=== PATIENT | female | born 1940 | race African-American/Black ===

== ENCOUNTER 2017-12-22 10:31 | Emergency (ER) | payer MEDICARE ==
[2017-12-22 10:54] VITALS: BP 153/90
--- NOTE | 2017-12-22 11:19 | UC ---
Lower Extremity/Ankle HPI - HPI Summary HPI Summary: Pt presents accompanied by her daughter complaining of left ankle pain and swelling since yesterday. She denies specific injury, but daughter tells me that she has dementia and wouldn't remember if she fell or injured herself anyway. She has not taken anything for the pain. She is able to ambulate without assistance. Denies numbness, tingling, or hx of injury at site. 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 Onset/Duration: Sudden Onset Severity Initially: Severe Severity Currently: Severe Pain Intensity: 10 Pain Scale Used: 0-10 Numeric - Allergies/Home Medications Allergies/Adverse Reactions: Allergies Allergy/AdvReac Type Severity Reaction Status Date / Time No Known Allergies Allergy Verified 12/22/17 10:49 Home Medications: Home Medications Pantoprazole TAB (NF) [Protonix TAB (NF)] 40 mg PO DAILY 12/22/17 [History Confirmed 12/22/17] Polyethylene Glycol 3350* [Miralax*] 1 gm PO DAILY 12/22/17 [History Confirmed 12/22/17] Rosuvastatin (NF) [Crestor (NF)] 1 tab PO DAILY 12/22/17 [History Confirmed ] Sucralfate TAB* [Carafate*] 1 tab PO TID PRN 12/22/17 [History Confirmed ] Verapamil HCl [Verapamil HCl ER] 360 mg PO DAILY 12/22/17 [History Confirmed ] PMH/Surg Hx/FS Hx/Imm Hx Endocrine History: Dyslipidemia Cardiovascular History: Cardiac Disease, Hypertension GI/ History: Gastroesophageal Reflux Psychological History: Anxiety, Other Other Psychological History: Dementia - Surgical History Surgical History: Yes Surgery Procedure, Year, and Place: left breast lumpectomy, tubal ligation, varicose vein stripping,. cardiac - leaky valve repair - Family History Known Family History: Positive: Unknown Negative: Cardiac Disease, Hypertension, Diabetes Family History: Denies FHx colon CA - Social History Occupation: Retired Lives: With Family Alcohol Use: None Substance Use Type: None Smoking Status (MU): Never Smoked Tobacco - Immunization History Most Recent Influenza Vaccination: Fall 2016 Review of Systems Constitutional: Negative Skin: Bruising - Left ankle Respiratory: Negative Cardiovascular: Negative Musculoskeletal: Edema - Left ankle, Other: - Pain left ankle All Other Systems Reviewed And Are Negative: Yes Physical Exam Triage Information Reviewed: Yes Appearance: Well-Appearing, No Pain Distress, Well-Nourished Vital Signs: Initial Vital Signs Temp 98.2 F 12/22/17 10:42 Pulse 70 12/22/17 10:42 Resp 16 12/22/17 10:42 BP 153/90 12/22/17 10:42 Pulse Ox 100 12/22/17 10:42 Vital Signs Reviewed: Yes Respiratory: Positive: Lungs clear, Normal breath sounds, No respiratory distress, No accessory muscle use Cardiovascular: Positive: Pulses Normal - DP and TP, Brisk Capillary Refill - Left ankle and foot Musculoskeletal: Positive: Strength Intact - Left ankle, ROM Intact - Left ankle , Edema @ - Left medial ankle mild, Other: - TTP to light touch overlying the soft tissue at medial left ankle. No increased laxity. Negative Dangelo's sign. Neurological: Positive: Alert, Other: - Sensations intact left ankle and foot Psychological: Positive: Age Appropriate Behavior Skin: Positive: Other - Mild erythema overlying the medial malleolus and surround soft tissue. No streaking, ecchymosis, or skin breakdown of left ankle.. Negative: rashes Lower Extremity Course/Dx - Course Course Of Treatment: Ankle XR: IMPRESSION: SOFT TISSUE SWELLING, NO FRACTURE IS SEEN. This is an uncommon place for gout, but her clinical presentation seems consistent. I suspect this is a gout flare vs soft tissue contusion/injury. I will treat her with a 7 day course of Prednisone and advise RICE therapy. - Differential Dx/Diagnosis Provider Diagnoses: Left ankle pain. Left ankle contusion Discharge - Discharge Plan Condition: Stable Disposition: HOME Prescriptions: predniSONE TAB* [Deltasone TAB*] 20 mg PO BID #14 tab Patient Education Materials: Gout (ED) Referrals: Miguel Angel Murphy MD [Primary Care Provider] - Additional Instructions: If you develop a fever, shortness of breath, chest pain, new or worsening symptoms - please call your PCP or go to the ED. Your blood pressure was high at todays visit. Please see your primary provider within 4 weeks for recheck and re-evaluation. 1) Rest, Elevate, and Ice your ankle as much as possible over the next 48 hours. 2) May take ibuprofen 400mg every 6 hours as needed for pain.
--- NOTE | 2017-12-22 11:28 | RAD ---
INDICATION: Left ankle injury. TECHNIQUE: 3 views of the left ankle were obtained. FINDINGS: There is diffuse soft tissue swelling which is most prominent along the medial aspect of the ankle. The bones are in normal alignment. No fracture is seen. Joint spaces appear maintained. IMPRESSION: SOFT TISSUE SWELLING, NO FRACTURE IS SEEN.
== END 2017-12-22 11:44 | disposition home or self-care (01) ==
LOC: UCEAST 10:31
DX: M25.572 Pain in left ankle and joints of left foot (principal); S90.02XA Contusion of left ankle, initial encounter; X58.XXXA Exposure to other specified factors, initial encounter; Y93.9 Activity, unspecified; Y92.9 Unspecified place or not applicable; R60.0 Localized edema; F03.90 Unspecified dementia, unspecified severity, without behavioral disturbance, psychotic disturbance, mood disturbance, and anxiety; E78.5 Hyperlipidemia, unspecified; I11.9 Hypertensive heart disease without heart failure; K21.9 Gastro-esophageal reflux disease without esophagitis; F41.9 Anxiety disorder, unspecified
CPT/HCPCS: 99212; G0463

== ENCOUNTER 2018-09-28 10:26 | Emergency (ER) | payer MEDICARE ==
[2018-09-28 10:41] VITALS: BP 111/71
--- NOTE | 2018-09-28 10:47 | UC ---
Lower Extremity/Ankle HPI - HPI Summary HPI Summary: Patient here with her son. States she was out grocery shopping two days ago. She went to return shopping cart and slipped on grass and fell and injured her left ankle. Since then it has been swollen, painful and difficulty ambulating. No presyncopal symptoms. No head injury or LOC. States she broke her left ankle over 15 years ago. Normally ambulates with a walker and wheelchair. Limited mobility at baseline. No other recent falls. PMHx; HTN, GERD. Meds: Reviewed - History of Current Complaint Chief Complaint: UCLowerExtremity Stated Complaint: FOOT INJURY Time Seen by Provider: 09/28/18 10:45 Pain Intensity: 10 - Allergies/Home Medications Allergies/Adverse Reactions: Allergies Allergy/AdvReac Type Severity Reaction Status Date / Time No Known Allergies Allergy Verified 08/11/18 16:56 PMH/Surg Hx/FS Hx/Imm Hx Previously Healthy: No Cardiovascular History: Hypertension GI/ History: Gastroesophageal Reflux - Surgical History Surgical History: Yes Surgery Procedure, Year, and Place: left breast lumpectomy, tubal ligation, varicose vein stripping,. cardiac - leaky valve repair - Family History Known Family History: Positive: Unknown Negative: Cardiac Disease, Hypertension, Diabetes Family History: Denies FHx colon CA - Social History Alcohol Use: None Substance Use Type: None Smoking Status (MU): Never Smoked Tobacco - Immunization History Most Recent Influenza Vaccination: Fall 2016 Review of Systems Constitutional: Negative Respiratory: Negative Cardiovascular: Negative All Other Systems Reviewed And Are Negative: Yes Physical Exam Triage Information Reviewed: Yes Appearance: Well-Appearing, No Pain Distress Vital Signs: Initial Vital Signs Temp 98.5 F 09/28/18 10:38 Pulse 52 09/28/18 10:38 Resp 16 09/28/18 10:38 BP 111/71 09/28/18 10:38 Pulse Ox 100 09/28/18 10:38 Vital Signs Reviewed: Yes Musculoskeletal Exam: Other - LEft ankle - edematous, significant swelling over medial malleolus, limited ROM due to pain. Extremity warm, +1 DPs Procedures - Splinting Left Lower Extremity Hand-Made Type: orthoglass Splint: posterior short leg and sugar tong Pre-Proc Neuro Vasc Exam: normal Post-Proc Neuro Vasc Exam: normal Diagnostics - Radiology Left ankle xray Radiology Interpretation Completed By: Radiologist Summary of Radiographic Findings: Distal fibula fracture Lower Extremity Course/Dx - Course Course Of Treatment: This is a 77 yr old with left ankle pain after a fall. Assessment. xray: Fibula fx. Plan. REmain nonweight bearing until seen by Orthopedics. Call Orthopedic Surgery for follow up and evaluation: [phone]. Rest, Keep leg evaluated. Can use ibuprofen 600-800 mg every 6 hours as needed for pain/swelling -take with food - Differential Dx/Diagnosis Provider Diagnoses: Left oblique slightly displaced fracture of distal fibula Discharge - Sign-Out/Discharge Documenting (check all that apply): Post-Discharge Follow Up All imaging exams completed and their final reports reviewed: Yes - Discharge Plan Condition: Good Disposition: HOME Patient Education Materials: Leg Fracture (ED) Referrals: Miguel Angel Murphy MD [Primary Care Provider] - Additional Instructions: Remain nonweight bearing until seen by Orthopedics Call Orthopedic Surgery for follow up and evaluation: [phone] for today or tomorrow Rest, Keep leg evaluated, rest Can use ibuprofen 600-800 mg every 6 hours as needed for pain/swelling -take with food - Billing Disposition and Condition Condition: GOOD Disposition: Home
--- NOTE | 2018-09-28 11:25 | RAD ---
HISTORY: fall r/o fracture COMPARISONS: December 22, 2017 VIEWS: 3 , Frontal, lateral, and oblique views of the left ankle FINDINGS: BONE DENSITY: There is diffuse osteopenia. BONES: There is an oblique, slightly displaced fracture of the distal fibula. JOINTS: There is no arthropathy. ALIGNMENT: There is no dislocation. SOFT TISSUES: Unremarkable. OTHER FINDINGS: None. IMPRESSION: OBLIQUE, SLIGHTLY DISPLACED FRACTURE OF THE DISTAL FIBULA.
== END 2018-09-28 12:03 | disposition home or self-care (01) ==
LOC: UCEAST 10:26
DX: S82.832A Other fracture of upper and lower end of left fibula, initial encounter for closed fracture (principal); W01.0XXA Fall on same level from slipping, tripping and stumbling without subsequent striking against object, initial encounter; Y92.9 Unspecified place or not applicable
CPT/HCPCS: 99211; G0463

== ENCOUNTER 2019-01-18 10:30 | Emergency (ER) | payer MEDICARE ==
--- OUTSIDE RECORDS SUMMARY | 2019-01-18 10:38 | XMS REPORT | Continuity of Care Document ---
:1940 External Reference #:[id number] Author Name Jasmin Gonzales Care Team Providers Name Role Phone Miguel Angel Murphy MD Primary Care Physician Unavailable Payers Type Date Identification Numbers Payment Provider Subscriber Policy Number: [id number] Medicare Yael Crespo PayID: [id number] [address] [place] [address] Effective: 2005 Policy Number: [id number] Medicare Yael Crespo Expires: 2018 PayID: [id number] [address] [place] [address] Policy Number: [id number] [facility] Yael Crespo PayID: [id number] [address] [place] [address] Advance Directives Description No Information Available Problems Date Description Provider Status Onset: 02/03/2012 Benign essential hypertension Rosalinda Jarrett M.D. Onset: 02/03/2012 Mitral valve disorder Rosalinda Jarrett M.D. Onset: 02/03/2012 Electrocardiogram abnormal Rosalinda Jarrett M.D. Onset: 02/03/2012 Tricuspid valve disorder, Brannon Frazier Active non-rheumatic Holly Onset: 02/03/2012 Hyperlipidemia Rosalinda Jarrett M.D. Onset: 05/28/2012 Syncope and collapse Yael Her N.P. Active Onset: 05/28/2012 Tachycardia Yael Her N.P. Active Onset: 07/29/2012 Amnesia Yael Her N.P. Active Onset: 07/29/2012 Depressive disorder Yael Her N.P. Active Onset: 11/10/2012 Dyspnea Brannon Frazier Active M.DCarla Onset: 08/26/2013 Malignant essential hypertension Brannon Frazier Active M.D. Onset: 04/12/2014 Rheumatic disease of tricuspid Brannon Frazier, Active valve M.D. Onset: 04/12/2014 Chest pain Brannon Frazier Active Holly Onset: 01/23/2015 Aortic aneurysm Brannon Frazier Active MMarilyn Onset: 11/18/2018 Displaced fracture of lateral Zanedave Tavares MD Active malleolus of left fibula, subsequent encounter for closed fracture with routine healing Family History Description No Information Available Social History Type Date Description Comments Sex Unknown Marital Status Lives With Assisted living Occupation Retired ETOH Use Denies alcohol use Tobacco Use Start: Unknown Patient has never smoked Recreational Drug Use Never Used Drugs Smoking Status Reviewed: 12/28/18 Patient has never smoked Exercise Type/Frequency Exercises regularly walks almost every day (( Patient does not walk as much d/t cast on left foot )) Allergies, Adverse Reactions, Alerts Description No Known Drug Allergies Medications Medication Date Status Form Strength Qnty SIG Indications Ordering Provider Verapamil HCL ER 01/23 Active Caps ER 300mg 90cap one by alban 24HR s mouth every S. day Holly Frazier Metoprolol Active Tablets 100mg 90tab 1 by mouth Qutaybeh Succinate ER / ER 24HR s every day SCarla Frazier M.D. Protonix Active Tablets 40mg 90tab [address] farooq every other S. day Holly Frazier Tylenol Active Tablets 325mg prn Unknown Simvastatin Active Tablets 10mg 1 po qd Richard, JOBY Rojas Aricept Active Tablets 5mg once daily Unknown Verapamil HCL ER 04/12 Hx Caps ER 240mg 30cap one by 24HR s mouth every S. - day Maghaydah 01/23 , M.D. /2014 Norvasc 08/26 Hx Tablets 10mg 30tab 1 po qd s S. - Maghaydah 08/26 , M.D. Verapamil HCL CR 08/26 Hx Tablets 180mg 30tab 1 po qd ER s S. - Maghaydah 04/12 , M.D. /2013 Verapamil HCL ER 07/29 Hx Tablets 120mg 30tab 1 pill by ER s mouth daily S. - Maghaydah 08/26 , M.D. /2012 Cozaar 01/08 Hx Tablets 25mg 30tab 1 po qd s S. - Maghaydah 02/02 , M.D. Lisinopril 07/12 Hx Tablets 10mg 30tab 1 po qd s S. - Maghaydah 01/08 , M.D. Cymbalta 11/02 Hx Caps 30mg 30cap takes 3 po Part s daily S. - Maghaydah 05/28 , M.D. Norvasc 03/20 Hx Tablets 10mg 90tab /2 pill by s mouth daily S. - Maghaydah 08/26 , M.D. Metoprolol 00 Hx Tablets 25mg 1 PO bid Unknown Succinate ER ER 24HR - 07/12 Hydrochlorothiazide Hx Tablets 25mg 30tab 1 PO qd Unknown s - 05/28 Protonix 00 Hx Tablets 20mg 30tab [address] farooq - 02/02 Calcium 00 Hx 1 PO qd Unknown - 02/02 Vitamin D 00 Hx 1 PO qd Unknown - 11/10 Metoprolol Tartrate Hx Tablets 25mg 180ta 1 po twice Unknown bs per day - 05/[address] 60mg 30cap 1 po qd Unknown /0000 Part s - 08/[address] 30mg 90cap 1 po qd Unknown /0000 Part s - 08/22 Zolpidem Tartrate Hx Tablets 10mg 30tab 1 tab po Unknown /0000 s qhs prn - 08/26 Sertraline HCL Hx Tablets 25mg Pt unsure Unknown /0000 of dose - from PCP of 08/02 sertraline Duloxetine HCL Hx Caps DR 30mg 1 po qd Darlow, /0000 Part Raymond Jackson MD 01/22 Zolpidem Tartrate Hx Tablets 5mg 1 po qhs Darlow, /0000 prn Raymond Jackson MD 11/08 Aspirin Hx Tablets 81mg 2 by mouth Unknown /0000 prn for - chest pain 11/[address] 30mg 2 by mouth Unknown /0000 Part every day - (only takes 10/09 y) Medications Administered in Office Medication Date Status Form Strength Qnty SIG Indications Ordering Provider Inj, 08/25/ Administered Injection Deo Hidalgo Regadenoson, 0.1 2013 MG Holly Gruber, FACC, FASNC Inj, 08/25/ Administered Injection Jasmin Regadenoson, 0.1 2013 BEN Ramachandran MG Aminophylline 08/25/ Administered Injection Deo Hidalgo 2013 Holly Gruber, FACCelso, FASOLI Aminophylline 08/25/ Administered Injection Jasmin 2013 BEN Ramachandran Technetium TC 08/25/ Administered Injection Deo Hidalgo 99M Tetrofosmin, 2013 Yasmani Per Unit Dose Up M.D., To 40 FACC, Millicuries FASNC Technetium TC 08/25/ Administered Injection Jasmin 99M Tetrofosmin, 2013 BEN Ramachandran Per Unit Dose Up To 40 Millicuries Immunizations Description No Information Available Vital Signs Date Vital Result Comment 12/28/2018 9:34am Height 65 inches 5'5" Weight 200.00 lb Heart Rate 72 /min Respiratory Rate 18 /min Body Temperature 98.9 F Pain Level 2 BMI (Body Mass Index) 33.3 kg/m2 12/03/2018 9:00am Height 65 inches 5'5" Weight 200.00 lb Heart Rate 68 /min BP Systolic 138 mmHg BP Diastolic 88 mmHg Respiratory Rate 16 /min Body Temperature 98.2 F Pain Level 0 BMI (Body Mass Index) 33.3 kg/m2 11/18/2018 9:19am Height 65 inches 5'5" Weight 205.00 lb BP Systolic 124 mmHg BP Diastolic 76 mmHg Respiratory Rate 16 /min Body Temperature 98.0 F Pain Level 5 BMI (Body Mass Index) 34.1 kg/m2 10/28/2018 11:23am Height 65 inches 5'5" Weight 205.00 lb Heart Rate 68 /min Respiratory Rate 16 /min Body Temperature 97.8 F Pain Level 9 BMI (Body Mass Index) 34.1 kg/m2 10/14/2018 10:10am Height 65 inches 5'5" Weight 205.00 lb BP Systolic 112 mmHg BP Diastolic 68 mmHg Respiratory Rate 20 /min Pain Level 5 BMI (Body Mass Index) 34.1 kg/m2 10/13/2018 3:48pm Height 65 inches 5'5" Weight 188.38 lb cast on left foot Heart Rate 58 /min BP Systolic Sitting 118 mmHg BP Diastolic Sitting 80 mmHg BMI (Body Mass Index) 31.3 kg/m2 09/30/2018 11:18am Height 65 inches 5'5" Weight 205.00 lb Heart Rate 60 /min BP Systolic Sitting 108 mmHg BP Diastolic Sitting 84 mmHg Pain Level 5 BMI (Body Mass Index) 34.1 kg/m2 12/02/2017 3:34pm Height 65 inches 5'5" Weight 194.50 lb with shoes Heart Rate 78 /min BP Systolic Sitting 104 mmHg LA reg cuff BP Diastolic Sitting 78 mmHg LA reg cuff BMI (Body Mass Index) 32.4 kg/m2 Ejection Fraction 50%-55% echo 07/10/16 02/03/2017 9:23am Height 65 inches 5'5" Weight 172.75 lb with shoes Heart Rate 66 /min BP Systolic Sitting 128 mmHg LA lrg cuff BP Diastolic Sitting 72 mmHg LA lrg cuff BMI (Body Mass Index) 28.7 kg/m2 Ejection Fraction 50% - 55% echo 07/10/16 05/23/2016 1:50pm Height 65 inches 5'5" Weight 182.00 lb w/shoes Heart Rate 60 /min BP Systolic Sitting 148 mmHg LA lg cuff BP Diastolic Sitting 88 mmHg LA lg cuff BMI (Body Mass Index) 30.3 kg/m2 Ejection Fraction 50-55% Echo 03/02/15 11/09/2015 1:58pm Height 65 inches 5'5" Weight 200.25 lb Heart Rate 82 /min BP Systolic Sitting 128 mmHg LA lg cuff BP Diastolic Sitting 78 mmHg LA lg cuff BMI (Body Mass Index) 33.3 kg/m2 Ejection Fraction 50-55% 03/14 echo 02/12/2015 3:02pm Height 65 inches 5'5" Weight 190.50 lb with coat and shoes Heart Rate 74 /min BP Systolic 132 mmHg LA reg BP Diastolic 84 mmHg LA reg BMI (Body Mass Index) 31.7 kg/m2 01/23/2015 3:01pm Heart Rate 70 /min BP Systolic 200 mmHg Ra lg cuff BP Diastolic 114 mmHg Ra lg cuff BP Systolic Sitting 172 mmHg Lg reg cuff BP Diastolic Sitting 110 mmHg Lg reg cuff 08/22/2014 9:03am Weight 183.50 lb w/shoes Heart Rate 68 /min BP Systolic Sitting 140 mmHg BP Diastolic Sitting 98 mmHg Respiratory Rate 14 /min 04/12/2014 3:21pm Weight 176.00 lb Heart Rate 84 /min BP Systolic Sitting 164 mmHg LA large cuff BP Diastolic Sitting 100 mmHg LA large cuff Respiratory Rate 16 /min 09/23/2013 1:38pm Height 66 inches 5'6" Heart Rate 72 /min BP Systolic 126 mmHg BP Diastolic 90 mmHg 08/26/2013 3:12pm Height 66 inches 5'6" Weight 201.00 lb Heart Rate 76 /min BP Systolic Sitting 168 mmHg BP Diastolic Sitting 100 mmHg Respiratory Rate 20 /min BMI (Body Mass Index) 32.4 kg/m2 11/10/2012 10:59am Height 66 inches 5'6" Weight 215.00 lb Heart Rate 74 /min BP Systolic 110 mmHg BP Diastolic 76 mmHg BMI (Body Mass Index) 34.7 kg/m2 07/29/2012 1:37pm Height 66 inches 5'6" Weight 210.00 lb Heart Rate 76 /min BP Systolic Sitting 112 mmHg BP Diastolic Sitting 78 mmHg BMI (Body Mass Index) 33.9 kg/m2 05/28/2012 2:48pm Height 66 inches 5'6" Weight 210.25 lb Heart Rate 100 /min BP Systolic Sitting 102 mmHg BP Diastolic Sitting 80 mmHg BMI (Body Mass Index) 33.9 kg/m2 02/03/2012 1:58pm Height 66 inches 5'6" Weight 215.00 lb Heart Rate 85 /min BP Systolic 116 mmHg BP Diastolic 72 mmHg BMI (Body Mass Index) 34.7 kg/m2 05/19/2011 2:33pm Height 66 inches 5'6" Weight 199.00 lb Heart Rate 80 /min BP Systolic Sitting 120 mmHg L BP Diastolic Sitting 82 mmHg L BMI (Body Mass Index) 32.1 kg/m2 09/02/2010 3:19pm Weight 209.00 lb Heart Rate 75 /min BP Systolic 124 mmHg BP Diastolic 82 mmHg Respiratory Rate 16 /min 01/08/2010 11:28am Weight 209.00 lb Heart Rate 77 /min BP Systolic Sitting 130 mmHg BP Diastolic Sitting 90 mmHg Respiratory Rate 18 /min 07/12/2009 10:43am Height 64 inches 5'4" Weight 197.00 lb Heart Rate 73 /min BP Systolic Sitting 112 mmHg L BP Diastolic Sitting 70 mmHg L BMI (Body Mass Index) 33.8 kg/m2 11/02/2008 10:54am Height 64 inches 5'4" Weight 190.00 lb Heart Rate 81 /min BP Systolic Sitting 110 mmHg L BP Diastolic Sitting 80 mmHg L BMI (Body Mass Index) 32.6 kg/m2 03/20/2008 3:13pm Height 64 inches 5'4" Weight 190.00 lb Heart Rate 76 /min reg BP Systolic Sitting 118 mmHg BP Diastolic Sitting 86 mmHg BMI (Body Mass Index) 32.6 kg/m2 Results Test Date Facility Test Result H/L Range Note Order 05/23/2016 [facility]-House EKG <pending> Basic Metabolic 08/08/2009 [facility] Sodium 141 mmol/L 135- 145 [address] [place] [address] [phone] Potassium 4.0 mmol/L 3.5-5.0 Chloride 102 mmol/L 101-111 Co2 (Carbon Dioxide) 30.0 mmol/L 22-32 Anion Gap 9.0 mmol/L 2-11 2 Glucose 88 mg/dL 70-100 3 BUN 12 mg/dL 6-24 Creatinine 0.90 mg/dL 0.50-1.40 One Over Creatinine 1.10 BUN/Creatinine Ratio 13.3 8-20 Calcium 9.7 mg/dL 8.1-9.9 4 eGFR Non- 66.2 > 60 eGFR 80.1 > 60 5 Cath Panel 03/07/2008 [facility] PTT (Aptt) 21.5 20.4-29.[address] [place] [address] [phone] CBC With 03/07/2008 [facility] White Blood 4.1 CUMM Low 4.8- 10.[address] [place] [address] [phone] Absolute Neutrophil Count 2.6 Anisocytosis SLIGHT Band Neutrophil 1 % 0-8 Hematocrit 37 % 35-47 Hemoglobin 12.7 g/dL 12.0-16.0 Eosenophil 2 % 0-6 Lymphocyte 28 % 5-47 Mean Corpuscular HGB Cone 34 g/dL 32-36 Mean Corpuscular Hemoglob 30 pg 27-31 Mean Corpuscular Volume 89 um3 79-97 Monocyte 6 % 0-13 Mean Platelet Volume 7.3 um3 Low 7.4-10.4 Platelet Count 282 CUMM 150-450 Polysegmented Neutrophil 63 % 38-83 Red Cell Count 4.18 CUMM Low 4.2-5.4 Redcell Distribution WDTH 14 % 10.5-15 Basic Metabolic 03/07/2008 [facility] One Over Creatinine 0.83 Panel [address] [place] [address] [phone] Anion Gap 4.0 mmol/L 2-11 7 BUN 14 mg/dL 6-24 Calcium 8.8 mg/dL 8.7-10.2 Chloride 108 mmol/L 101-111 Co2 (Carbon Dioxide) 28.0 mmol/L 22-32 Glucose 102 mg/dL 70-105 Potassium 3.9 mmol/L 3.5-5.0 Sodium 140 mmol/L 135-145 BUN/Creatinine Ratio 11.7 8-20 Creatinine 1.2 mg/dL 0.5-1.4 Protime 03/07/2008 [facility] Inr 0.87 [address] [place] [address] [phone] Protime 11.3 10.9-13.3 1 FASTING 2 Anion gap measurement may be of limited value in the presence of any alkalosis, especially in a combined acid base disorder. . 3 Note change in reference range as of 07/20/08. The change was based on recommendations from the [place] [employer]. 4 Please note change in reference range effective 08 . 5 Because ethnic data is not always readily available, this report includes an eGFR for both -Americans and non- Americans. The National Kidney Disease Education Program (NKDEP) does not endorse the use of the MDRD equation for patients that are not between the ages of 18 and 70, are , have extremes of body size, muscle mass, or nutritional status, or are non- or non-. According to the National Kidney Foundation, irrespective of diagnosis, the stage of the disease is based on the level of kidney function: Stage Description GFR(mL/min/1.73 m(2)) 1 Kidney damage with normal or decreased GFR 90 2 Kidney damage with mild decrease in GFR 60-89 3 Moderate decrease in GFR 30-59 4 Severe decrease in GFR 15-29 5 Kidney failure <15 (or dialysis) 6 PLEASE NOTE NEW REFERENCE RANGE EFFECTIVE 05 7 Anion gap measurement may be of limited value in the presence of any alkalosis, especially in a combined acid base disorder. . 8 DONNA VALUE=2.01 ( OF 11/05/07 Recommended INR for Patients on Oral Anticoagulants Prophylaxis 2.0 - 3.0 Treatment of thrombosis 2.0 - 3.0 Prevention of embolism 2.0 - 3.0 Prevention of embolism from prosthetic heart valves 2.5 - 3.5 Procedures Date Code Description Status 11/18/2018 06084 Short Leg Cast Completed 10/28/2018 26797 Short Leg Cast Completed 10/14/2018 05090 Short Leg Cast Completed 10/13/2018 04086 EKG Tracing & Interpretation Completed 09/30/2018 41433 Short Leg Cast Completed 12/15/2017 72126 ECHO Transthoracic, Real-Time 2D With Doppler And Color Completed Flow 12/15/2017 03030 ECHO Transthoracic, Real-Time 2D With Doppler And Color Completed Flow 12/02/2017 36515 EKG Tracing & Interpretation Completed 02/03/2017 74623 EKG Tracing & Interpretation Completed 11/18/2016 57236 EKG, Interpretation Only Completed 11/17/2016 22669 EKG, Interpretation Only Completed 07/10/2016 97217 ECHO Transthoracic, Real-Time 2D With Doppler And Color Completed Flow 05/23/2016 12519 EKG Tracing & Interpretation Completed 11/09/2015 23258 EKG Tracing & Interpretation Completed 10/31/2015 [id number] Mammogram Completed 03/02/2015 20917 ECHO Transthoracic, Real-Time 2D With Doppler And Color Completed Flow 01/23/2015 06882 EKG Tracing & Interpretation Completed 08/25/2014 25597 Myocardial Perfusion Imaging Tomographic (Spect) Completed Multiple Studies 08/25/2014 00722 Stress Test Completed 08/25/2014 47360 Myocardial Perfusion Imaging Tomographic (Spect) Completed Multiple Studies 08/22/2014 67406 EKG Tracing & Interpretation Completed 04/28/2014 53977 ECHO Transthoracic, Real-Time 2D With Doppler And Color Completed Flow 04/12/2014 69061 EKG Tracing & Interpretation Completed 08/26/2013 86787 EKG Tracing & Interpretation Completed 07/12/2013 84136 ECHO Transthoracic, Real-Time 2D With Doppler And Color Completed Flow 11/10/2012 48362 EKG Tracing & Interpretation Completed 06/17/2012 65253 EEG Recording Awake & Drowsy Completed 05/27/2012 88342 ECHO Transthoracic, Real-Time 2D With Doppler And Color Completed Flow 05/18/2012 39312 Holter Monitoring 24 HR New Completed 02/20/2012 98865 ECHO Transthoracic, Real-Time 2D With Doppler And Color Completed Flow 02/03/2012 34469 EKG Tracing & Interpretation Completed 05/19/2011 86283 EKG Tracing & Interpretation Completed 09/02/2010 34104 EKG Tracing & Interpretation Completed 07/31/2010 20348 ECHO Transthoracic, Real-Time 2D With Doppler And Color Completed Flow 01/08/2010 52420 EKG Tracing & Interpretation Completed 11/01/2009 05214 ECHO Transthoracic, Real-Time 2D With Doppler And Color Completed Flow 07/12/2009 06997 EKG Tracing & Interpretation Completed 11/02/2008 75251 EKG Tracing & Interpretation Completed 11/02/2008 05779 EKG Tracing & Interpretation Completed 10/12/2008 64134 Pulse Doppler & Continuous Wave Completed 10/12/2008 82659 Echocardiogram Completed 10/12/2008 88142 Echocardiogram Completed 10/12/2008 98160 Color Doppler Completed 10/12/2008 80566 Color Doppler Completed 03/15/2008 94532 Selective Coronary Angioplasty Completed 03/15/2008 43365 Selective Coronary Angioplasty Completed 03/15/2008 67957 S/I/R Inj Proc Vent And Or Atrial Completed 03/15/2008 77883 Coronary Angiography Completed 03/15/2008 87382 Coronary Angiography Completed 03/15/2008 97963 Inj Proc LFT Vent/LFT Atrl Angio Completed 03/15/2008 67648 Left Heart Catheterization Completed 03/15/2008 55072 Left Heart Catheterization Completed 03/02/2008 36026 Color Doppler Completed 03/02/2008 67044 Color Doppler Completed 03/02/2008 33951 Pulse Doppler & Continuous Wave Completed 03/02/2008 36771 Pulse Doppler & Continuous Wave Completed 03/02/2008 33757 Echocardiogram Completed 02/25/2008 49956 ECHO/Stress Completed 02/25/2008 09777 ECHO/Stress Completed 02/25/2008 07510 ECHO/Stress Completed 02/25/2008 37109 Stress Test Completed 02/25/2008 63894 Stress Test Completed Encounters Type Date Location Provider Dx Diagnosis Office Visit 12/03/2018 Karthik Tavares, S82.62xD Disp fx of lateral 8:30a [facility], 7thD Office Visit 11/18/2018 Karthik Tavares S82.62xD Disp fx of lateral 9:15a [facility]la rosario, 7thD Office Visit 10/14/2018 Karthik Tavares S82.62xD Disp fx of lateral 10:30a [facility], 7thD Office Visit 10/13/2018 Monica Rodríguez I10 Essential ( primary) 3:40p Holly Frazier hypertension I34.0 Nonrheumatic mitral (valve) insufficiency R94.31 Abnormal electrocardiogram [ECG] [EKG] I27.20 Pulmonary hypertension, unspecified I36.1 Nonrheumatic tricuspid (valve) insufficiency I71.2 Thoracic aortic aneurysm, without rupture Office Visit 09/30/2018 Karthik Tavares S82.62xA Disp fx of 11:00a Services [facility] alma LoaizaMCarlaACarla of left fibula, init Office Visit 12/02/2017 Monica Rodríguez I71.9 Aortic aneurysm 3:40p Cardiology Freddie, of unspecified M.DCarla site, without rupture I34.0 Nonrheumatic mitral (valve) insufficiency I36.1 Nonrheumatic tricuspid (valve) insufficiency I10 Essential (primary) hypertension E78.4 Other hyperlipidemia R06.02 Shortness of breath R94.31 Abnormal electrocardiogram [ECG] [EKG] Office Visit 02/03/2017 [facility] Qutaybeh S. I34.0 Nonrheumatic mitral 10:00a Cory Frazier M.D. 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 I34.0 Nonrheumatic mitral 2:00p Cory Frazier M.D. (valve) insufficiency I71.9 Aortic aneurysm of unspecified site, without rupture I36.1 Nonrheumatic tricuspid (valve) insufficiency E78.4 Other hyperlipidemia I10 Essential (primary) hypertension R06.02 Shortness of breath Office Visit 11/09/2015 [facility] Qusuleimaneh S. I34.0 Nonrheumatic mitral 2:00p Cory Frazier M.D. (valve) insufficiency I10 Essential (primary) hypertension I71.9 Aortic aneurysm of unspecified site, without rupture Office Visit 02/12/2015 2:30p [facility] Jasmin Ramachandran, 401.0 Hypertension PA Malignant 441.9 Aneurysm Aortic W/O Rupture Unspec Site 424.0 Mitral Valve Disorder 397.0 Tricuspid Valve Disease Office Visit 01/23/2015 3:00p [facility] Brannon S. 786.50 Pain Chest Holly Frazier Unspec 401.0 Hypertension Malignant 424.0 Mitral Valve Disorder 397.0 Tricuspid Valve Disease 441.9 Aneurysm Aortic W/O Rupture Unspec Site Office Visit 08/22/2014 9:00a [facility] Jasmin Ramachandran, 401.0 Hypertension PA Malignant 424.0 Mitral Valve Disorder 397.0 Tricuspid Valve Disease 794.31 Electrocardiogram (ECG) (EKG) Abnormal 786.50 Pain Chest Unspec Office Visit 04/12/2014 [facility] Brannon S. 401.0 Hypertension 3:20p Cardiology Holly Frazier Malignant 272.4 Hyperlipidemia Other Unspec 786.05 Shortness Of Breath 424.0 Mitral Valve Disorder 397.0 Tricuspid Valve Disease 785.0 Tachycardia Unspec 786.50 Pain Chest Unspec Office Visit 09/23/2013 1:30p [facility] Nurse Visit cc 401.1 Hypertension Benign Office Visit 08/26/2013 3:00p [facility] Brannon S. 424.0 Mitral Valve Maghaydah, Diana M.DCarla 401.1 Hypertension Benign 272.4 Hyperlipidemia Other Unspec 786.05 Shortness Of Breath 424.2 Tricuspid Valve Disorder Spec as Nonrheumatic 401.0 Hypertension Malignant Office Visit 11/10/2012 [facility] Brannon S. 401.1 Hypertension 11:00a Cory Frazier M.D. Benign 272.4 Hyperlipidemia Other Unspec 424.0 Mitral Valve Disorder 786.05 Shortness Of Breath Office Visit 07/29/2012 1:30p [facility] Yael Her, 785.0 Tachycardia Cardiology N.P. Unspec 401.1 Hypertension Benign 780.93 Memory Loss 311 Depressive Disorder Not Elsewhere Spec Office Visit 05/28/2012 3:00p [facility] Yael Her, 780.2 Syncope & N.P. Collapse 785.0 Tachycardia Unspec 401.1 Hypertension Benign 272.4 Hyperlipidemia Other Unspec Office Visit 02/03/2012 [facility] Brannon S. 401.1 Hypertension 2:20p Cardiology Holly Frazier Benign 424.0 Mitral Valve Disorder 794.31 Electrocardiogram (ECG) (EKG) Abnormal 424.2 Tricuspid Valve Disorder Spec as Nonrheumatic 272.4 Hyperlipidemia Other Unspec 278.01 Obesity Morbid Office Visit 05/19/2011 [facility] Brannon S. 401.1 Hypertension 3:00p Cory Frazier M.D. Benign 424.0 Mitral Valve Disorder 794.31 Electrocardiogram (ECG) (EKG) Abnormal Office Visit 09/02/2010 [facility] Qudorotaybeh S. 401.1 Hypertension 3:00p Cory Frazier M.D. Benign 424.0 Mitral Valve Disorder Office Visit 01/08/2010 [facility] Qutaybeh S. 401.1 Hypertension 11:00a Cory Frazier M.D. Benign 424.0 Mitral Valve Disorder 424.2 Tricuspid Valve Disorder Spec as Nonrheumatic Office 07/12/2009 [facility] Qutaybeh S. 794.31 Electrocardiogram Visit 10:40a Cory Frazier M.D. (ECG) (EKG) Abnormal 401.1 Hypertension Benign 424.0 Mitral Valve Disorder 428.32 Diastolic Heart Failure Chronic 272.4 Hyperlipidemia Other Unspec Office Visit 11/02/2008 11:00a [facility] Gopaltaybthang S. 424.0 Mitral Valve Holly Frazier Disorder 272.4 Hyperlipidemia Other Unspec 794.31 Electrocardiogram (ECG) (EKG) Abnormal 401.1 Hypertension Benign 424.2 Tricuspid Valve Disorder Spec as Nonrheumatic Office Visit 03/20/2008 3:20p [facility] Qutaybeh S. 786.50 Pain Chester Frazier M.D. Unspec 401.1 Hypertension Benign 272.4 Hyperlipidemia Other Unspec 424.0 Mitral Valve Disorder Office Visit 03/15/2008 12:00p [facility] Qutaybeh S. 786.50 Pain Chester Frazier M.D. Unspec 794.30 Cardiovascular Function Study Unspec Abnormal 401.1 Hypertension Benign 424.2 Tricuspid Valve Disorder Spec as Nonrheumatic Office Visit 02/25/2008 1:30p [facility] Qutaybeh S. 786.50 Pain Chest Holly Frazier Unspec 401.1 Hypertension Benign 272.4 Hyperlipidemia Other Unspec 794.31 Electrocardiogram (ECG) (EKG) Abnormal Plan of Treatment Future Appointment(s):02/03/2019 9:45 am - Zahraa [facility]res [facility]05/12/2019 10:30 am - Abdullahi Merida M.D. at [facility]12/28/2018 - Zahraa Tavares [id number] Displaced fracture of lateral malleolus of left fibula, subsNew Therapy:Physical TherapyFollow up:Follow up: 1 months
[2019-01-18 10:47] VITALS: BP 134/80
--- NOTE | 2019-01-18 11:36 | UC ---
Hip/Pelvis Pain - HPI Summary HPI Summary: Had a cast on left lower extremity for an ankle fracture removed 3 weeks ago. Since then has had progressive pain in bilateral hips left worse than right. Patient has baseline dementia and so history is obtained mostly from her daughter. The daughter reports that she is concerned she has been compensating for her injury by adjusting her gait and has now developed hip pain because of this. There has been no fall or discrete injury of which she is aware. - History Of Current Complaint Chief Complaint: UCLowerExtremity Stated Complaint: HIP PAIN Time Seen by Provider: 01/18/19 10:40 Hx Obtained From: Patient, Family/Mediation Commissioner - daughter Onset/Duration: Gradual Onset, Lasting Weeks, Still Present Timing: Constant Severity Initially: Moderate Severity Currently: Moderate Pain Intensity: 10 Pain Scale Used: 0-10 Numeric Character Of Pain: Sharp Aggravating Factor(s): Movement, Weight Bearing Alleviating Factor(s): Rest Associated Signs And Symptoms: Negative: Swelling, Redness, Bruising, Fever, Weakness, Knee Pain - Allergies/Home Medications Allergies/Adverse Reactions: Allergies Allergy/AdvReac Type Severity Reaction Status Date / Time No Known Allergies Allergy Verified 01/18/19 10:48 Home Medications: Home Medications Magnesium CITRATE* [Citrate of Magnesia*] 300 ml PO SEE INSTRUCTIONS PRN [History Confirmed 01/18/19] Memantine XR * [Namenda XR *] 7 mg PO DAILY 01/18/19 [History Confirmed 01/18/19 ] PMH/Surg Hx/FS Hx/Imm Hx Cardiovascular History: Cardiac Disease - STENT, Hypertension Other Neurological History: DEMENTIA - Surgical History Surgical History: Yes Surgery Procedure, Year, and Place: left breast lumpectomy, tubal ligation, varicose vein stripping,. cardiac - leaky valve repair - Family History Known Family History: Negative: Cardiac Disease, Hypertension, Diabetes Family History: Denies FHx colon CA - Social History Alcohol Use: None Substance Use Type: None Smoking Status (MU): Never Smoked Tobacco - Immunization History Most Recent Influenza Vaccination: Fall 2016 Review of Systems All Other Systems Reviewed And Are Negative: Yes Constitutional: Positive: Negative Skin: Positive: Negative Respiratory: Positive: Negative Cardiovascular: Positive: Negative Gastrointestinal: Positive: Negative Musculoskeletal: Positive: Arthralgia, Decreased ROM Physical Exam Triage Information Reviewed: Yes Appearance: Well-Appearing, No Pain Distress, Well-Nourished Vital Signs: Initial Vital Signs Temp 98.6 F 01/18/19 10:42 Pulse 53 01/18/19 10:42 Resp 16 01/18/19 10:42 BP 134/80 01/18/19 10:42 Pulse Ox 100 01/18/19 10:42 Vital Signs Reviewed: Yes Eyes: Positive: Conjunctiva Clear ENT: Positive: Hearing grossly normal Neck: Positive: Supple Respiratory: Positive: No respiratory distress, No accessory muscle use Cardiovascular: Positive: Pulses Normal Abdomen Description: Positive: Soft Musculoskeletal: Positive: No Edema, ROM Limited @ - LEFT HIP, Other: - TTP LEFT POSTERIOR HIP Neurological: Positive: Alert Psychological: Positive: Normal Response To Family, Age Appropriate Behavior Skin: Negative: Rashes Diagnostics - Radiology BILATERAL HIP XRAYS Radiology Interpretation Completed By: Radiologist Summary of Radiographic Findings: MILD BILATERAL OSTEOARTHRITIC CHANGE IN THE HIPS. Hip Injury Course/Dx - Course Course Of Treatment: XRAYS SHOW MILD OSTEOARTHRITIS OF THE HIPS. PT LIKELY IS SUFFERING FROM A FLARE OF THIS CONDITION DUE TO RECENT ANKLE INJURY AND CHANGE IN GAIT. HAS A REFERRAL FOR PHYSICAL THERAPY FROM [facility]. ADVISED TO SCHEDULE AN APPT AND FOLLOW-UP WITH [facility]. - Differential Dx/Diagnosis Provider Diagnosis: Osteoarthritis of hips, bilateral Discharge - Sign-Out/Discharge Documenting (check all that apply): Patient Departure All imaging exams completed and their final reports reviewed: Yes - Discharge Plan Condition: Stable Disposition: HOME Patient Education Materials: Osteoarthritis (ED), Hip Pain (ED) Referrals: Miguel Angel Murphy MD [Primary Care Provider] - If Needed Zahraa Tavares MD [Medical Doctor] - 2 Weeks Additional Instructions: X-RAYS OF YOUR HIPS TODAY SHOW MILD OSTEOARTHRITIC CHANGES. YOUR DISCOMFORT IS LIKELY DUE TO ADJUSTMENT OF YOUR GAIT DUE TO YOUR RECENT ANKLE INJURY. THIS MAY HAVE IRRITATED YOUR UNDERLYING OSTEOARTHRITIS. REST, STRETCH, SLOW RANGE OF MOTION EXERCISES TO PREVENT FURTHER STIFFENING UP AND MAKING THE DISCOMFORT WORSE. USE HEAT AND [id number] PAIN MEDICATIONS. FOLLOW-UP WITH ORTHOPEDICS IN THE NEXT COUPLE OF WEEKS FOR REEVALUATION. CALL PHYSICAL THERAPY ADVISED TO SCHEDULE AN APPOINTMENT. USE YOUR WALKER AT HOME TO ASSIST WITH MOBILITY. - Billing Disposition and Condition Condition: STABLE Disposition: Home
== END 2019-01-18 12:10 | disposition home or self-care (01) ==
LOC: UCEAST 10:30
DX: M16.0 Bilateral primary osteoarthritis of hip (principal); I10 Essential (primary) hypertension
CPT/HCPCS: 73523; 99211; G0463

== ENCOUNTER 2019-03-18 13:09 | Inpatient (IN) | payer MEDICARE ==
--- NOTE | 2019-03-18 13:27 | ED ---
HPI Chest Pain - HPI Summary HPI Summary: Pt is a 78 y/o F presenting to the ED brought in by EMS from [facility] for chest pain onset about one week ago described as pressure. She was sent from [facility] due to EKG changes, and she currently reports CP that radiates to her back, and SOB, as well as increased bilateral LE edema. - History of Current Complaint Chief Complaint: EDShortnessOfBreath Time Seen by Provider: 03/18/19 13:16 Hx Obtained From: Patient Onset/Duration: Started Weeks Ago, Still Present Timing: Constant, Lasting Days Initial Severity: Moderate Current Severity: Severe Pain Intensity: 10 Pain Scale Used: 0-10 Numeric Chest Pain Location: Diffuse Chest Pain Radiates: Yes Chest Pain Radiates To:: Back Character: Pressure/Squeezing Aggravating Factor(s): Nothing Alleviating Factor(s): Nothing Associated Signs and Symptoms: Positive: Chest Pain, Shortness of Breath, Back Pain, Calf Pain/Swelling - Additional Pertinent History Primary Care Physician: HUMZA - Allergy/Home Medications Allergies/Adverse Reactions: Allergies Allergy/AdvReac Type Severity Reaction Status Date / Time No Known Allergies Allergy Verified 01/18/19 10:48 Home Medications: Home Medications Indomethacin CAP* [Indocin CAP*] 25 mg PO BID 03/18/19 [History Confirmed ] Polyethylene Glycol 3350* [Miralax*] 17 gm PO DAILY 03/18/19 [History Confirmed 03/18/19] Verapamil SR CAP* [Calan Sr CAP*] 360 mg PO DAILY 03/18/19 [History Confirmed ] PMH/Surg Hx/FS Hx/Imm Hx Previously Healthy: No Endocrine/Hematology History: Reports: Other Endocrine/Hematological Disorders - thyroid nodule Denies: Hx Diabetes, Hx Anemia Cardiovascular History: Reports: Hx Hypertension - on meds, Other Cardiovascular Problems/Disorders - valve repair Denies: Hx Hypercholesterolemia, Hx Pacemaker/ICD Respiratory History: Denies: Hx Chronic Obstructive Pulmonary Disease (COPD) GI History: Reports: Hx Diverticulosis, Hx Gastroesophageal Reflux Disease, Hx Ulcer Denies: Hx Jaundice History: Denies: Hx Renal Disease Sensory History: Denies: Hx Hearing Aid Neurological History: Reports: Hx Dementia, Hx Headaches, Other Neuro Impairments/Disorders - repeated head injuries Denies: Hx CVA Psychiatric History: Denies: Hx Panic Disorder - Surgical History Surgery Procedure, Year, and Place: left breast lumpectomy, tubal ligation, varicose vein stripping,. cardiac - leaky valve repair Hx Anesthesia Reactions: No - Immunization History Date of Tetanus Vaccine: up to date Date of Influenza Vaccine: 2016 Infectious Disease History: No Infectious Disease History: Reports: Hx Shingles - at age 14 Denies: History Other Infectious Disease, Traveled Outside the [place] in Last 30 Days - Family History Known Family History: Negative: Cardiac Disease, Hypertension, Diabetes Family History: Denies FHx colon CA - Social History Alcohol Use: None Hx Substance Use: No Substance Use Type: Reports: None Hx Tobacco Use: No Smoking Status (MU): Never Smoked Tobacco Review of Systems Positive: Chest Pain - radiates to back Positive: Shortness Of Breath Positive: Edema All Other Systems Reviewed And Are Negative: Yes Physical Exam - Summary Physical Exam Summary: Appearance: The patient is well-nourished in no acute distress and in no acute pain. Skin: The skin is warm and dry and skin color reflects adequate perfusion. HEENT: The head is normocephalic and atraumatic. The pupils are equal and reactive. The conjunctivae are clear and without drainage. Nares are patent and without drainage. Mouth reveals moist mucous membranes and the throat is without erythema and exudate. The external ears are intact. The ear canals are patent and without drainage. The tympanic membranes are intact. Neck: The neck is supple with full range of motion and non-tender. There are no carotid bruits. There is no neck vein distension. Respiratory: Chest is non-tender. Crackles [address] in both lungs, and breath sounds are symmetrical and equal. Cardiovascular: Heart is bradycardic with regular rhythm. There is no murmur or rub auscultated. There is no peripheral edema and pulses are symmetrical and equal. Abdomen: The abdomen is soft and non-tender. There are normal bowel sounds heard in all four quadrants and there is no organomegaly palpated. Musculoskeletal: There is no back tenderness noted. Extremities are non-tender with full range of motion. There is good capillary refill. There is peripheral edema but no calf tenderness elicited. Neurological: Patient is alert and oriented to person, place and time. The patient has symmetrical motor strength in all four extremities. Cranial nerves are grossly intact. Deep tendon reflexes are symmetrical and equal in all four extremities. Psychiatric: The patient has an appropriate affect and does not exhibit any anxiety or depression. Triage Information Reviewed: Yes Vital Signs On Initial Exam: Initial Vitals Temp Pulse Resp BP Pulse Ox 98.1 F 52 18 109/64 95 03/18/19 13:11 03/18/19 13:11 03/18/19 13:11 03/18/19 13:11 03/18/19 13:11 Vital Signs Reviewed: Yes Diagnostics - Vital Signs Vital Signs Temp Pulse Resp BP Pulse Ox 03/18/19 13:11 98.1 F 52 18 109/64 95 - Laboratory Result Diagrams: 03/18/19 13:30 03/18/19 13:30 Lab Statement: Any lab studies that have been ordered have been reviewed, and results considered in the medical decision making process. - Radiology CXR Radiology Interpretation Completed By: Radiologist Summary of Radiographic Findings: Cardiomegaly. Pulmonary interstitial edema. ED physician has reviewed this report. - EKG 1313 Cardiac Rate: Bradycardia - 52bpm - Narrow complex bradycardia EKG Rhythm: Sinus Bradycardia - Narrow complex bradycardia ST Segment: Normal Ectopy: None Summary of EKG Findings: Narrow complex bradycardia with no clear P waves. Chest Pain Course/Dx - Course Course Of Treatment: Ms. Crespo presented to the emergency department complaining of a couple days of chest pain radiating into her back accompanied by some shortness of breath and increased leg swelling. She was nontoxic in appearance and her vitals are stable aside from some mild bradycardia. EKG looked like a junctional rhythm without acute ischemic changes. She had bilateral crackles a third to half of the way up in her lungs. Her troponin returned negative but her BNP was quite elevated and chest x-ray confirms CHF. She was given Lasix and the hospitalist service was contacted for admission. - Diagnoses Provider Diagnoses: CHF (congestive heart failure) Discharge - Sign-Out/Discharge Documenting (check all that apply): Patient Departure - Discharge Plan Condition: Stable Disposition: ADMITTED TO [facility] - Billing Disposition and Condition Condition: STABLE Disposition: Admitted to [facility] - Attestation Statements Document Initiated by Scribe: Yes Documenting Scribe: Lila Fontenot Provider For Whom Scribe is Documenting (Include Credential): Magdaleno Alcantara MD. Scribe Attestation: Lila Moreno, scribed for Magdaleno Alcantara MD. on 03/18/19 at 1841. Scribe Documentation Reviewed: Yes Provider Attestation: The documentation as recorded by the scribe, Lila Fontenot accurately reflects the service I personally performed and the decisions made by me, Magdaleno Alcantara MD. Status of Scribe Document: Viewed Consult Consult: [id number] - Dr. Jauregui will be admitting the pt with a dx of CHF.
--- OUTSIDE RECORDS SUMMARY | 2019-03-18 13:44 | XMS REPORT | Continuity of Care Document ---
:1940 External Reference #:[id number] Author Name Rasheed Monahan MD Address [address] [facility] [place] [address] Care Team Providers Name Role Phone Miguel Angel Murphy MD Care Team Information Jacquard Loom Fixer Unavailable Miguel Angel Murphy MD Primary Care Physician Unavailable Payers Date Identification Numbers Payment Provider Subscriber Effective: 2005 Policy Number: [id number] [employer] [place] Yael Cottrellrd PayID: [id number] [address] [facility] [place] [facility] [place] [address] Effective: 2005 Policy Number: [id number] [facility] Yael Dominguez PayID: [id number] [address] [place] [address] Advance Directives Description No Information Available Problems Active Problems Provider Date Essential hypertension Miguel Angel Murphy M.D. Onset: 01/03/2008 Gastroesophageal reflux disease Miguel Angel Murphy M.D. Onset: 01/03/2008 Diaphragmatic hernia Miguel Angel Murphy M.D. Onset: 01/03/2008 Malaise and fatigue Miguel Angel Murphy M.D. Onset: 01/10/2008 Constipation Miguel Angel Murphy M.D. Onset: 01/10/2008 Anxiety state Miguel Angel Murphy M.D. Onset: 01/26/2008 Toxic multinodular goiter with thyrotoxic Miguel Angel Murphy M.D. Onset: 2007 crisis Syncope and collapse Miguel Angel Murphy M.D. Onset: 05/17/2012 Mitral valve disorder Miguel Angel Murphy M.D. Onset: 12/01/2012 Hyperlipidemia Miguel Angel Murphy M.D. Onset: 12/01/2012 Major depressive disorder, single episode, Miguel Angel Murphy M.D. Onset: 11/25 unspecified Mixed hyperlipidemia Miguel Angel Murphy M.D. Onset: 05/19/2018 Family History Date Family Member(s) Observation Comments Father Diabetes Mellitus, II Father Heart Disease Social History Type Date Description Comments Sex Unknown Living Situation Lives in an adult living facility - [facility] Tobacco Use Start: Unknown Nonsmoker Tobacco Use Start: Unknown Patient has never smoked Allergies, Adverse Reactions, Alerts Active Allergies Reaction Severity Comments Date Cozaar couldn't tolerate 05/06/2010 Medications Active Medications SIG Qnty Indications Ordering Date Provider Pantoprazole Sodium Take 1 Tablet By 30tabs K21.9 Miguel Angel Murphy, 2018 Mouth Every Day M.D. 40mg Tablets Sucralfate Take 1 Tablet By 120tabs Miguel Angel Murphy, 02/02/2019 1gm Tablets Mouth Before M.D. Meals Memantine HCL ER Take 1 Capsule By 90caps F03.91 Miguel Angel Murphy, 2018 7mg Mouth Every Day M.D. Caps ER 24HR Magnesium Citrate Give 1/2 of 296ml Daly C. 11/18/2018 bottle as one JOBY Jasmine 1.745GM/30ML Solution dose. If no bowel movement after 12 hours, give other half. Rosuvastatin Calcium Take 1 Tablet By 90tabs Miguel Angel Murphy, 05/21/2018 Mouth Every Day M.D. 10mg Tablets Indomethacin 1 by mouth 180caps M10.9 Miguel Angel Murphy, 01/11/2018 25mg morning and night M.D. Capsules Duloxetine HCL Take 1 Capsule By 30caps Rasheed Angelo 12/03/2016 60mg Mouth Every Day Holly Parker Caps Part Verapamil HCL ER Take 1 Capsule By 90caps Miguel Angel Murphy, 02/12/2016 360mg Mouth Every Day M.D. Caps ER 24HR Maximum Daily Dose Of 1 Per Day Aspirin Chew 1 Tablet By 90units Miguel Angel Murphy, 81mg Chewtabs Mouth Every Day M.DCarla Metoprolol Succinate Take 1 Tablet By 90tabs Miguel Angel Murphy, ER Mouth Every Day M.DCarla 100mg Tablets ER 24HR Amlodipine Besylate Take 1 Tablet By 90tabs Arlette Ortiz Mouth Every Day Holly Vargas 10mg Tablets Miralax 1 capful a day Unknown [id number] Powder History Medications Carafate take 1 tablet twice 120tabs Miguel Angel Otoole 07/21/2018 - 1gm daily before meals Holly Murphy 02/02/2019 Tablets Namenda XR 1 by mouth once a 90caps F03.91 Miguel Angel Otoole 05/19/2018 - 7mg Caps day Holly Murphy 01/06/2019 ER 24HR Melatonin 1 po qhs 30tabs Miguel Angel Otoole 08/04/2017 - 5mg Holly Murphy 05/21/2018 Tablets Duloxetine HCL 1 by mouth every 30caps Surjit FCarla 12/03/2016 - 30mg day Holly Herrera 05/21/[address] Smith Simvastatin take 1 tablet by 90tabs Miguel Angel Otoole 11/25/2016 - 20mg mouth at bedtime Holly Murphy 11/25/2016 Tablets Rosuvastatin take 1 tablet by 90tabs Miguel Angel Otoole 11/25/2016 - Calcium mouth every day Holly Murphy 05/21/2018 5mg Tablets Carafate Take 2 Teaspoonfuls 600units Miguel Angel Otoole 09/12/2016 - 1GM/10ML (10 ML) By Mouth Holly Murphy 07/20/2018 Suspension Prior To Meals Aricept Take 1 Tablet By 90tabs R41.3 Miguel Angel Otoole 03/06/2016 - 10mg Mouth Every Day Holly Murphy 05/19/2018 Tablets Sulfamethoxazole/Tr 1 by mouth twice a 6tabs Miguel Angel Otoole 02/18/2016 - imethoprim DS day Holly Murphy 02/21/2016 800-160mg Tablets Wellbutrin XL Take 1 Tablet By 30tabs F41.9 Rasheed Angelo 02/08/2016 - 150mg Mouth Every Morning Breiman, M.D. 11/04/2017 Tablets ER 24HR Zolpidem Tartrate 1 by mouth at 30tabs 300.00 Miguel Angel Otoole 08/08/2015 - bedtime Holly Murphy 10/22/2015 5mg Tablets 780.52 Aricept 2 by mouth every 180tabs R41.3 [place] 06/14/2015 - 5mg Tablets day [facility] 03/06/2016 Escitalopram 1 by mouth every 30tabs 311 Miguel Angel Murphy, 05/22/2015 - Oxalate day M.D. 06/14/2015 10mg Tablets Verapamil HCL ER take one capsule 30caps Miguel Angel Murphy, 05/01/2015 - by mouth once a M.D. 02/12/2016 300mg Caps ER 24HR day Escitalopram take 1 tablet by 30tabs 311 Crystal Adame, 05/01/2015 - Oxalate mouth at bedtime Afnp-C 05/22/2015 5mg Tablets Verapamil HCL ER take one capsule 30caps Miguel Angel Murphy, 12/28/2014 - by mouth one time M.D. 05/01/2015 240mg Caps ER 24HR daily Cefuroxime Axetil 1 by mouth twice a 20tabs 473.8 Miguel Angel Murphy, 2014 - day M.D. 01/07/2015 500mg Tablets Verapamil HCL SR take one capsule 30caps Miguel Angel Murphy, 11/01/2014 - by mouth one time M.D. 12/28/2014 240mg Caps ER 24HR daily Verapamil HCL ER 1 by mouth every 30tabs 401.9 Lakshmi Elizondo, 11/01/2014 - day [facility] 11/01/2014 240mg Tablets ER Duloxetine HCL take 1 every other 60caps F32.9 Alyssa 04/27/2014 - 30mg day for 2 weeks, [facility], [facility] 11/16/[address] Luis munoz discontinue Verapamil HCL SR take one capsule 30caps Lakshmi Elizondo, 04/13/2014 - by mouth one time [facility] 11/01/2014 240mg Caps ER 24HR daily Miralax 17gm /per day 1Bottle 564.09 Crystal Adame, 04/13/2014 - 3350NF mixed w/ juice or Afnp-C 07/24/2016 Powder water Ambien 1 by mouth qhs; 30tabs 300.00 Lakshmi Elizondo, 12/28/2012 - 5mg Tablets may fill w/ [facility] 05/01/2015 generic 780.52 Limbrel take 1 capsule 180caps 719.88 Miguel Angel Murphy, 12/01/2012 - 500mg Capsules by mouth twice M.D. 11/01/2014 a day Bactrim DS 1 po bid x 14 28tabs 461.0 Arlette Angel 03/08/2012 - 800-160mg Tablets Holly Vargas 05/17/2012 Align 2 po daily 60caps 461.0 Arlette Ortiz 03/08/2012 - 4mg Capsules Holly Vargas 05/17/2012 Metoprolol Succinate ER take one and 45tabs Miguel Angel Murphy, 05/26/2011 - 100mg one-half M.D. 04/12/2014 Tablets ER 24HR tablets by mouth daily Protonix Take 1 Tablet 30tabs K21.9 Miguel Angel Murphy, 11/06/2010 - 40mg Tablets DR By Mouth Every M.D. 02/16/2019 Day Nystatin apply to 60gm 112.3 Lakshmi Elizondo, 11/06/2010 - [id number]/GM Ointment affected area [facility] 01/15/2012 tid Simvastatin Take 1 Tablet 30tabs Alyssa 05/10/2010 - 10mg Tablets By Mouth AT [facility] 11/25/2016 Bedtime HCTZ 1 qd Testing 05/06/2010 - 25mg Doctor 01/15/2012 Prevacid 1 po qd 530.81 Testing 05/06/2010 - 30mg Capsules Doctor 11/06/2010 Lisinopril 1 po qd 30tabs Lakshmi Elizondo, 05/06/2010 - 10mg Tablets [facility] 04/12/2014 Requip 1 po qhs x 2 60tabs 333.94 Miguel Angel Murphy, 05/06/2010 - 0.25mg Tablets days, then 2 M.D. 11/06/2010 po qhs [facility] 12/11/2009 - 1GM/10ML [facility] 01/15/2012 [place] [facility] pt needs Miguel Angel Murphy, 07/04/2009 - hearing aide Holly 09/02/2009 for both ears due to hearing loss Cymbalta take one 30units 780.79 Miguel Angel Murphy, 01/27/2009 - 30mg Cpep capsule by Holly 09/23/2013 mouth every day Cymbalta take one 30units 780.79 Lakshmi Elizondo, 01/27/2009 - 60mg Cpep capsule by [facility] 09/23/2013 mouth every day K-Dur take one 30units Miguel Angel Murphy, 01/27/2009 - 10Meq TBCR tablet by Holly 07/04/2009 mouth every day Amitiza 1 po bid 60caps 564.09 Lakshmi Elizondo, 01/03/2009 - 8mcg Capsules [facility] 03/08/2012 Cymbalta 1 po qd 30caps Miguel Angel Murphy, 05/19/2008 - 30mg Caps DR Luis Barrera 04/11/2009 Cymbalta 3 po qd 90caps 780.79 Miguel Angel Murphy, 04/06/2008 - 30mg Caps DR Luis Barrera 05/19/2008 Protonix 1 po qd 30tabs 530.81 Miguel Angel Murphy, 03/28/2008 - 40mg Tablets DR Barrera 05/06/2010 Augmentin 1 po bid with 20tabs Robin Carlson, 02/25/2008 - 875mg Tablets food x 10 days Holly 04/06/2008 Cymbalta 1 PO qd 60caps 780.79 Miguel Angel Murphy, 02/01/2008 - 60mg Caps DR Luis Barrera 04/06/2008 Protonix 1 PO bid 60tabs Miguel Angel Murphy, 02/01/2008 - 40mg Tablets DR Barrera 03/28/2008 Cymbalta 1 PO qd Samples 780.79 Miguel Angel Murphy, 01/26/2008 - 30mg Caps DR Luis Barrera 02/01/2008 Protonix 1 po qd 30tabs Miguel Angel Murphy, 01/04/2008 - 40mg Tablets DR Barrera 02/01/2008 Docusate Sodium 2[facility] 01/03/2008 - 50mg Capsules [facility] 04/11/2009 [place] Multi-Vitamin qd Family [facility] 01/03/2008 - Tablets [facility] 04/11/2009 [place] Hydrochlorothiazide 1/2 po qd 90tabs Miguel Angel Murphy, 01/03/2008 - 25mg Holly 04/11/2009 Tablets Metoprolol Succinate ER Miguel Angel Murphy, 01/03/2008 - MMarilyn 05/06/2010 Prevacid qd Family Medicine 01/03/2008 - 30mg [facility] 01/04/2008 [place] Tylenol Sinus as Dir prn Family [facility] 01/03/2008 - [facility] 04/11/2009 [place] Ambien 1 po qhs 30tabs 300.00 Miguel Angel Murphy, 01/03/2008 - 10mg Tablets Holly 12/28/2012 Norvasc take one 30tabs Miguel Angel Murphy, 01/03/2008 - 10mg Tabs tablet by Holly 04/12/2014 mouth every day Amoxicillin 1 PO tid 30units Madi Sanchez 01/12/1998 - 250mg Holly Saavedra 01/22/1998 Ionamin 1 qd 30units Madi Sanchez 06/01/1997 - 15mg Holly Saavedra 01/12/1998 Amitriptyline HCL po q hs 30tabs Unknown - 10mg Tablets 04/11/2009 Zofran Odt 1 unit by 30tabs Alyssa - 4mg Tablets Dispers mouth every 4 [facility], [facility] 05/21/2018 hours as needed Flagyl 1 by mouth Unknown - 500mg Tablets three times a 10/22/2015 day x10 days Cipro 1 by mouth Unknown - 500mg Tablets twice a day x 10/22/2015 10 days Metoprolol Succinate ER 1 by mouth Unknown - 50mg every day 11/19/2016 Tablets ER 24HR Centrum Silver 1 by mouth Unknown - Tablets every day 05/21/2018 Duloxetine HCL 3 by mouth 90caps Surjit F. - 30mg Caps DR every day Holly Herrera 12/03/2016 Part Zolpidem Tartrate take one 20tabs Surjit F. - 10mg Tablets tablet by Holly Herrera 05/21/2018 mouth at bedtime as needed for sleep Losartan Potassium 1 by mouth Unknown - 25mg Tablets every day 11/25/2016 Immunizations CPT Code Status Date Vaccine Reaction Lot # [id number] Given 09/03/2018 Influenza Vac, Quadriv[place], [place] [address] Given 07/16/2016 High-Dose, Influenza Virus Vacccine-fluzone 65 and older [address] Given 07/26/2015 Pneumococcal Conjugate Vacc-13 48519 Given 06/14/2015 Pneumococcal Conjugate Vacc-13 [id number] 22919 Given 08/11/2014 High-Dose, Influenza Virus [id number] Vacccine-fluzone 65 and older 75582 Given 08/11/2013 DO Not Use Split Influenza Virus Vaccine 23570 Given 11/13/2010 DO Not Use Split Influenza Virus [id number] Vaccine 71993 Given 10/04/2008 Pneumococcal Immunization [id number] 00113 Given 10/04/2008 DO Not Use Split Influenza Virus [id number] Vaccine 87461 Given 09/30/2006 DO Not Use Split Influenza Virus TCHD Vaccine Vital Signs Date Vital Result Comment 03/18/2019 11:00am BP Systolic 98 mmHg BP Diastolic 50 mmHg Heart Rate 56 /min Body Temperature 98.9 F Respiratory Rate 17 /min O2 % BldC Oximetry 92 % Ra Height 62 inches 5'2" Weight 185.00 lb BMI (Body Mass Index) 33.8 kg/m2 05/19/2018 1:43pm BP Systolic 128 mmHg BP Diastolic 88 mmHg Heart Rate 78 /min Body Temperature 97.9 F Respiratory Rate 18 /min Height 62 inches 5'2" Weight 184.00 lb BMI (Body Mass Index) 33.7 kg/m2 01/11/2018 12:05pm BP Systolic 132 mmHg BP Diastolic 82 mmHg Heart Rate 72 /min Body Temperature 97.7 F Height 62 inches 5'2" Weight 188.00 lb BMI (Body Mass Index) 34.4 kg/m2 12/09/2016 11:49am BP Systolic 110 mmHg BP Diastolic 62 mmHg Heart Rate 64 /min Body Temperature 98.0 F Respiratory Rate 18 /min Height 62 inches 5'2" 11/25/2016 10:59am BP Systolic 142 mmHg BP Diastolic 82 mmHg Heart Rate 80 /min Body Temperature 97.9 F Respiratory Rate 16 /min Height 62 inches 5'2" Weight 174.00 lb BMI (Body Mass Index) 31.8 kg/m2 09/12/2016 1:07pm BP Systolic 138 mmHg BP Diastolic 86 mmHg Heart Rate 68 /min Body Temperature 98.8 F Respiratory Rate 16 /min Height 62 inches 5'2" Weight 179.38 lb BMI (Body Mass Index) 32.8 kg/m2 07/25/2016 9:49am BP Systolic 134 mmHg BP Diastolic 90 mmHg Heart Rate 60 /min Body Temperature 97.5 F Height 62 inches 5'2" Weight 182.25 lb BMI (Body Mass Index) 33.3 kg/m2 02/08/2016 11:05am BP Systolic 170 mmHg BP Diastolic 110 mmHg Heart Rate 68 /min Body Temperature 99.2 F Height 62 inches 5'2" Weight 197.00 lb BMI (Body Mass Index) 36.0 kg/m2 01/17/2016 8:37am BP Systolic 130 mmHg BP Diastolic 90 mmHg Heart Rate 68 /min Body Temperature 97.9 F Respiratory Rate 18 /min Height 62 inches 5'2" Weight 200.00 lb BMI (Body Mass Index) 36.6 kg/m2 11/15/2015 8:59am BP Systolic 126 mmHg BP Diastolic 86 mmHg Heart Rate 60 /min Body Temperature 97.3 F Respiratory Rate 16 /min Height 62 inches 5'2" Weight 197.25 lb BMI (Body Mass Index) 36.1 kg/m2 10/15/2015 11:02am BP Systolic 120 mmHg BP Diastolic 86 mmHg Heart Rate 72 /min Body Temperature 98.7 F Respiratory Rate 16 /min Height 62 inches 5'2" Weight 196.25 lb BMI (Body Mass Index) 35.9 kg/m2 06/14/2015 1:36pm BP Systolic 130 mmHg BP Diastolic 90 mmHg Heart Rate 96 /min Body Temperature 99.2 F Respiratory Rate 16 /min Height 62 inches 5'2" Weight 196.00 lb BMI (Body Mass Index) 35.8 kg/m2 05/22/2015 1:05pm BP Systolic 108 mmHg BP Diastolic 72 mmHg Heart Rate 56 /min Body Temperature 99.0 F Respiratory Rate 16 /min Height 62 inches 5'2" Weight 200.50 lb BMI (Body Mass Index) 36.7 kg/m2 05/01/2015 1:07pm BP Systolic 130 mmHg BP Diastolic 88 mmHg Heart Rate 60 /min Body Temperature 98.7 F Respiratory Rate 17 /min Height 62 inches 5'2" Weight 194.00 lb BMI (Body Mass Index) 35.5 kg/m2 12/28/2014 7:36pm BP Systolic 140 mmHg BP Diastolic 96 mmHg Heart Rate 84 /min Body Temperature 98.4 F Respiratory Rate 16 /min O2 % BldC Oximetry 98 % Height 62 inches 5'2" Weight 183.00 lb BMI (Body Mass Index) 33.5 kg/m2 11/01/2014 11:38am BP Systolic 170 mmHg BP Diastolic 110 mmHg Heart Rate 80 /min Body Temperature 98.8 F Respiratory Rate 18 /min Height 62 inches 5'2" Weight 184.00 lb BMI (Body Mass Index) 33.7 kg/m2 04/27/2014 3:03pm BP Systolic 140 mmHg BP Diastolic 100 mmHg Heart Rate 84 /min Body Temperature 99.0 F Respiratory Rate 16 /min Height 62 inches 5'2" Weight 185.00 lb BMI (Body Mass Index) 33.8 kg/m2 04/13/2014 10:13am BP Systolic 124 mmHg BP Diastolic 74 mmHg Heart Rate 78 /min Body Temperature 98.9 F Height 64 inches 5'4" Weight 185.00 lb BMI (Body Mass Index) 31.8 kg/m2 12/01/2012 10:24am BP Systolic 120 mmHg BP Diastolic 80 mmHg Heart Rate 92 /min Body Temperature 97.9 F Respiratory Rate 20 /min Height 64 inches 5'4" Weight 218.00 lb BMI (Body Mass Index) 37.4 kg/m2 06/07/2012 3:15pm BP Systolic 130 mmHg BP Diastolic 90 mmHg Heart Rate 68 /min Body Temperature 97.8 F Respiratory Rate 16 /min Height 64 inches 5'4" Weight 210.00 lb BMI (Body Mass Index) 36.0 kg/m2 05/17/2012 10:12am BP Systolic 120 mmHg BP Diastolic 86 mmHg Heart Rate 96 /min Body Temperature 98.2 F Respiratory Rate 20 /min Height 64 inches 5'4" Weight 213.00 lb BMI (Body Mass Index) 36.6 kg/m2 03/08/2012 6:46pm BP Systolic 130 mmHg BP Diastolic 86 mmHg Heart Rate 72 /min Body Temperature 98.5 F Height 64 inches 5'4" Weight 213.00 lb BMI (Body Mass Index) 36.6 kg/m2 01/15/2012 8:51am BP Systolic 122 mmHg BP Diastolic 80 mmHg Heart Rate 88 /min Height 64 inches 5'4" Weight 218.00 lb BMI (Body Mass Index) 37.4 kg/m2 11/13/2010 2:06pm BP Systolic 130 mmHg BP Diastolic 80 mmHg Heart Rate 68 /min Body Temperature 98.8 F Height 64 inches 5'4" Weight 213.00 lb BMI (Body Mass Index) 36.6 kg/m2 11/06/2010 10:23am BP Systolic 120 mmHg BP Diastolic 86 mmHg Heart Rate 72 /min Body Temperature 97.8 F Respiratory Rate 14 /min Height 64 inches 5'4" Weight 213.00 lb BMI (Body Mass Index) 36.6 kg/m2 05/06/2010 10:35am BP Systolic 110 mmHg BP Diastolic 70 mmHg Heart Rate 72 /min Body Temperature 98.5 F Respiratory Rate 16 /min Weight 212.00 lb 12/11/2009 12:45pm BP Systolic 110 mmHg BP Diastolic 80 mmHg Heart Rate 72 /min Body Temperature 98.6 F Respiratory Rate 16 /min Weight 210.00 lb 07/04/2009 2:13pm BP Systolic 124 mmHg BP Diastolic 60 mmHg Heart Rate 90 /min Body Temperature 98.1 F Respiratory Rate 18 /min Height 64.00 inches 5'4" Weight 201.00 lb BMI (Body Mass Index) 34.5 kg/m2 04/11/2009 9:55am BP Systolic 122 mmHg BP Diastolic 70 mmHg Heart Rate 80 /min Body Temperature 98.1 F Respiratory Rate 16 /min Height 64.00 inches 5'4" Weight 197.00 lb BMI (Body Mass Index) 33.8 kg/m2 03/28/2009 1:42pm BP Systolic 118 mmHg BP Diastolic 80 mmHg Heart Rate 80 /min Body Temperature 98.2 F Height 64.00 inches 5'4" Weight 198.00 lb BMI (Body Mass Index) 34.0 kg/m2 01/03/2009 12:59pm BP Systolic 120 mmHg BP Diastolic 70 mmHg Heart Rate 72 /min Body Temperature 98.1 F Respiratory Rate 16 /min Height 64.00 inches 5'4" Weight 194.00 lb BMI (Body Mass Index) 33.3 kg/m2 10/04/2008 1:37pm BP Systolic 102 mmHg BP Diastolic 72 mmHg Heart Rate 96 /min Body Temperature 99.2 F Height 64.00 inches 5'4" Weight 188.00 lb BMI (Body Mass Index) 32.3 kg/m2 04/06/2008 3:04pm BP Systolic 100 mmHg BP Diastolic 64 mmHg Heart Rate 88 /min Body Temperature 98.5 F Respiratory Rate 16 /min Height 64.00 inches 5'4" Weight 200.00 lb BMI (Body Mass Index) 34.3 kg/m2 02/25/2008 3:45pm BP Systolic 110 mmHg BP Diastolic 80 mmHg Heart Rate 80 /min Body Temperature 97.9 F Respiratory Rate 12 /min O2 % BldC Oximetry 95 % Height 64.00 inches 5'4" Weight 195.00 lb BMI (Body Mass Index) 33.5 kg/m2 01/26/2008 1:29pm BP Systolic 120 mmHg BP Diastolic 80 mmHg Heart Rate 72 /min Respiratory Rate 16 /min Height 64.00 inches 5'4" Weight 202.00 lb BMI (Body Mass Index) 34.7 kg/m2 01/10/2008 10:29am BP Systolic 120 mmHg BP Diastolic 70 mmHg Heart Rate 80 /min Body Temperature 98.8 F Respiratory Rate 14 /min Height 64.00 inches 5'4" Weight 200.00 lb BMI (Body Mass Index) 34.3 kg/m2 01/03/2008 10:27am BP Systolic 128 mmHg BP Diastolic 82 mmHg Heart Rate 80 /min Body Temperature 98.4 F Height 64.00 inches 5'4" Weight 201.00 lb BMI (Body Mass Index) 34.5 kg/m2 01/12/1998 12:00am Body Temperature 97.3 F Height 64.00 inches 5'4" Weight 206.00 lb Results Test Date Facility Test Result H/L Range Note CBC Electronic [facility] 05/19/2018 [facility] WBC 4.0 x10^3/UL 4.0-10.0 RBC 4.14 x10^6/UL 3.93-6.00 HGB 12.7 g/dL 12.0-17.0 HCT 39 % 35-50 MCV 93.2 fL 80.0-95.0 MCH 30.7 pg 25.6-32.2 MCHC 32.9 g/dL 32.2-36.0 RDW-CV 12.1 % 11.6-14.4 PLT 220 x10^3/UL 163-400 MPV 8.6 fL Low 9.4-12.4 Vishal# 2.37 x10^3/UL 1.56-6.13 Lymph# 1.16 x10^3/UL Low 1.18-3.74 Lamoure# 0.36 x10^3/UL 0.24-0.82 Eos # 0.1 x10^3/UL 0.0-0.5 Baso # 0.03 x10^3/UL 0.01-0.08 Vishal% 58.9 % 34.0-70.0 Lymph % 28.9 % 20.0-52.0 [place]re% 9.0 % 5.0-12.0 Eos% 2.5 % 0.7-7.0 Baso% 0.7 % 0.1-1.2 Lipid Profile 05/19/2018 Félix Sarabia Cholesterol 219 mg/dL High 120- 200 Triglycerides 88 mg/dL 30-200 HDL Cholesterol 61 mg/dL 30-85 LDL (Calculated) 140 CALC High 0-129 VLDL Cholesterol 18 mg/dL 0-50 HDL Risk Factor 3.6 CALC 0.0-4.4 Laboratory test finding 05/19/2018 Félix Sarabia TSH 1.40 mIU/L 0.50- 6.00 Comprehensive Metabolic 05/19/2018 Félix Sarabia Sodium 143 mEq/L 134- 149 Prof Potassium 4.6 mEq/L 3.6-5.5 Chloride 107 mEq/L 94-112 Carbon Dioxide 27 mEq/L 21-32 Glucose 116 mg/dL High 70-105 BUN 14 mg/dL 6-26 Creatinine 1.0 mg/dL 0.6-1.4 BUN/Creat Ratio 14.0 CALC 8.0-36.0 Calcium 9.7 mg/dL 8.6-10.2 Total Protein 7.4 g/dL 6.4-8.3 Albumin 4.6 g/dL 3.8-5.5 Globulin 2.8 g/dL 2.0-4.8 A/G Ratio 1.6 CALC 0.6-2.3 Alk. Phosphatase 71 U/L 30-110 Alt (SGPT) 11 U/L 7-35 Ast (Sgot) 17 U/L 5-34 Total Bilirubin 0.5 mg/dL 0.2-1.3 GFR Non- 57 ml/min/1.73m^ Low >=60 GFR >60 ml/min/1.73m^ >=60 Laboratory test finding 01/11/2018 Félix Sarabia Uric Acid 5.5 mg/dL 2.5-9.2 Ua - Micro (Fma) 11/25/2016 Family Medicine Appearance CLEAR (607)- - Color YELLOW Glucose, Urine (Fma/CMC/CTX) NEG Bilirubin NEG Ketones NEG SP Grav 1.025 Blood NEG PH 7.0 Protein NEG Urobil 0.2 Nitrite NEG Leukocytes (Fma/CMC/Centrex) TRACE # Hyaline - /Lpf Granular - /Lpf WBC (Fma,Centrex) 0-3 # RBC 0-1 # Mucus - /Lpf Epith RARE /Lpf # Bacteria TRACE /Hpf # Amorphous - /Lpf Crystals, Fluid (Fma/CMC/CTX) - Laboratory test 11/25/2016 [facility] Urine Culture And SEE RESULT 1 finding Sensitivities BELOW Laboratory test 11/16/2016 [facility] Thyroxine 8.82 ?g/dL N 6.09-12.2 finding 3 TSH (Thyroid Stim Horm) 1.26 mcIU/mL N 0.34-5.60 Free T4 (Free Thyroxine) 1.05 ng/dL N 0.61-1.12 T3 Total 1.01 ng/mL N 0.87-1.78 Hemoglobin A1c (Glyco HGB) 5.5 % N Less than 6.0 2 Urine Culture And Sensitivities SEE RESULT BELOW 3 Urinalysis Profile 11/16/2016 [facility] Urine Color Yellow N Urine Appearance Cloudy N Urine Specific [place] 1.012 N 1.010-1.030 Urine pH 7.0 N 5-9 Urine Urobilinogen Negative N Negative Urine Ketones Negative N Negative Urine Protein Negative N Negative Urine Leukocytes Trace Abnormal Negative Urine Blood Negative N Negative Urine Nitrite Negative N Negative Urine Bilirubin Negative N Negative Urine Glucose Negative N Negative Urine White Blood Cell 1+(6-10/hpf) Abnormal Absent Urine Red Blood Cell 3+(>10/hpf) Abnormal Absent Urine Bacteria 1+ Abnormal Absent Laboratory test finding 11/16/2016 [facility] Magnesium 1.5 mg/dL Low 1.9-2.7 Amylase 68 U/L N 29-103 Lipase 97 U/L High 11.0-82.0 Creatine Kinase(CK) 72 U/L N 10-223 C Reactive Protein < 1.00 mg/L N < 5.00 4 Troponin I 0.00 ng/mL N <0.04 5 Comp Metabolic Panel 11/16/2016 [facility] Sodium 136 mmol/L N 133-145 Potassium 3.1 mmol/L Low 3.5-5.0 Chloride 105 mmol/L N 101-111 Co2 Carbon Dioxide 19 mmol/L Low 22-32 Anion Gap 12 mmol/L High 2-11 Glucose 129 mg/dL High 70-100 Blood Urea Nitrogen 9 mg/dL N 6-24 Creatinine 0.84 mg/dL N 0.51-0.95 BUN/Creatinine Ratio 10.7 N 8-20 Calcium 9.5 mg/dL N 8.6-10.3 Total Protein 7.2 g/dL N 6.4-8.9 Albumin 4.0 g/dL N 3.2-5.2 Globulin 3.2 g/dL N 2-4 Albumin/Globulin Ratio 1.3 N 1-3 Total Bilirubin 0.50 mg/dL N 0.2-1.0 Alkaline Phosphatase 59 U/L N 34-104 Alt 8 U/L N 7-52 Ast 13 U/L N 13-39 Egfr Non- 66.1 N >60 Egfr 85.0 N >60 6 Laboratory test 11/16/2016 [facility] B-Type Natriuretic 144 pg/mL High 7 finding Peptide BNP Inr/Protime 11/16/2016 [facility] Inr 0.96 N 0.89-1.11 Laboratory test 11/16/2016 [facility] Lactic Acid 2.4 mmol/L High 0.5-2.0 8 finding CBC Auto Diff 11/16/2016 [facility] White Blood Count 4.9 10^3/uL N 3.5-10.8 Red Blood Count 4.52 10^6/uL N 4.0-5.4 Hemoglobin 13.5 g/dL N 12.0-16.0 Hematocrit 40 % N 35-47 Mean Corpuscular Volume 88 fL N 80-97 Mean Corpuscular Hemoglobin 30 pg N 27-31 Mean Corpuscular HGB Conc 34 g/dL N 31-36 Red Cell Distribution Width 14 % N 10.5-15 Platelet Count 231 10^3/uL N 150-450 Mean Platelet Volume 8 um3 N 7.4-10.4 Abs Neutrophils 3.2 10^3/uL N 1.5-7.7 Abs Lymphocytes 1.3 10^3/uL N 1.0-4.8 Abs Monocytes 0.2 10^3/uL N 0-0.8 Abs Eosinophils 0.1 10^3/uL N 0-0.6 Abs Basophils 0 10^3/uL N 0-0.2 Abs Nucleated RBC 0 10^3/uL N Granulocyte % 66.1 % N 38-83 Lymphocyte % 27.0 % N 25-47 Monocyte % 5.0 % N 1-9 Eosinophil % 1.1 % N 0-6 Basophil % 0.8 % N 0-2 Nucleated Red Blood Cells % 0.1 N Ua - Micro (Fma) 07/25/2016 [facility] Appearance clear (607)- - Color yellow Glucose, Urine (Fma/CMC/CTX) neg Bilirubin neg Ketones neg SP Grav >=1.030 Blood neg PH 5.5 Protein ssa: neg Urobil 0.2 Nitrite neg Leukocytes (Fma/[facility]) small # Hyaline - /Lpf Granular - /Lpf WBC (Fma,[facility]) 6-8 # RBC - Mucus (Fma/CBC/[facility]) - /Lpf Epith occ /Lpf # Bacteria trace /Hpf # Amorphous (Fma/CMC/[facility]) - /Lpf Crystals, Fluid (Fma/CMC/CTX) - Z#Comments - Complete Blood Count 07/25/2016 [facility] WBC 4.2 x10^3/UL 3.6-9.6 RBC 3.73 x10^6/UL Low 3.90-5.70 HGB 11.8 g/dL Low 12.1-17.2 HCT 35 % Low 36-50 MCV 92.0 fL 82.2-97.4 MCH 31.6 pg 27.6-33.3 MCHC 34.2 g/dL 33.0-35.5 RDW 13.1 % 11.6-13.7 PLT 273 x10^3/UL 150-400 MPV 7.0 fL Low 7.4-10.4 Gran # 2.4 x10^3/UL 1.5-7.2 Lymph# 1.6 x10^3/UL 0.7-4.9 Lamoure# 0.2 x10^3/UL 0.1-0.9 Gran % 54.3 % 42.2-75.2 Lymph % 39.0 % 20.5-51.1 [place]% 6.7 % 1.7-9.3 Comprehensive Metabolic Prof 07/25/2016 Félix Sarabia Sodium 142 mEq/L 134-149 Potassium 4.3 mEq/L 3.6-5.5 Chloride 105 mEq/L 94-112 Carbon Dioxide 27 mEq/L 21-32 Glucose 95 mg/dL 70-105 BUN 15 mg/dL 6-26 Creatinine 0.8 mg/dL 0.6-1.4 BUN/Creat Ratio 18.8 CALC 8.0-36.0 Calcium 9.4 mg/dL 8.6-10.2 Total Protein 6.7 g/dL 6.4-8.3 Albumin 3.8 g/dL 3.8-5.5 Globulin 2.9 g/dL 2.0-4.8 A/G Ratio 1.3 CALC 0.6-2.3 Alk. Phosphatase 72 U/L 30-110 Alt (SGPT) 48 U/L High 7-35 Ast (Sgot) 38 U/L High 5-34 Total Bilirubin 0.4 mg/dL 0.2-1.3 GFR Non- >60 ml/min/1.73m^ >=60 GFR >60 ml/min/1.73m^ >=60 Laboratory test 07/25/2016 Félix Sarabia Amylase, Serum 87 U/L 20-105 finding Laboratory test 07/25/2016 [facility] Lipase 53 U/L N 11.0-82.0 9, 10 finding Laboratory test 03/06/2016 [facility] Cytology Non-Security Consultant SEE RESULT 11 finding BELOW Laboratory test 02/06/2016 [facility] Urine Culture And SEE RESULT 12 finding Sensitivities BELOW Laboratory test 11/15/2015 Félix Sarabia TSH 1.45 mIU/L 0.50-6.00 finding Free T4 0.98 ng/dL 0.75-1.54 Comprehensive Metabolic Prof 11/15/2015 Félix Sarabia Sodium 139 mEq/L 134-149 Potassium 4.1 mEq/L 3.6-5.5 Chloride 99 mEq/L 94-112 Carbon Dioxide 28 mEq/L 21-32 Glucose 94 mg/dL 70-105 BUN 11 mg/dL 6-26 Creatinine 0.8 mg/dL 0.6-1.4 BUN/Creat Ratio 13.8 CALC 8.0-36.0 Calcium 9.1 mg/dL 8.6-10.2 Total Protein 7.3 g/dL 6.4-8.3 Albumin 3.9 g/dL 3.8-5.5 Globulin 3.4 g/dL 2.0-4.8 A/G Ratio 1.1 CALC 0.6-2.3 Alk. Phosphatase 66 U/L 30-110 Alt (SGPT) 11 U/L 7-35 Ast (Sgot) 27 U/L 5-34 Total Bilirubin 0.4 mg/dL 0.2-1.3 GFR Non- >60 ml/min/1.73m^ >=60 GFR >60 ml/min/1.73m^ >=60 Comprehensive Metabolic Prof 06/14/2015 Félix Darryl Sodium 138 mEq/L 134-149 Potassium 4.2 mEq/L 3.6-5.5 Chloride 102 mEq/L 94-112 Carbon Dioxide 25 mEq/L 21-32 Glucose 95 mg/dL 70-105 BUN 15 mg/dL 6-26 Creatinine 1.1 mg/dL 0.6-1.4 BUN/Creat Ratio 13.6 CALC 8.0-36.0 Calcium 9.4 mg/dL 8.6-10.2 Total Protein 7.6 g/dL 6.4-8.3 Albumin 4.2 g/dL 3.8-5.5 Globulin 3.4 g/dL 2.0-4.8 A/G Ratio 1.2 CALC 0.6-2.3 Alk. Phosphatase 69 U/L 30-110 Alt (SGPT) 13 U/L 7-35 Ast (Sgot) 20 U/L 5-34 Total Bilirubin 0.2 mg/dL 0.2-1.3 Lipid Profile 06/14/2015 Félix Darryl Cholesterol 208 mg/dL High 120- 200 Triglycerides 129 mg/dL 30-200 HDL Cholesterol 58 mg/dL 30-85 LDL (Calculated) 124 CALC 0-129 VLDL Cholesterol 26 mg/dL 0-50 HDL Risk Factor 3.6 CALC 0.0-4.4 Comprehensive Metabolic Prof 12/30/2014 [facility]élix Darryl Sodium 142 mEq/L 134-149 Potassium 4.2 mEq/L 3.6-5.5 Chloride 103 mEq/L 94-112 Carbon Dioxide 26 mEq/L 21-32 Glucose 103 mg/dL 70-105 BUN 11 mg/dL 6-26 Creatinine 0.7 mg/dL 0.6-1.4 BUN/Creat Ratio 15.7 CALC 8.0-36.0 Calcium 9.0 mg/dL 8.6-10.2 Total Protein 7.6 g/dL 6.4-8.3 Albumin 4.1 g/dL 3.8-5.5 Globulin 3.5 g/dL 2.0-4.8 A/G Ratio 1.2 CALC 0.6-2.3 Alk. Phosphatase 62 U/L 30-110 Alt (SGPT) 8 U/L 7-35 Ast (Sgot) 14 U/L 5-34 Total Bilirubin 0.4 mg/dL 0.2-1.3 Laboratory test 12/30/2014 Félix Sarabia TSH 1.14 mIU/L 0.50-6.00 13 finding Laboratory test 12/30/2014 [facility] Sed Rate 8 mm finding (607)- - (Fma/CMC/Cent [facility]isi) CBC Electronic 12/30/2014 [facility] WBC 4.0 3.6-9.6 (Fma) (607)- - RBC 4.48 3.90-5.70 Hemoglobin (Fma/CMC/CTX) 13.4 g/dL 12.1 - 17.2 Hematocrit (Fma/CMC/CTX) 40.3 % 36.1 - 50.3 Platelets 232 10^3/ul 150-400 Lymph% 50.1 % High 17.0-48.0 Mixed% 7.5 Neutrophils % 42.4 Mean Corpuscular Vol 90 82.2-97.4 Mean Corpuscular Hemoglobin 30.0 27.6-33.3 Mean Corpuscular Hemo Concen 33.3 32.0-36.0 RDW 13.9 High 11.6-13.7 Mean Platelet Volume 5.9 5.5-11.0 Comprehensive Metabolic Prof 04/22/2014 [facility]élix Darryl Sodium 140 mEq/L 134-149 Potassium 4.3 mEq/L 3.6-5.5 Chloride 105 mEq/L 94-112 Carbon Dioxide 25 mEq/L 21-32 Glucose 105 mg/dL 70-105 BUN 12 mg/dL 6-26 Creatinine 1.0 mg/dL 0.6-1.4 BUN/Creat Ratio 12.0 CALC 8.0-36.0 Calcium 9.6 mg/dL 8.6-10.2 Total Protein 7.6 g/dL 6.3-8.1 Albumin 4.7 g/dL 3.8-5.5 Globulin 2.9 g/dL 2.0-4.8 A/G Ratio 1.6 CALC 0.6-2.3 Alk. Phosphatase 65 U/L 30-110 Alt (SGPT) 31 U/L 7-35 Ast (Sgot) 34 U/L 5-34 Total Bilirubin 0.4 mg/dL 0.2-1.3 Lipid Profile 04/22/2014 [facility] Cholesterol 190 mg/dL 120-200 Triglycerides 71 mg/dL 30-200 HDL Cholesterol 59 mg/dL 30-85 LDL (Calculated) 117 CALC 0-129 VLDL Cholesterol 14 mg/dL 0-50 HDL Risk Factor 3.2 CALC 0.0-4.4 Laboratory test finding 04/22/2014 [facility]ard Darryl TSH 1.37 mIU/L 0.50- 6.00 14 Free T4 0.98 ng/dL 0.75-1.54 CBC Electronic ([facility]) 04/22/2014 Family Medicine WBC 4.3 3.6-9.6 (607)- - RBC 4.57 3.90-5.70 Hemoglobin (a/CMC/CTX) 13.8 g/dL 12.1 - 17.2 Hematocrit (a/CMC/CTX) 41.9 % 36.1 - 50.3 Platelets 175 10^3/ul 150-400 Lymph% 57.6 % High 17.0-48.0 Mixed% 7.1 Neutrophils % 35.3 Mean Corpuscular Vol 92 82.2-97.4 Mean Corpuscular Hemoglobin 30.2 27.6-33.3 Mean Corpuscular Hemo Concen 33.0 32.0-36.0 RDW 13.8 High 11.6-13.7 Mean Platelet Volume 8.2 5.5-11.0 Clotest 01/04/2013 [facility] Clotest (SEE NOTE) 15 Surgical Pathology 01/04/2013 [facility] S RUN DATE: 16 02/07/ <SEE NOTE> Comprehensive Metabolic 12/01/2012 Félix Sarabia Albumin 4.7 g/dL 3.8- 5.5 17 Prof Alk. Phos. 89 U/L 30-110 Alt (SGPT) 10 U/L 7-35 Ast (Sgot) 16 U/L 5-34 BUN 15 mg/dL 6-26 Calcium 9.3 mg/dL 8.6-10.2 Chloride 103 mEq/L 94-112 Creatinine 1.0 mg/dL 0.6-1.4 Carbon Dioxide 32 mEq/L 21-32 Glucose 99 mg/dL 70-105 Sodium 141 mEq/L 134-149 Total Bilirubin 0.3 mg/dL 0.2-1.3 Total Protein 7.6 g/dL 6.3-8.1 Potassium 4.5 mEq/L 3.6-5.5 Globulin 2.8 g/dL 2.0-4.8 A/G Ratio 1.7 Calc 0.6-2.3 BUN/Creat Ratio 14.4 Calc 8.0-36.0 Lipid Profile 12/01/2012 Félix Sarabia Cholesterol 177 mg/dL 120-200 HDL 56 mg/dL 30-85 Triglycerides 97 mg/dL 30-200 HDL Risk Factor 3.2 CALC 0.0-4.4 LDL (Calculated) 101 CALC 0-129 VLDL (Calculated) 19 mg/dL 0-50 Laboratory test 12/01/2012 Félix Sarabia TSH 1.24 mIU/L 0.50-6.00 finding Laboratory test 06/07/2012 Félix Sarabia TSH 1.18 mIU/L 0.50-6.00 finding Laboratory test 06/07/2012 Family Medicine Sed Rate 28mm finding (607)- - (Fma/CMC/Centr ex) Comp Metabolic 05/03/2012 [facility] Sodium 138 mmol/L 135-145 Panel Potassium 3.9 mmol/L 3.5-5.0 Chloride 100 mmol/L Low 101-111 Co2 (Carbon Dioxide) 30.0 mmol/L 22-32 Anion Gap 8.0 mmol/L 2-11 18 Glucose 110 mg/dL High 70-100 BUN 13 mg/dL 6-24 Creatinine 0.9 mg/dL 0.50-1.40 One Over Creatinine 1.11 BUN/Creatinine Ratio 14.4 8-20 Calcium 9.3 mg/dL 8.1-9.9 Total Protein 7.5 GM/DL 6.2-8.1 Albumin 3.9 GM/DL 3.2-5.2 Globulin 3.6 GM/DL 2-4 Albumin/Globulin Ratio 1.1 1-3 Bilirubin Total 0.5 mg/dL 0.4-1.5 19 Alkaline Phosphatase 77 U/L 30-110 Alt (SGPT) 23 U/L 14-54 Ast (Sgot) 32 U/L 12-42 eGFR Non- 61.7 > 60 eGFR 79.4 > 60 20 Urine Culture & 05/03/2012 [facility] M <SEE 21 Sensitivi NOTE> Laboratory test 05/03/2012 [facility] PTT (Aptt) 25.9 SEC 25.1-38.5 finding Laboratory test 05/03/2012 [facility] Magnesium 2.1 mg/dL 1.7-2.6 finding Troponin-I 0.01 NG/ML 0-0.06 22 CBC Auto Diff 05/03/2012 [facility] White Blood Count 5.8 CUMM 4.8-10.8 Red Cell Count 3.96 CUMM Low 4.2-5.4 Hemoglobin 12.4 g/dL 12.0-16.0 Hematocrit 36 % 35-47 Mean Corpuscular Volume 91 um3 79-97 Mean Corpuscular Hemoglob 31 pg 27-31 Mean Corpuscular HGB Cone 34 g/dL 32-36 Redcell Distribution WDTH 14 % 10.5-15 Platelet Count 256 CUMM 150-450 Mean Platelet Volume 7.6 um3 7.4-10.4 Absolute Neutrophil Count 3.3 1.5-7.7 23 Manual Differential 05/03/2012 [facility] Polysegmented Neutrophil 57 % 38-83 Lymphocyte 33 % 25-47 Monocyte 2 % 0-13 Eosinophil 5 % 0-6 Basophil 2 % 0-2 Atypical Lymph 1 % 0-6 RBC Morphology NORMAL Protime 05/03/2012 [facility] Inr 0.85 Low 0.88-1.13 24 Protime 10.1 SEC Low 10.3-13.5 25 Urinalysis W/Microscopic 05/03/2012 [facility] Ua Color YELLOW Yellow Appearance-Urine CLEAR Clear Specific [place]-Ur 1.012 1.010-1.030 Esterase-Urine 3+ Abnormal Negative Nitrite NEGATIVE Negative [id number] NEGATIVE Negative Protein-Urine NEGATIVE Negative PH-Urine 7.0 5-9 Blood-Urine NEGATIVE Negative Ketones-Urine NEGATIVE Negative Bilirubin-Ur NEGATIVE Negative Glucose-Urine NEGATIVE Negative WBC-Urine 10-15 Abnormal 0-5 RBC-Urine 0-2 0-2 Epith Cells-Ur FEW None CBC Auto Diff 10/20/2011 [facility] White Blood Count 5.2 CUMM 4.8-10.8 Red Cell Count 3.74 CUMM Low 4.2-5.4 Hemoglobin 11.4 g/dL Low 12.0-16.0 Hematocrit 34 % Low 35-47 Mean Corpuscular Volume 90 um3 79-97 Mean Corpuscular Hemoglob 30 pg 27-31 Mean Corpuscular HGB Cone 34 g/dL 32-36 Redcell Distribution WDTH 13 % 10.5-15 Platelet Count (SEE NOTE) CUMM 150-450 26 Comments UWBC Urine Culture & 10/20/2011 [facility] M <SEE NOTE> 27 Sensitivi Urinalysis 10/20/2011 [facility] Ua Color YELLOW Yellow W/Microscopic Appearance-Urine CLEAR Clear Specific [place]-Ur 1.011 1.010-1.030 Esterase-Urine 1+ Abnormal Negative Nitrite NEGATIVE Negative [id number] NEGATIVE Negative Protein-Urine NEGATIVE Negative PH-Urine 6.5 5-9 Blood-Urine NEGATIVE Negative Ketones-Urine NEGATIVE Negative Bilirubin-Ur NEGATIVE Negative Glucose-Urine NEGATIVE Negative WBC-Urine 0-2 0-5 RBC-Urine 0-2 0-2 Epith Cells-Ur MODERATE None Bacteria-Urine TRACE None Manual Differential 10/20/2011 [facility] Polysegmented Neutrophil 64 % 38-83 Lymphocyte 29 % 25-47 Monocyte 5 % 0-13 Eosinophil 2 % 0-6 Absolute Neutrophil Count 3.3 RBC Morphology NORMAL Comp Metabolic Panel 10/20/2011 [facility] Sodium 141 mmol/L 135-145 Potassium 4.1 mmol/L 3.5-5.0 Chloride 104 mmol/L 101-111 Co2 (Carbon Dioxide) 28.0 mmol/L 22-32 Anion Gap 9.0 mmol/L 2-11 28 Glucose 106 mg/dL High 70-100 BUN 9 mg/dL 6-24 Creatinine 0.7 mg/dL 0.50-1.40 One Over Creatinine 1.42 BUN/Creatinine Ratio 12.9 8-20 Calcium 9.9 mg/dL 8.1-9.9 Total Protein 6.7 GM/DL 6.2-8.1 Albumin 4.3 GM/DL 3.2-5.2 Globulin 2.4 GM/DL 2-4 Albumin/Globulin Ratio 1.8 1-3 Bilirubin Total 0.7 mg/dL 0.4-1.5 29 Alkaline Phosphatase 90 U/L 30-110 Alt (SGPT) 22 U/L 14-54 Ast (Sgot) 30 U/L 12-42 eGFR Non- 82.7 > 60 eGFR 106.4 > 60 30 Laboratory test finding 10/20/2011 [facility] Troponin-I 0 NG/ML 0-0.06 31 Laboratory test finding 10/20/2011 [facility] Magnesium 2.1 mg/dL 1.7-2.6 TSH 1.17 MIU/ML 0.34-5.60 Liver Function Panel 10/20/2011 [facility] Bilirubin Direct 0.2 mg/dL 0.1-0.5 Indirect Bilirubin 0.4 mg/dL 0.3-1.0 32 Laboratory test 11/13/2010 [facility] SEE NOTE 33 finding [address] Pathology [place], [place] [id number] [phone] Laboratory test 05/06/2010 Félix Sarabia Ferritin 42 ng/mL 15-200 finding CBC (a) 05/06/2010 Family Medicine WBC 4.9 3.6-9. (607)- - 6 RBC 4.36 3.90-5.70 Hemoglobin (Fma/CMC/CTX) 13.1 g/dL 12.1 - 17.2 Hematocrit (Fma/CMC/CTX) 39.8 % 36.1 - 50.3 Mean Corpuscular Vol 91.3 82.2-97.4 Mean Corpuscular Hemaglobin 30.0 27.6-33.3 Mean Corpuscular Hemo Concen 32.9 Low 33.0-36.0 Platelets 274 10^3/ul 150-400 Lymph% 38.6 20.5-51.1 Mixed% 9.8 Neutrophils % 51.6 RDW 13.4 11.6-13.7 Mean Platelet Volume 9.6 7.4-10.4 Laboratory test 05/06/2010 Félix Sarabia TSH 1.24 mIU/L 0.50-6.00 finding Lipid Profile 05/06/2010 Félix Sarabia Cholesterol 228 mg/dL High 120- 200 HDL 53 mg/dL 30-85 Triglycerides 118 mg/dL 30-200 HDL Risk Factor 4.3 CALC 4.2-7.0 LDL (Calculated) 151 CALC High 0-129 VLDL (Calculated) 24 mg/dL 0-50 Comprehensive Metabolic Prof 05/06/2010 Félix Sarabia Albumin 4.9 g/dL 3.8-5.5 Alk. Phos. 84 U/L 30-110 Alt (SGPT) 15 U/L 7-35 Ast (Sgot) 20 U/L 5-34 BUN 13 mg/dL 6-26 Calcium 9.6 mg/dL 8.6-10.2 Chloride 102 mEq/L 94-112 Creatinine 1.1 mg/dL 0.6-1.4 Carbon Dioxide 27 mEq/L 21-32 Glucose 127 mg/dL High 70-105 34 Sodium 145 mEq/L 134-149 Total Bilirubin 0.3 mg/dL 0.2-1.3 Total Protein 7.8 g/dL 6.3-8.1 Potassium 4.3 mEq/L 3.6-5.5 Globulin 2.9 g/dL 2.0-4.8 A/G Ratio 1.7 Calc 0.6-2.2 BUN/Creat Ratio 11.5 Calc 8.0-36.0 Laboratory test finding 12/05/2009 [facility] Stool For Blood NEGATIVE Negative CBC With Manual Diff Stat 12/05/2009 [facility] White Blood Count 5.4 CUMM 4.8- 10.8 Red Cell Count 4.04 CUMM Low 4.2-5.4 Hemoglobin 12.5 g/dL 12.0-16.0 Hematocrit 38 % 35-47 Mean Corpuscular Volume 93 um3 79-97 Mean Corpuscular Hemoglob 31 pg 27-31 Mean Corpuscular HGB Cone 33 g/dL 32-36 Redcell Distribution WDTH 14 % 10.5-15 Platelet Count 286 CUMM 150-450 Mean Platelet Volume 6.8 um3 Low 7.4-10.4 Polysegmented Neutrophil 46 % 38-83 Lymphocyte 38 % 25-47 Monocyte 13 % 0-13 Basophil 1 % 0-2 Atypical Lymph 2 % 0-6 Absolute Neutrophil Count 2.4 Anisocytosis SLIGHT Comp Stat 12/05/2009 [facility] Sodium 140 mmol/L 135-145 Potassium 3.6 mmol/L 3.5-5.0 Chloride 109 mmol/L 101-111 Co2 (Carbon Dioxide) 26.0 mmol/L 22-32 Anion Gap 5.0 mmol/L 2-11 35 Glucose 79 mg/dL 70-100 36 BUN 11 mg/dL 6-24 Creatinine 0.80 mg/dL 0.50-1.40 One Over Creatinine 1.20 BUN/Creatinine Ratio 13.8 8-20 Calcium 8.6 mg/dL 8.1-9.9 37 Total Protein 6.4 GM/DL 6.2-8.1 Albumin 3.4 GM/DL 3.2-5.2 Globulin 3.0 GM/DL 2-4 Albumin/Globulin Ratio 1.1 1-3 Bilirubin Total 0.6 mg/dL 0.4-1.5 38 Alkaline Phosphatase 59 U/L 30-110 Alt (SGPT) 20 U/L 14-54 Ast (Sgot) 23 U/L 12-42 eGFR Non- 75.8 > 60 eGFR 91.7 > 60 39 Laboratory test finding 12/05/2009 [facility] Troponin-I (TnI) 0 NG/ML 40 TSH 0.42 MIU/ML 0.34-5.60 Basic Metabolic Panel 08/08/2009 [facility] Sodium 141 mmol/L 135-145 41 Potassium 4.0 mmol/L 3.5-5.0 Chloride 102 mmol/L 101-111 Co2 (Carbon Dioxide) 30.0 mmol/L 22-32 Anion Gap 9.0 mmol/L 2-11 42 Glucose 88 mg/dL 70-100 43 BUN 12 mg/dL 6-24 Creatinine 0.90 mg/dL 0.50-1.40 One Over Creatinine 1.10 BUN/Creatinine Ratio 13.3 8-20 Calcium 9.7 mg/dL 8.1-9.9 44 eGFR Non- 66.2 > 60 eGFR 80.1 > 60 45 Laboratory test finding 07/04/2009 [facility]ryl TSH 0.59 mIU/L 0.50- 6.00 46 Complete Blood Count 07/04/2009 [facility]ard Darryl WBC 4.8 x10^3/uL 3.6-9.6 Gran# 2.8 x10^3/uL 1.5-7.2 Gran% 57.4 % 42.2-75.2 HCT 36 % Low 36-50 HGB 12.3 g/dL 12.1-17.2 Lymph# 1.7 x10^3/uL 0.7-4.9 Lymph% 36.1 % 20.5-51.1 MCH 29.8 pg 27.6-33.3 MCV 88.2 fL 82.2-97.4 MCHC 33.7 g/dL 33.0-35.5 Mo# 0.3 x10^3/uL 0.1-0.9 Mo% 6.5 % 1.7-9.3 MPV 6.9 fL Low 7.4-10.4 PLT 287 x10^3/uL 150-400 RBC 4.13 x10^6/uL 3.90-5.70 RDW 13.0 % 11.6-13.7 Comprehensive Metabolic Prof 07/04/2009 [facility]ard Darryl Albumin 4.1 g/dL 3.8-5.5 Alk. Phos. 81 U/L 30-110 Alt (SGPT) 14 U/L 7-35 Ast (Sgot) 19 U/L 5-34 BUN 17 mg/dL 6-26 Calcium 8.7 mg/dL 8.6-10.2 Chloride 105 mEq/L 94-112 Creatinine 0.8 mg/dL 0.6-1.4 Carbon Dioxide 26 mEq/L 21-32 Glucose 101 mg/dL 70-105 Sodium 144 mEq/L 134-149 Total Bilirubin 0.2 mg/dL 0.2-1.3 Total Protein 6.9 g/dL 6.3-8.1 Potassium 3.8 mEq/L 3.6-5.5 Globulin 2.8 g/dL 2.0-4.8 A/G Ratio 1.5 Calc 0.6-2.2 BUN/Creat Ratio 19.8 Calc 8.0-36.0 Laboratory test 07/04/2009 Family Medicine Sed Rate 16mm finding (607)- - (Fma/[facility]) Cytology Non-Security Consultant 05/31/2009 [facility] Cytology Non Security Consultant 47 ------ <SEE NOTE> Cytology Non-Security Consultant 05/31/2009 [facility] Cytology Non Security Consultant 48 ------ <SEE NOTE> Basic Metabolic 03/28/2009 Félix Sarabia BUN 15 mg/dL 6-26 Profile Calcium 9.5 mg/dL 8.6-10.2 Chloride 98 mEq/L 94-112 Creatinine 0.9 mg/dL 0.6-1.4 Carbon Dioxide 26 mEq/L 21-32 Glucose 89 mg/dL 70-105 Sodium 139 mEq/L 134-149 Potassium 4.1 mEq/L 3.6-5.5 BUN/Creat Ratio 15.3 Calc 8.0-36.0 Complete Blood Count 03/28/2009 Fél[facility] Sarabia WBC 5.3 x10^3/uL 3.6-9.6 Gran# 2.7 x10^3/uL 1.5-7.2 Gran% 51.3 % 42.2-75.2 HCT 38 % 36-50 HGB 12.6 g/dL 12.1-17.2 Lymph# 2.3 x10^3/uL 0.7-4.9 Lymph% 44.3 % 20.5-51.1 MCH 29.6 pg 27.6-33.3 MCV 88.6 fL 82.2-97.4 MCHC 33.4 g/dL 33.0-35.5 Mo# 0.2 x10^3/uL 0.1-0.9 Mo% 4.4 % 1.7-9.3 MPV 6.9 fL Low 7.4-10.4 PLT 333 x10^3/uL 150-400 RBC 4.27 x10^6/uL 3.90-5.70 RDW 12.5 % 11.6-13.7 Laboratory test finding 03/28/2009 Félix Sarabia Free T3 2.50 pg/mL 2.00-4.90 Free T4 0.92 ng/dL 0.75-1.54 TSH 1.13 mIU/L 0.50-6.00 Protime Stat 03/15/2009 [facility] Protime 12.5 10.9-13.3 Inr 1.07 49 Laboratory test finding 03/15/2009 [facility] D Dimer Quantitative < 200 NG/ML < 230 50 CBC With Manual Diff 03/15/2009 [facility] White Blood Count 6.6 CUMM 4.8-10.8 Stat Red Cell Count 4.35 CUMM 4.2-5.4 Hemoglobin 13.3 g/dL 12.0-16.0 Hematocrit 39 % 35-47 Mean Corpuscular Volume 90 um3 79-97 Mean Corpuscular Hemoglob 31 pg 27-31 Mean Corpuscular HGB Cone 34 g/dL 32-36 Redcell Distribution WDTH 13 % 10.5-15 Platelet Count 307 CUMM 150-450 Mean Platelet Volume 7.1 um3 Low 7.4-10.4 Polysegmented Neutrophil 40 % 38-83 Lymphocyte 46 % 25-47 Monocyte 11 % 0-13 Eosenophil 2 % 0-6 Atypical Lymph 1 % 0-6 Absolute Neutrophil Count 2.6 RBC Morphology NORMAL Erythrocyte Sed Rate Stat 03/15/2009 [facility] Erythrocyte Sed Rate 24 MM/HR 0 -40 Comp Stat 03/15/2009 [facility] Sodium 135 mmol/L 135-145 Potassium 2.6 mmol/L Low 3.5-5.0 Chloride 99 mmol/L Low 101-111 Co2 (Carbon Dioxide) 28.0 mmol/L 22-32 Anion Gap 8.0 mmol/L 2-11 51 Glucose 104 mg/dL High 70-100 52 BUN 15 mg/dL 6-24 Creatinine 0.90 mg/dL 0.50-1.40 One Over Creatinine 1.10 BUN/Creatinine Ratio 16.7 8-20 Calcium 9.3 mg/dL 8.1-9.9 53 Total Protein 7.2 GM/DL 6.2-8.1 Albumin 3.9 GM/DL 3.2-5.2 Globulin 3.3 GM/DL 2-4 Albumin/Globulin Ratio 1.2 1-3 Bilirubin Total 0.7 mg/dL 0.4-1.5 Alkaline Phosphatase 84 U/L 30-110 Alt (SGPT) 17 U/L 14-54 Ast (Sgot) 23 U/L 12-42 Lipid Profile (Trig/Chol/HDL) 03/15/2009 [facility] Triglyceride 107 mg/dL 40- 200 Cholesterol 205 mg/dL High Less Than 200 54 High Density Lipoprotein 47 mg/dL 40-60 55 Cholesterol/HDL Ratio 4.36 AVERAGE 1-4.44 Low Density Lipoprotein 137 mg/dL High Less Than 100 56 Laboratory test finding 03/15/2009 [facility] Troponin-I (TnI) 0.04 NG/ML 0- 0.06 57 BNP Evaluatr 35.0 pg/mL 0-100 Lipid Profile 10/04/2008 [facility] Cholesterol 209 mg/dL High 120- 200 HDL 54 mg/dL 30-85 Triglycerides 125 mg/dL 30-200 HDL Risk Factor 3.9 CALC Low 4.2-7.0 LDL (Calculated) 130 CALC High 0-129 VLDL (Calculated) 25 mg/dL 0-50 Comprehensive Metabolic Prof 10/04/2008 [facility] Sar[facility]ia Albumin 4.2 g/dL 3.8-5.5 Alk. Phos. 66 U/L 30-110 Alt (SGPT) 13 U/L 7-35 Ast (Sgot) 17 U/L 5-34 BUN 18 mg/dL 6-26 Calcium 9.8 mg/dL 8.6-10.2 Chloride 100 mEq/L 94-112 Creatinine 1.0 mg/dL 0.6-1.4 Carbon Dioxide 23 mEq/L 21-32 Glucose 114 mg/dL High 70-105 Sodium 140 mEq/L 134-149 Total Bilirubin 0.3 mg/dL 0.2-1.3 Total Protein 7.5 g/dL 6.3-8.1 Potassium 3.6 mEq/L 3.6-5.5 Globulin 3.3 g/dL 2.0-4.8 A/G Ratio 1.3 Calc 0.6-2.2 BUN/Creat Ratio 17.6 Calc 8.0-36.0 Laboratory test 10/04/2008 Félix Sarabia TSH 0.99 mIU/L 0.50-6.00 finding Laboratory test 08/04/2008 [facility] URIN See Image Report finding CULT;CMP;TSH; Basic Metabolic 04/06/2008 Félix Sarabia BUN 20 mg/dL 6-26 Profile Calcium 10.3 mg/dL High 8.6-10.2 58 Chloride 102 mEq/L 94-112 Creatinine 0.9 mg/dL 0.6-1.4 Carbon Dioxide 25 mEq/L 21-32 Glucose 116 mg/dL High 70-105 Sodium 139 mEq/L 134-149 Potassium 4.5 mEq/L 3.6-5.5 59 BUN/Creat Ratio 22.2 Calc 8.0-36.0 CBC With Manual Diff 03/07/2008 [facility] White Blood Count 4.1 CUMM Low 4.8- 10.8 Absolute Neutrophil Count 2.6 Anisocytosis SLIGHT Band [...] Distribution WDTH 14 % 10.5-15 Basic Metabolic Panel 03/07/2008 [facility] One Over Creatinine 0.83 Anion Gap 4.0 mmol/L 2-11 60 BUN 14 mg/dL 6-24 Calcium 8.8 mg/dL 8.7-10.2 Chloride 108 mmol/L 101-111 Co2 (Carbon Dioxide) 28.0 mmol/L 22-32 Glucose 102 mg/dL 70-105 Potassium 3.9 mmol/L 3.5-5.0 Sodium 140 mmol/L 135-145 BUN/Creatinine Ratio 11.7 8-20 Creatinine 1.2 mg/dL 0.5-1.4 Protime 03/07/2008 [facility] Inr 0.87 61 Protime 11.3 10.9-13.3 Laboratory test 03/07/2008 [facility] PTT (Aptt) 21.5 20.4-29.5 62 finding Laboratory test 01/26/2008 Heard Darryl TSH 1.04 mIU/L 0.50-6.00 finding Basic Metabolic 01/26/2008 [facility] Darryl BUN 18 mg/dL 6-26 Profile Calcium 9.6 mg/dL 8.6-10.2 Chloride 100 mEq/L 94-112 Creatinine 1.0 mg/dL 0.6-1.4 Carbon Dioxide 28 mEq/L 21-32 Glucose 93 mg/dL 70-105 Sodium 142 mEq/L 134-149 Potassium 4.3 mEq/L 3.6-5.5 BUN/Creat Ratio 17.6 Calc 8.0-36.0 Laboratory test finding 01/03/2008 [facility] D Dimer Quantitative < 200 NG/ML < 230 63 Protime Stat 01/03/2008 [facility] Inr 0.93 64 Protime 11.7 10.9-13.3 PTT (Aptt) Stat 01/03/2008 [facility] PTT (Aptt) 22.2 20.4-29.5 65 Comp Stat 01/03/2008 [facility] One Over Creatinine 1.11 Anion Gap 6.0 mmol/L 2-11 66 Albumin/Globulin Ratio 1.1 1-3 Albumin 3.6 GM/DL 3.2-5.2 Alkaline Phosphatase 58 U/L 30-110 Alt (SGPT) 17 U/L 14-54 Ast (Sgot) 22 U/L 12-42 BUN 17 mg/dL 6-24 Calcium 8.9 mg/dL 8.7-10.2 Chloride 106 mmol/L 101-111 Co2 (Carbon Dioxide) 28.0 mmol/L 22-32 Globulin 3.4 GM/DL 2-4 Glucose 90 mg/dL 70-105 Potassium 3.2 mmol/L Low 3.5-5.0 Sodium 140 mmol/L 135-145 Bilirubin Total 0.5 mg/dL 0.4-1.5 Total Protein 7.0 GM/DL 6.2-8.1 BUN/Creatinine Ratio 18.9 8-20 Creatinine 0.9 mg/dL 0.5-1.4 Laboratory test finding 01/03/2008 [facility] Troponin-I (TnI) 0 NG/ML 0-0.06 67 CBC With Electronic Diff 01/03/2008 [facility] White Blood Count 4.6 CUMM Low 4.8-10.8 Stat Abs Basophils 0 0-0.2 Abs Eosinophils 0.1 0-0.6 Absolute Neutrophil Count 2.0 1.5-7.7 Abs Lymphs 2.2 1.0-4.8 Abs Mononuclear 0.3 0-0.8 Basophil % 0.9 % 0-2 Hematocrit 35 % 35-47 Hemoglobin 12.1 g/dL 12.0-16.0 Eosinophil % 2.2 % 0-6 Gran % 42.6 % 38-83 Lymph % 47.9 % High 20-45 Mean Corpuscular HGB Cone 34 g/dL 32-36 Mean Corpuscular Hemoglob 30 pg 27-31 Mean Corpuscular Volume 88 um3 79-97 Mean Platelet Volume 7.6 um3 7.4-10.4 Mononuclear % 6.4 % 1-9 Platelet Count 264 CUMM 150-450 Red Cell Count 4.02 CUMM Low 4.2-5.4 Redcell Distribution WDTH 13 % 10.5-15 1 SEE RESULT BELOW Name: YAEL DOMINGUEZ : [address]: Miguel Angel Murphy MD Acct: [id number] Unit: [id number] AGE: 75 Location: [facility] Re11/25/16 SEX: F Status: REG REF SPEC: [id number] ISAÍAS: 11/25/16-[address]: Miguel Angel Murphy MD REQ: [id number] RECD: 11/25/16 STATUS: COMP _ SOURCE: URINE SPDESC: ORDERED: Urine Culture COMMENTS: 1 chapin urine top [id number] Urine Source: Random Procedure Result Reported Site Urine Culture Final 11/27/16- 0843 ML No Growth (<1,000 CFU/mL) * ML - MAIN LAB (PSC1) . END OF REPORT * ML=Testing performed at Main Lab DEPARTMENT OF PATHOLOGY, [address] [place] [address] Madi Ferguson M.D. Director [facility] # [id number] 2 Therapeutic target for the treatment of diabetes Mellitus patients is <7% HBA1C, and in selective patients <6.0%.Please refer to [place] Diabetes [employer] Diabetic care guidelines for further information. 3 SEE RESULT BELOW Name: YAEL DOMINGUEZ : [address]: Octaviano Cantu MD Acct: [id number] Unit: [id number] AGE: 75 Location: [place] [address] Re11/16/16 SEX: F Status: ADM Karyna SPEC: [id number] ISAÍAS: 11/16/[address]: Guy Croft DO REQ: [id number] RECD: 11/16/16 STATUS: HUMBERTO MCKEON DR: Miguel Angel Murphy MD _ SOURCE: URINE [facility]: ORDERED: Urine Culture Procedure Result Reported Site Urine Culture Final 11/18/16- 0918 ML Organism 1 KLEBSIELLA PNEUMONIAE [place] Count 50-75,000 (Many) CFU/ML Organism 2 NORMAL DARRYL [place] Count 10-25,000 (Moderate) CFU/ML 1. KLEBSIELLA PNEUMONIAE M.I.C. RX --------- ------ Ampicillin >=32 R Cefazolin <=4 S Cefepime <=1 S Ceftriaxone <=1 S Ciprofloxacin <=0.25 S Gentamicin <=1 S Levofloxacin <=0.12 S Meropenem <=0.25 S Nitrofurantoin 64 I Tetracycline 4 S Pipercillin/Tazobactam <=4 S Trimethoprim/Sulfamethoxazole <=20 S Amoxicillin/Clavulanic Acid <=2 S Aztreonam <=1 S Contact the Microbiology Department for any additional antibiotic reporting. * ML - MAIN LAB ([facility]) . END OF REPORT * ML=Testing performed at Main Lab DEPARTMENT OF PATHOLOGY, [address] [place] [address] Madi Ferguson M.D. Director [facility] # [id number] 4 Acute inflammation: >10.00 5 NOTE: Critical Troponin is now >0.03 ng/mL. 99th percentile=0.04 ng/mL Troponin results at [facility] and [facility] are not interchangeable. 6 Because ethnic data is not always readily [...] 15-29 5 Kidney failure <15 (or dialysis) 7 >100 to <200 pg/mL: likely compensated congestive heart failure (CHF) 200 to 400 pg/mL: likely moderate CHF >400 pg/mL: likely moderate to severe CHF 8 Critical Result LACT:2.4 Called to SIDNEY at: 13:24:57 by:SAPNA Read back by:SIDNEY LILLY Severe Sepsis and Septic Shock Management Bundle Measure requires all lactic acids initially measuring >2.0 mmol/L be repeated. 9 [facility] [address] 10 [facility] [address] 11 SEE RESULT BELOW Name: YAEL DOMINGUEZ : [address]: Herrera Kwong MD Acct: [id number] Unit: [id number] AGE: 75 Location: THYROID Re03/06/16 SEX: F Status: REG REF SPEC: [id number] ISAÍAS: 03/06/16-1134 [facility] DR: Rasheed Gou MD REQ: [id number] RECD: 03/06/16-1149 STATUS: HIRAM MCKEON DR: Herrera Murphy MD _ ORDERED: FN ASP DEEP/2, FNA Imme St Add, FNA IMMEDIATE S/2 FINAL DIAGNOSIS 1) Thyroid, right, Ultrasound guided, fine needle aspiration: Benign thyroid nodule- colloid/hyperplastic type. ([place] Class II). 2) Thyroid, left, Ultrasound guided, fine needle aspiration Benign thyroid nodule- colloid/hyperplastic type. ([place] Class II). 1) The specimen demonstrates moderate watery colloid, a modest amount of benign appearing follicular epithelium arranged in uniform sheets, medium sized follicles and only occasional small groups. No features of papillary carcinoma are seen. In this clinical setting the risk of malignancy is less than 3%. Clinical management of this thyroid nodule should be based on clinical and radiographic features as well as the above. 2) The specimen demonstrates moderate watery colloid, a modest amount of benign appearing follicular epithelium arranged in uniform sheets, medium sized follicles and only occasional small groups. No features of papillary carcinoma are seen. In this clinical setting the risk of malignancy is less than 3%. Clinical management of this thyroid nodule CONTINUED ON NEXT PAGE * ML=Testing performed at Main Lab DEPARTMENT OF PATHOLOGY, [address] [place] [address] Madi Ferguson M.D. Director [facility] # [id number] RUN DATE: 03/06/16 [facility] LAB LIVE PAGE 2 Patient: YAEL DOMINGUEZ [id number] (Continued) SPECIMEN COMMENTS (Continued) should be based on clinical and radiographic features as well as the above. 1) #2. THYROID LEFT - US GUIDED FINE NEEDLE ASPIRATION, #1. THYROID RIGHT - US GUIDED FINE NEEDLE ASPIRATION CLINICAL HISTORY 1) Right thyroid nodule 3.9 x 2.9 x 3.3 cm 2) Left thyroid nodule 1.4 x 0.8 x 1.1 cm IMMEDIATE INTERPRETATION 1) Pass 1-adequate 2) Pass 1-inadequate, pass 2-adequate GROSS DESCRIPTION 1) 6 - alcohol fixed slide(s) 1 - passes 2) 5 - alcohol fixed slide(s) 2 - passes Signed (signature on file) Madi Ferguson MD 1207 END OF REPORT * ML=Testing performed at Main Lab DEPARTMENT OF PATHOLOGY, [address] [place] [address] Madi Ferguson M.D. Director [facility] # [id number] 12 SEE RESULT BELOW Name: YAEL DOMINGUEZ : [address]: Handy Amador MD Acct: [id number] Unit: [id number] AGE: 75 Location: [facility] Re02/06/16 SEX: F Status: DEP ER SPEC: [id number] ISAÍAS: 02/06/16-1314 [facility] DR: Crystal Lombardi NP REQ: [id number] RECD: 02/06/16 STATUS: HUMBERTO MCKEON DR: Handy Murphy MD _ SOURCE: URINE SPDESC: ORDERED: Urine Culture Procedure Result Reported Site Urine Culture Final 02/08/16- 0757 ML No Growth (<1,000 CFU/mL) * ML - MAIN LAB ([facility]) . END OF REPORT * ML=Testing performed at Main Lab DEPARTMENT OF PATHOLOGY, [facility] [email or web address] [place] [address] Madi Ferguson M.D. Director [facility] # [id number] 13 FASTING 14 FASTING 15 RUN DATE: 01/05/13 [facility] LAB LIVE PAGE 1 RUN TIME: [address] [place] [address] Specimen Inquiry Name: YAEL DOMINGUEZ Jeff : [address]: Delmar Hutchison MD Acct: [id number] Unit: [id number] AGE: 72 Location: ENDO Re01/04/13 SEX: F Status: REG REF SPEC: [id number] ISAÍAS: 01/04/13 [facility] DR: Delmar Hutchison MD REQ: [id number] RECD: 01/04/13 STATUS: HUMBERTO MCKEON DR: Miguel Angel Murphy MD _ SOURCE: GAS ANTRUM SPDESC: ORDERED: Clotest Procedure Result Verified Site Clotest Final 01/05/13 5725 ML Clotest Negative END OF REPORT * ML=Testing performed at Main Lab DEPARTMENT OF PATHOLOGY, [address] [place] [address] Madi Ferguson M.D. Director [facility] Permit #[id number] RUN DATE: 01/06/13 [facility] LAB LIVE PAGE 1 RUN TIME: 9466 [address] [place], [place] [address] Specimen Inquiry Name: YAEL DOMINGUEZ : [address]: Delmar Hutchison MD Acct: [id number] Unit: [id number] AGE: 72 Location: ENDO Re01/04/13 SEX: F Status: REG REF SPEC: [id number] ISAÍAS: 01/04/13- SUBM DR: Delmar Hutchison MD REQ: [id number] RECD: 01/05/13 STATUS: HIRAM MCKEON DR: Miguel Angel Murphy MD _ ORDERED: LEVEL IV/2 FINAL DIAGNOSIS 1) [place], biopsy: A. Gastroesophageal junction zone mucosa with mild to moderate reflux esophagitis. B. Gastric cardia-type mucosa with chronic inflammation and reactive glandular epithelial changes. C. No goblet cell metaplasia or dysplasia identified. 2) Colon, transverse, biopsy: Large intestinal mucosa with no significant pathologic abnormality. CLINICAL HISTORY Constipation. And GERD. Colonoscopy to cecum, poor prep. One nodule proximal transverse. GROSS DESCRIPTION 1) The specimen is received in formalin labeled Yael Dominguez, Biopsy GE Junction and consists of two, padilla, soft tissue fragments measuring 0.4 x 0.3 x 0.2 cm. in aggregate. Submitted entirely, one cassette. 2) The specimen is received in formalin labeled Yael Dominguez, Biopsy Transverse Colon Nodule and consists of padilla, soft tissue fragment measuring 0.3 x 0.2 x 0.2 cm. in aggregate. Submitted entirely, one cassette. Signed (signature on file) Madi Ferguson MD 1504 END OF REPORT * ML=Testing performed at Main Lab DEPARTMENT OF PATHOLOGY, [address] [place] [address] Madi Ferguson M.D. Director [facility] Permit #[id number] 17 SPECIMEN MARKEDLY HEMOLYZED 18 Anion gap measurement may be of limited value in the presence of any alkalosis, especially in a combined acid base disorder. . 19 A metabolite of Naproxen, O-desmethylnaproxen, has been shown to interfere with the Jendrassik-Edil method for measuring total bilirubin. Samples from patients who have taken Naproxen have shown spurious elevation in total bilirubin levels. 20 Because ethnic data is not always readily [...] 15-29 5 Kidney failure <15 (or dialysis) 21 RUN DATE: 05/05/12 [facility] NMI LIVE PAGE 1 RUN TIME: 955 Specimen Inquiry RUN USER: INTERFACE Name: YAEL DOMINGUEZ Status: DEP ER Re05/03/12 Age/Sex: 71/F Unit#: [id number] Location: : 40 SPEC #: [id number] ISAÍAS: 05/03/12 STATUS: COMP REQ #: [id number] RECD: 05/03/[address]: Víctor Patrick MD SOURCE: URINE ENTR: 05/03/12-[address]: [facility] SPDESC: Katherine TILLMAN,Miguel Angel Otoole ORDERED: URINE C S ACT WKST: UR 05/05/12 #1 Procedure Result Verified Site > URINE CULTURE SENSITIVI Final 05/05/12- 0956 ML Organism 1 BETA STREP GROUP B Susceptibility testing of penicillins and other B-lactams approved by FDA for treatment of Streptococcus pyogenes (Group A Strep) and Streptococcus agalactiae (Group B Strep) is not necessary for clinical purposes and need not be done routinely, since as with vancomycin, resistant strains have not been recognized. (CLSI L963-P44;p.66) Positive isolates will be saved for one week. Please call the Microbiology Laboratory if further susceptibility testing is needed. COLONY COUNT 10-25,000 ORGANISMS/ML (MODERATE) Organism 2 NORMAL DARRYL COLONY COUNT 10-25,000 ORGANISMS/ML (MODERATE) - [facility] Permit #[id number] [address] [place] [address] DEPARTMENT OF PATHOLOGY, [address] [place] [address] [facility] Permit #[id number] Madi Ferguson M.D. Director Tiana Blanca M.D. [employer] 22 New Reference Range and Interpretation effective 09/02/2002 TnI (ng/ml) INTERPRETATION Less Than 0.06 ng/mL NOT SUPPORTIVE OF DIAGNOSIS OF [place] 0.06 - 0.50 ng/ml INDETERMINATE: SUGGEST SERIAL STUDIES IF CLINICALLY INDICATED. Greater than 0.5 ng/mL CONSISTENT WITH DIAGNOSIS OF [place] . 23 Imm. NE 1 24 Recommended INR for Patients on Oral Anticoagulants Prophylaxis 2.0 - 3.0 Treatment of thrombosis 2.0 - 3.0 Prevention of embolism 2.0 - 3.0 Prevention of embolism from prosthetic heart valves 2.5 - 3.5 25 DIAGNOSIS,TREATMENT,AND THERAPY MUST BE BASED ON THE INR VALUE ALONE. 26 PLATELETS CLUMPED. UNABLE TO PERFORM ACCURATE COUNT. 27 RUN DATE: 10/22/11 [facility] NMI LIVE PAGE 1 RUN TIME: 1147 Specimen Inquiry RUN USER: INTERFACE Name: YAEL DOMINGUEZ Status: DEP ER Re10/20/11 Age/Sex: 70/F Unit#: [id number] Location: ED : 40 SPEC #: [id number] ISAÍAS: 10/20/11 STATUS: COMP REQ #: [id number] RECD: 10/20/[address]: [facility] SOURCE: URINE ENTR: 10/20/[address]: Katherine TILLMAN,Miguel Angel Otoole SPDESC: ORDERED: URINE C S ACT WKST: UR 10/22/11 #1 Procedure Result Verified Site > URINE CULTURE SENSITIVI Final 10/22/11- 1147 ML SPECIMEN CONTAINS NORMAL URETHRAL OR PERINEAL DARRYL AND DOES NOT SUGGEST URINARY TRACT INFECTION ML - [facility] Permit #[id number] [address] [place] [address] DEPARTMENT OF PATHOLOGY, [address] [place] [address] [facility] Permit #[id number] Madi Ferguson M.D. Director Tiana Blanca M.D. [employer] 28 Anion gap measurement may be of limited value in the presence of any alkalosis, especially in a combined acid base disorder. . 29 A metabolite of Naproxen, O-desmethylnaproxen, has been shown to interfere with the Johny- method for measuring total bilirubin. Samples from patients who have taken Naproxen have shown spurious elevation in total bilirubin levels. 30 Because ethnic data is not always readily [...] 15-29 5 Kidney failure <15 (or dialysis) 31 New Reference Range and Interpretation effective 09/02/2002 TnI (ng/ml) INTERPRETATION Less Than 0.06 ng/mL NOT SUPPORTIVE OF DIAGNOSIS OF [place] 0.06 - 0.50 ng/ml INDETERMINATE: SUGGEST SERIAL STUDIES IF CLINICALLY INDICATED. Greater than 0.5 ng/mL CONSISTENT WITH DIAGNOSIS OF [place] . 32 Please note updated reference range, effective 06/20/10 33 He[place], [place]. DEPARTMENT OF PATHOLOGY or Extension 1500 SURGICAL PATHOLOGY REPORT PATIENT: YAEL DOMINGUEZ : 1940 AGE: 69 Y SEX: F ACCT: [id number] PROCEDURE DATE: 11/13/2010 DATE RECEIVED: 11/14/2010 REQUESTING PHYSICIAN: ALYSSA DENNIS MD LOCATION: [facility] Case No. [id number] FINAL DIAGNOSIS: SKIN, RIGHT THIGH, EXCISION: SEBORRHEIC KERATOSIS (SKIN TAG). FLAKITA/lynda D/T 11/15/10 GROSS DESCRIPTION: Received in formalin, labeled Yael Dominguez, lab #[id number], consists of an off-white blue kinsey glistening but unevenly raised firm polypoid papule that is 0.8 x 0.3 x 0.7 cm. The margin is inked black. It is serially sectioned. TS/ 1 AP/slm D/T 11/14/10 CLINICAL DATA: [id number] NONE PROVIDED SPECIMEN SUBMITTED: LESION, RIGHT THIGH ADDITIONAL COPIES SENT TO: Electronically Signed by: Signed Date and Time: FREDA ORTEGA M.D., MD PATHOLOGIST 11/15/2010 13:49 ____ Performed @ [facility], [address] [place] [address] 34 result reckd' 35 Anion gap measurement may be of limited value in the presence of any alkalosis, especially in a combined acid base disorder. . 36 Note change in reference range as of 07/20/08. The change was based on recommendations from the Citizen Of [place] Diabetes Association. 37 Please note change in reference range effective 08 . 38 A metabolite of Naproxen, O-desmethylnaproxen, has been shown to interfere with the Jendrassik-[place] method for measuring total bilirubin. Samples from patients who have taken Naproxen have shown spurious elevation in total bilirubin levels. 39 Because ethnic data is not always readily [...] 15-29 5 Kidney failure <15 (or dialysis) 40 New Reference Range and Interpretation effective 09/02/2002 TnI (ng/ml) INTERPRETATION Less Than 0.06 ng/mL NOT SUPPORTIVE OF DIAGNOSIS OF [place] 0.06 - 0.50 ng/ml INDETERMINATE: SUGGEST SERIAL STUDIES IF CLINICALLY INDICATED. Greater than 0.5 ng/mL CONSISTENT WITH DIAGNOSIS OF [place] . 41 FASTING 42 Anion gap measurement may be of limited value in the presence of any alkalosis, especially in a combined acid base disorder. . 43 Note change in reference range as of 07/20/08. The change was based on recommendations from the Citizen Of [place] Diabetes Association. 44 Please note change in reference range effective 08 . 45 Because ethnic data is not always readily [...] 15-29 5 Kidney failure <15 (or dialysis) 46 SPECIMEN MARKEDLY HEMOLYZED 47 ---- RUN DATE: 05/31/09 [facility] N[facility] LIVE PAGE 1 RUN TIME: 1101 Specimen Inquiry RUN USER: INTERFACE -- Name: YAEL DOMINGUEZ Status: REG REF Re05/31/09 Age/Sex: 68/F Unit#: [id number] Location: THYROID : 40 -- Specimen: [id number] SOUT Spec Date: 05/31/[address]: Lev pritchett MD Spec Type: CYTOLOGY Received: 05/31/09 Copies to: Miguel Angel Kwong MD SOURCE FINE NEEDLE ASPIRATION Left thyroid, US guided PATIENT INFORMATION ACTUAL COLLECTION DATE: 05/31/09 PATIENT HISTORY: Thyroid nodules, left thyroid lower pole 1.3 x 1.1 x 0.8 cm GROSS DESCRIPTION Ultrasound guided fine needle aspiration, passes-3 slides-4 Needle rinse in Cytolyt solution for cell block. IMMEDIATE INTERPRETATION Left thyroid, FNA: Adequate DIAGNOSIS Left thyroid, FNA: Very scant benign appearing follicular cells, very scant colloid and blood (see comment). COMMENT Three passes were performed on this 1.3 cm thyroid nodule obtaining mostly blood and very few benign appearing follicular cells and scant colloid. A definitive diagnosis cannot be made, therefore repeat biopsy if clinically indicated and follow up are recommended. A cell block was prepared in the evaluation of this specimen. Final Interpretation electronically signed by: TIANA BLANCA 05/31/09 1101 -- -- DEPARTMENT OF PATHOLOGY, [address] [place] [address] [facility] Permit #[id number] Holly Santos M.D. Estimate Clerk kirsty -- 48 ---- RUN DATE: 05/31/09 [facility] NMI LIVE PAGE 1 RUN TIME: 1050 Specimen Inquiry RUN USER: INTERFACE -- Name: YAEL DOMINGUEZ Status: REG REF Re05/31/09 Age/Sex: 68/F Unit#: [id number] Location: THYROID : 40 -- Specimen: [id number] SOUT Spec Date: 05/31/[address]: Lev pritchett MD Spec Type: CYTOLOGY Received: 05/31/09 Copies to: Miguel Angel Kwong MD SOURCE FINE NEEDLE ASPIRATION Right thyroid, US guided PATIENT INFORMATION ACTUAL COLLECTION DATE: 05/31/09 PATIENT HISTORY: Thyroid nodules, Right thyroid 3.5 x 2.1 x 3.2 cm, mid pole GROSS DESCRIPTION Ultrasound guided fine needle aspiration, passes-2 slides-4 Needle rinse in Cytolyt solution for cell block. IMMEDIATE INTERPRETATION Right thyroid, FNA: Adequate DIAGNOSIS Right thyroid, FNA: Benign thyroid nodule: Involutional type (see comment). COMMENT The specimen demonstrates abundant watery proteinaceous fluid, a scant amount of benign appearing follicular epithelium arranged in uniform sheets, medium sized follicles and only occasional small groups. Abundant pigmented and non-pigmented macrophages are seen in the background. No features of papillary carcinoma are seen. In this clinical setting the risk of malignancy is less than 3%. Clinical management of this thyroid nodule should be based on clinical and radiographic features as well as the above findings. A cell block was prepared in the evaluation of this specimen. Final Interpretation electronically signed by: TIANA BLANCA 05/31/09 1050 -- DEPARTMENT OF PATHOLOGY, [address] [place] [address] [facility] Permit #[id number] Madi Ferguson M.D. Director Tiana Blanca M.D. Estimate Clerk Dir kirsty -- 49 DONNA VALUE=2.01 ( OF 11/05/07 Recommended INR for Patients on Oral Anticoagulants Prophylaxis 2.0 - 3.0 Treatment of thrombosis 2.0 - 3.0 Prevention of embolism 2.0 - 3.0 Prevention of embolism from prosthetic heart valves 2.5 - 3.5 50 Please note: The following may produce a false positive D Dimer test: - Rheumatoid factor greater than 60 IU/ml - Plasma hemoglobin greater than 0.05 gm/dl - Bilirubin greater than 50 mg/dl - Lipids greater than 1000 mg/dl - FDP greater than 20 ug/ml . 51 Anion gap measurement may be of limited value in the presence of any alkalosis, especially in a combined acid base disorder. . 52 Note change in reference range as of 07/20/08. The change was based on recommendations from the Citizen [place] Diabetes Association. 53 Please note change in reference range effective 08 . 54 CHOLESTEROL INTERPRETATION: Desirable: Less than 200 MG/DL Borderline-High Risk: 200-239 MG/DL High-Risk: 240 MG/DL and over 55 HDL INTERPRETATION: Undesirable: High Risk: Less than 40 MG/DL Desirable: Low Risk: Greater than 60 MG/DL 56 LDL INTERPRETATION: Low Risk Optimal Level: LDL Less than 100 MG/DL Near or Above Optimal: LDL 100-129 MG/DL Borderline High Risk: LDL 130-159 MG/DL High Risk: LDL 160-189 MG/DL Very High Risk: LDL Greater than 189 MG/DL 57 New Reference Range and Interpretation effective 09/02/02 TnI (ng/ml) INTERPRETATION <0.06 ng/ml NOT SUPPORTIVE OF DIAGNOSIS OF [place] 0.06 - 0.50 ng/ml INDETERMINATE: SUGGEST SERIAL STUDIES IF CLINICALLY INDICATED. > 0.5 ng/ml CONSISTENT WITH DIAGNOSIS OF [place] . 58 RESULT RECHECKED 59 INTERPRET RESULT WITH CAUTION. SPECIMEN MARKEDLY HEMOLYZED 60 Anion gap measurement may be of limited value in the presence of any alkalosis, especially in a combined acid base disorder. . 61 DONNA VALUE=2.01 ( OF 11/05/07 Recommended INR for Patients on Oral Anticoagulants Prophylaxis 2.0 - 3.0 Treatment of thrombosis 2.0 - 3.0 Prevention of embolism 2.0 - 3.0 Prevention of embolism from prosthetic heart valves 2.5 - 3.5 62 PLEASE NOTE NEW REFERENCE RANGE EFFECTIVE 05 63 Please note: The following may produce a false positive D Dimer test: - Rheumatoid factor greater than 60 IU/ml - Plasma hemoglobin greater than 0.05 gm/dl - Bilirubin greater than 50 mg/dl - Lipids greater than 1000 mg/dl - FDP greater than 20 ug/ml . 64 DONNA VALUE=2.01 ( OF 11/05/07 Recommended INR for Patients on Oral Anticoagulants Prophylaxis 2.0 - 3.0 Treatment of thrombosis 2.0 - 3.0 Prevention of embolism 2.0 - 3.0 Prevention of embolism from prosthetic heart valves 2.5 - 3.5 65 PLEASE NOTE NEW REFERENCE RANGE EFFECTIVE 05 66 Anion gap measurement may be of limited value in the presence of any alkalosis, especially in a combined acid base disorder. . 67 New Reference Range and Interpretation effective 09/02/02 TnI (ng/ml) INTERPRETATION <0.06 ng/ml NOT SUPPORTIVE OF DIAGNOSIS OF [place] 0.06 - 0.50 ng/ml INDETERMINATE: SUGGEST SERIAL STUDIES IF CLINICALLY INDICATED. > 0.5 ng/ml CONSISTENT WITH DIAGNOSIS OF [place] . Procedures Date Code Description Status 10/31/2015 [id number] Mammogram Completed 12/28/2014 17713 Pulse Oximetry Completed 12/31/2012 [id number] Colonoscopy Completed 11/30/2012 [id number] Mammogram Completed 11/13/2010 79596 Remove Skin Tags Up To 15 Completed 03/29/2010 [id number] Mammogram Completed 10/24/2008 [id number] Mammogram Completed 01/03/2008 11362 Electrocardiogram Complete Completed Encounters Type Date Location Provider Dx Diagnosis Office Visit 05/19/2018 [facility] Office Miguel Angel Murphy, Z00.01 Encounter for 2:00p M.DCarla general adult medical exam w abnormal findings E78.2 Mixed hyperlipidemia I10 Essential (primary) hypertension K21.9 Gastro-esophageal reflux disease without esophagitis 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 Office Visit 01/11/2018 11:30a Main Office Lakshmi Elizondo M10.9 Gout, unspecified CLIENT SUPPORT ASSOCIATE Office Visit 12/09/2016 11:10a [facility] Office Miguel Angel Otoole F03.90 Unspecified Holly Murphy dementia without behavioral disturbance Office Visit 11/25/2016 11:00a [facility] Office Miguel Angel Otoole N39.0 Urinary tract Holly Murphy infection, site not specified I10 Essential (primary) hypertension F32.9 Major depressive disorder, single episode, unspecified F41.9 Anxiety disorder, unspecified 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 K21.9 Gastro-esophageal reflux disease without esophagitis E78.2 Mixed hyperlipidemia Office Visit 09/12/2016 1:00p [facility] Office Alyssa R10.13 Epigastric pain Abdullahi, CLIENT SUPPORT ASSOCIATE R19.7 Diarrhea, unspecified R63.4 Abnormal weight loss R11.0 Nausea Office Visit 07/25/2016 9:45a [facility] Office Alyssa I10 Essential ( primary) Abdullahi, CLIENT SUPPORT ASSOCIATE hypertension F41.9 Anxiety disorder, unspecified R10.13 Epigastric pain R19.7 Diarrhea, unspecified R63.4 Abnormal weight loss Office Visit 02/08/2016 11:00a Main Office MEHRDAD Wisdom I10 Essential (primary) hypertension F41.9 Anxiety disorder, unspecified Office Visit 01/17/2016 9:00a Main Office Alyssa K59.01 Slow transit Abdullahi, CLIENT SUPPORT ASSOCIATE constipation N64.4 Mastodynia F41.9 Anxiety disorder, unspecified R10.816 Epigastric abdominal tenderness R48.8 Other symbolic dysfunctions Office Visit 11/15/2015 9:00a Main Office Alyssa K59.01 Slow transit Abdullahi, CLIENT SUPPORT ASSOCIATE constipation K57.92 Dvtrcli of intest, part unsp, w/o perf or abscess w/o bleed R42 Dizziness and giddiness R41.3 Other amnesia N64.4 Mastodynia Office Visit 10/15/2015 11:00a [place] Alyssa K59.01 Slow transit Office Abdullahi, CLIENT SUPPORT ASSOCIATE constipation K57.92 Dvtrcli of intest, part unsp, w/o perf or abscess w/o bleed R42 Dizziness and giddiness N64.4 Mastodynia Office Visit 05/22/2015 1:00p Main Office Crystal Adame, 311 Depressive Disorder Afnp-C Not Elsewhere Spec 780.93 Memory Loss Office Visit 05/01/2015 1:00p Main Office Crystal Adame, 311 Depressive Disorder Afnp-C Not Elsewhere Spec Office Visit 12/28/2014 7:30p Main Office Miguel Angel Murphy, 473.8 Sinusitis Chronic M.D. Other 780.79 Malaise And Fatigue Other Office Visit 11/01/2014 11:30a Main Office Lakshmi Elizondo, 401.9 Hypertension Unspec CLIENT SUPPORT ASSOCIATE 311 Depressive Disorder Not Elsewhere Spec 780.52 Insomnia Unspecified Office Visit 04/27/2014 3:10p Main Office Miguel Angel Murphy, V70.0 Examination General M.D. 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 780.79 Malaise And Fatigue Other Office Visit 12/01/2012 10:10a [facility] Miguel Angel Otoole 401.9 Hypertension Unspec Holly Murphy 424.0 Mitral Valve Disorder 272.4 Hyperlipidemia Other Unspec 300.00 Anxiety State Unspec 530.81 Esophageal Reflux 719.88 Joint Disorder Other Spec Sites 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 V76.10 Screening For Malignant Neoplasm Breast Office Visit 06/07/2012 3:00p [facility] Miguel Angel Otoole 780.2 Syncope & Holly Murphy Collapse 300.00 Anxiety State Unspec 401.9 Hypertension Unspec 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 784.0 Headache Office Visit 05/17/2012 10:20a [facility] Miguel Angel Otoole 780.2 Syncope & Holly Murphy Collapse Office Visit 03/08/2012 6:20p Main Office Arlette OmerCarla 461.0 Sinusitis Acute Holly Vargas Maxillary 729.81 Swelling Of Limb Office Visit 01/15/2012 9:00a [facility] Lakshmi Elizondo, 530.81 Esophageal Reflux CLIENT SUPPORT ASSOCIATE 719.47 Pain Joint Ankle & Foot 246.9 Thyroid Disorders Unspec Office Visit 11/06/2010 10:30a [facility] Lakshmi Elizondo, 300.00 Anxiety State CLIENT SUPPORT ASSOCIATE Unspec 530.81 Esophageal Reflux 112.3 Candidiasis Skin & Nails 709.9 Skin & Subcutaneous Tissue Disorders Unspec Office Visit 05/06/2010 10:30a [facility] Office Miguel Angel Otoole 401.9 Hypertension Unspec Holly Murphy 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 530.81 Esophageal Reflux 333.94 Restless Legs Syndrome 564.09 Constipation Other 300.00 Anxiety State Unspec Office Visit 12/11/2009 1:10p [facility] Miguel Angel Otoole 401.9 Hypertension Unspec Holly Murphy 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 530.81 Esophageal Reflux 300.00 Anxiety State Unspec 564.09 Constipation Other Office Visit 07/04/2009 2:10p [facility] Office Miguel Angel Otoole 401.9 Hypertension Unspec Holly Murphy 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 530.81 Esophageal Reflux 300.00 Anxiety State Unspec 389.9 Hearing Loss Unspec 784.0 Headache Office Visit 04/11/2009 9:40a [facility] Miguel Angel Otoole 401.9 Hypertension Unspec Holly Murphy 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 530.81 Esophageal Reflux 300.00 Anxiety State Unspec 784.0 Headache 789.00 Pain Abdominal Unspec Site Office Visit 03/28/2009 1:30p [facility] Lakshmi Elizondo 401.9 Hypertension CLIENT SUPPORT ASSOCIATE Unspec 564.09 Constipation Other 530.81 Esophageal Reflux Office Visit 01/03/2009 1:00p [facility] Miguel Angel Otoole 564.09 Constipation Other Holly Murphy Office Visit 10/04/2008 1:20p [facility] Office Miguel Angel Otoole 401.9 Hypertension Holly Murphy Unspec 530.81 Esophageal Reflux 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 300.00 Anxiety State Unspec V04.81 Need For Prophylactic Vaccination & Inoculation/Influenza V03.82 Streptococcus Pneumoniae Vaccination Spec Other V77.91 Screening For Lipoid Disorders V76.10 Screening For Malignant Neoplasm Breast Office Visit 04/06/2008 3:00p Main Office Miguel Angel Murphy, 401.9 Hypertension Unspec Holly 530.81 Esophageal Reflux 780.79 Malaise And Fatigue Other 553.3 Hernia Diaphragmatic 300.00 Anxiety State Unspec 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 786.59 Pain Chest Other Office Visit 02/25/2008 3:40p Main Office Robin Carlson, 465.9 URI Upper M.D. Respiratory Infections Acute Unspec Sites 461.9 Sinusitis Acute Unspec 466.0 Bronchitis Acute 401.9 Hypertension Unspec 530.81 Esophageal Reflux Office Visit 01/26/2008 1:30p [facility] Office Miguel Angel Otoole 401.9 Hypertension Unspec Holly Murphy 530.81 Esophageal Reflux 780.79 Malaise And Fatigue Other 553.3 Hernia Diaphragmatic 300.00 Anxiety State Unspec 564.09 Constipation Other 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 Office Visit 01/10/2008 10:20a [facility] Office Miguel Angel Otoole 401.9 Hypertension Unspec Holly Murphy 530.81 Esophageal Reflux 780.79 Malaise And Fatigue Other 564.09 Constipation Other Office Visit 01/03/2008 10:30a [facility] Office Miguel Angel Otoole 401.9 Hypertension Unspec Holly Murphy 530.81 Esophageal Reflux 786.59 Pain Chest Other 553.3 Hernia Diaphragmatic Plan of Treatment Future Appointment(s):04/05/2019 10:30 am - Miguel Angel Murphy M.D. at [facility] [id number]/2019 - Rasheed Monahan MDI50.21 Acute systolic (congestive) heart failureNew Labs:CMP & CBC, Ordered: 03/18/19Brain Natural Peptide, Ordered: 03/18/19AllComments:Medication Management Patient Understands medications she's taking? Yes No Are there Barriers to Adherence? Yes No Has the patient been asked about herbal supplements and therapies, and OTC meds? Yes No
[2019-03-18 13:46] LABS: ABS Basophils 0.1 10^3/ul (0-0.2); ABS Eosinophils 0.2 10^3/ul (0-0.6); ABS Lymphocytes 1.8 10^3/ul (1.0-4.8); ABS Monocytes 0.9 10^3/ul (0-0.8); ABS Neutrophils 4.1 10^3/ul (1.5-7.7); ABS Nucleated RBC 0 10^3/ul; Eosinophil % 2.3 %; Hematocrit 34 % (33-41); Hemoglobin 11.4 g/dL (12.0-16.0); Lymphocyte % 25.8 %; Mean Corpuscular HGB Conc 34 g/dL (31-36); Mean Corpuscular Hemoglobin 31 pg (27-31); Mean Corpuscular Volume 92 fL (80-97); Mean Platelet Volume 7.8 fL (7.4-10.4); Nucleated Red Blood Cells % 0; Platelet Count 198 10^3/uL (150-450); Red Blood Count 3.72 10^6 /uL (3.70-4.87); Red Cell Distribution Width 14 % (10.5-15)
[2019-03-18 14:05] LABS: INR 1.17 (0.77-1.02)
[2019-03-18 14:22] LABS: Troponin I 0.01 ng/mL (<0.04)
[2019-03-18 14:23] LABS: Albumin 3.7 g/dL (3.2-5.2); Albumin/Globulin Ratio 1.3 (1-3); BUN/Creatinine Ratio 16.5 (8-20); Calcium 8.9 mg/dL (8.6-10.3); EGFR African American 55.2 (>60); EGFR Non-African American 45.6 (>60); Globulin 2.9 g/dL (2-4); Potassium 3.8 mmol/L (3.5-5.0); Total Protein 6.6 g/dL (6.4-8.9)
[2019-03-18 15:07] LABS: TSH (Thyroid Stimulating Horm) 2.28 mcIU/mL (0.34-5.60)
[2019-03-18] MEDS ORDERED: Furosemide IV* 10 MG/ML 10 ML VIAL (100 MG) IV ONE (15:27)
[2019-03-18] MEDS ORDERED: PROCHLORPERAZINE INJ 5 MG/ML 2 ML VIAL IV PRN (17:30)
--- NOTE | 2019-03-18 20:05 | HP ---
CC: Dr. Murphy; Dr. Frazier; Dr. Ann HISTORY AND PHYSICAL: DATE OF ADMISSION: 03/18/19 PRIMARY CARE PROVIDER: Dr. Murphy. OFFICE EQUIPMENT MECHANIC: Dr. Frazier. CONSULTING OFFICE EQUIPMENT MECHANIC: Dr. Ann. CHIEF COMPLAINT: Shortness of breath and swelling. HISTORY OF PRESENT ILLNESS: Ms. Crespo is a 78-year-old lady with a past medical history of aortic aneurysm, rheumatic disease of the tricuspid valve, hypertension, dementia, hyperlipidemia, hypertension, GERD, who presents to the emergency room with complaints of shortness of breath. The patient is pleasantly confused and most of the history is obtained from her daughter, Yojana Alejo, at bedside. Looking at the records, the patient was seen by Dr. Frazier in September 2018 for her history of hypertension, borderline cardiomyopathy with ejection fraction of 45% to 50%, and at that point Dr. Frazier felt the patient was overall compensated from a cardiac point of view, did not change any of her medications, and the plan was for followup in 1 year. The patient's daughter states that the patient lives by herself in an apartment at [facility] and has visiting nurse services. She was informed that the patient has not been compliant with her medications and her diet nowadays basically consists of TV dinners as the patient was refusing to eat her Meals on Wheels in the past. The patient's daughter thinks that she has been more short of breath for the past couple of weeks and she had not noticed the lower extremity edema, but she thinks this is pretty recent. The patient is able to tell me that she had some shortness of breath yesterday and today when she was walking to the bathroom, she felt like she was going to pass out. She denies chest pain, palpitations, fever, chills, cough. She admits that she is being more winded when moving around, but she cannot really pinpoint when the symptoms started. PAST MEDICAL HISTORY: 1. Hypertension. 2. Cardiomyopathy with ejection fraction of 45% to 50%. 3. Mild pulmonary hypertension. 4. Mild tricuspid and mitral insufficiency. 5. Mild ascending aorta dilatation. As per Dr. Frazier's note, the patient had normal coronaries on a cardiac cath done in 2007. 6. Dementia. 7. Anxiety. 8. Depression. 9. GERD. 10. Diaphragmatic hernia. 11. Toxic multinodular goiter, status post fine needle aspiration and as per daughter, the patient received radioactive iodine treatment in the past. 12. Diverticulitis. MEDICATION LIST: 1. Amlodipine 10 mg p.o. daily. 2. Aspirin 81 mg p.o. daily. 3. Cymbalta 60 mg p.o. daily. 4. Indomethacin 25 mg p.o. daily. 5. Magnesium citrate 150 mL p.o. once as needed for constipation. 6. Namenda XR 7 mg p.o. daily. 7. Metoprolol succinate 100 mg p.o. daily. 8. Pantoprazole 40 mg p.o. daily. 9. MiraLAX 17 g p.o. daily. 10. Rosuvastatin 10 mg p.o. daily. 11. Sucralfate 1 tablet p.o. t.i.d. before meals. 12. Verapamil SR 360 mg p.o. daily. ALLERGIES: No known drug allergies. FAMILY HISTORY: As per records, her father had heart disease and diabetes. SOCIAL HISTORY: There is no history of tobacco, alcohol, or drug use. She lives by herself in [facility], has visiting nurse services, but as per daughter's description, she has had a difficult time managing independently as she has not been taking her medications as usual. Refused her meals from Meals on Wheels and now is just eating TV dinners. Her surrogate decision maker is her daughter, Yojana Alejo, phone number is [phone]. PHYSICAL EXAMINATION GENERAL: The patient is a pleasantly confused elderly lady, sitting up in the ED stretcher, in no acute distress. VITAL SIGNS: Temperature 98.1, heart rate is 69, respiratory rate is 14, oxygen saturation is 97% on 4 L nasal cannula, blood pressure is 106/74. HEENT: Pupils are equal. Moist mucous membranes. CHEST: Breath sounds are present bilaterally with crackles from mid field down. CVS: Normal S1, S2. Regular rate and rhythm. ABDOMEN: Obese, soft, nontender, nondistended. EXTREMITIES: There is [id number] bilateral lower extremity edema. NEURO: She is alert, oriented x2 to self and place. Able to move all 4 extremities. Face is symmetric. Speech is clear. DIAGNOSTIC STUDIES/LAB DATA: The patient had a CBC that showed a WBC of 7.0, hemoglobin of 11.4, hematocrit of 34, platelets of 198 with 58% neutrophils. INR was 1.1. Chemistry showed a sodium of 139, potassium of 3.8, chloride of 107, bicarb of 21, BUN of 19, creatinine of 1.15, glucose of 110, lactic acid of 1.3, calcium of 8.9. LFTs are normal. First troponin is 0.01. BNP is greater than 1300. TSH is 2.28. Initial EKG done 03/18/19 at 1:30 p.m. showed junctional rhythm, 52 beats per minute with minimal ST depressions and those changes are new when compared to her prior EKG from October 2016. Her EKG was repeated at 4:42 and at that time , she was back in sinus rhythm at 69 beats per minute with a first-degree heart block. The ST-T changes are improved. Chest x-ray showed pulmonary interstitial edema and I am in agreement with the read. ASSESSMENT AND PLAN: Ms. Crespo is a 78-year-old lady with past medical history of dementia, hypertension, toxic multinodular goiter, anxiety, depression, nonischemic cardiomyopathy with ejection fraction of 45%, gastroesophageal reflux disease, who presented to the emergency room with complaints of shortness of breath and edema, found to have congestive heart failure exacerbation. 1. Acute congestive heart failure exacerbation. The patient's last echocardiogram as per Dr. Frazier's note was done in November 2017 and she had ejection fraction of 45% to 50% at that time. She will be admitted to the telemetry floor. She will be diuresed and we will repeat her echocardiogram. I think one of her issues is noncompliance with medication and the other one is noncompliance with her diet. Her daughter is concerned even with visiting nurse services, the patient would not be able to manage independently any more and she is interested in [facility] placement. She would prefer [facility]. The patient will be diuresed and we will hold off on MICKEY inhibitors for now as her blood pressure is on the lower side, but eventually we may be able to add low- dose lisinopril. A cardiology consultation was requested with Dr. Ann to help optimize her medications and management. Her indomethacin use may also be playing a role on her congestive heart failure. 2. Junctional rhythm. The patient is on high-dose verapamil and metoprolol as outpatient and although she is not compliant with her medications at this time, I believe she is taking some of them. She is back in sinus rhythm now with first- degree heart block. I am going to hold her amlodipine and verapamil and we will cut down significantly on her metoprolol dose, so we can have more room to diurese her. 3. Acute kidney injury. The patient's creatinine is up to 1.1 from a baseline of 0.8, but this was in 2016. The patient does take indomethacin as outpatient and I am going to hold this one for now. She will be diuresed and we will monitor her renal function as her renal function may improve and she perfuses better. 4. Gastroesophageal reflux disease. We will continue pantoprazole and sucralfate. 5. Hyperlipidemia. We will continue statin. 6. DVT prophylaxis. The patient has a score of 6 on the DVT Prophylaxis Assessment Guide and she will be started on subcutaneous heparin. SCDs are contraindicated in the setting of lower extremity edema and congestive heart failure exacerbation. 7. Code status is discussed with the patient and her daughter and she wishes to be a full code. TIME SPENT: Approximately 60 minutes was spent with the patient and daughter interview, medical records review, physical examination to complete this admission, more than half of this time was spent [id number] with the patient and coordination of care. [id number]/[facility] #: [id number] RHONDA
[2019-03-18] MEDS: Heparin VIAL(*) 5000 UNITS/ML VIAL (FIVE THOUSAND) SUBCUT SCH (20:45)
[2019-03-18] MEDS: Metoprolol Tartrate TAB* 25 MG PO SCH (20:46)
[2019-03-18] MEDS: Acetaminophen TAB* 325 MG PO PRN (20:50)
[2019-03-19] MEDS: Heparin VIAL(*) 5000 UNITS/ML VIAL (FIVE THOUSAND) SUBCUT SCH ×3 (05:50→21:18)
[2019-03-19 06:05] LABS: BUN/Creatinine Ratio 17.2 (8-20); Calcium 8.5 mg/dL (8.6-10.3); EGFR African American 65.6 (>60); EGFR Non-African American 54.2 (>60)
[2019-03-19] MEDS ORDERED: Potassium Chlor TAB* 20 MEQ TAB.ER PO ONE ×2 (07:39→21:00)
[2019-03-19] MEDS: Polyethylene Glycol 3350* 17 GM PACKET PO SCH (08:31)
[2019-03-19] MEDS: Acetaminophen TAB* 325 MG PO PRN ×2 (08:32→21:18)
[2019-03-19] MEDS: Pantoprazole TAB * 40 MG TAB PO SCH (08:32)
[2019-03-19] MEDS: Aspirin 81 mg CHEW TAB* 81 MG TAB.CHEW PO SCH (08:32)
[2019-03-19] MEDS: DULoxetine DR CAP* 30 MG CAP.DR PO SCH (08:32)
[2019-03-19] MEDS: Metoprolol Tartrate TAB* 25 MG PO SCH ×2 (08:33→21:16)
[2019-03-19] MEDS ORDERED: Furosemide IV* 10 MG/ML VIAL (40 MG) IV SCH (09:00)
[2019-03-19] MEDS: MEMANTINE 7 MG PO SCH (09:48)
--- NOTE | 2019-03-19 11:18 | PN ---
Subjective Date of Service: 03/19/19 Interval History: HOSPITALIST PROGRESS NOTE Patient seen and examined at bedside. Care reviewed and d/w Adam Fulton RN. She feels better today. States her breathing is easier, but still feels very weak. Appetite is good, denies N/V. Family History: Unchanged from Admission Social History: Unchanged from Admission Past Medical History: Unchanged from Admission Objective Active Medications: Acetaminophen (Tylenol Tab*) 650 mg PO Q6H PRN PRN Reason: pain/fever Last Admin: 03/19/19 08:32 Dose: 650 mg Aspirin (Aspirin 81 Mg Chew Tab*) 81 mg PO DAILY [facility] Last Admin: 03/19/19 08:32 Dose: 81 mg Duloxetine HCl (Cymbalta Cap*) 60 mg PO DAILY [facility] Last Admin: 03/19/19 08:32 Dose: 60 mg Furosemide (Lasix Iv*) 40 mg IV DAILY [facility] Last Admin: 03/19/19 08:31 Dose: 40 mg Heparin Sodium (Porcine) (Heparin Vial(*)) 5,000 units SUBCUT Q8HR [facility] Last Admin: 03/19/19 05:50 Dose: 5,000 units Memantine (Namenda Xr *) 7 mg PO DAILY [facility] Last Admin: 03/19/19 09:48 Dose: 7 mg Metoprolol Tartrate (Lopressor Tab*) 12.5 mg PO Q12HR [facility] Last Admin: 03/19/19 08:33 Dose: Not Given Pantoprazole Sodium (Protonix Tab*) 40 mg PO DAILY [facility] Last Admin: 03/19/19 08:32 Dose: 40 mg Polyethylene Glycol/Electrolytes (Miralax*) 17 gm PO DAILY [facility] Last Admin: 03/19/19 08:31 Dose: 17 gm Prochlorperazine Edisylate (Compazine Inj*) 5 mg IV Q6H PRN PRN Reason: NAUSEA/VOMITING Vital Signs - 8 hr 03/19/19 03/19/19 03/19/19 04:10 07:32 08:00 Temperature 97.5 F 98.5 F Pulse Rate 76 76 Respiratory 16 20 16 Rate Blood Pressure 106/60 95/54 (mmHg) O2 Sat by Pulse 92 95 Oximetry Oxygen Devices in Use Now: Nasal Cannula Appearance: Elderly lady sitting up in bed in NAD. Eyes: No Scleral Icterus Ears/Nose/Mouth/Throat: Mucous Membranes Moist Neck: Trachea Midline Respiratory: Symmetrical Chest Expansion and Respiratory Effort, Clear to Auscultation Cardiovascular: RRR - Normal S1 and S2 Abdominal: NL Sounds; No Tenderness; No Distention Extremities: - - Mild bilateral LE edema Neurological: - - AAOx2 (self and place), AGOSTO Result Diagrams: 03/18/19 13:30 03/19/19 04:56 Assess/Plan/Problems-Billing Assessment: Mrs Crespo is a 78yo F with PMH of HTN, 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 - Patient Problems (1) Systolic congestive heart failure Comment: - With acute exacerbation. - Suspect secondary to non intentional medication and dietary non compliance. - Responding well to diuresis with Furosemide - will hold off for now to avoid overdiuresis and monitor. - Awaiting echo. (2) Junctional rhythm Comment: - Suspect secondary to verapamil and metoprolol use. - Remains in NSR. - Continue low dose metoprolol. (3) ESMER (acute kidney injury) Comment: - Suspect secondary to poor perfusion. - Improving with diuresis. (4) GERD (gastroesophageal reflux disease) Comment: - Continue PPI and Carafate. (5) DVT prophylaxis Comment: - SQ Heparin. (6) Full code status Status and Disposition: Inpatient. Daughter interested in placement on discharge.
--- NOTE | 2019-03-19 12:42 | CONSULT ---
Subjective Date of Service: 03/19/19 Interval History: Date of admission 03/18/2019 Date of consult 03/19/2019 PMD: Dr. Murphy Production Support Consultant: Dr. Frazier CC: Dyspnea Reason for consult: CHF HPI: Yael Crespo is a 78 year old woman admitted with dyspnea and edema. The history I obtained from her differs slightly from that from Dr. Herman's note. It is noted she takes aricept for what I assume is a form of dementia. Patient states she has had dyspnea and central chest discomfort for 1 week She received IV diuretics and given sinus arrest with junctional escape on her baseline EKG, her rate control agents (possible toprol 100 mg po daily and verapamil 300 mg po daily?) were held Subsequent EKG's showed return of NSR but remains with a long QTc At time of examination she is entirely asymptomatic, even with ambulation in walker and appears euvolemic Edema started several days prior to admission She has no palpitations, presyncope or syncope per her account to me. Dr. Herman's note mentions exertional lightheadedness episode. There is a note of patient medication non-adherence. It is not clear which medications she is actually supposed to be taking at home but judging by her EKG 's I would say it is likely she was taking rate control agents. PAST MEDICAL HISTORY: 1. Hypertension. 2. Dementia 3. Gerd 4. Toxic multinodular goiter, status post fine needle aspiration and as per daughter, the patient received radioactive iodine treatment in the past. ALLERGIES: No known drug allergies. FAMILY HISTORY: As per records, her father had heart disease and diabetes. SOCIAL HISTORY: There is no history of tobacco, alcohol, or drug use. She lives by herself in [place] [facility] [place], has visiting nurse services, but as per daughter's description, she has had a difficult time managing independently as she has not been taking her medications as usual. Refused her meals from [employer] Whe[employer] and now is just eating TV dinners. Her surrogate decision maker is her daughter, Yojana Alejo, phone number is [phone]. Medications Active Medications: Acetaminophen (Tylenol Tab*) 650 mg PO Q6H PRN PRN Reason: pain/fever Last Admin: 03/19/19 08:32 Dose: 650 mg Aspirin (Aspirin 81 Mg Chew Tab*) 81 mg PO DAILY [facility] Last Admin: 03/19/19 08:32 Dose: 81 mg Duloxetine HCl (Cymbalta Cap*) 60 mg PO DAILY [facility] Last Admin: 03/19/19 08:32 Dose: 60 mg Heparin Sodium (Porcine) (Heparin Vial(*)) 5,000 units SUBCUT Q8HR [facility] Last Admin: 03/19/19 05:50 Dose: 5,000 units Memantine (Namenda Xr *) 7 mg PO DAILY [facility] Last Admin: 03/19/19 09:48 Dose: 7 mg Metoprolol Tartrate (Lopressor Tab*) 12.5 mg PO Q12HR [facility] Last Admin: 03/19/19 08:33 Dose: Not Given Pantoprazole Sodium (Protonix Tab*) 40 mg PO DAILY [facility] Last Admin: 03/19/19 08:32 Dose: 40 mg Polyethylene Glycol/Electrolytes (Miralax*) 17 gm PO DAILY [facility] Last Admin: 03/19/19 08:31 Dose: 17 gm Prochlorperazine Edisylate (Compazine Inj*) 5 mg IV Q6H PRN PRN Reason: NAUSEA/VOMITING Home Medications: DULoxetine DR CAP* [Cymbalta CAP*] 60 mg PO DAILY 11/16/16 [History Confirmed ] Aspirin 81 mg CHEW TAB* 81 mg PO DAILY tab.chew 11/18/16 [Rx Confirmed 03/18/19 ] Metoprolol Succinate XL TAB* [Toprol XL TAB*] 100 mg PO DAILY #30 tab.xl [Rx Confirmed 03/18/19] Pantoprazole TAB * [Protonix TAB*] 40 mg PO DAILY 12/22/17 [History Confirmed ] Rosuvastatin (NF) [Crestor (NF)] 10 mg PO DAILY 12/22/17 [History Confirmed ] Sucralfate TAB* [Carafate*] 1 tab PO TID AC 12/22/17 [History Confirmed 03/18/19 ] Magnesium CITRATE* [Citrate of Magnesia*] 150 ml PO ONCE PRN 01/18/19 [History Confirmed 03/18/19] Memantine XR * [Namenda XR *] 7 mg PO DAILY 01/18/19 [History Confirmed 03/18/19 ] Polyethylene Glycol 3350* [Miralax*] 17 gm PO DAILY 03/18/19 [History Confirmed 03/18/19] Verapamil SR CAP* [Calan Sr CAP*] 360 mg PO DAILY 03/18/19 [History Confirmed ] Review of Systems - Measurements Intake and Output: Intake and Output Last 24 Hours 03/17/19 03/18/19 03/19/19 03/20/19 06:59 06:59 06:59 06:59 Intake Total 240 120 Output Total 250 400 Balance -10 -280 Weight 184 lb 3.2 oz Intake: Oral 240 120 Output: Urine 250 400 Other: Estimated Void Medium # Voids 1 - Review of Systems Constitutional Symptoms: Negative: Weight Gain, Weight Loss, Fever, Night Sweats Dermatology: Negative: Rash, Skin Lesions HEENT: Negative: Change in Hearing, Vertigo Eyes: Negative: Change in Vision, Double Vision Thyroid: Negative: Cold Intolerance, Heat Intolerance, Palpitations, Weight Loss, Weight Gain Pulmonary: Positive: Shortness of Breath, Exercise Intolerance Negative: Cough, Sputum, Hemoptysis Cardiology: Positive: Chest Pain, Shortness of Breath, Swelling of Ankles, Edema Negative: Palpitations, Peripheral Vascular Dis, Faintness, Syncope, Claudication, Paroxysmal Nocturnal Dyspnea, Orthopnea Gastroenterology: Negative: Abdominal Pain, Nausea, Vomiting, Anorexia, Blood in Stools, Change in Bowel Habits, Melena Genital - Urinary: Negative: Dysuria, Hematuria Musculoskeletal: Negative: Joint Pain, Joint Stiffness Endocrinology: Negative: Polydipsia, Polyuria Hematologic/Lymphatic: Positive: Use of Antiplatelet Drugs Negative: Use of Anticoagulant Neurology: Negative: Diplopia, Dizziness, Change in Speech, Change in Sphincter Function , Change in Walking, Hx Seizures Psychiatry: Negative: Anxiety, Depressed Mood, Adhedonia Allergic/Immunologic: Negative: Hx HIV, Immunocompromise Review of Systems Statement: All other review of systems negative, unless stated above. Objective Vital Signs: Temp Pulse Resp BP Pulse Ox 98.5 F 70 16 96/53 91 03/19/19 11:20 03/19/19 11:20 03/19/19 11:20 03/19/19 11:20 03/19/19 11:20 Oxygen Devices in Use Now: Nasal Cannula Appearance: nad, pleasant Ears/Nose/Mouth/Throat: Clear Oropharnyx, Mucous Membranes Moist Neck: NL Appearance and Movements; NL JVP, Trachea Midline Respiratory: Symmetrical Chest Expansion and Respiratory Effort, Clear to Auscultation Cardiovascular: NL Sounds; No Murmurs; No JVD, RRR, No Edema Abdominal: NL Sounds; No Tenderness; No Distention Extremities: No Edema Skin: No Rash or Ulcers Neurological: Alert and Oriented x 3 Laboratory Results: 03/18/19 13:30 03/19/19 04:56 INR (Anticoag Therapy) 1.17 (0.77-1.02) H 03/18/19 13:30 Total Bilirubin 1.00 mg/dL (0.2-1.0) 03/18/19 13:30 AST 24 U/L (13-39) 03/18/19 13:30 ALT 32 U/L (7-52) 03/18/19 13:30 Alkaline Phosphatase 68 U/L (34-104) 03/18/19 13:30 B-Natriuretic Peptide > 1300 pg/mL (<=100) H 03/18/19 13:30 Total Protein 6.6 g/dL (6.4-8.9) 03/18/19 13:30 Albumin 3.7 g/dL (3.2-5.2) 03/18/19 13:30 Globulin 2.9 g/dL (2-4) 03/18/19 13:30 Albumin/Globulin Ratio 1.3 (1-3) 03/18/19 13:30 TSH 2.28 mcIU/mL (0.34-5.60) 03/18/19 13:30 03/18/19 03/18/19 03/18/19 13:30 16:34 19:59 Troponin I 0.01 0.01 0.01 Diagnostic Imaging: Cardiac catheterization 02/2008: Indication: Chest pain, stress echo concerning for anteroseptal and inferolateral ischemia LVEDP 15 mmHg No significant CAD LVEF 55% by LV gram Echo 11/2017: LVEF difficult to evaluate due to resting tachycardia, LVEF felt to be 45-50% Normal LA size Mild pHTN No significant valvular abnormalities noted 3.8 ascending ascending aorta CXR admission: Interstitial edema EKG Data: ekg 03/19/2019 NSR, long QTc > 500 ms EKG 03/18/2019: Sinus arrest, junctional escape, long QTc Assessment/Plan 1. Symptomatic medication induced sinus arrest with junctional escape rhythm - Secondary to high dose toprol and verapamil - Agree with d/c of verapamil and lower dose of beta-joselyn - Now asymptomatic 2. CHF - Suspected secondary to #1 - Resolved with 2 doses of IV lasix and jain of sinus rhythm 3. Long QT interval - May may multifactorial (sinus arrest, electrolyte disturbances). Medications reviewed, may be PPI and namenda contribution but would not change. 4. Dementia - Medications reviewed and agreed except give an extra 40 meq K later today ( ordered) - BMP, Mg, BNP tomorrow (ordered) - Echo pending - Repeat EKG tomorrow (ordered) - Pending results of above and clinical course may consider intermittent loop diuretic as an outpatient (i.e. lasix 20 mg on Mon, Weds, Fri) Thank you for allowing me to participate in the cardiovascular care of this patient. Please do not hesitate to contact me with questions or concerns.
[2019-03-20] MEDS: Heparin VIAL(*) 5000 UNITS/ML VIAL (FIVE THOUSAND) SUBCUT SCH ×3 (05:42→20:19)
[2019-03-20 07:10] LABS: BUN/Creatinine Ratio 18.2 (8-20); Calcium 8.9 mg/dL (8.6-10.3); EGFR African American 75.2 (>60); EGFR Non-African American 62.1 (>60); Magnesium 1.6 mg/dL (1.9-2.7); Potassium 3.7 mmol/L (3.5-5.0)
[2019-03-20] MEDS ORDERED: Magnesium Sulfate 2 GM IV* 2 GM/50 ML BAG IVPB ONE ×2 (07:24→08:01)
[2019-03-20] MEDS: MEMANTINE 7 MG PO SCH (08:46)
[2019-03-20] MEDS: Acetaminophen TAB* 325 MG PO PRN (08:46)
[2019-03-20] MEDS: Metoprolol Tartrate TAB* 25 MG PO SCH ×2 (08:46→20:20)
[2019-03-20] MEDS: Pantoprazole TAB * 40 MG TAB PO SCH (08:46)
[2019-03-20] MEDS: Polyethylene Glycol 3350* 17 GM PACKET PO SCH (08:46)
[2019-03-20] MEDS: DULoxetine DR CAP* 30 MG CAP.DR PO SCH (08:46)
[2019-03-20] MEDS: Aspirin 81 mg CHEW TAB* 81 MG TAB.CHEW PO SCH (08:46)
--- NOTE | 2019-03-20 09:56 | PN ---
Subjective Date of Service: 03/20/19 Interval History: f/u medication induced symptomatic junctional escape rhythm causing CHF - Feeling well today, no cp, dyspnea, edema or lightheadedness - A little dyspneic yesterday afternoon - Tele NSR - EKg this AM qtc < 500 ms - Mg 1.6 this AM being replaced Medications Active Medications: Acetaminophen (Tylenol Tab*) 650 mg PO Q6H PRN PRN Reason: pain/fever Last Admin: 03/20/19 08:46 Dose: 650 mg Aspirin (Aspirin 81 Mg Chew Tab*) 81 mg PO DAILY [facility] Last Admin: 03/20/19 08:46 Dose: 81 mg Duloxetine HCl (Cymbalta Cap*) 60 mg PO DAILY [facility] Last Admin: 03/20/19 08:46 Dose: 60 mg Heparin Sodium (Porcine) (Heparin Vial(*)) 5,000 units SUBCUT Q8HR [facility] Last Admin: 03/20/19 05:42 Dose: 5,000 units Memantine (Namenda Xr *) 7 mg PO DAILY [facility] Last Admin: 03/20/19 08:46 Dose: 7 mg Metoprolol Tartrate (Lopressor Tab*) 12.5 mg PO Q12HR [facility] Last Admin: 03/20/19 08:46 Dose: 12.5 mg Pantoprazole Sodium (Protonix Tab*) 40 mg PO DAILY [facility] Last Admin: 03/20/19 08:46 Dose: 40 mg Polyethylene Glycol/Electrolytes (Miralax*) 17 gm PO DAILY [facility] Last Admin: 03/20/19 08:46 Dose: 17 gm Prochlorperazine Edisylate (Compazine Inj*) 5 mg IV Q6H PRN PRN Reason: NAUSEA/VOMITING Objective Vital Signs: Temp Pulse Resp BP Pulse Ox 98.1 F 74 20 114/67 99 03/20/19 07:23 03/20/19 07:23 03/20/19 07:38 03/20/19 07:23 03/20/19 07:23 Oxygen Devices in Use Now: None Appearance: nad, pleasant Ears/Nose/Mouth/Throat: Clear Oropharnyx, Mucous Membranes Moist Neck: NL Appearance and Movements; NL JVP, Trachea Midline Respiratory: Symmetrical Chest Expansion and Respiratory Effort, Clear to Auscultation Cardiovascular: NL Sounds; No Murmurs; No JVD, RRR, No Edema Abdominal: NL Sounds; No Tenderness; No Distention Extremities: No Edema Skin: No Rash or Ulcers Neurological: Alert and Oriented x 3 Laboratory Results: 03/18/19 13:30 03/20/19 06:35 INR (Anticoag Therapy) 1.17 (0.77-1.02) H 03/18/19 13:30 Total Bilirubin 1.00 mg/dL (0.2-1.0) 03/18/19 13:30 AST 24 U/L (13-39) 03/18/19 13:30 ALT 32 U/L (7-52) 03/18/19 13:30 Alkaline Phosphatase 68 U/L (34-104) 03/18/19 13:30 B-Natriuretic Peptide 267 pg/mL (<=100) H 03/20/19 06:35 Total Protein 6.6 g/dL (6.4-8.9) 03/18/19 13:30 Albumin 3.7 g/dL (3.2-5.2) 03/18/19 13:30 Globulin 2.9 g/dL (2-4) 03/18/19 13:30 Albumin/Globulin Ratio 1.3 (1-3) 03/18/19 13:30 TSH 2.28 mcIU/mL (0.34-5.60) 03/18/19 13:30 03/18/19 03/18/19 03/18/19 13:30 16:34 19:59 Troponin I 0.01 0.01 0.01 Diagnostic Imaging: Cardiac catheterization 02/2008: Indication: Chest pain, stress echo concerning for anteroseptal and inferolateral ischemia LVEDP 15 mmHg No significant CAD LVEF 55% by LV gram Echo 11/2017: LVEF difficult to evaluate due to resting tachycardia, LVEF felt to be 45-50% Normal LA size Mild pHTN No significant valvular abnormalities noted 3.8 ascending ascending aorta CXR admission: Interstitial edema echo today left ventricular chamber size is normal. Mild concentric left ventricular hypertrophy is observed. Left ventricular systolic function is at the lower limits of normal. The estimated ejection fraction is 50-55%. The left atrium is mildly dilated. The right ventricular cavity size is normal. The right ventricular global systolic function is normal. There is mild to moderate tricuspid regurgitation. There is evidence of mild pulmonary hypertension. EKG Data: ekg 03/19/2019 NSR, long QTc > 500 ms EKG 03/18/2019: Sinus arrest, junctional escape, long QTc ekg 03/20/2019 NSR, QTc < 500 ms Assessment/Plan 1. Symptomatic medication induced sinus arrest with junctional escape rhythm - Secondary to high dose toprol and verapamil - Agree with d/c of verapamil and lower dose of beta-joselyn - Now asymptomatic 2. CHF - secondary to #1 - Resolved with 2 doses of IV lasix and adventism of sinus rhythm 3. Long QT interval - Sinus arrest resolved, electrolytes being replaced, improved 4. Dementia BP controlled on current regimen and is in sinus rhythm Can either make lasix PRN or low dose (i.e. 20 mg Thursday and ) While on chronic PPI would add oral magnesium supplement and recheck as an outpatient given #3 Patient can be discharged from a cardiac standpoint Thank you for allowing me to participate in the cardiovascular care of this patient. Please do not hesitate to contact me with questions or concerns.
--- NOTE | 2019-03-20 12:53 | PN ---
Subjective Date of Service: 03/20/19 Interval History: f/u medication induced symptomatic junctional escape rhythm causing CHF - Feeling well today, no cp, dyspnea, edema or lightheadedness - A little dyspneic yesterday afternoon - Tele NSR - EKg this AM qtc < 500 ms - Mg 1.6 this AM being replaced Medications Active Medications: Acetaminophen (Tylenol Tab*) 650 mg PO Q6H PRN PRN Reason: pain/fever Last Admin: 03/20/19 08:46 Dose: 650 mg Aspirin (Aspirin 81 Mg Chew Tab*) 81 mg PO DAILY [facility] Last Admin: 03/20/19 08:46 Dose: 81 mg Duloxetine HCl (Cymbalta Cap*) 60 mg PO DAILY [facility] Last Admin: 03/20/19 08:46 Dose: 60 mg Heparin Sodium (Porcine) (Heparin Vial(*)) 5,000 units SUBCUT Q8HR [facility] Last Admin: 03/20/19 05:42 Dose: 5,000 units Memantine (Namenda Xr *) 7 mg PO DAILY [facility] Last Admin: 03/20/19 08:46 Dose: 7 mg Metoprolol Tartrate (Lopressor Tab*) 12.5 mg PO Q12HR [facility] Last Admin: 03/20/19 08:46 Dose: 12.5 mg Pantoprazole Sodium (Protonix Tab*) 40 mg PO DAILY [facility] Last Admin: 03/20/19 08:46 Dose: 40 mg Polyethylene Glycol/Electrolytes (Miralax*) 17 gm PO DAILY [facility] Last Admin: 03/20/19 08:46 Dose: 17 gm Prochlorperazine Edisylate (Compazine Inj*) 5 mg IV Q6H PRN PRN Reason: NAUSEA/VOMITING Objective Vital Signs: Temp Pulse Resp BP Pulse Ox 98.4 F 71 16 122/67 97 03/20/19 11:24 03/20/19 11:24 03/20/19 11:24 03/20/19 11:24 03/20/19 11:24 Oxygen Devices in Use Now: None Appearance: nad, pleasant Ears/Nose/Mouth/Throat: Clear Oropharnyx, Mucous Membranes Moist Neck: NL Appearance and Movements; NL JVP, Trachea Midline Respiratory: Symmetrical Chest Expansion and Respiratory Effort, Clear to Auscultation Cardiovascular: NL Sounds; No Murmurs; No JVD, RRR, No Edema Abdominal: NL Sounds; No Tenderness; No Distention Extremities: No Edema Skin: No Rash or Ulcers Neurological: Alert and Oriented x 3 Laboratory Results: 03/18/19 13:30 03/20/19 06:35 INR (Anticoag Therapy) 1.17 (0.77-1.02) H 03/18/19 13:30 Total Bilirubin 1.00 mg/dL (0.2-1.0) 03/18/19 13:30 AST 24 U/L (13-39) 03/18/19 13:30 ALT 32 U/L (7-52) 03/18/19 13:30 Alkaline Phosphatase 68 U/L (34-104) 03/18/19 13:30 B-Natriuretic Peptide 267 pg/mL (<=100) H 03/20/19 06:35 Total Protein 6.6 g/dL (6.4-8.9) 03/18/19 13:30 Albumin 3.7 g/dL (3.2-5.2) 03/18/19 13:30 Globulin 2.9 g/dL (2-4) 03/18/19 13:30 Albumin/Globulin Ratio 1.3 (1-3) 03/18/19 13:30 TSH 2.28 mcIU/mL (0.34-5.60) 03/18/19 13:30 03/18/19 03/18/19 03/18/19 13:30 16:34 19:59 Troponin I 0.01 0.01 0.01 Diagnostic Imaging: Cardiac catheterization 02/2008: Indication: Chest pain, stress echo concerning for anteroseptal and inferolateral ischemia LVEDP 15 mmHg No significant CAD LVEF 55% by LV gram Echo 11/2017: LVEF difficult to evaluate due to resting tachycardia, LVEF felt to be 45-50% Normal LA size Mild pHTN No significant valvular abnormalities noted 3.8 ascending ascending aorta CXR admission: Interstitial edema EKG Data: ekg 03/19/2019 NSR, long QTc > 500 ms EKG 03/18/2019: Sinus arrest, junctional escape, long QTc ekg 03/20/2019 NSR, QTc < 500 ms Assessment/Plan 1. Symptomatic medication induced sinus arrest with junctional escape rhythm - Secondary to high dose toprol and verapamil - Agree with d/c of verapamil and lower dose of beta-joselyn - Now asymptomatic 2. CHF - Suspected secondary to #1 - Resolved with 2 doses of IV lasix and anglican of sinus rhythm 3. Long QT interval - May may multifactorial (sinus arrest, electrolyte disturbances). Medications reviewed, may be PPI (directly or causing low Mg) and namenda contribution but would not change. 4. Dementia - Echo pending - Repeat EKG tomorrow (ordered) - Pending results of above and clinical course may consider intermittent loop diuretic as an outpatient (i.e. lasix 20 mg on Mon, Weds, Fri) Thank you for allowing me to participate in the cardiovascular care of this patient. Please do not hesitate to contact me with questions or concerns.
--- NOTE | 2019-03-20 12:53 | ECHO ---
Patient: SHANE DOMINGUEZ Rec#: [id number] : 1940 Date: 03/20/2019 Age: 78y Height: 163 cm / 64.2 in Weight: 109 kg / 240.2 lbs Sex: F BSA: 2.12 Room#: [facility] Admit Date#: 03/18/2019 Type: Inpatient Referring: DAVID MILLER Reading: Mau Ann DO Gravedigger: Brittany Murray RDCS CC: Miguel Angel Murphy MD Transthoracic Echocardiogram Indication: Congestive heart failure BP: 106/74 HR: 69 Rhythm: NSR Findings History: HTN, dementia, PCI, CHF. Technical Comments: The study quality is fair. Completed at 1230. Left Ventricle: The left ventricular chamber size is normal. Mild concentric left ventricular hypertrophy is observed. Global left ventricular wall motion and contractility are within normal limits. Left ventricular systolic function is at the lower limits of normal. The estimated ejection fraction is 50-55%. Abnormal left ventricular diastolic function is observed. Left Atrium: The left atrium is mildly dilated. Right Ventricle: The right ventricular cavity size is normal. The right ventricular global systolic function is normal. Right Atrium: The right atrium is mildly dilated. There is evidence of an atrial septal aneurysm. Aortic Valve: The aortic valve is trileaflet. There is mild thickening of the left coronary cusp. There is evidence of aortic sclerosis without stenosis. There is aortic annular calcification. There is mild aortic regurgitation. There is no evidence of aortic stenosis. Mitral Valve: The mitral valve leaflets are mildly thickened. There is mild mitral regurgitation. There is no evidence of mitral stenosis. Tricuspid Valve: The tricuspid valve leaflets are normal. There is mild to moderate tricuspid regurgitation. The right ventricular systolic pressure is estimated at 37 mmHg. There is evidence of mild pulmonary hypertension. There is no tricuspid stenosis. Pulmonic Valve: The pulmonic valve appears normal. There is trace to mild pulmonic regurgitation. There is no pulmonic stenosis. Pericardium: There is no significant pericardial effusion. Aorta: There is mild dilatation of the ascending aorta. There is no dilatation of the aortic arch. The aortic root is normal in size. Pulmonary Artery: The main pulmonary artery is not well visualized. Venous: The inferior vena cava appears normal in size. There is a greater than 50% respiratory change in the inferior vena cava dimension. Conclusions The left ventricular chamber size is normal. Mild concentric left ventricular hypertrophy is observed. Left ventricular systolic function is at the lower limits of normal. The estimated ejection fraction is 50-55%. The left atrium is mildly dilated. The right ventricular cavity size is normal. The right ventricular global systolic function is normal. There is mild to moderate tricuspid regurgitation. There is evidence of mild pulmonary hypertension. Compared to prior study from 11/2017, LVEF appears low normal (was 45-50% previously) Measurements Name Value Normal Range RVIDd (AP) 2D 3.8 cm (0.9 - 2.6) RVDdMajor (2D) 4.2 cm (2.2 - 4.4) RAd ISD 4CH 5.3 cm (3.4 - 4.9) RA (A4C)W 3.9 cm (2.9 - 4.6) IVSd (2D) 1.2 cm (0.6 - 1) LVPWd (2D) 1.1 cm (0.6 - 1) LVIDd (2D) 4 cm (3.6 - 5.4) LVIDs (2D) 3.2 cm - LV FS (2D) 19 % (25 - 45) Aortic Annulus 2.2 cm (1.4 - 2.6) Ao root diameter (2D) 3.5 cm (2.1 - 3.5) Ascending Ao 3.6 cm (2.1 - 3.4) Aortic arch 2.8 cm (1.8 - 3.4) LA dimension (AP) 2D 4.1 cm (2.3 - 3.8) LAd ISD 4CH 4.9 cm (2.9 - 5.3) LA ISD 4CH W 4.8 cm (2.5 - 4.5) Name Value Normal Range LA ESV BP (A/L) index 30 ml/m2 - Name Value Normal Range MV E-wave Vmax 0.5 m/sec - MV deceleration time 243 msec - MV A-wave Vmax 0.6 m/sec - MV E:A ratio 0.8 ratio - LV septal e' Vmax 0.06 m/sec - LV lateral e' Vmax 0.11 m/sec - LV E:e' septal ratio 8.3 ratio - LV E:e' lateral ratio 4.5 ratio - Name Value Normal Range AV Vmax 1.4 m/sec - AV VTI 25 cm - AV peak gradient 7 mmHg - AV mean gradient 4 mmHg - LVOT Vmax 1.4 m/sec - LVOT VTI 23 cm - LVOT peak gradient 8 mmHg - LVOT mean gradient 3 mmHg - AR PHT 429 msec - COLTON Vmax 0.5 m/sec - Name Value Normal Range TR Vmax 2.9 m/sec - TR peak gradient 34 mmHg - RAP 3 mmHg - RVSP 37 mmHg - IVC diameter 1.8 cm - Name Value Normal Range PV Vmax 0.9 m/sec - PV peak gradient 3 mmHg - RI end-diastolic Vmax 1.4 m/sec - PA end-diastolic pressur8 mmHg -
[2019-03-20] MEDS ORDERED: Magnesium Oxide TAB* 400 MG PO ONE (13:18)
--- NOTE | 2019-03-20 13:32 | PN ---
Subjective Date of Service: 03/20/19 Interval History: HOSPITALIST PROGRESS NOTE Patient seen and examined at bedside. Care reviewed and d/w Adam Fulton RN. She feels well today, offers no complaints. Family History: Unchanged from Admission Social History: Unchanged from Admission Past Medical History: Unchanged from Admission Objective Active Medications: Acetaminophen (Tylenol Tab*) 650 mg PO Q6H PRN PRN Reason: pain/fever Last Admin: 03/20/19 08:46 Dose: 650 mg Aspirin (Aspirin 81 Mg Chew Tab*) 81 mg PO DAILY [facility] Last Admin: 03/20/19 08:46 Dose: 81 mg Duloxetine HCl (Cymbalta Cap*) 60 mg PO DAILY [facility] Last Admin: 03/20/19 08:46 Dose: 60 mg Heparin Sodium (Porcine) (Heparin Vial(*)) 5,000 units SUBCUT Q8HR [facility] Last Admin: 03/20/19 13:13 Dose: 5,000 units Magnesium Oxide (Magox 400 Tab*) 400 mg PO DAILY [facility] Memantine (Namenda Xr *) 7 mg PO DAILY [facility] Last Admin: 03/20/19 08:46 Dose: 7 mg Metoprolol Tartrate (Lopressor Tab*) 12.5 mg PO Q12HR [facility] Last Admin: 03/20/19 08:46 Dose: 12.5 mg Pantoprazole Sodium (Protonix Tab*) 40 mg PO DAILY [facility] Last Admin: 03/20/19 08:46 Dose: 40 mg Polyethylene Glycol/Electrolytes (Miralax*) 17 gm PO DAILY [facility] Last Admin: 03/20/19 08:46 Dose: 17 gm Potassium Chloride (Klor Con Er Tab*) 20 meq PO DAILY [facility] Prochlorperazine Edisylate (Compazine Inj*) 5 mg IV Q6H PRN PRN Reason: NAUSEA/VOMITING Vital Signs - 8 hr 03/20/19 03/20/19 03/20/19 07:23 07:38 11:24 Temperature 98.1 F 98.4 F Pulse Rate 74 71 Respiratory 16 20 16 Rate Blood Pressure 114/67 122/67 (mmHg) O2 Sat by Pulse 99 97 Oximetry Oxygen Devices in Use Now: None Appearance: Pleasant elderly lady lying in bed in NAD. 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 - Patient Problems (1) Systolic congestive heart failure Comment: - With acute exacerbation. - Suspect secondary to non intentional medication and dietary non compliance. Cardiology input appreciated - junctional rhythm also playing a role. - Responding well to diuresis with Furosemide - will hold off for now to avoid overdiuresis and monitor. - May benefit of low dose Furosemide PO 2-3 times/week. - Awaiting echo. (2) Junctional rhythm Comment: - Suspect secondary to verapamil and metoprolol use. - Remains in NSR. - Continue low dose metoprolol. (3) ESMER (acute kidney injury) Comment: - Suspect secondary to poor perfusion. - Resolved. (4) GERD (gastroesophageal reflux disease) Comment: - Continue PPI and Carafate. (5) DVT prophylaxis Comment: - SQ Heparin. (6) Full code status Status and Disposition: Inpatient. Daughter interested in placement on discharge.
[2019-03-20] MEDS: Potassium Chlor TAB* 20 MEQ TAB.ER PO SCH (13:50)
[2019-03-20] MEDS: Melatonin 3 MG TAB PO SCH (20:51)
[2019-03-21] MEDS: Heparin VIAL(*) 5000 UNITS/ML VIAL (FIVE THOUSAND) SUBCUT SCH ×3 (05:03→21:04)
[2019-03-21 06:53] LABS: BUN/Creatinine Ratio 12.5 (8-20); Calcium 8.8 mg/dL (8.6-10.3); EGFR African American 83.9 (>60); EGFR Non-African American 69.4 (>60); Magnesium 1.7 mg/dL (1.9-2.7)
[2019-03-21] MEDS ORDERED: Magnesium Sulfate 2 GM IV* 2 GM/50 ML BAG IVPB ONE (08:56)
[2019-03-21] MEDS ORDERED: Magnesium Oxide TAB* 400 MG PO SCH (09:00)
--- NOTE | 2019-03-21 09:32 | PN ---
Subjective Date of Service: 03/21/19 Interval History: f/u medication induced symptomatic junctional escape rhythm causing CHF - Feeling well today, no cp, dyspnea, edema or lightheadedness - mg 1.7 being replaced - Tele NSR Medications Active Medications: Acetaminophen (Tylenol Tab*) 650 mg PO Q6H PRN PRN Reason: pain/fever Last Admin: 03/20/19 08:46 Dose: 650 mg Aspirin (Aspirin 81 Mg Chew Tab*) 81 mg PO DAILY [facility] Last Admin: 03/20/19 08:46 Dose: 81 mg Duloxetine HCl (Cymbalta Cap*) 60 mg PO DAILY [facility] Last Admin: 03/20/19 08:46 Dose: 60 mg Heparin Sodium (Porcine) (Heparin Vial(*)) 5,000 units SUBCUT Q8HR [facility] Last Admin: 03/21/19 05:03 Dose: 5,000 units Magnesium Oxide (Magox 400 Tab*) 800 mg PO BID [facility] Melatonin (Melatonin) 3 mg PO 2100 [facility] Last Admin: 03/20/19 20:51 Dose: 3 mg Memantine (Namenda Xr *) 7 mg PO DAILY [facility] Last Admin: 03/20/19 08:46 Dose: 7 mg Metoprolol Tartrate (Lopressor Tab*) 12.5 mg PO Q12HR [facility] Last Admin: 03/20/19 20:20 Dose: 12.5 mg Pantoprazole Sodium (Protonix Tab*) 40 mg PO DAILY [facility] Last Admin: 03/20/19 08:46 Dose: 40 mg Polyethylene Glycol/Electrolytes (Miralax*) 17 gm PO DAILY [facility] Last Admin: 03/20/19 08:46 Dose: 17 gm Potassium Chloride (Klor Con Er Tab*) 20 meq PO DAILY [facility] Last Admin: 03/20/19 13:50 Dose: 20 meq Prochlorperazine Edisylate (Compazine Inj*) 5 mg IV Q6H PRN PRN Reason: NAUSEA/VOMITING Objective Vital Signs: Temp Pulse Resp BP Pulse Ox 98.0 F 77 18 117/64 97 03/21/19 07:26 03/21/19 07:26 03/21/19 07:26 03/21/19 07:26 03/21/19 07:26 Oxygen Devices in Use Now: None Appearance: nad, pleasant Ears/Nose/Mouth/Throat: Clear Oropharnyx, Mucous Membranes Moist Neck: NL Appearance and Movements; NL JVP, Trachea Midline Respiratory: Symmetrical Chest Expansion and Respiratory Effort, Clear to Auscultation Cardiovascular: NL Sounds; No Murmurs; No JVD, RRR, No Edema Abdominal: NL Sounds; No Tenderness; No Distention Extremities: No Edema Skin: No Rash or Ulcers Neurological: Alert and Oriented x 3 Laboratory Results: 03/18/19 13:30 03/21/19 06:19 INR (Anticoag Therapy) 1.17 (0.77-1.02) H 03/18/19 13:30 Total Bilirubin 1.00 mg/dL (0.2-1.0) 03/18/19 13:30 AST 24 U/L (13-39) 03/18/19 13:30 ALT 32 U/L (7-52) 03/18/19 13:30 Alkaline Phosphatase 68 U/L (34-104) 03/18/19 13:30 B-Natriuretic Peptide 267 pg/mL (<=100) H 03/20/19 06:35 Total Protein 6.6 g/dL (6.4-8.9) 03/18/19 13:30 Albumin 3.7 g/dL (3.2-5.2) 03/18/19 13:30 Globulin 2.9 g/dL (2-4) 03/18/19 13:30 Albumin/Globulin Ratio 1.3 (1-3) 03/18/19 13:30 TSH 2.28 mcIU/mL (0.34-5.60) 03/18/19 13:30 03/18/19 03/18/19 03/18/19 13:30 16:34 19:59 Troponin I 0.01 0.01 0.01 Diagnostic Imaging: Cardiac catheterization 02/2008: Indication: Chest pain, stress echo concerning for anteroseptal and inferolateral ischemia LVEDP 15 mmHg No significant CAD LVEF 55% by LV gram Echo 11/2017: LVEF difficult to evaluate due to resting tachycardia, LVEF felt to be 45-50% Normal LA size Mild pHTN No significant valvular abnormalities noted 3.8 ascending ascending aorta CXR admission: Interstitial edema echo today left ventricular chamber size is normal. Mild concentric left ventricular hypertrophy is observed. Left ventricular systolic function is at the lower limits of normal. The estimated ejection fraction is 50-55%. The left atrium is mildly dilated. The right ventricular cavity size is normal. The right ventricular global systolic function is normal. There is mild to moderate tricuspid regurgitation. There is evidence of mild pulmonary hypertension. EKG Data: ekg 03/19/2019 NSR, long QTc > 500 ms EKG 03/18/2019: Sinus arrest, junctional escape, long QTc ekg 03/20/2019 NSR, QTc < 500 ms Assessment/Plan 1. Symptomatic medication induced sinus arrest with junctional escape rhythm - Secondary to high dose toprol and verapamil - Agree with d/c of verapamil and lower dose of beta-joselyn - Now asymptomatic 2. CHF - secondary to #1 - Resolved with 2 doses of IV lasix and orthodoxy of sinus rhythm 3. Long QT interval - Sinus arrest resolved, electrolytes being replaced, improved 4. Dementia BP controlled on current regimen and is in sinus rhythm Can either make lasix PRN or low dose (i.e. 20 mg Thursday and ) While on chronic PPI would add oral magnesium supplement and recheck as an outpatient given #3 Patient can be discharged from a cardiac standpoint Thank you for allowing me to participate in the cardiovascular care of this patient. Please do not hesitate to contact me with questions or concerns.
[2019-03-21] MEDS: Aspirin 81 mg CHEW TAB* 81 MG TAB.CHEW PO SCH (11:01)
[2019-03-21] MEDS: DULoxetine DR CAP* 30 MG CAP.DR PO SCH (11:02)
[2019-03-21] MEDS: MEMANTINE 7 MG PO SCH (11:03)
[2019-03-21] MEDS: Metoprolol Tartrate TAB* 25 MG PO SCH ×2 (11:03→21:04)
[2019-03-21] MEDS: Potassium Chlor TAB* 20 MEQ TAB.ER PO SCH (11:04)
[2019-03-21] MEDS: Pantoprazole TAB * 40 MG TAB PO SCH (11:04)
[2019-03-21] MEDS: Polyethylene Glycol 3350* 17 GM PACKET PO SCH (11:05)
--- NOTE | 2019-03-21 13:38 | PN ---
Subjective Date of Service: 03/21/19 Interval History: Pt feels well and wants to go home. She lives alone in an apartment. Pt denies CP/SOB she is a poor historian Family History: Unchanged from Admission Social History: Unchanged from Admission Past Medical History: Unchanged from Admission Objective Active Medications: Acetaminophen (Tylenol Tab*) 650 mg PO Q6H PRN PRN Reason: pain/fever Last Admin: 03/20/19 08:46 Dose: 650 mg Aspirin (Aspirin 81 Mg Chew Tab*) 81 mg PO DAILY [facility] Last Admin: 03/21/19 11:01 Dose: 81 mg Duloxetine HCl (Cymbalta Cap*) 60 mg PO DAILY [facility] Last Admin: 03/21/19 11:02 Dose: 60 mg Heparin Sodium (Porcine) (Heparin Vial(*)) 5,000 units SUBCUT Q8HR [facility] Last Admin: 03/21/19 13:01 Dose: 5,000 units Magnesium Oxide (Magox 400 Tab*) 800 mg PO BID [facility] Melatonin (Melatonin) 3 mg PO 2100 [facility] Last Admin: 03/20/19 20:51 Dose: 3 mg Memantine (Namenda Xr *) 7 mg PO DAILY [facility] Last Admin: 03/21/19 11:03 Dose: 7 mg Metoprolol Tartrate (Lopressor Tab*) 12.5 mg PO Q12HR [facility] Last Admin: 03/21/19 11:03 Dose: 12.5 mg Pantoprazole Sodium (Protonix Tab*) 40 mg PO DAILY [facility] Last Admin: 03/21/19 11:04 Dose: 40 mg Polyethylene Glycol/Electrolytes (Miralax*) 17 gm PO DAILY [facility] Last Admin: 03/21/19 11:05 Dose: 17 gm Potassium Chloride (Klor Con Er Tab*) 20 meq PO DAILY [facility] Last Admin: 03/21/19 11:04 Dose: 20 meq Prochlorperazine Edisylate (Compazine Inj*) 5 mg IV Q6H PRN PRN Reason: NAUSEA/VOMITING Vital Signs - 8 hr 03/21/19 03/21/19 03/21/19 07:23 07:26 11:22 Temperature 98.0 F 98.3 F Pulse Rate 77 90 Respiratory 20 18 16 Rate Blood Pressure 117/64 133/79 (mmHg) O2 Sat by Pulse 97 100 Oximetry Oxygen Devices in Use Now: None Appearance: 78 yo F in nAD, AAOx2 Eyes: No Scleral Icterus, PERRLA Ears/Nose/Mouth/Throat: NL Teeth, Lips, Gums, Mucous Membranes Moist Neck: NL Appearance and Movements; NL JVP, Trachea Midline Respiratory: Symmetrical Chest Expansion and Respiratory Effort, Clear to Auscultation Cardiovascular: NL Sounds; No Murmurs; No JVD, RRR Abdominal: NL Sounds; No Tenderness; No Distention Lymphatic: No Cervical Adenopathy Extremities: No Edema, No Clubbing, Cyanosis Skin: No Rash or Ulcers Neurological: NL Muscle Strength and Tone Result Diagrams: 03/18/19 13:30 03/21/19 06:19 Assess/Plan/Problems-Billing Assessment: Mrs Crespo is a 78yo F with PMH of HTN, 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 - Patient Problems (1) Systolic congestive heart failure Comment: - With acute exacerbation that resolved - Suspect secondary to non intentional medication and dietary non compliance. Cardiology input appreciated - junctional rhythm also playing a role. - will place pt on low dose PO Lasix 2x/week - echo shows EF 55% and diastolic dysfunction (2) ESMER (acute kidney injury) Comment: - Suspect secondary to poor perfusion. - Resolved. (3) Junctional rhythm Comment: - Suspect secondary to verapamil and metoprolol use. - Remains in NSR. - Continue low dose metoprolol.Verapamil discontinued (4) GERD (gastroesophageal reflux disease) Comment: - Continue PPI and Carafate. (5) DVT prophylaxis Comment: - SQ Heparin. Status and Disposition: Inpatient. Daughter interested in placement on discharge. Pt has significant dementia an although fully ambulatory , cannot manage meds at home alone. CM following. OT eval pending. Medically ready for discharge
[2019-03-21] MEDS: Magnesium Oxide TAB* 400 MG PO SCH (21:03)
[2019-03-21] MEDS: Melatonin 3 MG TAB PO SCH (21:04)
[2019-03-22] MEDS: Heparin VIAL(*) 5000 UNITS/ML VIAL (FIVE THOUSAND) SUBCUT SCH (05:06)
[2019-03-22] MEDS ORDERED: Furosemide TAB* 20 MG PO SCH (09:00)
[2019-03-22] MEDS: Magnesium Oxide TAB* 400 MG PO SCH (10:01)
[2019-03-22] MEDS: Potassium Chlor TAB* 20 MEQ TAB.ER PO SCH (10:02)
[2019-03-22] MEDS: DULoxetine DR CAP* 30 MG CAP.DR PO SCH (10:02)
[2019-03-22] MEDS: Acetaminophen TAB* 325 MG PO PRN (10:03)
[2019-03-22] MEDS: Metoprolol Tartrate TAB* 25 MG PO SCH (10:04)
[2019-03-22] MEDS: MEMANTINE 7 MG PO SCH (10:05)
[2019-03-22] MEDS: Pantoprazole TAB * 40 MG TAB PO SCH (10:06)
[2019-03-22] MEDS: Aspirin 81 mg CHEW TAB* 81 MG TAB.CHEW PO SCH (10:06)
[2019-03-22] MEDS: Polyethylene Glycol 3350* 17 GM PACKET PO SCH (10:07)
[2019-03-22 12:07] VITALS: BP 130/80
--- NOTE | 2019-03-22 12:17 | PN ---
Subjective Date of Service: 03/22/19 Interval History: Pt feels tired, denies SOB, or CP Family History: Unchanged from Admission Social History: Unchanged from Admission Past Medical History: Unchanged from Admission Objective Active Medications: Acetaminophen (Tylenol Tab*) 650 mg PO Q6H PRN PRN Reason: pain/fever Last Admin: 03/22/19 10:03 Dose: 650 mg Aspirin (Aspirin 81 Mg Chew Tab*) 81 mg PO DAILY [facility] Last Admin: 03/22/19 10:06 Dose: 81 mg Duloxetine HCl (Cymbalta Cap*) 60 mg PO DAILY [facility] Last Admin: 03/22/19 10:02 Dose: 60 mg Furosemide (Lasix Tab*) 20 mg PO TuFr@0900 [facility] Last Admin: 03/22/19 10:06 Dose: 20 mg Heparin Sodium (Porcine) (Heparin Vial(*)) 5,000 units SUBCUT Q8HR [facility] Last Admin: 03/22/19 05:06 Dose: 5,000 units Magnesium Oxide (Magox 400 Tab*) 800 mg PO BID [facility] Last Admin: 03/22/19 10:01 Dose: 800 mg Melatonin (Melatonin) 3 mg PO 2100 [facility] Last Admin: 03/21/19 21:04 Dose: 3 mg Memantine (Namenda Xr *) 7 mg PO DAILY [facility] Last Admin: 03/22/19 10:05 Dose: 7 mg Metoprolol Tartrate (Lopressor Tab*) 12.5 mg PO Q12HR [facility] Last Admin: 03/22/19 10:04 Dose: 12.5 mg Pantoprazole Sodium (Protonix Tab*) 40 mg PO DAILY [facility] Last Admin: 03/22/19 10:06 Dose: 40 mg Polyethylene Glycol/Electrolytes (Miralax*) 17 gm PO DAILY [facility] Last Admin: 03/22/19 10:07 Dose: Not Given Potassium Chloride (Klor Con Er Tab*) 20 meq PO DAILY [facility] Last Admin: 03/22/19 10:02 Dose: 20 meq Prochlorperazine Edisylate (Compazine Inj*) 5 mg IV Q6H PRN PRN Reason: NAUSEA/VOMITING Vital Signs - 8 hr 03/22/19 03/22/19 03/22/19 08:00 08:03 11:15 Temperature 98.3 F 97.9 F Pulse Rate 74 60 Respiratory 16 16 16 Rate Blood Pressure 120/85 130/80 (mmHg) O2 Sat by Pulse 98 100 Oximetry Oxygen Devices in Use Now: None Appearance: 78 yo F in NAD, AAOx3, poor historian Eyes: No Scleral Icterus, PERRLA Ears/Nose/Mouth/Throat: NL Teeth, Lips, Gums, Mucous Membranes Moist Neck: NL Appearance and Movements; NL JVP, Trachea Midline Respiratory: Symmetrical Chest Expansion and Respiratory Effort, Clear to Auscultation Cardiovascular: NL Sounds; No Murmurs; No JVD, RRR Abdominal: NL Sounds; No Tenderness; No Distention Lymphatic: No Cervical Adenopathy Extremities: No Clubbing, Cyanosis, - - trace pedal edema b/l Skin: No Rash or Ulcers, No Nodules or Sclerosis Neurological: NL Muscle Strength and Tone Result Diagrams: 03/18/19 13:30 03/21/19 06:19 Assess/Plan/Problems-Billing Assessment: Mrs Crespo is a 78yo F with PMH of HTN, 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 - Patient Problems (1) Systolic congestive heart failure Comment: - With acute exacerbation that resolved - Suspect secondary to non intentional medication and dietary non compliance. Cardiology input appreciated - junctional rhythm also playing a role. - placed pt on low dose PO Lasix 2x/week - echo shows EF 55% and diastolic dysfunction (2) ESMER (acute kidney injury) Comment: - Suspect secondary to poor perfusion. - Resolved. (3) Junctional rhythm Comment: - Suspect secondary to verapamil and metoprolol use. - Remains in NSR. - Continue low dose metoprolol.Verapamil discontinued (4) GERD (gastroesophageal reflux disease) Comment: - Continue PPI and Carafate. (5) DVT prophylaxis Comment: - SQ Heparin. Status and Disposition: Inpatient. Daughter interested in placement on discharge. Pt has significant dementia an although fully ambulatory , cannot manage meds at home alone. CM following. Medically ready for discharge
--- NOTE | 2019-03-22 15:32 | DS ---
CC: Dr. Murphy; Dr. Ann * DISCHARGE SUMMARY: DATE OF ADMISSION: 03/18/19 DATE OF DISCHARGE: 03/22/19 PRIMARY CARE PROVIDER: Dr. 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 DISCHARGE DIAGNOSES: 1. Junctional rhythm. 2. Acute systolic congestive heart failure due to above. 3. Suspected medical noncompliance due to dementia. SECONDARY DIAGNOSES: 1. Acute kidney injury that resolved. 2. Dementia. 3. History of cardiomyopathy with EF of 45%. 4. History of mild pulmonary hypertension. 5. History of moderate ascending aortic dilatation. 6. Anxiety. 7. Depression. 8. Gastroesophageal reflux disease. 9. History of diaphragmatic hernia. 10. History of toxic multinodular goiter and radioactive iodine treatment in the past. 11. History of diverticulitis. MEDICATIONS AT DISCHARGE: Include: 1. Fluoxetine 60 mg daily. 2. Indomethacin 25 mg b.i.d. 3. Namenda XR 70 mg daily. 4. Protonix 40 mg daily. 5. MiraLax 17 g daily. 6. Crestor 10 mg daily. 7. Carafate 1 g 3x a day with meals. 8. Aspirin 81 mg daily. 9. Furosemide 20 mg 2 days a week, Tuesdays and Fridays. 10. Mag-Ox 800 mg b.i.d. 11. Metoprolol tartrate 12.5 mg every 12 hours. LABORATORY DATA AND STUDIES PERFORMED DURING THE HOSPITAL STAY: On 03/21/19 sodium 140, potassium 7.0, chloride 107, carbon dioxide 27, BUN 10, creatinine 0.8, magnesium 1.7. Patient's TSH was 2.2 at admission. Echocardiogram obtained on 03/18/19 showed EF of 50% to 55% with mild concentric LVH, with left ventricular chamber size normal, moderate tricuspid regurgitation, mild pulmonary hypertension and compared with study from 2018 today LVEF appears to be normal. CONSULTATIONS DURING HOSPITAL STAY: Included Dr. Ann from Cardiology. HOSPITALIZATION COURSE: Yael Crespo is a 78-year-old female with history of dementia who presented to the hospital with CHF and junctional rhythm. Over the course of her hospital evaluation was noted that patient likely had medical noncompliance and maybe medication effect that caused for her to be in junctional rhythm, and subsequently in CHF. Her junctional rhythm resolved after her verapamil was discontinued and her metoprolol dose was lowered. Patient was seen by Dr. Ann in consultation who noted that patient's EF is actually improved on her echocardiogram and her junctional rhythm is mostly medication related. It became apparent during the hospital stay that patient has significant dementia and likely was not able to take her medications as prescribed due to basically not remembering what to do at certain times. I spoke with patient's daughter, Yojana, who requested for the patient to be placed in assisted for her memory problems. 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 Patient is going to be discharged with 20 mg of Lasix twice a week for her CHF. Otherwise she is in normal sinus rhythm and she has had no major problems for the remaining time of her hospital stay. Apart from being forgetful, she is ambulating down the hallways without any problems with no dyspnea on room air. She is going to be discharged to [facility] today. For her physical exam at discharge please see daily progress notes. Please note that this is a short summary of the patient's hospital stay. Please refer to further medical records for details. TIME SPENT: Approximately 55 minutes was spent on the patient's discharge. condition at discharge: stable [id number]/CPS #: [id number] WADED
== END 2019-03-22 15:15 | DRG 291 ==
LOC: ED 13:09 → MEDTELE 16:24
PROVIDERS: ADMIT Internal Medicine; ATTEND Internal Medicine
DX: I11.0 Hypertensive heart disease with heart failure (principal); I50.21 Acute systolic (congestive) heart failure; N17.9 Acute kidney failure, unspecified; I71.2 Thoracic aortic aneurysm, without rupture; I27.20 Pulmonary hypertension, unspecified; I08.1 Rheumatic disorders of both mitral and tricuspid valves; I49.8 Other specified cardiac arrhythmias; F03.90 Unspecified dementia, unspecified severity, without behavioral disturbance, psychotic disturbance, mood disturbance, and anxiety; I42.9 Cardiomyopathy, unspecified; I44.0 Atrioventricular block, first degree; F41.9 Anxiety disorder, unspecified; F32.9 Major depressive disorder, single episode, unspecified; K21.9 Gastro-esophageal reflux disease without esophagitis; K44.9 Diaphragmatic hernia without obstruction or gangrene; Z91.14 Patient's other noncompliance with medication regimen; Z91.11 Patient's noncompliance with dietary regimen; Z79.82 Long term (current) use of aspirin; Z79.899 Other long term (current) drug therapy; Z82.49 Family history of ischemic heart disease and other diseases of the circulatory system; Z83.3 Family history of diabetes mellitus
CPT/HCPCS: 36415; 71045; 80048; 80053; 83605; 83735; 83880; 84443; 84484; 85025; 85610; 93005; 93306; 99285; A9270-GY; G8978-GP-CI; G8979-GP-CH; J1644; J1940; J3475

== ENCOUNTER 2019-04-21 22:18 | Observation (INO) | payer MEDICARE ==
--- OUTSIDE RECORDS SUMMARY | 2019-04-21 22:59 | XMS REPORT | Continuity of Care Document ---
:1940 External Reference #:[id number] Author Name Bebe Gonzales Care Team Providers Name Role Phone Miguel Angel Murphy MD Primary Care Physician Unavailable Payers Date Identification Numbers Payment Provider Subscriber Policy Number: [id number] Medicare Yael Crespo PayID: [id number] [address] [place] [address] Effective: 2005 Policy Number: [id number] Medicare Yael Crespo Expires: 2018 PayID: [id number] [address] [place] [address] Policy Number: [id number] [facility] Yael Crespo PayID: [id number] [address] [place] [address] Advance Directives Description No Information Available Problems Active Problems Provider Date Benign essential hypertension Brannon Frazier M.D. Onset: 02/03/2012 Mitral valve disorder Brannon Frazier M.D. Onset: 02/03/2012 Electrocardiogram abnormal Brannon Frazier M.D. Onset: 02/03/2012 Tricuspid valve disorder, non-rheumatic Brannon Frazier M.D. Onset: Hyperlipidemia Brannon Frazier M.D. Onset: 02/03/2012 Syncope and collapse Samy Gracia.Tejinder Onset: 05/28/2012 Tachycardia Yael Her N.P. Onset: 05/28/2012 Amnesia Yael Her N.P. Onset: 07/29/2012 Depressive disorder Yael Her N.P. Onset: 07/29/2012 Dyspnea Brannon Frazier M.D. Onset: 11/10/2012 Malignant essential hypertension Brannon Frazier M.D. Onset: 2012 Rheumatic disease of tricuspid valve Brannon Frazier M.D. Onset: 04/12 Chest pain Brannon Frazier M.D. Onset: 04/12/2014 Aortic aneurysm Brannon Frazier M.D. Onset: 01/23/2015 Displaced fracture of lateral malleolus Zahraa Tavares MD Onset: 11/18/2018 of left fibula, subsequent encounter for closed fracture with routine healing Family History Description No Information Available Social History Type Date Description Comments Sex Unknown Marital Status Lives With Assisted living [employer] Occupation Retired ETOH Use Denies alcohol use Tobacco Use Start: Unknown Patient has never smoked Recreational Drug Use Never Used Drugs Smoking Status Reviewed: 04/05/19 Patient has never smoked Exercise Type/Frequency Exercises sporadically Allergies, Adverse Reactions, Alerts Description No Known Drug Allergies Medications Active Medications SIG Qnty Indications Ordering Provider Date Metoprolol Tartrate 1/2 by mouth Unknown twice a day 25mg Tablets Magnesium Oxide 2 by mouth every Unknown 400mg day Tablets Furosemide 1 by mouth on Unknown 20mg Tablets Tuesdays and Fridays Aspirin 81 1 by mouth every Unknown 81mg Tablets day DR Carafate 1 by mouth 3 Unknown 1gm Tablets times a day w/ meals Crestor 1 by mouth every Unknown 10mg Tablets day Miralax 17 grams by mouth Unknown Powder every day as needed Namenda XR 1 tablet PO daily Unknown 7mg Caps ER 24HR Indomethacin 1 cap by mouth Unknown 25mg bid Capsules Fluoxetine HCL 1 by mouth every Unknown 60mg day Tablets Tylenol prn Unknown 325mg Tablets Protonix 1 by mouth every 90tabs Gopaltagregory S. 40mg Tablets other day Holly Frazier DR History Medications Verapamil HCL ER one by mouth 90caps Qutaybeh S. 01/23/2015 - 300mg Caps ER every day Holly Frazier 04/04/2019 24HR Verapamil HCL ER one by mouth 30caps Gopaltaybthang S. 04/12/2014 - 240mg Caps ER every day Holly Frazier 01/23/2015 24HR Norvasc 1 po qd 30tabs Gopaltagregory S. 08/26/2013 - 10mg Tablets Holly Frazier 08/26/2013 Verapamil HCL CR 1 po qd 30tabs Gopaltaybeh S. 08/26/2013 - 180mg Tablets ER Holly Frazier 04/12/2014 Verapamil HCL ER 1 pill by mouth 30tabs Gopaltagregory S. 07/29/2012 - 120mg Tablets ER daily Holly Frazier 08/26/2013 Cozaar 1 po qd 30tabs Deeybthang S. 01/08/2010 - 25mg Tablets Holly Frazier 02/03/2012 Lisinopril 1 po qd 30tabs Gopaltaybeh S. 07/12/2009 - 10mg Tablets Holly Frazier 01/08/2010 Cymbalta takes 3 po daily 30caps Brannon S. 11/02/2008 - 30mg Caps DR Luis Frazier M.D. 05/28/2012 Norvasc 1/2 pill by mouth 90tabs Gopaltaybeh S. 03/20/2008 - 10mg Tablets daily Holly Frazier 08/26/2013 Aricept once daily Unknown - 5mg Tablets 04/04/2019 Cymbalta 2 by mouth every Unknown - 30mg Caps DR Luis raymundo (only takes 10/09/2018 occasionally) Aspirin 2 by mouth prn Unknown - 81mg Tablets for chest pain 11/08/2015 Zolpidem Tartrate 1 po qhs prn Miguel Angel Murphy - 5mg Tablets MD Sydnie 11/08/2015 Duloxetine HCL 1 po qd Miguel Angel Murphy - 30mg Caps DR Luis Otoole MD 01/22/2015 Simvastatin 1 po qd Crystal Ramos, - 10mg Tablets [employer] 04/04/2019 Sertraline HCL Pt unsure of dose Unknown - 25mg Tablets from PCP of 08/02/2014 sertraline Zolpidem Tartrate 1 tab po qhs prn 30tabs Unknown - 10mg Tablets 08/26/2013 Metoprolol Succinate ER 1 by mouth every 90tabs Brannon Rodríguez - 100mg day Holly Frazier 04/04/2019 Tablets ER 24HR Cymbalta 1 po qd 90caps Unknown - 30mg Caps DR Smith 08/22/2014 Cymbalta 1 po qd 30caps Unknown - 60mg Caps DR Smith 08/22/2014 Metoprolol Tartrate 1 po twice per 180tabs Unknown - 25mg Tablets day 05/28/2012 Vitamin D 1 PO qd Unknown - 11/10/2012 Calcium 1 PO qd Unknown - 02/03/2012 Protonix 1 PO qd 30tabs Unknown - 20mg Tablets DR 02/03/2012 Hydrochlorothiazide 1 PO qd 30tabs Unknown - 25mg Tablets 05/28/2012 Metoprolol Succinate ER 1 PO bid Unknown - 25mg 07/12/2009 Tablets ER 24HR Medications Administered in Office Medication SIG Qnty Indications Ordering Provider Date Inj, Regadenoson, 0.1 MG Deo Gruber M.D., 08/25/2014 Injection FRANCES GLASS Inj, Regadenoson, 0.1 MG BEN Arreaga 08/25/2014 Injection Aminophylline Deo Gruber M.D., 08/25/2014 Injection FRANCES GLASS AminophyllBEN Figueroa 08/25/2014 Injection Technetium TC 99M Deo Gruber M.D., 08/25/2014 Tetrofosmin, Per Unit Dose Up FACC, FASNC To 40 Millicuries Injection Technetium TC 99M BEN Arreaga 08/25/2014 Tetrofosmin, Per Unit Dose Up To 40 Millicuries Injection Immunizations Description No Information Available Vital Signs Date Vital Result Comment 04/05/2019 10:46am Heart Rate 66 /min BP Systolic Sitting 136 mmHg Rue lg cuff BP Diastolic Sitting 90 mmHg Rue lg cuff BP Systolic Standing 136 mmHg Rue lg cuff BP Diastolic Standing 100 mmHg Rue lg cuff Respiratory Rate 16 /min 02/03/2019 10:02am Height 65 inches 5'5" Weight 200.00 lb Heart Rate 70 /min BP Systolic Sitting 130 mmHg BP Diastolic Sitting 86 mmHg Respiratory Rate 18 /min Pain Level 8 BMI (Body Mass Index) 33.3 kg/m2 12/28/2018 9:34am Height 65 inches 5'5" Weight [...] Test Result H/L Range Note Order 05/23/2016 [facility] In-House EKG <pending> Basic Metabolic 08/08/2009 [facility] Sodium 141 mmol/L 135- [address] [place] [address] [phone] Potassium 4.0 mmol/L 3.5-5.0 Chloride 102 mmol/L 101-111 Co2 (Carbon Dioxide) 30.0 mmol/L 22-32 Anion Gap 9.0 mmol/L 2-11 2 Glucose 88 mg/dL 70-100 3 BUN 12 mg/dL 6-24 Creatinine 0.90 mg/dL 0.50-1.40 One Over Creatinine 1.10 BUN/Creatinine Ratio 13.3 8-20 Calcium 9.7 mg/dL 8.1-9.9 4 eGFR Non- 66.2 > 60 eGFR 80.1 > 60 5 Cath Panel 03/07/2008 [facility] PTT (Aptt) 21.5 20.4-29.[address] [place] [address] [phone] CBC With 03/07/2008 [facility] White Blood 4.1 CUMM Low 4.8- 10.8 Manual Diff [address] [place] [address] [phone] Absolute Neutrophil Count 2.6 Anisocytosis SLIGHT Band [...] WDTH 14 % 10.5-15 Basic Metabolic 03/07/2008 [facility] One Over Creatinine 0.[address] [place] [address] [phone] Anion Gap 4.0 mmol/L 2-11 7 BUN 14 mg/dL 6-24 Calcium 8.8 mg/dL 8.7-10.2 Chloride 108 mmol/L 101-111 Co2 (Carbon Dioxide) 28.0 mmol/L 22-32 Glucose 102 mg/dL 70-105 Potassium 3.9 mmol/L 3.5-5.0 Sodium 140 mmol/L 135-145 BUN/Creatinine Ratio 11.7 8-20 Creatinine 1.2 mg/dL 0.5-1.4 Protime 03/07/2008 [facility] Inr 0.[address] [place] [address] [phone] Protime 11.3 10.9-13.3 1 FASTING 2 Anion gap measurement may be of limited value in the presence of any alkalosis, especially in a combined acid base disorder. . 3 Note change in reference range as of 07/20/08. The change was based on recommendations from the [employer]. 4 Please note change in [...] - 3.5 Procedures Date Code Description Status 04/05/2019 77092 EKG Tracing & Interpretation Completed 03/20/2019 95890 ECHO Transthorasic Realtime 2D W Doppler & Color Flow Completed Hosp 11/18/2018 95936 Short Leg Cast Completed 10/28/2018 37317 Short Leg Cast Completed 10/14/2018 98768 Short Leg Cast Completed 10/13/2018 86556 EKG Tracing & Interpretation Completed 09/30/2018 24175 Short Leg Cast Completed 12/15/2017 02441 ECHO Transthoracic, Real-Time 2D With Doppler And Color Completed Flow 12/15/2017 15404 ECHO Transthoracic, Real-Time 2D With Doppler And Color Completed Flow 12/02/2017 49664 EKG Tracing & Interpretation Completed 02/03/2017 16414 EKG Tracing & Interpretation Completed 11/18/2016 24442 EKG, Interpretation Only Completed 11/17/2016 18871 EKG, Interpretation Only Completed 07/10/2016 31887 ECHO Transthoracic, Real-Time 2D With Doppler And Color Completed Flow 05/23/2016 79389 EKG Tracing & Interpretation Completed 11/09/2015 01141 EKG Tracing & Interpretation Completed 10/31/2015 [id number] Mammogram Completed 03/02/2015 79571 ECHO Transthoracic, Real-Time 2D With Doppler And Color Completed Flow 01/23/2015 26876 EKG Tracing & Interpretation Completed 08/25/2014 58910 Myocardial Perfusion Imaging Tomographic (Spect) Completed Multiple Studies 08/25/2014 97917 Stress Test Completed 08/25/2014 87496 Myocardial Perfusion Imaging Tomographic (Spect) Completed Multiple Studies 08/22/2014 48881 EKG Tracing & Interpretation Completed 04/28/2014 67157 ECHO Transthoracic, Real-Time 2D With Doppler And Color Completed Flow 04/12/2014 71145 EKG Tracing & Interpretation Completed 08/26/2013 53026 EKG Tracing & Interpretation Completed 07/12/2013 20229 ECHO Transthoracic, Real-Time 2D With Doppler And Color Completed Flow 11/10/2012 42354 EKG Tracing & Interpretation Completed 06/17/2012 87700 EEG Recording Awake & Drowsy Completed 05/27/2012 28457 ECHO Transthoracic, Real-Time 2D With Doppler And Color Completed Flow 05/18/2012 51776 Holter Monitoring 24 HR New Completed 02/20/2012 08609 ECHO Transthoracic, Real-Time 2D With Doppler And Color Completed Flow 02/03/2012 07993 EKG Tracing & Interpretation Completed 05/19/2011 40194 EKG Tracing & Interpretation Completed 09/02/2010 25135 EKG Tracing & Interpretation Completed 07/31/2010 77054 ECHO Transthoracic, Real-Time 2D With Doppler And Color Completed Flow 01/08/2010 90187 EKG Tracing & Interpretation Completed 11/01/2009 82506 ECHO Transthoracic, Real-Time 2D With Doppler And Color Completed Flow 07/12/2009 75080 EKG Tracing & Interpretation Completed 11/02/2008 75994 EKG Tracing & Interpretation Completed 11/02/2008 42885 EKG Tracing & Interpretation Completed 10/12/2008 05310 Echocardiogram Completed 10/12/2008 36621 Color Doppler Completed 10/12/2008 79618 Color Doppler Completed 10/12/2008 64178 Pulse Doppler & Continuous Wave Completed 10/12/2008 07460 Echocardiogram Completed 03/15/2008 04879 Selective Coronary Angioplasty Completed 03/15/2008 90975 Selective Coronary Angioplasty Completed 03/15/2008 79999 S/I/R Inj Proc Vent And Or Atrial Completed 03/15/2008 88753 Coronary Angiography Completed 03/15/2008 39079 Coronary Angiography Completed 03/15/2008 96952 Inj Proc LFT Vent/LFT Atrl Angio Completed 03/15/2008 11096 Left Heart Catheterization Completed 03/15/2008 76260 Left Heart Catheterization Completed 03/02/2008 62410 Color Doppler Completed 03/02/2008 71533 Color Doppler Completed 03/02/2008 14696 Pulse Doppler & Continuous Wave Completed 03/02/2008 82155 Pulse Doppler & Continuous Wave Completed 03/02/2008 61364 Echocardiogram Completed 02/25/2008 36697 ECHO/Stress Completed 02/25/2008 84443 Stress Test Completed 02/25/2008 71783 Stress Test Completed 02/25/2008 50085 ECHO/Stress Completed 02/25/2008 39423 ECHO/Stress Completed Encounters Type Date Location Provider Dx Diagnosis Office Visit 03/21/2019 [facility] Mau Ann, I45.5 Other specified 1:00p Of Algologist DO FACC heart block I50.9 Heart failure, unspecified I45.81 Long QT syndrome F03.90 Unspecified dementia without behavioral disturbance Office Visit 03/20/2019 9:44a [facility] Mau S. I45.5 Other specified Of Algologist Ann, DO heart block FACC I50.9 Heart failure, unspecified I45.81 Long QT syndrome F03.90 Unspecified dementia without behavioral disturbance Office Visit 03/19/2019 9:21a [facility] Mau SCarla I50.9 Heart failure, Of Algologist Ann, DO unspecified FACC I45.5 Other specified heart block I45.81 Long QT syndrome F03.90 Unspecified dementia without behavioral disturbance Office Visit 02/03/2019 9:45a [facility] Zahraa Tavares, S82.62xD Disp fx of Services Of MD alma LoaizaM.ACarla malleolus of l fibula, 7thD M16.0 Bilateral primary osteoarthritis of hip M25.552 Pain in left hip M25.551 Pain in right hip Office Visit 12/28/2018 [facility] Zahraa Tavares, S82.62xD Disp fx of lateral 9:30a Services Of malldevin of l C.M.A. fibula, 7thD Office Visit 12/03/2018 [facility] Zahraa Tavares, S82.62xD Disp fx of lateral 8:30a Services Of malleolus of l C.M.A. fibula, 7thD Office Visit 11/18/2018 [facility] Zahraa Tavares, S82.62xD Disp fx of lateral 9:15a Services Of malleolus of l C.M.A. fibula, 7thD Office Visit 10/14/2018 [facility] Zahraa Tavares, S82.62xD Disp fx of lateral 10:30a Services Of malleolus of l C.M.A. fibula, 7thD Office Visit 10/13/2018 [facility] SCarla I10 Essential 3:40p Cardiology Freddie (primary) Holly hypertension I34.0 Nonrheumatic mitral (valve) insufficiency R94.31 Abnormal electrocardiogram [ECG] [EKG] I27.20 Pulmonary hypertension, unspecified I36.1 Nonrheumatic tricuspid (valve) insufficiency I71.2 Thoracic aortic aneurysm, without rupture Office Visit 09/30/2018 [facility] Zahraa Tavares, S82.62xA Disp fx of 11:00a Services Of MD alma lombardo C.MCarlaACarla of left fibula, init Office Visit 12/02/2017 [facility] Herronaldo S. I71.9 Aortic aneurysm 3:40p Cardiology Freddie, of unspecified M.D. site, without rupture I34.0 Nonrheumatic mitral (valve) insufficiency I36.1 Nonrheumatic tricuspid (valve) insufficiency I10 Essential (primary) hypertension E78.4 Other hyperlipidemia R06.02 Shortness of breath R94.31 Abnormal electrocardiogram [ECG] [EKG] Office Visit 02/03/2017 [facility] Brannon S. I34.0 Nonrheumatic mitral 10:00a Cory Frazier M.D. (valve) insufficiency I71.9 Aortic aneurysm of unspecified site, without rupture I36.1 Nonrheumatic tricuspid (valve) insufficiency I10 Essential (primary) hypertension E78.4 Other hyperlipidemia Office Visit 11/18/2016 [facility] R07.9 Chest pain, 2:14p Assoc,pc [place], IRONWORK[employer] unspecified Hospitalists R53.1 Weakness R10.84 Generalized abdominal pain N39.0 Urinary tract infection, site not specified Office Visit 11/16/2016 [facility] R07.9 Chest pain, 2:13p Assoc,pc [place], IRONWORK[employer] unspecified Hospitalists R10.84 Generalized abdominal pain R53.1 Weakness Office Visit 05/23/2016 [facility] Brannon S. I34.0 Nonrheumatic mitral 2:00p Cory Frazier M.D. (valve) insufficiency I71.9 Aortic aneurysm of unspecified site, without rupture I36.1 Nonrheumatic tricuspid (valve) insufficiency E78.4 Other hyperlipidemia I10 Essential (primary) hypertension R06.02 Shortness of breath Office Visit 11/09/2015 [facility] Brannon S. I34.0 Nonrheumatic mitral 2:00p Cory Frazier M.D. (valve) insufficiency I10 Essential (primary) hypertension I71.9 Aortic aneurysm of unspecified site, without rupture Office Visit 02/12/2015 2:30p [facility] Cory Molinaa Ramachandran, 401.0 Hypertension PA Malignant 441.9 Aneurysm Aortic W/O Rupture Unspec Site 424.0 Mitral Valve Disorder 397.0 Tricuspid Valve Disease Office Visit 01/23/2015 3:00p [facility] Qutaybeh S. 786.50 Pain Chest Holly Frazier Unspec 401.0 Hypertension Malignant 424.0 Mitral Valve Disorder 397.0 Tricuspid Valve Disease 441.9 Aneurysm Aortic W/O Rupture Unspec Site Office Visit 08/22/2014 9:00a [facility] Jasmin Ramachandran, 401.0 Hypertension PA Malignant 424.0 Mitral Valve Disorder 397.0 Tricuspid Valve Disease 794.31 Electrocardiogram (ECG) (EKG) Abnormal 786.50 Pain Chest Unspec Office Visit 04/12/2014 [facility] Brannon S. 401.0 Hypertension 3:20p Cardiology Holly Frazier Malignant 272.4 Hyperlipidemia Other Unspec 786.05 Shortness Of Breath 424.0 Mitral Valve Disorder 397.0 Tricuspid Valve Disease 785.0 Tachycardia Unspec 786.50 Pain Chest Unspec Office Visit 09/23/2013 1:30p [facility] Nurse Visit cc 401.1 Hypertension Benign Office Visit 08/26/2013 3:00p [facility] Qutaybeh S. 424.0 Mitral Valve AllanydDiana alberto.DCarla 401.1 Hypertension Benign 272.4 Hyperlipidemia Other Unspec 786.05 Shortness Of Breath 424.2 Tricuspid Valve Disorder Spec as Nonrheumatic 401.0 Hypertension Malignant Office Visit 11/10/2012 [facility] Brannon S. 401.1 Hypertension 11:00a Cory Frazier M.D. Benign 272.4 Hyperlipidemia Other Unspec 424.0 Mitral Valve Disorder 786.05 Shortness Of Breath Office Visit 07/29/2012 1:30p [facility] Yael Her, 785.0 Tachycardia Cardiology N.P. Unspec 401.1 Hypertension Benign 780.93 Memory Loss 311 Depressive Disorder Not Elsewhere Spec Office Visit 05/28/2012 3:00p [facility] Yael Her, 780.2 Syncope & N.P. Collapse 785.0 Tachycardia Unspec 401.1 Hypertension Benign 272.4 Hyperlipidemia Other Unspec Office Visit 02/03/2012 [facility] Brannon S. 401.1 Hypertension 2:20p Cardiology Holly Frazier Benign 424.0 Mitral Valve Disorder 794.31 Electrocardiogram (ECG) (EKG) Abnormal 424.2 Tricuspid Valve Disorder Spec as Nonrheumatic 272.4 Hyperlipidemia Other Unspec 278.01 Obesity Morbid Office Visit 05/19/2011 [facility] Deeybeh S. 401.1 Hypertension 3:00p Cory Frazier M.D. Benign 424.0 Mitral Valve Disorder 794.31 Electrocardiogram (ECG) (EKG) Abnormal Office Visit 09/02/2010 [facility] Lisyeh S. 401.1 Hypertension 3:00p Cory Frazier M.D. Benign 424.0 Mitral Valve Disorder Office Visit 01/08/2010 [facility] S. 401.1 Hypertension 11:00a Cory Frazier M.D. Benign 424.0 Mitral Valve Disorder 424.2 Tricuspid Valve Disorder Spec as Nonrheumatic Office 07/12/2009 [facility] Qualdo S. 794.31 Electrocardiogram Visit 10:40a Cory Frazier M.D. (ECG) (EKG) Abnormal 401.1 Hypertension Benign 424.0 Mitral Valve Disorder 428.32 Diastolic Heart Failure Chronic 272.4 Hyperlipidemia Other Unspec Office Visit 11/02/2008 11:00a [facility] [place] S. 424.0 Mitral Valve Holly Frazier Disorder 272.4 Hyperlipidemia Other Unspec 794.31 Electrocardiogram (ECG) (EKG) Abnormal 401.1 Hypertension Benign 424.2 Tricuspid Valve Disorder Spec as Nonrheumatic Office Visit 03/20/2008 3:20p [facility] Lisyeh S. 786.50 Pain Chester Frazier M.D. Unspec 401.1 Hypertension Benign 272.4 Hyperlipidemia Other Unspec 424.0 Mitral Valve Disorder Office Visit 03/15/2008 12:00p [facility] Gopaltaybeh S. 786.50 Pain Chester Frazier M.D. Unspec 794.30 Cardiovascular Function Study Unspec Abnormal 401.1 Hypertension Benign 424.2 Tricuspid Valve Disorder Spec as Nonrheumatic Office Visit 02/25/2008 1:30p [facility] Gopaltaybeh S. 786.50 Pain Chester Frazier M.D. Unspec 401.1 Hypertension Benign 272.4 Hyperlipidemia Other Unspec 794.31 Electrocardiogram (ECG) (EKG) Abnormal Plan of Treatment Future Appointment(s):05/12/2019 10:30 am - Abdullahi Merida M.D. at [facility]04/05/2019 - Brannon Frazier M.D.I50.9 Heart failure, [id number] Essential (primary) hypertensionFollow up:one yr ovI36.1 Nonrheumatic tricuspid (valve) [id number] Thoracic aortic aneurysm, without rupture
--- OUTSIDE RECORDS SUMMARY | 2019-04-21 22:59 | XMS REPORT | Continuity of Care Document ---
:1940 External Reference #:[id number] Author Name Destiny La Care Team Providers Name Role Phone Miguel Angel Murphy MD Primary Care Physician Unavailable Payers Date Identification Numbers Payment Provider Subscriber Policy Number: [id number] Medicare Yael Crespo PayID: [id number] [address] [place] [address] Effective: 2005 Policy Number: [id number] Medicare Yael Crespo Expires: 2018 PayID: [id number] [address] [place] [address] Policy Number: [id number] [facility] Yael Crespo PayID: [id number] [address] [place] [address] Advance Directives Description No Information Available Problems [...] Use Never Used Drugs Smoking Status Reviewed: 02/03/19 Patient has never smoked Exercise Type/Frequency Exercises regularly walks almost every day (( Patient does not walk as much d/t cast on left foot )) Allergies, Adverse Reactions, Alerts Description No Known Drug Allergies Medications Active Medications SIG Qnty Indications Ordering Provider Date Verapamil HCL ER one by mouth 90caps Qutaybeh S. 01/23/2015 300mg every day Holly Frazier Caps ER 24HR Metoprolol Succinate 1 by mouth 90tabs Qutaybeh S. ER every day Holly Frazier 100mg Tablets ER 24HR Protonix 1 by mouth 90tabs Qutaybeh S. 40mg Tablets DR every other day Holly Frazier Tylenol prn Unknown 325mg Tablets Simvastatin 1 po qd Crystal Ramos NP 10mg Tablets Aricept once daily Unknown 5mg Tablets History Medications Verapamil HCL ER one by mouth 30caps Qutaybeh S. 04/12/2014 - 240mg Caps ER every day Holly Frazier 01/23/2015 24HR Norvasc 1 po qd 30tabs Qutaybeh S. 08/26/2013 - 10mg Tablets Holly Frazier 08/26/2013 Verapamil HCL CR 1 po qd 30tabs Qutaybeh S. 08/26/2013 - 180mg Tablets ER Holly Frazier 04/12/2014 Verapamil HCL ER 1 pill by mouth 30tabs Qutaybeh S. 07/29/2012 - 120mg Tablets ER daily Holly Frazier 08/26/2013 Cozaar 1 po qd 30tabs Qutaybeh S. 01/08/2010 - 25mg Tablets Holly Frazier 02/03/2012 Lisinopril 1 po qd 30tabs Gopaltaybeh S. 07/12/2009 - 10mg Tablets Holly Frazier 01/08/2010 Cymbalta takes 3 po daily 30caps Qutaybeh S. 11/02/2008 - 30mg Caps DR Luis Frazier M.D. 05/28/2012 Norvasc 1/2 pill by mouth 90tabs Qutaybeh S. 03/20/2008 - 10mg Tablets daily Holly Frazier 08/26/2013 Cymbalta 2 by mouth every Unknown - 30mg Caps DR Smith (only takes 10/09/2018 occasionally) Aspirin 2 by mouth prn Unknown - 81mg Tablets for chest pain 11/08/2015 Zolpidem Tartrate 1 po qhs prn Miguel Angel Murphy - 5mg Jonathan Otoole MD 11/08/2015 Duloxetine HCL 1 po qd Miguel Angel Murphy - 30mg Caps DR Luis Otoole MD 01/22/2015 Sertraline HCL Pt unsure of dose Unknown - 25mg Tablets from PCP of 08/02/2014 sertraline Zolpidem Tartrate 1 tab po qhs prn 30tabs Unknown - 10mg Tablets 08/26/2013 Cymbalta 1 po qd 90caps Unknown - 30mg Caps DR Smith 08/22/2014 Cymbalta 1 po qd 30caps Unknown - 60mg Caps DR Smith 08/22/2014 Metoprolol Tartrate 1 po twice per 180tabs Unknown - 25mg Tablets day 05/28/2012 Vitamin D 1 PO qd Unknown - 11/10/2012 Calcium 1 PO qd Unknown - 02/03/2012 Protonix 1 PO qd 30tabs Unknown - 20mg Tablets 02/03/2012 Hydrochlorothiazide 1 PO qd 30tabs Unknown - 25mg Tablets 05/28/2012 Metoprolol Succinate ER 1 PO bid Unknown - 25mg 07/12/2009 Tablets ER 24HR Medications Administered in Office Medication SIG Qnty Indications Ordering Provider Date Inj, Regadenoson, 0.1 MG Deo Gruber M.D., 08/25/2014 Injection FACC, FASNC Inj, Regadenoson, 0.1 MG BEN Arreaga 08/25/2014 Injection Aminophylline Deo Gruber M.D., 08/25/2014 Injection ZORAIDACRUDYNC Aminophylline BEN Arreaga 08/25/2014 Injection Technetium TC 99M Deo Gruber M.D., 08/25/2014 Tetrofosmin, Per Unit Dose Up RUDY GLASSNC To 40 Millicuries Injection Technetium TC 99M BEN Arreaga 08/25/2014 Tetrofosmin, Per Unit Dose Up To 40 Millicuries Injection Immunizations Description No Information Available Vital Signs Date Vital Result Comment 02/03/2019 10:02am Height 65 inches 5'5" Weight [...] Test Result H/L Range Note Order 05/23/2016 Backup Administrator In-House EKG <pending> Basic Metabolic 08/08/2009 [facility] Sodium 141 mmol/L 135- 145 1 Panel [address] [place] [address] [phone] Potassium 4.0 mmol/L 3.5-5.0 Chloride 102 mmol/L 101-111 Co2 (Carbon Dioxide) 30.0 mmol/L 22-32 Anion Gap 9.0 mmol/L 2-11 2 Glucose 88 mg/dL 70-100 3 BUN 12 mg/dL 6-24 Creatinine 0.90 mg/dL 0.50-1.40 One Over Creatinine 1.10 BUN/Creatinine Ratio 13.3 8-20 Calcium 9.7 mg/dL 8.1-9.9 4 eGFR Non- 66.2 > 60 eGFR 80.1 > 60 5 Cath Panel 03/07/2008 [facility] PTT (Aptt) 21.5 20.4-29.[address] [place] [address] [phone] CBC With 03/07/2008 [facility] White Blood 4.1 CUMM Low 4.8- 10.[address] [place] [address] [phone] Absolute Neutrophil Count 2.6 Anisocytosis SLIGHT Band [...] WDTH 14 % 10.5-15 Basic Metabolic 03/07/2008 [facility] One Over Creatinine 0.83 Panel [address] [place] [address] [phone] Anion Gap 4.0 mmol/L 2-11 7 BUN 14 mg/dL 6-24 Calcium 8.8 mg/dL 8.7-10.2 Chloride 108 mmol/L 101-111 Co2 (Carbon Dioxide) 28.0 mmol/L 22-32 Glucose 102 mg/dL 70-105 Potassium 3.9 mmol/L 3.5-5.0 Sodium 140 mmol/L 135-145 BUN/Creatinine Ratio 11.7 8-20 Creatinine 1.2 mg/dL 0.5-1.4 Protime 03/07/2008 [facility] Inr 0.87 8 [address] [place] [address] [phone] Protime 11.3 10.9-13.3 1 FASTING 2 Anion gap measurement may be of limited value in the presence of any alkalosis, especially in a combined acid base disorder. . 3 Note change in reference range as of 07/20/08. The change was based on recommendations from the [place] [employer]. 4 Please note change in [...] - 3.5 Procedures Date Code Description Status 03/20/2019 31218 ECHO Transthorasic Realtime 2D W Doppler & Color Flow Completed Hosp 11/18/2018 67946 Short Leg Cast Completed 10/28/2018 70015 Short Leg Cast Completed 10/14/2018 53753 Short Leg Cast Completed 10/13/2018 43684 EKG Tracing & Interpretation Completed 09/30/2018 40625 Short Leg Cast Completed 12/15/2017 99723 ECHO Transthoracic, Real-Time 2D With Doppler And Color Completed Flow 12/15/2017 24735 ECHO Transthoracic, Real-Time 2D With Doppler And Color Completed Flow 12/02/2017 18936 EKG Tracing & Interpretation Completed 02/03/2017 14183 EKG Tracing & Interpretation Completed 11/18/2016 23506 EKG, Interpretation Only Completed 11/17/2016 96981 EKG, Interpretation Only Completed 07/10/2016 69982 ECHO Transthoracic, Real-Time 2D With Doppler And Color Completed Flow 05/23/2016 61313 EKG Tracing & Interpretation Completed 11/09/2015 79856 EKG Tracing & Interpretation Completed 10/31/2015 [id number] Mammogram Completed 03/02/2015 59405 ECHO Transthoracic, Real-Time 2D With Doppler And Color Completed Flow 01/23/2015 45591 EKG Tracing & Interpretation Completed 08/25/2014 74452 Myocardial Perfusion Imaging Tomographic (Spect) Completed Multiple Studies 08/25/2014 01600 Stress Test Completed 08/25/2014 90650 Myocardial Perfusion Imaging Tomographic (Spect) Completed Multiple Studies 08/22/2014 50539 EKG Tracing & Interpretation Completed 04/28/2014 75450 ECHO Transthoracic, Real-Time 2D With Doppler And Color Completed Flow 04/12/2014 62770 EKG Tracing & Interpretation Completed 08/26/2013 27437 EKG Tracing & Interpretation Completed 07/12/2013 95502 ECHO Transthoracic, Real-Time 2D With Doppler And Color Completed Flow 11/10/2012 88688 EKG Tracing & Interpretation Completed 06/17/2012 05387 EEG Recording Awake & Drowsy Completed 05/27/2012 30365 ECHO Transthoracic, Real-Time 2D With Doppler And Color Completed Flow 05/18/2012 80999 Holter Monitoring 24 HR New Completed 02/20/2012 84254 ECHO Transthoracic, Real-Time 2D With Doppler And Color Completed Flow 02/03/2012 69269 EKG Tracing & Interpretation Completed 05/19/2011 55864 EKG Tracing & Interpretation Completed 09/02/2010 46204 EKG Tracing & Interpretation Completed 07/31/2010 56911 ECHO Transthoracic, Real-Time 2D With Doppler And Color Completed Flow 01/08/2010 18982 EKG Tracing & Interpretation Completed 11/01/2009 58648 ECHO Transthoracic, Real-Time 2D With Doppler And Color Completed Flow 07/12/2009 48497 EKG Tracing & Interpretation Completed 11/02/2008 29167 EKG Tracing & Interpretation Completed 11/02/2008 27377 EKG Tracing & Interpretation Completed 10/12/2008 53848 Pulse Doppler & Continuous Wave Completed 10/12/2008 70686 Echocardiogram Completed 10/12/2008 29451 Echocardiogram Completed 10/12/2008 78328 Color Doppler Completed 10/12/2008 13007 Color Doppler Completed 03/15/2008 34633 Selective Coronary Angioplasty Completed 03/15/2008 23504 Selective Coronary Angioplasty Completed 03/15/2008 28154 S/I/R Inj Proc Vent And Or Atrial Completed 03/15/2008 22039 Coronary Angiography Completed 03/15/2008 02744 Coronary Angiography Completed 03/15/2008 03638 Inj Proc LFT Vent/LFT Atrl Angio Completed 03/15/2008 40378 Left Heart Catheterization Completed 03/15/2008 60591 Left Heart Catheterization Completed 03/02/2008 86156 Color Doppler Completed 03/02/2008 74940 Color Doppler Completed 03/02/2008 05172 Pulse Doppler & Continuous Wave Completed 03/02/2008 25376 Pulse Doppler & Continuous Wave Completed 03/02/2008 24016 Echocardiogram Completed 02/25/2008 55162 ECHO/Stress Completed 02/25/2008 87661 ECHO/Stress Completed 02/25/2008 01227 ECHO/Stress Completed 02/25/2008 31023 Stress Test Completed 02/25/2008 70864 Stress Test Completed Encounters Type Date Location Provider Dx Diagnosis Office Visit 03/21/2019 [facility] Mau Ann, I45.5 Other specified 1:00p Of Backup Administrator DO FACC heart block I50.9 Heart failure, unspecified I45.81 Long QT syndrome F03.90 Unspecified dementia without behavioral disturbance Office Visit 03/20/2019 9:44a [facility] Mau SCarla I45.5 Other specified Of Backup Administrator Ann, DO heart block FACC I50.9 Heart failure, unspecified I45.81 Long QT syndrome F03.90 Unspecified dementia without behavioral disturbance Office Visit 03/19/2019 9:21a [facility] Mua S. I50.9 Heart failure, Of Backup Administrator Ann, DO unspecified FACC I45.5 Other specified heart block I45.81 Long QT syndrome F03.90 Unspecified dementia without behavioral disturbance Office Visit 02/03/2019 9:45a [facility] Zahraa Tavares, S82.62xD Disp fx of Services Of MD alma lombardo of juan carlos fibula, 7thD M16.0 Bilateral primary osteoarthritis of hip M25.552 Pain in left hip M25.551 Pain in right hip Office Visit 12/28/2018 [facility] Zahraa Tavares S82.62xD Disp fx of alma 9:30a Services Of MD malleolus of l C.M.A. fibula, 7thD Office Visit 12/03/2018 [facility] Zahraa Tavares, S82.62xD Disp fx of lateral 8:30a Services Of mallecarmelo of l C.M.A. fibula, 7thD Office Visit 11/18/2018 [facility] Zahraa Tavares, S82.62xD Disp fx of lateral 9:15a Services Of MD lombardo of l C.M.A. fibula, 7thD Office Visit 10/14/2018 [facility] Zahraa Tavares, S82.62xD Disp fx of lateral 10:30a Services Of MD lombardo of l C.M.A. fibula, 7thD Office Visit 10/13/2018 [facility]. I10 Essential 3:40p Cardiology Freddie, (primary) M.D. hypertension I34.0 Nonrheumatic mitral (valve) insufficiency R94.31 Abnormal electrocardiogram [ECG] [EKG] I27.20 Pulmonary hypertension, unspecified I36.1 Nonrheumatic tricuspid (valve) insufficiency I71.2 Thoracic aortic aneurysm, without rupture Office Visit 09/30/2018 [facility] Zahraa Tavares, S82.62xA Disp fx of 11:00a Services Of MD alma lombardo C.M.A. of left fibula, init Office Visit 12/02/2017 [facility] [place] S. I71.9 Aortic aneurysm 3:40p Cardiology Freddie, of unspecified M.D. site, without rupture I34.0 Nonrheumatic mitral (valve) insufficiency I36.1 Nonrheumatic tricuspid (valve) insufficiency I10 Essential (primary) hypertension E78.4 Other hyperlipidemia R06.02 Shortness of breath R94.31 Abnormal electrocardiogram [ECG] [EKG] Office Visit 02/03/2017 [facility] [place] S. I34.0 Nonrheumatic mitral 10:00a Cardiology Holly Frazier (valve) insufficiency I71.9 Aortic aneurysm of unspecified site, without rupture I36.1 Nonrheumatic tricuspid (valve) insufficiency I10 Essential (primary) hypertension E78.4 Other hyperlipidemia Office Visit 11/18/2016 [facility] R07.9 Chest pain, 2:14p Assoc,pc [place], [employer] unspecified Hospitalists R53.1 Weakness R10.84 Generalized abdominal pain N39.0 Urinary tract infection, site not specified Office Visit 11/16/2016 [facility] R07.9 Chest pain, 2:13p ,job Miranda, [employer] MECH[employer]IC unspecified Hospitalists R10.84 Generalized abdominal pain R53.1 Weakness Office Visit 05/23/2016 [place] Qudorotaybth[facility] S. I34.0 Nonrheumatic mitral 2:00p Cardiology Holly Frazier (valve) insufficiency I71.9 Aortic aneurysm of unspecified site, without rupture I36.1 Nonrheumatic tricuspid (valve) insufficiency E78.4 Other hyperlipidemia I10 Essential (primary) hypertension R06.02 Shortness of breath Office Visit 11/09/2015 [place] Brannon S. I34.0 Nonrheumatic mitral 2:00p Cory Frazier M.D. (valve) insufficiency I10 Essential (primary) hypertension I71.9 Aortic aneurysm of unspecified site, without rupture Office Visit 02/12/2015 2:30p [facility] Jasmin Ramachandran, 401.0 Hypertension PA Malignant 441.9 Aneurysm Aortic W/O Rupture Unspec Site 424.0 Mitral Valve Disorder 397.0 Tricuspid Valve Disease Office Visit 01/23/2015 3:00p [facility] Brannon S. 786.50 Pain Chest Holly Frazier Unspec 401.0 Hypertension Malignant 424.0 Mitral Valve Disorder 397.0 Tricuspid Valve Disease 441.9 Aneurysm Aortic W/O Rupture Unspec Site Office Visit 08/22/2014 9:00a [facility] Jasmin Ramachandran, 401.0 Hypertension PA Malignant 424.0 Mitral Valve Disorder 397.0 Tricuspid Valve Disease 794.31 Electrocardiogram (ECG) (EKG) Abnormal 786.50 Pain Chest Unspec Office Visit 04/12/2014 [place] Br[facility] S. 401.0 Hypertension 3:20p Cardiology Holly Frazier Malignant 272.4 Hyperlipidemia Other Unspec 786.05 Shortness Of Breath 424.0 Mitral Valve Disorder 397.0 Tricuspid Valve Disease 785.0 Tachycardia Unspec 786.50 Pain Chest Unspec Office Visit 09/23/2013 1:30p [facility] Nurse Visit cc 401.1 Hypertension Benign Office Visit 08/26/2013 3:00p [facility] Qutaybeh S. 424.0 Mitral Valve Diana Frazier M.D. 401.1 Hypertension Benign 272.4 Hyperlipidemia Other Unspec 786.05 Shortness Of Breath 424.2 Tricuspid Valve Disorder Spec as Nonrheumatic 401.0 Hypertension Malignant Office Visit 11/10/2012 [place] Qutaybeh S. 401.1 Hypertension 11:00a Cardiology Holly Frazier Benign 272.4 Hyperlipidemia Other Unspec 424.0 Mitral Valve Disorder 786.05 Shortness Of Breath Office Visit 07/29/2012 1:30p [facility] Yael Parmenter, 785.0 Tachycardia Cardiology N.P. Unspec 401.1 Hypertension Benign 780.93 Memory Loss 311 Depressive Disorder Not Elsewhere Spec Office Visit 05/28/2012 3:00p [facility] Yael Micheler, 780.2 Syncope & N.P. Collapse 785.0 Tachycardia Unspec 401.1 Hypertension Benign 272.4 Hyperlipidemia Other Unspec Office Visit 02/03/2012 [place] Qudorotaybeh S. 401.1 Hypertension 2:20p Cory Frazier M.D. Benign 424.0 Mitral Valve Disorder 794.31 Electrocardiogram (ECG) (EKG) Abnormal 424.2 Tricuspid Valve Disorder Spec as Nonrheumatic 272.4 Hyperlipidemia Other Unspec 278.01 Obesity Morbid Office Visit 05/19/2011 [place] Deeybeh S. 401.1 Hypertension 3:00p Cory Frazier M.D. Benign 424.0 Mitral Valve Disorder 794.31 Electrocardiogram (ECG) (EKG) Abnormal Office Visit 09/02/2010 [place] Qutaybeh S. 401.1 Hypertension 3:00p Cory Frazier M.D. Benign 424.0 Mitral Valve Disorder Office Visit 01/08/2010 [place] Qutaybeh S. 401.1 Hypertension 11:00a Cory Frazier M.D. Benign 424.0 Mitral Valve Disorder 424.2 Tricuspid Valve Disorder Spec as Nonrheumatic Office 07/12/2009 [place] Qudorotaybeh S. 794.31 Electrocardiogram Visit 10:40a Cory Frazier M.D. (ECG) (EKG) Abnormal 401.1 Hypertension Benign 424.0 Mitral Valve Disorder 428.32 Diastolic Heart Failure Chronic 272.4 Hyperlipidemia Other Unspec Office Visit 11/02/2008 11:00a [facility] Qutaybeh S. 424.0 Mitral Valve Holly Frazier Disorder 272.4 Hyperlipidemia Other Unspec 794.31 Electrocardiogram (ECG) (EKG) Abnormal 401.1 Hypertension Benign 424.2 Tricuspid Valve Disorder Spec as Nonrheumatic Office Visit 03/20/2008 3:20p [facility] Qutaybeh S. 786.50 Pain Chest Holly Frazier Unspec 401.1 Hypertension Benign 272.4 Hyperlipidemia Other Unspec 424.0 Mitral Valve Disorder Office Visit 03/15/2008 12:00p [facility] Qutaybeh S. 786.50 Pain Chest Holly Frazier Unspec 794.30 Cardiovascular Function Study Unspec Abnormal 401.1 Hypertension Benign 424.2 Tricuspid Valve Disorder Spec as Nonrheumatic Office Visit 02/25/2008 1:30p [facility] Qutaybeh S. 786.50 Pain Chest Holly Frazier Unspec 401.1 Hypertension Benign 272.4 Hyperlipidemia Other Unspec 794.31 Electrocardiogram (ECG) (EKG) Abnormal Plan of Treatment Future Appointment(s):04/05/2019 10:40 am - Brannon Frazier M.D. at [facility]05/12/2019 10:30 am - Abdullahi Merida M.D. at [facility]02/03/2019 - Zahraa Tavares, MDS82.62xD Displaced fracture of lateral malleolus of left fibula, subsFollow up:Follow up: as [id number] Bilateral primary osteoarthritis of hipM25.552 Pain in left hipM25.551 Pain in right hip
[2019-04-21] MEDS ORDERED: Morphine 4 MG/ML VIAL (1 ml) 4 MG/ML VIAL IV ONE (23:03)
[2019-04-21] MEDS ORDERED: Acetaminophen TAB* 325 MG PO ONE (23:03)
[2019-04-21 23:10] LABS: ABS Basophils 0.1 10^3/ul (0-0.2); ABS Eosinophils 0.2 10^3/ul (0-0.6); ABS Monocytes 0.4 10^3/ul (0-0.8); ABS Neutrophils 1.7 10^3/ul (1.5-7.7); Eosinophil % 3.8 %; Hematocrit 35 % (35-47); Hemoglobin 11.6 g/dL (12.0-16.0); Lymphocyte % 45.6 %; Mean Corpuscular HGB Conc 34 g/dL (31-36); Mean Corpuscular Hemoglobin 31 pg (27-31); Mean Corpuscular Volume 92 fL (80-97); Mean Platelet Volume 7.4 fL (7.4-10.4); Nucleated Red Blood Cells % 0.1; Platelet Count 205 10^3/uL (150-450); Red Blood Count 3.78 10^6 /uL (3.70-4.87); Red Cell Distribution Width 14 % (10.5-15); White Blood Count 4.4 10^3/uL (3.5-10.8)
[2019-04-21 23:17] LABS: INR 0.91 (0.82-1.09)
[2019-04-21 23:20] LABS: Albumin 3.9 g/dL (3.2-5.2); Albumin/Globulin Ratio 1.5 (1-3); BUN/Creatinine Ratio 18.4 (8-20); Calcium 9.1 mg/dL (8.6-10.3); EGFR African American 66.4 (>60); EGFR Non-African American 54.9 (>60); Globulin 2.6 g/dL (2-4); Potassium 4.1 mmol/L (3.5-5.0); Total Bilirubin 0.3 mg/dL (0.2-1.0); Total Protein 6.5 g/dL (6.4-8.9)
[2019-04-21 23:51] LABS: TSH (Thyroid Stimulating Horm) 1.44 mcIU/mL (0.34-5.60)
--- NOTE | 2019-04-21 23:51 | ED ---
HPI Chest Pain - HPI Summary HPI Summary: Pt is a 78 y/o F presenting to the ED with a chief complaint of chest pain first onset this morning at around 0700 when she woke up. She reports feeling a pressure on her chest like she couldn't breathe rated at around a 7/10, and didn t get out of bed until her kids came to help her. She states it felt like it let up around mid-afternoon at a 4/10, but came back worsened around 2100 at a 9 /10. She also reports just feeling generally unwell and weak with some nausea. - History of Current Complaint Chief Complaint: EDChestPainROMI Time Seen by Provider: 04/21/19 22:56 Hx Obtained From: Patient Onset/Duration: Started Hours Ago, Still Present Timing: Constant, Lasting Hours Initial Severity: Moderate Current Severity: Severe Pain Intensity: 8 Pain Scale Used: 0-10 Numeric Character: Tightness Aggravating Factor(s): Nothing Alleviating Factor(s): Nothing Associated Signs and Symptoms: Positive: Chest Pain, Weakness, Nausea - Additional Pertinent History Primary Care Physician: [facility] - Allergy/Home Medications Allergies/Adverse Reactions: Allergies Allergy/AdvReac Type Severity Reaction Status Date / Time No Known Allergies Allergy Verified 01/18/19 10:48 PMH/Surg Hx/FS Hx/Imm Hx Previously Healthy: Yes Endocrine/Hematology History: Reports: Other Endocrine/Hematological Disorders - thyroid nodule Denies: Hx Diabetes, Hx Anemia Cardiovascular History: Reports: Hx Hypertension - on meds, Other Cardiovascular Problems/Disorders - valve repair Denies: Hx Hypercholesterolemia, Hx Pacemaker/ICD, Hx Peripheral Vascular Disease Respiratory History: Denies: Hx Chronic Obstructive Pulmonary Disease (COPD) GI History: Reports: Hx Diverticulosis, Hx Gastroesophageal Reflux Disease, Hx Ulcer Denies: Hx Jaundice History: Denies: Hx Renal Disease Sensory History: Reports: Hx Cataracts Denies: Hx Contacts or Glasses, Hx Hearing Aid Opthamlomology History: Reports: Hx Cataracts Denies: Hx Contacts or Glasses Neurological History: Reports: Hx Dementia, Hx Headaches, Other Neuro Impairments/Disorders - repeated head injuries Denies: Hx CVA, Hx Seizures Psychiatric History: Denies: Hx Anxiety, Hx Panic Disorder - Surgical History Surgery Procedure, Year, and Place: left breast lumpectomy, tubal ligation, varicose vein stripping,. cardiac - leaky valve repair Hx Anesthesia Reactions: No - Immunization History Date of Tetanus Vaccine: up to date Date of Influenza Vaccine: 2016 Infectious Disease History: No Infectious Disease History: Reports: Hx Shingles - at age 14 Denies: History Other Infectious Disease, Traveled Outside the [place] in Last 30 Days - Family History Known Family History: Negative: Cardiac Disease, Hypertension, Diabetes Family History: Denies FHx colon CA - Social History Alcohol Use: None Hx Substance Use: No Substance Use Type: Reports: None Hx Tobacco Use: No Smoking Status (MU): Never Smoked Tobacco Review of Systems Positive: Chest Pain Positive: Nausea Positive: Weakness All Other Systems Reviewed And Are Negative: Yes Physical Exam - Summary Physical Exam Summary: Appearance: Well-appearing, Well-nourished, lying in bed comfortably Skin: Warm, dry, no obvious rash Eyes: sclera anicteric, no conjunctival pallor ENT: mucous membranes moist, pharynx appears normal Neck: Supple, nontender Respiratory: Clear to auscultation, no signs of respiratory distress Cardiovascular: Normal S1, S2. No murmurs. Normal distal pulses in tibial and radial bilaterally. Abdomen: Soft, nontender, normal active bowel sounds present Musculoskeletal: Normal, Strength/ROM Intact Neurological: A&Ox3, awake and alert, mentation is normal, speech is fluent and appropriate Psychiatric: affect is normal, does not appear anxious or depressed Triage Information Reviewed: Yes Vital Signs On Initial Exam: Initial Vitals Temp Pulse Resp BP Pulse Ox 98.6 F 66 16 171/100 99 04/21/19 22:25 04/21/19 22:25 04/21/19 22:25 04/21/19 22:25 04/21/19 22:25 Vital Signs Reviewed: Yes Diagnostics - Vital Signs Vital Signs Temp Pulse Resp BP Pulse Ox 04/21/19 23:13 18 04/21/19 23:00 73 16 166/101 100 04/21/19 22:30 75 171/100 99 04/21/19 22:29 74 100 04/21/19 22:25 98.6 F 66 16 171/100 99 - Laboratory Lab Results: Lab Results 04/21/19 04/21/19 04/21/19 Range/Units 22:45 22:45 22:45 WBC 4.4 (3.5-10.8) 10^3/uL RBC 3.78 (3.70-4.87) 10^6 /uL Hgb 11.6 L (12.0-16.0) g/dL Hct 35 (35-47) % MCV 92 (80-97) fL MCH 31 (27-31) pg MCHC 34 (31-36) g/dL RDW 14 (10.5-15) % Plt Count 205 (150-450) 10^3/uL MPV 7.4 (7.4-10.4) fL Neut % (Auto) 39.9 % Lymph % (Auto) 45.6 % Ralls % (Auto) 9.4 % Eos % (Auto) 3.8 % Baso % (Auto) 1.3 % Absolute Neuts (auto) 1.7 (1.5-7.7) 10^3/ul Absolute Lymphs (auto) 2.0 (1.0-4.8) 10^3/ul Absolute Monos (auto) 0.4 (0-0.8) 10^3/ul Absolute Eos (auto) 0.2 (0-0.6) 10^3/ul Absolute Basos (auto) 0.1 (0-0.2) 10^3/ul Absolute Nucleated RBC 0.0 10^3/ul Nucleated RBC % 0.1 INR (Anticoag Therapy) 0.91 (0.82-1.09) Sodium 139 (135-145) mmol/L Potassium 4.1 (3.5-5.0) mmol/L Chloride 106 (101-111) mmol/L Carbon Dioxide 27 (22-32) mmol/L Anion Gap 6 (2-11) mmol/L BUN 18 (6-24) mg/dL Creatinine 0.98 H (0.51-0.95) mg/dL Est GFR ( Amer) 66.4 (>60) Est GFR (Non-Af Amer) 54.9 (>60) BUN/Creatinine Ratio 18.4 (8-20) Glucose 103 H (70-100) mg/dL Calcium 9.1 (8.6-10.3) mg/dL Total Bilirubin 0.30 (0.2-1.0) mg/dL AST 16 (13-39) U/L ALT 9 (7-52) U/L Alkaline Phosphatase 61 (34-104) U/L Troponin I 0.00 (<0.04) ng/mL Total Protein 6.5 (6.4-8.9) g/dL Albumin 3.9 (3.2-5.2) g/dL Globulin 2.6 (2-4) g/dL Albumin/Globulin Ratio 1.5 (1-3) TSH Pending Result Diagrams: 04/21/19 22:45 04/21/19 22:45 Lab Statement: Any lab studies that have been ordered have been reviewed, and results considered in the medical decision making process. - Radiology CXR Radiology Interpretation Completed By: ED Physician Summary of Radiographic Findings: No acute process. Pending official radiology report. - EKG 2232 Cardiac Rate: NL - 65bpm EKG Rhythm: Sinus Rhythm ST Segment: Normal Ectopy: None Summary of EKG Findings: EKG at 2232 shows NSR at 65 bpm with abnml R-wave progression, prolonged QT, and no STEMI. Chest Pain Course/Dx - Course Course Of Treatment: Pt is a 78 y/o F presenting to the ED with a chief complaint of chest pain first onset this morning at around 0700 when she woke up. She describes it as a pressure that is intermittent in severity, and accompanied by feeling generally unwell and and weak with some nausea. EKG at 2232 shows NSR at 65 bpm with abnml R-wave progression, prolonged QT, and no STEMI. The pt's physical exam is normal, and the pt's lab work is normal. CXR shows no acute process, pending official radiology report. Pt's first and second troponin is 0.00. I spoke with Dr. Hinojosa about the pt's present condition who will be admitting the pt to [facility] with a dx of chest pain. She is stable and agreeable with this plan. - Diagnoses Provider Diagnoses: Chest pain Discharge - Sign-Out/Discharge Documenting (check all that apply): Patient Departure - Discharge Plan Condition: Stable Disposition: ADMITTED TO [facility] - Billing Disposition and Condition Condition: STABLE Disposition: Admitted to [facility] - Attestation Statements Document Initiated by Scribe: Yes Documenting Scribe: Lila Fontenot Provider For Whom Scribe is Documenting (Include Credential): Magdaleno Abdullahi MD. Scribe Attestation: Lila Moreno, scribed for Magdaleno Abdullahi MD. on 04/26/19 at 1835. Scribe Documentation Reviewed: Yes Provider Attestation: The documentation as recorded by the scribe, Lila Fontenot accurately reflects the service I personally performed and the decisions made by me, Magdaleno Abdullahi MD. Status of Scribmanda Document: Viewed Consult Consult: [id number] - I spoke with Dr. Hinojosa who will be accepting the pt to [facility] with a dx of chest pain.
[2019-04-22] MEDS ORDERED: Al Hydrox/Mg Hydrox/Simet LIQ* 30 ML UDC PO PRN (04:10)
[2019-04-22] MEDS ORDERED: Acetaminophen TAB* 325 MG PO PRN (04:10)
[2019-04-22] MEDS ORDERED: Ondansetron INJ* 2 MG/ML VIAL IV PRN (04:10)
[2019-04-22] MEDS ORDERED: Polyethylene Glycol 3350* 17 GM PACKET PO PRN (04:15)
[2019-04-22 04:35] LABS: HDL Cholesterol 54.4 mg/dL
[2019-04-22 06:24] VITALS: BP 150/88
[2019-04-22] MEDS: Heparin VIAL(*) 5000 UNITS/ML VIAL (FIVE THOUSAND) SUBCUT SCH ×2 (06:45→14:40)
[2019-04-22] MEDS: Sucralfate TAB* 1 GM PO SCH ×2 (07:46→14:42)
--- NOTE | 2019-04-22 08:45 | HP ---
HISTORY AND PHYSICAL: DATE OF ADMISSION: 04/22/19 TIME OF EVALUATION: 0400 PRIMARY CARE PHYSICIAN: [facility]. CHIEF COMPLAINT: Chest pain. HISTORY OF PRESENT ILLNESS: This is a 78-year-old female with past medical history of coronary artery disease and dementia, who presented to the emergency room via EMS after having chest pain. In my encounter, the patient denies any chest pain. She said she had chest pain yesterday, but no further pain today. According to the notes from the emergency room, the patient has had 8/10 chest pain since this morning and no relief after 3 nitro and was also given a full dose aspirin. She also complained of shortness of breath, just feeling unwell. She did state she had some nausea. On my encounter, the patient states she is not sure why she is here. She has had some diarrhea and felt sick from headache and leg pain. No chest pain. No shortness of breath. No nausea or vomiting. Otherwise review of systems was limited to the patient's dementia. In the emergency room, the patient had labs, imaging workup, and then was recommended she be admitted for her chest pain rule out. PAST MEDICAL HISTORY: 1. Recent admission last month for junctional rhythm and acute decompensated heart failure. 2. Dementia. 3. Cardiomyopathy with ejection fraction of 45. 4. Mild pulmonary hypertension. 5. Moderate ascending aortic dilatation. 6. Anxiety. 7. Depression. 8. GERD. 9. History of diaphragmatic hernia. 10. History of toxic multinodular goiter and radioactive iodine treatment in the past. 11. History of diverticulitis. 12. Hyperlipidemia. MEDICATIONS: 1. Lasix weekly, 20 mg on Tuesdays and Fridays. 2. Magnesium oxide 400 mg p.o. b.i.d. 3. Metoprolol tartrate 12.5 mg p.o. b.i.d. 4. Duloxetine 60 mg p.o. daily. 5. Aspirin 81 mg daily. 6. Sucralfate 1 g t.i.d. before meals. 7. Pantoprazole 40 mg daily. 8. Rosuvastatin 10 mg daily. 9. Memantine 7 mg daily. 10. MiraLAX as needed. 11. Indomethacin 25 mg b.i.d. 12. Tylenol 650 mg every 8 hours as needed for pain. ALLERGIES: There are no known drug allergies. FAMILY HISTORY: Unable to obtain due to the patient's dementia. SOCIAL HISTORY: The patient now resides at [facility]. Her daughter Yojana Albarran is her healthcare proxy. No history of tobacco, alcohol, or illicit drug use. MOLST form stated she is a full code. REVIEW OF SYSTEMS: Limited but negative, otherwise mentioned in the HPI. PHYSICAL EXAMINATION GENERAL: No acute distress, resting comfortably. VITALS: Temp 98.6, pulse rate 67, respiratory rate 24, oxygen saturation 99% on room air, blood pressure 154/95. HEENT: Head normocephalic. Pupils are equal and reactive, anicteric. Oropharynx, mucous membranes moist. NECK: Supple. No lymphadenopathy. RESPIRATORY: Diminished breath sounds. No wheeze, rhonchi, or rales. HEART: Regular rate and rhythm. Systolic murmur most prominent at the left sternal base. ABDOMEN: Soft, nontender, nondistended. EXTREMITIES: No clubbing, cyanosis, or edema. +1 DP. NEUROLOGIC: Alert and oriented x2. Oriented to self and place. No gross focal neurologic deficits. DIAGNOSTIC STUDIES/LAB DATA: White count 4.4, hemoglobin 11.6, hematocrit 35, platelet 205. INR 0.91. Sodium 139, potassium 4.1, chloride 106, bicarb 27, BUN 18, creatinine 0.98. Glucose 103. Troponin is 0 x2. TSH 1.44. Radiographic Data: Chest x-ray unremarkable. EKG: Normal sinus rhythm. ASSESSMENT AND PLAN: This is a 78-year-old female with past medical history of dementia and coronary artery disease, who presented to the emergency room from [facility] after complaining of chest pain. 1. Chest pain. Assessment. The patient is not a reliable historian due to her dementia, not complaining of any chest pain. I will rule out suspicion this is acute coronary syndrome, but with her history it is not reasonable to rule her out. Plan: We will admit her for observation to [facility] to add on lipid panel, continue on baby aspirin, metoprolol. We will order a nuclear stress test in the morning. Keep her n.p.o. 2. Chronic medical problem in the setting of her n.p.o. We will hold her Lasix otherwise, we will resume her home medications as prescribed. We will hold her rosuvastatin as it is not on formulary. 3. FEN: NPO for stress test. 4. DVT prophylaxis. The patient scores high risk, placed on heparin subcu t.i.d. 5. Code status: Full code. TIME SPENT: Greater than 30 minutes was spent doing the history and physical, more than half of the time spent in direct patient contact. [id number]/[facility] #: [id number] RHONDA
[2019-04-22] MEDS ORDERED: Pantoprazole TAB * 40 MG TAB PO SCH (09:00)
[2019-04-22] MEDS ORDERED: DULoxetine DR CAP* 60 MG CAP.DR PO SCH (09:00)
[2019-04-22] MEDS ORDERED: Memantine XR * 7 MG CAP.XR PO SCH (09:00)
[2019-04-22] MEDS ORDERED: Docusate CAP* 100 MG PO SCH (09:00)
[2019-04-22] MEDS ORDERED: Aspirin 81 mg CHEW TAB* 81 MG TAB.CHEW PO SCH (09:00)
[2019-04-22] MEDS ORDERED: Metoprolol Tartrate TAB* 25 MG PO SCH (09:00)
[2019-04-22] MEDS ORDERED: Magnesium Oxide TAB* 400 MG PO SCH (09:00)
[2019-04-22] MEDS ORDERED: Aminophylline IV* 25 MG/ML 10 ML VIAL ONE (11:27)
[2019-04-22] MEDS ORDERED: Regadenoson* 0.4 MG/5 ML SYRINGE ONE (11:27)
[2019-04-22] MEDS ORDERED: amLODIPine TAB* 5 MG PO SCH (14:00)
--- NOTE | 2019-04-22 15:09 | DS ---
CC: [facility]* DISCHARGE SUMMARY: DATE OF ADMISSION: 04/22/19 DATE OF DISCHARGE: 04/22/19 PRIMARY CARE PROVIDER: [facility]. ATTENDING PHYSICIAN: Dr. Eric Bernal* (dictated by Shakira Chilel NP). PRIMARY DIAGNOSES: 1. Chest pain, unknown etiology. 2. Hypertensive urgency. SECONDARY DIAGNOSES: 1. Dementia. 2. Cardiomyopathy. 3. Anxiety and depression. 4. Gastroesophageal reflux disease. 5. Hyperlipidemia. STUDIES WHILE IN THE HOSPITAL: 1. EKG on 04/21/19 shows normal sinus rhythm with a rate of 65, QTc of 521. This EKG is consistent with her previous EKG on file. 2. Chest x-ray on 04/21/19 reads as tortuous descending aorta without evidence of active cardiopulmonary disease. 3. Nuclear cardiac stress test on 04/22/19 reads as mild diffuse hypokinesia. Normal range estimated left ventricular ejection fraction. No evidence for stress- induced ischemia or presence of an infarct. Assessment is low risk based on nuclear portion. HISTORY OF PRESENT ILLNESS AND HOSPITAL COURSE: Ms. Crespo is a 78-year-old female with past medical history of dementia, cardiomyopathy, hypertension, anxiety, GERD and hyperlipidemia, who presented to the emergency room on with complaints of chest pain. Please see the history and physical by Dr. Hinojosa for a complete summary of the events leading up to this hospitalization. In short, the patient is quite demented and unable to provide a good history. In the emergency room, the patient denied any active chest pain, but did report chest pain yesterday. She had rated the pain 8/10 and did not have any relief after 3 nitro. She also reported shortness of breath and malaise. The patient was confused in the emergency room and was not sure why she was here in the hospital. In the emergency room, the patient had an EKG which is consistent with her baseline EKG. She was noted to have unremarkable labs and a negative troponin as she was hypertensive in the 170s/100s. Because of the patient's cardiac history and the concern for her chest pain, she was admitted by the hospitalist service. The patient was made n.p.o. for anticipated stress test in the morning. She was monitored on telemetry overnight without any evidence of arrhythmias. She did continue to have some hypertension, mostly in the 150 to 160s/90s. She had no complaints of chest pain overnight. This morning, the patient underwent a nuclear cardiac stress test. The results are noted above, but ultimately, the patient was low risk as there is no evidence of ischemia or infarction. She did have 2 additional negative troponins. She did have a lipid panel, which showed triglycerides of 52, total cholesterol of 125, LDL of 60, and HDL of 54 indicating good control. On my exam, the patient is quite confused, she is not sure why she is here in the hospital. When I asked the patient about chest pain , she reports that she has had intermittent chest pain for years. It is unclear if this statement is accurate. On exam, she has no focal neurological deficits. She has a steady gait and is oriented to self only. She is quite restless at this point. Heart has a regular rate and rhythm without murmurs, rubs, or gallops. Lung sounds are clear to auscultation without rhonchi, wheezes, or rubs. There is no edema. Physical assessment is otherwise benign. At this point, I have not spoken with the patient's daughter, Yojana, though I have left a message for her indicating that the patient will be returning to [facility] and I have left my phone number, so that she can call me back to discuss results of her testing here at the hospital. At this point, there is no evidence of cardiac etiology for her chest pain. Because of her dementia, the reports of chest pain may not be true chest pain, though it is very unclear. Ms. Crespo is stable for discharge today. Vitals are as follows: Temp 97.6, heart rate 72, respiratory rate 18, oxygen saturation 100% on room air, blood pressure 150/88. DISCHARGE MEDICATIONS: New medications: Amlodipine 5 mg p.o. daily. Continued medications: 1. Aspirin 81 mg p.o. daily. 2. Duloxetine 60 mg p.o. daily. 3. Furosemide 20 mg p.o. Tuesdays and Fridays. 4. Indomethacin 25 mg p.o. b.i.d. 5. Magnesium oxide 800 mg p.o. b.i.d. 6. Namenda XR 7 mg p.o. daily. 7. Metoprolol tartrate 12.5 mg p.o. q.12 hours. 8. Pantoprazole 40 mg daily. 9. MiraLAX 17 g p.o. daily. 10. Rosuvastatin 10 mg p.o. daily. 11. Sucralfate 1 tab p.o. a.c. DISCHARGE PLAN: Ms. Crespo will be discharged back to [facility]. Diet will be heart healthy. Activity will be as tolerated. Medications are noted above, the only change I have made is the addition of a low dose of amlodipine due to her hypertensive urgency while here in the hospital. This may need to be further increased, though I have just started her on a low dose at this point. She can continue her other usual medications as noted above and I have not made any further changes. She will need to follow up with her primary care provider or the provider at [facility] within the next 4 to 7 days. She should return to the hospital or nearest emergency room for any worsening of symptoms, shortness of breath, lightheadedness, dizziness, chest discomfort, high fever, chills, night sweats, loss of consciousness, or any other worrisome signs or symptoms. DISCHARGE CONDITION: Stable. DISCHARGE DISPOSITION: Long-Term Facility, [facility]. This is a summarized report of a complex medical history and hospital stay. For further details, please see the entire medical record. TIME SPENT: Approximately 40 minutes was spent on this discharge. SHAKIRA CHILEL, JOBY [id number]/[facility] #: [id number] RHONDA
== END 2019-04-22 16:28 ==
LOC: ED 22:18 → MEDTELE 04-22 04:10
PROVIDERS: ADMIT Pediatrics; ATTEND Pediatrics
DX: R07.9 Chest pain, unspecified (principal); I16.0 Hypertensive urgency; F03.90 Unspecified dementia, unspecified severity, without behavioral disturbance, psychotic disturbance, mood disturbance, and anxiety; I42.9 Cardiomyopathy, unspecified; F41.9 Anxiety disorder, unspecified; F32.9 Major depressive disorder, single episode, unspecified; K21.9 Gastro-esophageal reflux disease without esophagitis; E78.5 Hyperlipidemia, unspecified; Z79.82 Long term (current) use of aspirin; Z85.3 Personal history of malignant neoplasm of breast; R11.0 Nausea
CPT/HCPCS: 36415; 71045; 78452; 80053; 80061; 84443; 84484; 85025; 85610; 87641; 93005; 93017; 96372; 96374; 99285; A9270-GY; A9502; G0378; J0280; J1644; J2270; J2785

== ENCOUNTER 2019-07-14 12:24 | Inpatient (IN) | payer MEDICARE ==
--- NOTE | 2019-07-14 13:26 | ED ---
GI/ HPI - HPI Summary HPI Summary: 78 year old F brought in by ambulance from [facility] to [facility] with a chief complaint of intermittent rectal bleeding since 3-4 weeks ago, worse since 3 days ago. The patient rates the pain 1/10 in severity. Symptoms aggravated by nothing. Symptoms alleviated by nothing. Patient reports diarrhea since 3 days ago, bloody stools, and rectal pain. She states that her stools are all different colors. Last colonoscopy was 5 years ago. Patient is not taking blood thinners. Patient additionally complains of pain everywhere that is mostly in her chest, arms, and legs. - History of Current Complaint Chief Complaint: EDGIBleed Time Seen by Provider: 07/14/19 12:47 Stated Complaint: RECTAL BLEED PER EMS Hx Obtained From: Patient - patient Onset/Duration: Started Weeks Ago - 3-4, Still Present, Worse Since - 3 days ago Timing: Intermittent Severity: Mild Current Severity: Mild Pain Intensity: 1 Associated Signs and Symptoms: Positive: Other: - diarrhea since 3 days ago, bloody stools, and rectal pain, pain everywhere that is mostly in her chest, arms, and legs Additional Signs & Symptoms: Positive: Other: - , pain everywhere that is mostly in her chest, arms, and legs Aggravating Factor(s): Nothing Alleviating Factor(s): Nothing - Additional Pertinent History Primary Care Physician: [id number] - Allergy/Home Medications Allergies/Adverse Reactions: Allergies Allergy/AdvReac Type Severity Reaction Status Date / Time No Known Allergies Allergy Verified 01/18/19 10:48 Home Medications: Home Medications Acetaminophen TAB* [Tylenol TAB*] 650 mg PO Q6H PRN 07/14/19 [History Confirmed 07/14/19] Aspirin/Acetaminophen/Caffeine [Excedrin Migraine Caplet] 2 tab PO DAILY PRN [History Confirmed 07/14/19] Donepezil TAB* [Aricept 5 MG TAB*] 10 mg PO BEDTIME 07/14/19 [History Confirmed 07/14/19] Melatonin 2 mg PO BEDTIME 07/14/19 [History Confirmed 07/14/19] Menthol/Camphor [Sarna] 1 lot TOPICAL BID PRN 07/14/19 [History Confirmed ] Metoprolol Tartrate TAB* [Lopressor TAB*] 12.5 mg PO BID 07/14/19 [History Confirmed 07/14/19] Sucralfate TAB* [Carafate*] 1 gm PO BID 07/14/19 [History Confirmed 07/14/19] PMH/Surg Hx/FS Hx/Imm Hx Endocrine/Hematology History: Reports: Other Endocrine/Hematological Disorders - thyroid nodule Denies: Hx Diabetes, Hx Anemia Cardiovascular History: Reports: Hx Angina, Hx Hypertension - on meds, Other Cardiovascular Problems/Disorders - valve repair Denies: Hx Hypercholesterolemia, Hx Pacemaker/ICD, Hx Peripheral Vascular Disease Respiratory History: Denies: Hx Chronic Obstructive Pulmonary Disease (COPD) GI History: Reports: Hx Diverticulosis, Hx Gastroesophageal Reflux Disease, Hx Ulcer Denies: Hx Jaundice History: Denies: Hx Renal Disease Sensory History: Reports: Hx Cataracts Denies: Hx Contacts or Glasses, Hx Hearing Aid Opthamlomology History: Reports: Hx Cataracts Denies: Hx Contacts or Glasses Neurological History: Reports: Hx Dementia, Hx Headaches, Other Neuro Impairments/Disorders - repeated head injuries Denies: Hx CVA, Hx Seizures Psychiatric History: Denies: Hx Anxiety, Hx Panic Disorder - Surgical History Surgery Procedure, Year, and Place: left breast lumpectomy, tubal ligation, varicose vein stripping,. cardiac - leaky valve repair; HEART CATH WITH CARDIAC STENTS 10 YRS OR MORE Hx Anesthesia Reactions: No - Immunization History Date of Tetanus Vaccine: up to date Date of Influenza Vaccine: 2016 Immunizations Up to Date: Yes Infectious Disease History: No Infectious Disease History: Reports: Hx Shingles - at age 14 Denies: History Other Infectious Disease, Traveled Outside the [place] in Last 30 Days - Family History Known Family History: Negative: Cardiac Disease, Hypertension, Diabetes Family History: Denies FHx colon CA - Social History Alcohol Use: None Hx Substance Use: No Substance Use Type: Reports: None Hx Tobacco Use: No Smoking Status (MU): Never Smoked Tobacco Review of Systems Positive: Other - pain everywhere that is mostly in her chest, arms, and legs Positive: Chest Pain Positive: Diarrhea, Other - intermittent rectal bleeding, bloody stools, and rectal pain All Other Systems Reviewed And Are Negative: Yes Physical Exam - Summary Physical Exam Summary: VITAL SIGNS: Reviewed. GENERAL: Patient is a well-developed and nourished FEMALE who is lying comfortable in the stretcher. Patient is not in any acute respiratory distress. HEAD AND FACE: No signs of trauma. No ecchymosis, hematomas or skull depressions. No sinus tenderness. EYES: PERRLA, EOMI x 2, No injected conjunctiva, no nystagmus. EARS: Hearing grossly intact. Ear canals and tympanic membranes are within normal limits. MOUTH: Oropharynx within normal limits. NECK: Supple, trachea is midline, no adenopathy, no JVD, no carotid bruit, no c- spine tenderness, neck with full ROM. CHEST: Symmetric, no tenderness at palpation. LUNGS: Clear to auscultation bilaterally. No wheezing or crackles. CVS: Regular rate and rhythm, S1 and S2 present, no murmurs or gallops appreciated. ABDOMEN: Soft, non-tender. No signs of distention. No rebound, no guarding, and no masses palpated. Bowel sounds are normal. EXTREMITIES: FROM in all major joints, no edema, no cyanosis or clubbing. NEURO: Alert and oriented x 3. No acute neurological deficits. Speech is normal and follows commands. SKIN: Dry and warm. Rectal exam chaperoned by female aide: she has some external hem with bright red blood at rectum Triage Information Reviewed: Yes Vital Signs On Initial Exam: Initial Vitals Temp Pulse Resp BP Pulse Ox 98.1 F 70 14 110/68 100 07/14/19 12:31 07/14/19 12:31 07/14/19 12:31 07/14/19 12:31 07/14/19 12:31 Vital Signs Reviewed: Yes Diagnostics - Vital Signs Vital Signs Temp Pulse Resp BP Pulse Ox 07/14/19 12:31 98.1 F 70 14 110/68 100 - Laboratory Result Diagrams: 07/14/19 13:19 07/14/19 13:19 Lab Statement: Any lab studies that have been ordered have been reviewed, and results considered in the medical decision making process. - EKG 1254 Cardiac Rate: NL - 68 BPM EKG Rhythm: Sinus Rhythm EKG Comparison: No Significant Change - compared to previous EKG on 04/21/19 Summary of EKG Findings: sinus rthym at [address] elevations. similar to 04/01/19 GIGU Course/Dx - Course Assessment/Plan: 78 year old F brought in by ambulance from [facility] to [facility] with a chief complaint of intermittent rectal bleeding since 3-4 weeks ago, worse since 3 days ago. The patient rates the pain 1/10 in severity. Symptoms aggravated by nothing. Symptoms alleviated by nothing. Patient reports diarrhea since 3 days ago, bloody stools, and rectal pain. She states that her stools are all different colors. Last colonoscopy was 5 years ago. Patient is not taking blood thinners. Patient additionally complains of pain everywhere that is mostly in her chest, arms, and legs. Blood work without any any significant abnormality except for hemoglobin 10.1, crit 30. The patients H&H on March 2019 was 11.1/ 35. BUN and creatinine is normal. Glucose is 110. Guaiac is positive. At this point I discussed my physical exam and findings with Dr. Morgan from and he will consult for this patient. I also discussed my physical exam and findings with Dr. Jauregui from the hospital services who accepted the patient for admission. Patient is hemodynamically stable alert and oriented 3. - Diagnoses Provider Diagnoses: GI bleed - Physician Notifications Discussed Care Of Patient With: Chandra Morgan Time Discussed With Above Provider: 14:45 Instructed by Provider To: Other - Dr. Morgan, , agrees to consult for patient. Dr. Jauregui, hospitalist, agrees to admit patient. Discharge - Sign-Out/Discharge Documenting (check all that apply): Patient Departure - Admit to [facility] Patient Received Moderate/Deep Sedation with Procedure: No - Discharge Plan Condition: Stable Disposition: ADMITTED TO [facility] - Billing Disposition and Condition Condition: STABLE Disposition: Admitted to [facility] - Attestation Statements Document Initiated by Tulio: Yes Documenting Scribe: Paris Davidson Provider For Whom Tulio is Documenting (Include Credential): Satnam Nation MD Scribe Attestation: I, Paris Davidson, scribed for Satnam Nation MD on 07/14/19 at 1836. Scribe Documentation Reviewed: Yes Provider Attestation: The documentation as recorded by the Paris calvillo accurately reflects the service I personally performed and the decisions made by me, Satnam Nation MD Status of Scribe Document: Viewed
[2019-07-14 13:37] LABS: Hematocrit 30 % (35-47); Hemoglobin 10.1 g/dL (12.0-16.0); Mean Corpuscular HGB Conc 34 g/dL (31-36); Mean Corpuscular Hemoglobin 30 pg (27-31); Mean Corpuscular Volume 91 fL (80-97); Red Blood Count 3.31 10^6 /uL (3.70-4.87); Red Cell Distribution Width 13 % (10-15); White Blood Count 4.2 10^3/uL (3.5-10.8)
[2019-07-14 13:52] LABS: ALT 11 U/L (7-52); AST 17 U/L (13-39); Activated Partial Thrombo Time 28.7 seconds (26.0-38.0); Albumin 3.7 g/dL (3.2-5.2); Albumin/Globulin Ratio 1.6 (1-3); Alkaline Phosphatase 63 U/L (34-104); Anion Gap 4 mmol/L (2-11); Blood Urea Nitrogen 21 mg/dL (6-24); C Reactive Protein < 1.00 mg/L (<8.01); CO2 Carbon Dioxide 28 mmol/L (22-32); Calcium 8.6 mg/dL (8.6-10.3); Chloride 109 mmol/L (101-111); EGFR African American 79.3 (>60); EGFR Non-African American 65.6 (>60); Globulin 2.3 g/dL (2-4); Glucose 110 mg/dL (70-100); INR 1.03 (0.82-1.09); Potassium 4.3 mmol/L (3.5-5.0); Sodium 141 mmol/L (135-145)
[2019-07-14 14:00] LABS: ABS Eosinophils 0.1 10^3/ul (0-0.6); ABS Lymphocytes 1.7 10^3/ul (1.0-4.8); ABS Monocytes 0.3 10^3/ul (0-0.8); Eosinophil % 2.4 %; Nucleated Red Blood Cells % 0.1; Platelet Count 205 10^3/uL (150-450)
--- OUTSIDE RECORDS SUMMARY | 2019-07-14 14:46 | XMS REPORT | Continuity of Care Document ---
:1940 External Reference #:[id number] Author Name Veronica Ndiaye Care Team Providers Name Role Phone Miguel Angel Murphy MD Primary Care Physician Unavailable Payers Date Identification Numbers Payment Provider Subscriber Policy Number: [id number] Medicare Yael Crespo PayID: [id number] [address] [place] [address] Effective: 2005 Policy Number: [id number] Medicare Yael Crespo Expires: 2018 PayID: [id number] [address] [place] [address] Policy Number: [id number] [facility] Yael Crespo PayID: [id number] [address] [place] [address] Effective: 2019 Policy Number: [id number] [facility] PayID: [id number] [facility] [address] [place] [address] Problems Active Problems Provider Date Benign essential hypertension Brannon Frazier M.D. Onset: 02/03/2012 Mitral valve disorder Brannon Frazier M.D. Onset: 02/03/2012 Electrocardiogram abnormal Brannon Frazier M.D. Onset: 02/03/2012 Tricuspid valve disorder, non-rheumatic Brannon Frazier M.D. Onset: Hyperlipidemia Brannon Frazier M.D. Onset: 02/03/2012 Syncope and collapse Yael Her N.P. Onset: 05/28/2012 Tachycardia Yael Her N.P. Onset: [...] encounter for closed fracture with routine healing Chronic fatigue syndrome Abdullahi Merida M.D. Onset: 05/12/2019 Heart failure, unspecified Abdullahi Merida M.D. Onset: 05/12/2019 Alzheimer's disease Abdullahi Merida M.D. Onset: 06/30/2019 Social History Type Date Description Comments Sex Unknown Marital Status Lives With Assisted living [facility] Occupation Retired Hand Dominance Right-handed ETOH Use Denies alcohol use Tobacco Use Start: Unknown Patient has never smoked Recreational Drug Use Never Used Drugs Smoking Status Reviewed: 06/30/19 Patient has never smoked Exercise Type/Frequency Exercises sporadically Allergies, Adverse Reactions, Alerts Description No Known Drug Allergies Medications Active Medications SIG Qnty Indications Ordering Provider Date Donepezil HCL 1 by mouth every 90tabs R41.3 Abdullahi Merida, 06/30/2019 10mg day M.D. Tablets Melatonin 1 by mouth @ at 90caps R41.3 Abdullahi Merida, 05/12/2019 3mg bedtime M.D. Capsules Duloxetine HCL 1 by mouth every Unknown 60mg day Caps DR Smith Pantoprazole Sodium 1 by mouth every Unknown day 40mg Tablets DR Rosuvastatin Calcium take 1 tablet by Unknown mouth every 10mg Tablets evening Amlodipine Besylate 1 by mouth every Unknown day 5mg Tablets Polyethylene Glycol use 1 packet Unknown 3350 once daily 3350NF Packet Metoprolol Tartrate 1/2 by mouth Unknown twice a day 25mg Tablets Magnesium Oxide 2 by mouth every Unknown 400mg day Tablets Furosemide 1 by mouth on Unknown 20mg Tuesdays and Tablets Fridays Aspirin 81 1 by mouth every Unknown 81mg day Tablets Carafate 1 by mouth 3 Unknown 1gm Tablets times a day w/ meals Namenda XR 1 tablet PO Unknown 7mg Caps daily ER 24HR Indomethacin 1 cap by mouth Unknown 25mg bid Capsules History Medications Donepezil HCL 1 tablet in the 30tabs R41.3 Abdullahi 05/12/2019 - 5mg Tablets bam Merida M.D. 06/30/2019 Verapamil HCL ER one by mouth 90caps Brannon S. 01/23/2015 - 300mg Caps ER every day Holly Frazier 04/04/2019 24HR Verapamil HCL ER one by mouth 30caps Gopaltaybeh S. 04/12/2014 - 240mg Caps ER every day Holly Frazier 01/23/2015 24HR Norvasc 1 po qd 30tabs Deeybthang S. 08/26/2013 - 10mg Tablets Holly Frazier 08/26/2013 Verapamil HCL CR 1 po qd 30tabs Qutaybeh S. 08/26/2013 - 180mg Tablets Holly Frazier 04/12/2014 ER Verapamil HCL ER 1 pill by mouth 30tabs Qutaybeh S. 07/29/2012 - 120mg Tablets daily Holly Frazier 08/26/2013 ER Cozaar 1 po qd 30tabs Qutaybeh S. 01/08/2010 - 25mg Tablets Holly Frazier 02/03/2012 Lisinopril 1 po qd 30tabs Qutaybeh S. 07/12/2009 - 10mg Tablets Holly Frazier 01/08/2010 Cymbalta takes 3 po 30caps Qutaybeh S. 11/02/2008 - 30mg Caps DR Smith daily Holly Frazier 05/28/2012 Norvasc 1/2 pill by 90tabs Brannon S. 03/20/2008 - 10mg Tablets mouth daily Holly Frazier 08/26/2013 Duloxetine HCL 1 by mouth Unknown - 60mg Caps every day 05/11/2019 Part Crestor 1 by mouth Unknown - 10mg Tablets every day 05/11/2019 Miralax 17 grams by Unknown - Powder mouth every day 05/11/2019 as needed Fluoxetine HCL 1 by mouth Unknown - 60mg Tablets every day 05/11/2019 Aricept once daily Unknown - 5mg Tablets 04/04/2019 Cymbalta 2 by mouth Unknown - 30mg Caps DR Smith every day (only 10/09/2018 takes occasionally) Aspirin 2 by mouth prn Unknown - 81mg Tablets for chest pain 11/08/2015 Zolpidem Tartrate 1 po qhs prn Miguel Angel Murphy - 5mg Jonathan Otoole MD 11/08/2015 Duloxetine HCL 1 po qd DarSloane meeksyd - 30mg Caps DR Sydnie MD 01/22/2015 Part Simvastatin 1 po qd Crystal Ramos, - 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 - 40mg Tablets every other day Holly Frazier 05/11/2019 Zolpidem Tartrate 1 tab po qhs 30tabs Unknown - 10mg Tablets prn 08/26/2013 Metoprolol Succinate ER 1 by mouth 90tabs Qutagregory S. - 100mg every day Holly Frazier 04/04/2019 Tablets ER 24HR Cymbalta 1 po qd 90caps Unknown - 30mg Caps DR Smith 08/22/2014 Cymbalta 1 po qd 30caps Unknown - 60mg Caps DR Smith 08/22/2014 Metoprolol Tartrate 1 po twice per 180tabs Unknown - 25mg day 05/28/2012 Tablets Vitamin D 1 PO qd Unknown - 11/10/2012 Calcium 1 PO qd Unknown - 02/03/2012 Protonix 1 PO qd 30tabs Unknown - 20mg Tablets 02/03/2012 Hydrochlorothiazide 1 PO qd 30tabs Unknown - 25mg 05/28/2012 Tablets Metoprolol Succinate ER 1 PO bid Unknown - 25mg 07/12/2009 Tablets ER 24HR Medications Administered in Office Medication SIG Qnty Indications Ordering Provider Date Inj, Regadenoson, 0.1 MG Deo Gruber M.D., 08/25/2014 Injection FRANCES GLASS Inj, Regadenoson, 0.1 MG BEN Arreaga 08/25/2014 Injection Aminophylline Deo Gruber M.D., 08/25/2014 Injection FRANCES GLASS Aminophylline BEN Arreaga 08/25/2014 Injection Technetium TC 99M Deo Gruber M.D., 08/25/2014 Tetrofosmin, Per Unit Dose Up FRANCES GLASS To 40 Millicuries Injection Technetium TC 99M BEN Arreaga 08/25/2014 Tetrofosmin, Per Unit Dose Up To 40 Millicuries Injection Vital Signs Date Vital Result Comment 06/30/2019 12:01pm Height 64 inches 5'4" Weight 187.00 lb Heart Rate 71 /min BP Systolic 118 mmHg BP Diastolic 82 mmHg BMI (Body Mass Index) 32.1 kg/m2 05/12/2019 10:25am Height 64 inches 5'4" Weight 185.00 lb Heart Rate 80 /min BP Systolic 138 mmHg BP Diastolic 100 mmHg BMI (Body Mass Index) 31.8 kg/m2 04/05/2019 10:46am Heart Rate 66 /min BP [...] Test Result H/L Range Note Order 05/23/2016 [facility] In-House EKG <pending> Basic Metabolic 08/08/2009 [facility] Sodium 141 mmol/L 135- [address] [place] [address] [phone] Potassium 4.0 mmol/L 3.5-5.0 Chloride 102 mmol/L 101-111 Co2 (Carbon Dioxide) 30.0 mmol/L 22-32 Anion Gap 9.0 mmol/L 2-11 2 Glucose 88 mg/dL 70-100 3 BUN 12 mg/dL 6-24 Creatinine 0.90 mg/dL 0.50-1.40 One Over Creatinine 1.10 BUN/Creatinine Ratio 13.3 8-20 Calcium 9.7 mg/dL 8.1-9.9 4 eGFR Non- 66.2 > 60 eGFR 80.1 > 60 5 Cath Panel 03/07/2008 [facility] PTT (Aptt) 21.5 20.4-29.[address] [place] [address] [phone] CBC With 03/07/2008 [facility] White Blood 4.1 CUMM Low 4.8- 10.[address] [place] [address] [phone] Absolute Neutrophil Count 2.6 Anisocytosis SLIGHT Band [...] WDTH 14 % 10.5-15 Basic Metabolic 03/07/2008 [facility] One Over Creatinine 0.[address] [place] [address] [phone] Anion Gap 4.0 mmol/L 2-11 7 BUN 14 mg/dL 6-24 Calcium 8.8 mg/dL 8.7-10.2 Chloride 108 mmol/L 101-111 Co2 (Carbon Dioxide) 28.0 mmol/L 22-32 Glucose 102 mg/dL 70-105 Potassium 3.9 mmol/L 3.5-5.0 Sodium 140 mmol/L 135-145 BUN/Creatinine Ratio 11.7 8-20 Creatinine 1.2 mg/dL 0.5-1.4 Protime 03/07/2008 [facility] Inr 0.[address] [place] [address] [phone] Protime 11.3 10.9-13.3 1 FASTING 2 Anion gap measurement may be of limited value in the presence of any alkalosis, especially in a combined acid base disorder. . 3 Note change in reference range as of 07/20/08. The change was based on recommendations from the [place] [employer]. 4 Please note change in [...] - 3.5 Procedures Date Code Description Status 04/22/2019 43531 Treadmill Interp/Report Only Completed 04/22/2019 43553 Stress Test Supervsn W/Out I/R Completed 04/05/2019 75624 EKG Tracing & Interpretation Completed 03/20/2019 00070 ECHO Transthorasic Realtime 2D W Doppler & Color Flow Completed Hosp 03/20/2019 50503 EKG, Interpretation Only Completed 03/19/2019 57331 EKG, Interpretation Only Completed 11/18/2018 39925 Short Leg Cast Completed 10/28/2018 27536 Short Leg Cast Completed 10/14/2018 08644 Short Leg Cast Completed 10/13/2018 23788 EKG Tracing & Interpretation Completed 09/30/2018 65070 Short Leg Cast Completed 12/15/2017 61576 ECHO Transthoracic, Real-Time 2D With Doppler And Color Completed Flow 12/15/2017 31229 ECHO Transthoracic, Real-Time 2D With Doppler And Color Completed Flow 12/02/2017 18295 EKG Tracing & Interpretation Completed 02/03/2017 23590 EKG Tracing & Interpretation Completed 11/18/2016 77693 EKG, Interpretation Only Completed 11/17/2016 83851 EKG, Interpretation Only Completed 07/10/2016 85992 ECHO Transthoracic, Real-Time 2D With Doppler And Color Completed Flow 05/23/2016 48517 EKG Tracing & Interpretation Completed 11/09/2015 28467 EKG Tracing & Interpretation Completed 10/31/2015 11441261 Mammogram Completed 03/02/2015 56899 ECHO Transthoracic, Real-Time 2D With Doppler And Color Completed Flow 01/23/2015 07710 EKG Tracing & Interpretation Completed 08/25/2014 68817 Myocardial Perfusion Imaging Tomographic (Spect) Completed Multiple Studies 08/25/2014 76597 Stress Test Completed 08/25/2014 61279 Myocardial Perfusion Imaging Tomographic (Spect) Completed Multiple Studies 08/22/2014 48478 EKG Tracing & Interpretation Completed 04/28/2014 34603 ECHO Transthoracic, Real-Time 2D With Doppler And Color Completed Flow 04/12/2014 61565 EKG Tracing & Interpretation Completed 08/26/2013 96014 EKG Tracing & Interpretation Completed 07/12/2013 34667 ECHO Transthoracic, Real-Time 2D With Doppler And Color Completed Flow 11/10/2012 62891 EKG Tracing & Interpretation Completed 06/17/2012 66339 EEG Recording Awake & Drowsy Completed 05/27/2012 13521 ECHO Transthoracic, Real-Time 2D With Doppler And Color Completed Flow 05/18/2012 33730 Holter Monitoring 24 HR New Completed 02/20/2012 75332 ECHO Transthoracic, Real-Time 2D With Doppler And Color Completed Flow 02/03/2012 07454 EKG Tracing & Interpretation Completed 05/19/2011 68329 EKG Tracing & Interpretation Completed 09/02/2010 99927 EKG Tracing & Interpretation Completed 07/31/2010 19887 ECHO Transthoracic, Real-Time 2D With Doppler And Color Completed Flow 01/08/2010 85025 EKG Tracing & Interpretation Completed 11/01/2009 16493 ECHO Transthoracic, Real-Time 2D With Doppler And Color Completed Flow 07/12/2009 11297 EKG Tracing & Interpretation Completed 11/02/2008 48884 EKG Tracing & Interpretation Completed 11/02/2008 72172 EKG Tracing & Interpretation Completed 10/12/2008 93654 Echocardiogram Completed 10/12/2008 18210 Color Doppler Completed 10/12/2008 04804 Color Doppler Completed 10/12/2008 61594 Pulse Doppler & Continuous Wave Completed 10/12/2008 38191 Echocardiogram Completed 03/15/2008 33716 Selective Coronary Angioplasty Completed 03/15/2008 98335 Selective Coronary Angioplasty Completed 03/15/2008 49646 S/I/R Inj Proc Vent And Or Atrial Completed 03/15/2008 48196 Coronary Angiography Completed 03/15/2008 13349 Coronary Angiography Completed 03/15/2008 41475 Inj Proc LFT Vent/LFT Atrl Angio Completed 03/15/2008 95914 Left Heart Catheterization Completed 03/15/2008 57614 Left Heart Catheterization Completed 03/02/2008 78129 Color Doppler Completed 03/02/2008 57752 Color Doppler Completed 03/02/2008 72574 Pulse Doppler & Continuous Wave Completed 03/02/2008 44722 Pulse Doppler & Continuous Wave Completed 03/02/2008 75546 Echocardiogram Completed 02/25/2008 58935 ECHO/Stress Completed 02/25/2008 95519 Stress Test Completed 02/25/2008 67722 Stress Test Completed 02/25/2008 12357 ECHO/Stress Completed 02/25/2008 68005 ECHO/Stress Completed Encounters Type Date Location Provider Dx Diagnosis Office Visit 05/12/2019 [facility] Abdullahi Merida, R41.3 Other amnesia 10:30a Services Of Roxy Barrera I50.9 Heart failure, unspecified R53.82 Chronic fatigue, unspecified G47.9 Sleep disorder, unspecified Office Visit 04/22/2019 9:20a [facility] Lila R07.9 Chest pain, Assjob white DO unspecified Hospitalists I16.0 Hypertensive urgency F03.90 Unspecified dementia without behavioral disturbance Office Visit 04/05/2019 10:40a [place] Brannon Rodríguez I50.9 Heart failure, Cardiology Of Holly Frazier unspecified [facility] I10 Essential (primary) hypertension I36.1 Nonrheumatic tricuspid (valve) insufficiency I71.2 Thoracic aortic aneurysm, without rupture R94.31 Abnormal electrocardiogram [ECG] [EKG] Office Visit 03/22/2019 [facility] Alaina Hohn, I50.23 Acute on chronic 9:07a job Powell M.D. systolic Hospitalists (congestive) heart failure I49.2 Junctional premature depolarization N17.9 Acute kidney failure, unspecified K21.9 Gastro-esophageal reflux disease without esophagitis F03.90 Unspecified dementia without behavioral disturbance Z91.14 Patient's other noncompliance with medication regimen Office Visit 03/21/2019 [facility] Alaina Hohn, I50.23 Acute on chronic 9:06a job Powell M.D. systolic Hospitalists (congestive) heart failure N17.9 Acute kidney failure, unspecified I49.2 Junctional premature depolarization K21.9 Gastro-esophageal reflux disease without esophagitis Office Visit 03/21/2019 1:00p [facility] Mau SCarla I45.5 Other specified Of [facility] Ann, DO heart block FACC I50.9 Heart failure, unspecified I45.81 Long QT syndrome F03.90 Unspecified dementia without behavioral disturbance Office Visit 03/20/2019 [facility] Jo I50.23 Acute on chronic 9:06a job Powell M.D. systolic Hospitalists (congestive) heart failure I49.2 Junctional premature depolarization N17.9 Acute kidney failure, unspecified K21.9 Gastro-esophageal reflux disease without esophagitis Office Visit 03/20/2019 9:44a [facility] Mau SCarla I45.5 Other specified Of [facility] Ann, DO heart block FACC I50.9 Heart failure, unspecified I45.81 Long QT syndrome F03.90 Unspecified dementia without behavioral disturbance Office Visit 03/19/2019 [facility] Jo I50.23 Acute on chronic 9:06a Assoc,job Jauregui M.D. systolic Hospitalists (congestive) heart failure N17.9 Acute kidney failure, unspecified I49.2 Junctional premature depolarization K21.9 Gastro-esophageal reflux disease without esophagitis Z91.14 Patient's other noncompliance with medication regimen Office Visit 03/19/2019 9:21a [facility] Mau Gonzalez. I50.9 Heart failure, Of [facility] Seth, DO unspecified FACC I45.5 Other specified heart block I45.81 Long QT syndrome F03.90 Unspecified dementia without behavioral disturbance Office Visit 03/18/2019 9:05a [facility] Jo N17.9 Acute kidney Assoc,job Jauregui M.D. failure, Hospitalists unspecified I50.9 Heart failure, unspecified K21.9 Gastro-esophageal reflux disease without esophagitis Office Visit 02/03/2019 9:45a [facility] Zahraa Tavares, S82.62xD Disp fx of Services Of MD marquez C.M.A. malleolus of l fibula, 7thD M16.0 Bilateral primary osteoarthritis of hip M25.552 Pain in left hip M25.551 Pain in right hip Office Visit 12/28/2018 [facility] Zahraa Tavares, S82.62xD Disp fx of lateral 9:30a Services Of malleolus of l C.M.A. fibula, [...] l C.M.A. fibula, 7thD Office Visit 10/13/2018 [place] Qutaybeh S. I10 Essential 3:40p Cardiology Freddie, (primary) M.D. hypertension I34.0 Nonrheumatic mitral (valve) insufficiency R94.31 Abnormal electrocardiogram [ECG] [EKG] I27.20 Pulmonary hypertension, unspecified I36.1 Nonrheumatic tricuspid (valve) insufficiency I71.2 Thoracic aortic aneurysm, without rupture Office Visit 09/30/2018 [facility] Zahraa Tavares, S82.62xA Disp fx of 11:00a Services Of MD alma lombardo C.M.ACarla of left fibula, init Office Visit 12/02/2017 [place] Qutaybeh S. I71.9 Aortic aneurysm 3:40p Cardiology Freddie, of unspecified M.D. site, without rupture I34.0 Nonrheumatic mitral (valve) insufficiency I36.1 Nonrheumatic tricuspid (valve) insufficiency I10 Essential (primary) hypertension E78.4 Other hyperlipidemia R06.02 Shortness of breath R94.31 Abnormal electrocardiogram [ECG] [EKG] Office Visit 02/03/2017 [place] Qutaybeh S. I34.0 Nonrheumatic mitral 10:00a Cory Frazier M.D. (valve) insufficiency I71.9 Aortic aneurysm of unspecified site, without rupture I36.1 Nonrheumatic tricuspid (valve) insufficiency I10 Essential (primary) hypertension E78.4 Other hyperlipidemia Office Visit 11/18/2016 [facility] R07.9 Chest pain, 2:14p Assoc,job Miranda, JOBY unspecified Hospitalists R53.1 Weakness R10.84 Generalized abdominal pain N39.0 Urinary tract infection, site not specified Office Visit 11/16/2016 [facility] R07.9 Chest pain, 2:13p Assoc,job Miranda NP unspecified Hospitalists R10.84 Generalized abdominal pain R53.1 Weakness Office Visit 05/23/2016 [place] Qutaybeh S. I34.0 Nonrheumatic mitral 2:00p Cory Frazier M.D. (valve) insufficiency I71.9 Aortic aneurysm of unspecified site, without rupture I36.1 Nonrheumatic tricuspid (valve) insufficiency E78.4 Other hyperlipidemia I10 Essential (primary) hypertension R06.02 Shortness of breath Office Visit 11/09/2015 [place] Qutaybeh S. I34.0 Nonrheumatic mitral 2:00p Cardiology Holly Frazier (valve) insufficiency I10 Essential (primary) hypertension I71.9 Aortic aneurysm of unspecified site, without rupture Office Visit 02/12/2015 2:30p [facility] Jasmin Ramachandran, 401.0 Hypertension PA Malignant 441.9 Aneurysm Aortic W/O Rupture Unspec Site 424.0 Mitral Valve Disorder 397.0 Tricuspid Valve Disease Office Visit 01/23/2015 3:00p [facility] Qutaybeh S. 786.50 Pain Chest Holly Frazier Unspec 401.0 Hypertension Malignant 424.0 Mitral Valve Disorder 397.0 Tricuspid Valve Disease 441.9 Aneurysm Aortic W/O Rupture Unspec Site Office Visit 08/22/2014 9:00a [facility] Jasmin Ramachandran, 401.0 Hypertension PA Malignant 424.0 Mitral Valve Disorder 397.0 Tricuspid Valve Disease 794.31 Electrocardiogram (ECG) (EKG) Abnormal 786.50 Pain Chest Unspec Office Visit 04/12/2014 [place] Qudorotaybeh S. 401.0 Hypertension 3:20p Cory Frazier M.D. Malignant 272.4 Hyperlipidemia Other Unspec 786.05 Shortness Of Breath 424.0 Mitral Valve Disorder 397.0 Tricuspid Valve Disease 785.0 Tachycardia Unspec 786.50 Pain Chest Unspec Office Visit 09/23/2013 1:30p [facility] Nurse Visit cc 401.1 Hypertension Benign Office Visit 08/26/2013 3:00p [facility] Qutaybeh S. 424.0 Mitral Valve AllanydDiana alberto.Ricardo 401.1 Hypertension Benign 272.4 Hyperlipidemia Other Unspec 786.05 Shortness Of Breath 424.2 Tricuspid Valve Disorder Spec as Nonrheumatic 401.0 Hypertension Malignant Office Visit 11/10/2012 [place] Qudorotay[facility] S. 401.1 Hypertension 11:00a Cory Frazier M.D. Benign 272.4 Hyperlipidemia Other Unspec 424.0 Mitral Valve Disorder 786.05 Shortness Of Breath Office Visit 07/29/2012 1:30p [place] Yael Her, 785.0 Tachycardia Cardiology N.P. Unspec 401.1 Hypertension Benign 780.93 Memory Loss 311 Depressive Disorder Not Elsewhere Spec Office Visit 05/28/2012 3:00p [facility] Yael Micheler, 780.2 Syncope & N.P. Collapse 785.0 Tachycardia Unspec 401.1 Hypertension Benign 272.4 Hyperlipidemia Other Unspec Office Visit 02/03/2012 [place] Q[facility] S. 401.1 Hypertension 2:20p Cardiology Holly Frazier Benign 424.0 Mitral Valve Disorder 794.31 Electrocardiogram (ECG) (EKG) Abnormal 424.2 Tricuspid Valve Disorder Spec as Nonrheumatic 272.4 Hyperlipidemia Other Unspec 278.01 Obesity Morbid Office Visit 05/19/2011 [place] Qut[facility] S. 401.1 Hypertension 3:00p Cardiology Holly Frazier Benign 424.0 Mitral Valve Disorder 794.31 Electrocardiogram (ECG) (EKG) Abnormal Office Visit 09/02/2010 [place] Q[facility] S. 401.1 Hypertension 3:00p Cardiology Holly Frazier Benign 424.0 Mitral Valve Disorder Office Visit 01/08/2010 [place] Q[facility] S. 401.1 Hypertension 11:00a Cory Frazier M.D. Benign 424.0 Mitral Valve Disorder 424.2 Tricuspid Valve Disorder Spec as Nonrheumatic Office 07/12/2009 [place] Qudorot[facility] S. 794.31 Electrocardiogram Visit 10:40a Croy Frazier M.D. (ECG) (EKG) Abnormal 401.1 Hypertension Benign 424.0 Mitral Valve Disorder 428.32 Diastolic Heart Failure Chronic 272.4 Hyperlipidemia Other Unspec Office Visit 11/02/2008 11:00a [facility] Gopaltaybeh S. 424.0 Mitral Valve Holly Frazier Disorder 272.4 Hyperlipidemia Other Unspec 794.31 Electrocardiogram (ECG) (EKG) Abnormal 401.1 Hypertension Benign 424.2 Tricuspid Valve Disorder Spec as Nonrheumatic Office Visit 03/20/2008 3:20p [facility] Deeybthang S. 786.50 Pain Chester Frazier M.D. Unspec 401.1 Hypertension Benign 272.4 Hyperlipidemia Other Unspec 424.0 Mitral Valve Disorder Office Visit 03/15/2008 12:00p [facility] Deeybthang S. 786.50 Pain Chester Frazier M.D. Unspec 794.30 Cardiovascular Function Study Unspec Abnormal 401.1 Hypertension Benign 424.2 Tricuspid Valve Disorder Spec as Nonrheumatic Office Visit 02/25/2008 1:30p [facility] Brannon Rodríguez 786.50 Pain Chest Holly Frazier Unspec 401.1 Hypertension Benign 272.4 Hyperlipidemia Other Unspec 794.31 Electrocardiogram (ECG) (EKG) Abnormal Plan of Treatment Future Appointment(s):10/03/2019 4:00 pm - Abdullahi Merida M.D. at [facility]06/30/2019 - Abdullahi Merida M.D.G30.1 Alzheimer's disease with late onsetFollow up:Follow up in 3 monthsRecommendations:Call me in 1 week to review the lab results.R53.82 Chronic fatigue, unspecified
[2019-07-14 14:53] LABS: Urine Appearance Cloudy; Urine Bacteria Absent (Absent); Urine Bilirubin Negative (Negative); Urine Blood Negative (Negative); Urine Color Yellow; Urine Glucose Negative (Negative); Urine Ketones Negative (Negative); Urine Nitrite Negative (Negative); Urine Protein Negative (Negative); Urine Red Blood Cell Absent (Absent); Urine Specific Gravity 1.033 (1.010-1.030); Urine Squamous Epithelial Cell Present (Absent); Urine Urobilinogen Negative (Negative); Urine White Blood Cell 1+(6-10/hpf) (Absent)
[2019-07-14] MEDS ORDERED: Ondansetron INJ* 2 MG/ML VIAL IV PRN (15:13)
[2019-07-14] MEDS ORDERED: Iohexol 300* (CONTRAST) 10 ML SDV IV ONE (16:36)
--- NOTE | 2019-07-14 18:24 | HP ---
CC: Dr. Miguel Angel Murphy; [facility] * ADMISSION HISTORY AND PHYSICAL: DATE OF ADMISSION: 07/14/19 PRIMARY CARE DOCTOR: Dr. Miguel Angel Murphy. MY ATTENDING PHYSICIAN WHILE IN THE HOSPITAL: Dr. Jo Burgess* (DICTATED BY BEN BARKER) CHIEF COMPLAINT: Bright red blood per rectum x1 day. HISTORY OF PRESENT ILLNESS: Ms. Crespo is a 78-year-old female with a past medical history of heart failure, reduced ejection fraction, EF 45% to 50%, diverticulitis, dementia, GERD, and hiatal hernia who presents to the emergency department after today being sent in from [facility] where she resides with bright blood per rectum. The patient is a markedly poor historian. There is no access to collateral information. At this time, the patient states that she had bright red blood per rectum several months ago, but it has not resolved. EMS reports state that there was mario alberto red blood and clots in the patient's stool today with multiple BMs today. The patient has abdominal pain. The patient complains mainly of headaches for which she is on indomethacin as well as Excedrin as needed, which she received most recently today. The patient has some upper abdominal pain, no nausea or vomiting. No episodes of cramping per her report. The patient states she is chronically constipated, but she reported to have multiple bowel movements today. The patient states she is lightheaded, but she has been in this way for 3 to 4 months. A call was placed to the patient's daughter which was not returned at this time. The patient denies any fevers or chills. No recent changes in her meds. No other changes in her diet or other findings out of the ordinary. Due to concern for GI bleeding, we are asked to evaluate the patient for admission to the hospital. PAST MEDICAL HISTORY: Heart failure, reduced ejection fraction, EF 45% to 50%, diverticulitis, dementia, mild pulmonary hypertension, essential hypertension, thoracic aortic aneurysm, anxiety, depression, GERD, sliding hiatal hernia, hyperlipidemia, toxic multinodular goiter, status post radioactive iodine treatment. PAST SURGICAL HISTORY: Catheter in 2007, tubal ligation. MEDICATIONS: 1. Duloxetine 60 mg p.o. daily. 2. Aspirin 81 mg p.o. daily. 3. Pantoprazole 40 mg p.o. at bedtime. 4. Crestor 10 mg p.o. at bedtime. 5. Namenda 7 mg p.o. q.a.m. 6. MiraLAX 17 g p.o. daily. 7. Indomethacin 25 mg p.o. b.i.d. 8. Furosemide 20 mg p.o. twice weekly. 9. Magnesium oxide 800 mg p.o. b.i.d. 10. Amlodipine 5 mg p.o. daily. 11. Tylenol 650 mg p.o. q.6 hours as needed. 12. Menthol and camphor 1 application topical daily. 13. Sucralfate 1 g p.o. b.i.d. 14. Donepezil 10 mg p.o. daily. 15. Melatonin 2 mg p.o. at bedtime. 16. Excedrin Migraine 2 tabs p.o. daily as needed. 17. Metoprolol tartrate 12.5 mg p.o. b.i.d. ALLERGIES: No known drug allergies. FAMILY HISTORY: The patient's father, per records, has heart disease and diabetes. The patient is unable to provide any other history at this time. SOCIAL HISTORY: The patient denies smoking, drinking, or using illicit drugs. The patient is unable to provide work history. The patient states she is and has 7 children. The patient elects her daughter, Yojana, to be her surrogate decision maker. REVIEW OF SYSTEMS: A 14-point review of systems was reviewed and is negative except as above in the HPI. PHYSICAL EXAMINATION GENERAL: The patient is a 78-year-old female who appears stated age, sitting comfortably in bed, in no acute distress. VITAL SIGNS: At the time of evaluation, temperature 98.1, pulse rate 59, respiratory rate 14, oxygen saturation 99% on room air, blood pressure 109/78. HEENT: Head: Normocephalic, atraumatic. Sclerae anicteric. No conjunctival injection. Mucous membranes moist. Oral mucosa moist. No pharyngeal erythema , discharge, or exudate. NECK: Supple, nontender. No lymphadenopathy. No carotid bruits auscultated. No JVD. RESPIRATORY: Clear to auscultation bilaterally. No wheezes, rhonchi, or rales. Good air exchange bilaterally. HEART: Regular rate and rhythm. No clicks, murmurs, gallops, or rubs. Pulses are 2+ in dorsalis pedis, posterior tibialis, and radial areas. ABDOMEN: Soft, tender to palpation in the right upper quadrant. Negative Tariq's sign. No rebound. No guarding. Bowel sounds present, hyperactive in all 4 quadrants. No hepatosplenomegaly. No abdominal bruits auscultated. No hepatojugular reflux. GENITOURINARY: No suprapubic or CVA tenderness. NEUROLOGIC: Cranial nerves II through XII intact. No focal deficits. Alert, oriented only to self. SKIN: Clean, dry, and intact. No rash. PSYCHIATRIC: Pleasant and cooperative. DIAGNOSTIC STUDIES/LAB DATA: White blood cell count 4.2, hemoglobin 10.1, platelet count 205. INR 1.03, PTT 28.7. Sodium 141, potassium 4.3, chloride 109, carbon dioxide 20, anion gap 4, BUN 29, creatinine 0.84, glucose 110, lactic acid 1.4, calcium 8.6, magnesium 2.0. Bilirubin 0.4, AST 17, ALT 11, alkaline phosphatase 63. CRP less than 1. Protein 6.0, albumin 3.7, globulin 2.3. Lipase 30. Urine cloudy, High specific gravity, 2+ leukocyte esterase, 1+ white blood cells , negative bacteria, negative red blood cells. Studies: EKG shows normal sinus rhythm. No ST segment elevation or depression , no blocks or hypertrophy, QTc of 467. Compared to previous exam, there are no significant changes. ASSESSMENT AND PLAN: Mrs. Crespo is a 78-year-old female with past medical history significant for heart failure, reduced ejection fraction, diverticulitis , dementia, gastroesophageal reflux disease, and hiatal diaphragmatic hernia who presents to the emergency department with bright blood per rectum at least x1 day, possibly longer and vague symptoms. The patient is a very poor historian. The patient will be admitted to the hospital for monitoring and GI consult. 1. Gastrointestinal bleeding. The patient's bleeding is bright red. Per report, the patient's stool occult blood is positive. The patient had pancolonic diverticulosis on recent colonoscopy from 6 years ago. The patient has upper abdominal pain and has gastroesophageal reflux disease and hiatal hernia. The patient is not having brisk enough bowel transit to believe that this might be related to upper gastrointestinal bleeding and will not be started on PPI drip at this time. The patient has no documented history of diverticular bleeding, though this is most likely cause. The patient does have mild abdominal pain. We will check a CT of the abdomen and pelvis to check for ischemic colitis, at which time the patient will be started on antibiotics if needed. The patient was seen in consultation by Dr. Chandra Morgan, who was contacted by the emergency department. The patient is on pantoprazole and sucralfate at home, which will be continued. The patient will have hemoglobin and hematocrit every 8 hours. The patient's blood pressure is mildly low and she will be started on fluids for blood pressure support. Her amlodipine will be held and her metoprolol will be continued to avoid rebound hypertension. The patient's antiplatelet agents will be held including her aspirin, indomethacin, and Excedrin. 2. Heart failure with reduced ejection fraction. The patient will be monitored closely for signs of fluid overload with fluids been given for gastrointestinal bleeding with borderline low blood pressures. The patient will have strict I's and O's and daily weights. Continue metoprolol. The patient's outpatient regimen for her heart failure with reduced ejection fraction is not optimized at this time. 3. Dementia. Supportive care. 4. Pulmonary hypertension. This is likely related to the patient's heart failure with reduced ejection fraction. 5. Gastroesophageal reflux disease, diaphragmatic hernia. The patient had normal EGD in 2012, very little concern for upper gastrointestinal bleeding. Continue the patient's home antacid medications. 6. Thoracic aortic aneurysm. No signs of rupture. 7. FEN. The patient will be n.p.o. for CT scan and then the patient will likely be clear liquid advancing as tolerated. 7. DVT prophylaxis. SCDs in the setting of gastrointestinal bleeding. 8. Disposition. The patient will be admitted for observation to the hospital. TIME SPENT: Approximately 60 minutes was spent on admission of this patient, 30 of which was spent [id number] with the patient obtaining history and physical and discussing treatment plan. This plan was discussed with my attending, Dr. Alonso Burgess, and she is in agreement. BEN BARKER [id number]/[facility] #: [id number] [facility]ITAL[facility]
[2019-07-14 18:41] LABS: Hematocrit 30 % (35-47)
--- NOTE | 2019-07-14 18:48 | CONS ---
CONSULTATION REPORT: DATE OF CONSULTATION: 07/14/19 REQUESTING PROVIDER: BEN Arredondo, from the hospitalist group. LOCATION OF CONSULTATION: In the emergency room at approximately 5:10 p.m. on 07/14/19. INDICATION: Anemia. NARRATIVE: Mrs. Crespo is a very pleasant 78-year-old female who was brought in from her [facility] due to melena. The patient is somewhat demented and getting answers from her is difficult. She tells me that she has been having dark stools for many weeks. She has had abdominal pain, generalized in nature, for the past few months. She also states that her arms and legs also hurt. She unfortunately does not know where she lives right now nor does she know what medications she is on. Currently, she states that she feels okay other than mild abdominal pain. She does know that she has family members in the area , but does not know their names or phone numbers. PAST MEDICAL HISTORY: Significant for dementia, hypertension, GERD, constipation, thyroid disease, diverticulosis. PAST SURGICAL HISTORY: Surgeries include tubal ligation, lumpectomy, hysterectomy, Estefany fundoplication. She did have an EGD and colonoscopy in [address] Hutchison, who is her assistant auditor, and it revealed a small sliding hernia, intact wrap, otherwise normal EGD, small transverse colon polyp , and pancolonic diverticulosis, more severe in the sigmoid colon. MEDICATIONS: Upon admission include: 1. Tylenol. 2. Excedrin Migraine. 3. Aricept. 4. Lopressor. 5. Carafate. ALLERGIES: None. SOCIAL HISTORY: No tobacco, no alcohol. REVIEW OF SYSTEMS: Unable to obtain from the patient at this time. PHYSICAL EXAMINATION: Temperature is 98.1, blood pressure is 110/68, pulse is 70, respiratory rate of 14, O2 sat is 100%. General: Well-appearing elderly female, lying flat in bed. She is alert, oriented to person, but not to place or time. HEENT: Mucous membranes are dry. Dentition is poor. Heart: Regular rate and rhythm. No murmurs, rubs, or gallops. Lungs: Clear to auscultation bilaterally. No wheezes, rales, or rhonchi. Abdomen: Positive bowel sounds. Soft. Diffusely tender, more in the epigastrium than elsewhere. No rebound. No guarding. Skin is warm and dry. DIAGNOSTIC STUDIES/LAB DATA: Labs of note: White count is 4.2. Hemoglobin is 10.1; in February, it was 11.4; three years ago, it was 13.2. Platelets of 205. INR was 1.03. BUN of 21, creatinine of 0.84. ASSESSMENT AND PLAN: This is a pleasant 78-year-old female with melena and slightly worsening anemia. She does take Aricept. She has dementia. At this point, I think we should proceed forward with an upper endoscopy. I will make arrangements for it tomorrow. I will try to contact family members to obtain consent. She will be n.p.o. after midnight. She will be placed on IV PPI. [id number]/[facility] #: [id number] RHONAD
[2019-07-14] MEDS: Pantoprazole IV* 40 MG IV SCH (20:00)
[2019-07-14] MEDS ORDERED: Pantoprazole TAB * 40 MG TAB PO SCH (21:00)
[2019-07-14] MEDS: Sucralfate TAB* 1 GM PO SCH (21:44)
[2019-07-14] MEDS: Melatonin 3 MG TAB PO SCH (21:45)
[2019-07-14] MEDS: Atorvastatin* 20 MG TAB PO SCH (21:45)
[2019-07-14] MEDS: Magnesium Oxide TAB* 400 MG PO SCH (21:45)
[2019-07-14] MEDS: Donepezil TAB* 5 MG PO SCH (21:45)
[2019-07-14] MEDS: Metoprolol Tartrate TAB* 25 MG PO SCH (21:46)
[2019-07-15 01:58] LABS: Hematocrit 28 % (35-47); Hemoglobin 9.4 g/dL (12.0-16.0)
[2019-07-15] MEDS ORDERED: NS 0.9% 1000 ML** 2,000 ML IV ONE (05:52)
--- NOTE | 2019-07-15 05:57 | PN ---
Progress Note - Progress Note Date of Service: 07/15/19 Note: Pt was found minimally responsive with depend full of bright red blood and SBP of 70. CAT was called. Pt was placed in Trendelenburg and 2 L NS were started. Transferred to ICU after second SBP was 150. Called DR. Morgan and notified. Pt is going to get 2 U PRBC now. Protonix gtt started. Called daughter Yojana and left a voice message to call back
[2019-07-15] MEDS: Pantoprazole* 80 mg IN NS 80 MG/250 ML BAG IV SCH ×2 (06:24→16:16)
[2019-07-15 07:00] LABS: ABS Eosinophils 0.2 10^3/ul (0-0.6); ABS Lymphocytes 1.9 10^3/ul (1.0-4.8); ABS Monocytes 0.4 10^3/ul (0-0.8); ABS Neutrophils 3.3 10^3/ul (1.5-7.7); Eosinophil % 3.5 %; Hematocrit 26 % (35-47); Hemoglobin 8.8 g/dL (12.0-16.0); Lymphocyte % 32.1 %; Mean Corpuscular HGB Conc 34 g/dL (31-36); Mean Corpuscular Hemoglobin 31 pg (27-31); Mean Corpuscular Volume 89 fL (80-97); Mean Platelet Volume 6.7 fL (7.4-10.4); Platelet Count 190 10^3/uL (150-450); Red Blood Count 2.87 10^6 /uL (3.70-4.87); Red Cell Distribution Width 13 % (10-15); White Blood Count 5.8 10^3/uL (3.5-10.8)
[2019-07-15 07:19] LABS: BUN/Creatinine Ratio 21.9 (8-20); Blood Urea Nitrogen 16 mg/dL (6-24); CO2 Carbon Dioxide 24 mmol/L (22-32); Calcium 7.5 mg/dL (8.6-10.3); EGFR African American 93.3 (>60); EGFR Non-African American 77.1 (>60); Glucose 105 mg/dL (70-100); Magnesium 1.9 mg/dL (1.9-2.7); Sodium 141 mmol/L (135-145)
[2019-07-15 07:24] LABS: Anion Gap 3 mmol/L (2-11); Chloride 114 mmol/L (101-111)
[2019-07-15] MEDS ORDERED: Polyethylene Glycol 3350 BTL* 238 GM BTL PO ONE (07:56)
--- NOTE | 2019-07-15 08:40 | PN ---
Subjective Date of Service: 07/15/19 Interval History: Events of overnight reviewed Large episode of BRBPR overnight associated with LOC and hypotension that resolved with trendelenburg and less than 500 cc fluids Transferred to ICU and blood and PPI gtt started She has had multiple large BRBPR episodes with clots since transfer to ICU Objective Active Medications: Acetaminophen (Tylenol Tab*) 650 mg PO Q6H PRN PRN Reason: MILD PAIN or TEMP > 100.4 Atorvastatin Calcium (Lipitor*) 20 mg PO BEDTIME [facility]; Protocol Last Admin: 07/14/19 21:45 Dose: 20 mg Donepezil HCl (Aricept Tab*) 10 mg PO BEDTIME [facility] Last Admin: 07/14/19 21:45 Dose: 10 mg Duloxetine HCl (Cymbalta Cap*) 60 mg PO DAILY [facility] Pantoprazole Sodium (Protonix Iv Bag*) 80 mg in 250 mls @ 25 mls/hr IV Q10H [facility] Last Admin: 07/15/19 06:24 Dose: 25 mls/hr Magnesium Oxide (Magox 400 Tab*) 800 mg PO BID [facility] Last Admin: 07/14/19 21:45 Dose: 800 mg Melatonin (Melatonin) 3 mg PO BEDTIME [facility] Last Admin: 07/14/19 21:45 Dose: 3 mg Memantine (Namenda Xr *) 7 mg PO QAM [facility] Metoprolol Tartrate (Lopressor Tab*) 12.5 mg PO BID [facility] Last Admin: 07/14/19 21:46 Dose: 12.5 mg Ondansetron HCl (Zofran Inj*) 4 mg IV Q6H PRN PRN Reason: NAUSEA Sucralfate (Carafate*) 1 gm PO BID [facility] Last Admin: 07/14/19 21:44 Dose: 1 gm Vital Signs - 8 hr 07/15/19 07/15/19 07/15/19 03:07 05:47 05:49 Temperature 97.5 F Pulse Rate 72 70 67 Respiratory 18 13 Rate Blood Pressure 111/65 154/83 (mmHg) O2 Sat by Pulse 99 85 81 Oximetry 07/15/19 07/15/19 07/15/19 05:55 06:00 06:01 Temperature Pulse Rate 67 64 Respiratory 37 19 24 Rate Blood Pressure 165/87 172/77 (mmHg) O2 Sat by Pulse 93 100 Oximetry 07/15/19 07/15/1907/15/19 06:07 06:09 06:15 Temperature Pulse Rate 62 60 62 Respiratory 23 15 16 Rate Blood Pressure 148/85 158/80 138/75 (mmHg) O2 Sat by Pulse 100 100 100 Oximetry 07/15/19 07/15/19 07/15/19 06:30 06:45 07:00 Temperature Pulse Rate 63 61 62 Respiratory 18 17 15 Rate Blood Pressure 140/80 140/81 144/81 (mmHg) O2 Sat by Pulse 100 100 100 Oximetry 07/15/19 07:33 Temperature 98.0 F Pulse Rate 68 Respiratory 13 Rate Blood Pressure 154/83 (mmHg) O2 Sat by Pulse 81 Oximetry Oxygen Devices in Use Now: OxyMask Appearance: lying 35 deg, NAD Eyes: No Scleral Icterus, PERRLA Ears/Nose/Mouth/Throat: NL Teeth, Lips, Gums, Clear Oropharnyx Neck: NL Appearance and Movements; NL JVP, Trachea Midline Respiratory: Symmetrical Chest Expansion and Respiratory Effort, Clear to Auscultation Cardiovascular: NL Sounds; No Murmurs; No JVD, RRR Abdominal: - - soft, TTP diffusely, ND, no rebound/guarding, +bs Lymphatic: No Cervical Adenopathy Extremities: No Edema Skin: No Rash or Ulcers Neurological: - - AOx2 to self and hospital but not year Result Diagrams: 07/15/19 06:50 07/15/19 06:50 Microbiology and Other Data: Microbiology 07/14/19 01:05 Stool Occult Blood (KARIE) - Final Stool Assess/Plan/Problems-Billing Assessment: 78 yo F h/o dementia, HTN, diverticulosis pw BRBPR and reported dark stools in Dr. Morgan's note with stay complicated by large volume BRBPR and LOC, hypotension - Patient Problems (1) GI hemorrhage Comment: Unclear that LOC was shock after recovered s/p low volume rescusitation Warm and well perfused on exam Will consult ICU Discussed with GI on ppi gtt NPO serial H/H - next after unit of PRBC at [address] (2) Hypertension Comment: c/w low dose toprol to avoid rebound htn (3) Dementia Comment: namenda, aricept (4) DVT prophylaxis Comment: SCDs in setting of GI bleed
[2019-07-15] MEDS ORDERED: PEG 3000 GI LAVAGE* 1 GALLON PO ONE ×2 (08:58→17:00)
--- NOTE | 2019-07-15 09:48 | PN ---
Date of Service: 07/15/19 Critical Care Services: Hemodynamically stable now after bout of hypotension/LOC last night. Hg slightly drifting down No BPR during day shift so far Vital Signs: Temp Pulse Resp BP SpO2 FiO2 98.0 F 66 16 121/78 98 07/15/19 08:00 07/15/19 08:45 07/15/19 08:45 07/15/19 08:45 07/15/19 08:45 Physical Exam: Gen: Ao times 2 (baseline dementia as per daughter) HEENT: EOMI Lungs: CTA B/L Cardiac: RRR Abdomen: BS's. Soft, NTP. No rebound or guarding Extremities: No FREDA Neuro: No focal deficits Fluid Balance (Past 24 Hours): I= O= Net Intake & Output 07/13/19 07/14/19 07/15/19 07/16/19 06:59 06:59 06:59 06:59 Intake Total 20 2282 Output Total 300 325 Balance -280 1957 Weight 186 lb 1.122 oz Intake: IV Fluids 10 2000 IVPB 10 Oral 0 Packed Cells 282 Output: Urine 300 325 Other: Estimated Void Large Medium Date of Last Bowel 07/15/2019 Movement # Bowel Movements 0 2 Estimated Stool Amount Large # Voids 1 1 Labs: Laboratory Results - last 24 hr 07/14/19 07/14/19 07/14/19 13:19 13:19 13:19 WBC 4.2 RBC 3.31 L Hgb 10.1 L Hct 30 L MCV 91 MCH 30 MCHC 34 RDW 13 Plt Count 205 MPV Not Reportable Neut % (Auto) 48.3 Lymph % (Auto) 41.0 [place] % (Auto) 7.1 Eos % (Auto) 2.4 Baso % (Auto) 1.2 Absolute Neuts (auto) 2.0 Absolute Lymphs (auto) 1.7 Absolute Monos (auto) 0.3 Absolute Eos (auto) 0.1 Absolute Basos (auto) 0.0 Absolute Nucleated RBC 0.0 Nucleated RBC % 0.1 INR (Anticoag Therapy) APTT Sodium 141 Potassium 4.3 Chloride 109 Carbon Dioxide 28 Anion Gap 4 BUN 21 Creatinine 0.84 Est GFR ( Amer) 79.3 Est GFR (Non-Af Amer) 65.6 BUN/Creatinine Ratio 25.0 H Glucose 110 H POC Glucose (mg/dL) Lactic Acid 1.4 Calcium 8.6 Magnesium 2.0 Total Bilirubin 0.40 AST 17 ALT 11 Alkaline Phosphatase 63 C-Reactive Protein < 1.00 Total Protein 6.0 L Albumin 3.7 Globulin 2.3 Albumin/Globulin Ratio 1.6 Lipase 30 Urine Color Urine Appearance Urine pH Ur Specific [place] Urine Protein Urine Ketones Urine Blood Urine Nitrate Urine Bilirubin Urine Urobilinogen Ur Leukocyte Esterase Urine WBC (Auto) Urine RBC (Auto) Ur Squamous Epith Cells Urine Bacteria Urine Glucose Urine Ascorbic Acid Blood Type Antibody Screen Crossmatch 07/14/19 07/14/19 07/14/19 13:19 13:19 14:25 WBC RBC Hgb Hct MCV MCH MCHC RDW Plt Count MPV Neut % (Auto) Lymph % (Auto) [place] % (Auto) Eos % (Auto) Baso % (Auto) Absolute Neuts (auto) Absolute Lymphs (auto) Absolute Monos (auto) Absolute Eos (auto) Absolute Basos (auto) Absolute Nucleated RBC Nucleated RBC % INR (Anticoag Therapy) 1.03 APTT 28.7 Sodium Potassium Chloride Carbon Dioxide Anion Gap BUN Creatinine Est GFR ( Amer) Est GFR (Non-Af Amer) BUN/Creatinine Ratio Glucose POC Glucose (mg/dL) Lactic Acid Calcium Magnesium Total Bilirubin AST ALT Alkaline Phosphatase C-Reactive Protein Total Protein Albumin Globulin Albumin/Globulin Ratio Lipase Urine Color Yellow Urine Appearance Cloudy Urine pH 5.0 Ur Specific [place] 1.033 H Urine Protein Negative Urine Ketones Negative Urine Blood Negative Urine Nitrate Negative Urine Bilirubin Negative Urine Urobilinogen Negative Ur Leukocyte Esterase 2+ A Urine WBC (Auto) 1+(6-10/hpf) A Urine RBC (Auto) Absent Ur Squamous Epith Cells Present A Urine Bacteria Absent Urine Glucose Negative Urine Ascorbic Acid * A Blood Type B Positive Antibody Screen Negative Crossmatch See Detail 07/14/19 07/14/19 07/15/19 18:36 18:36 01:52 WBC RBC Hgb 10.0 L 9.4 L Hct 30 L 28 L MCV MCH MCHC RDW Plt Count MPV Neut % (Auto) Lymph % (Auto) [place] % (Auto) Eos % (Auto) Baso % (Auto) Absolute Neuts (auto) Absolute Lymphs (auto) Absolute Monos (auto) Absolute Eos (auto) Absolute Basos (auto) Absolute Nucleated RBC Nucleated RBC % INR (Anticoag Therapy) APTT Sodium Potassium Chloride Carbon Dioxide Anion Gap BUN Creatinine Est GFR ( Amer) Est GFR (Non-Af Amer) BUN/Creatinine Ratio Glucose POC Glucose (mg/dL) Lactic Acid 0.7 Calcium Magnesium Total Bilirubin AST ALT Alkaline Phosphatase C-Reactive Protein Total Protein Albumin Globulin Albumin/Globulin Ratio Lipase Urine Color Urine Appearance Urine pH Ur Specific [place] Urine Protein Urine Ketones Urine Blood Urine Nitrate Urine Bilirubin Urine Urobilinogen Ur Leukocyte Esterase Urine WBC (Auto) Urine RBC (Auto) Ur Squamous Epith Cells Urine Bacteria Urine Glucose Urine Ascorbic Acid Blood Type Antibody Screen Crossmatch 07/15/19 07/15/19 07/15/19 05:30 06:50 06:50 WBC 5.8 RBC 2.87 L Hgb 8.8 L Hct 26 L MCV 89 MCH 31 MCHC 34 RDW 13 Plt Count 190 MPV 6.7 L Neut % (Auto) 56.5 Lymph % (Auto) 32.1 [place] % (Auto) 7.1 Eos % (Auto) 3.5 Baso % (Auto) 0.8 Absolute Neuts (auto) 3.3 Absolute Lymphs (auto) 1.9 Absolute Monos (auto) 0.4 Absolute Eos (auto) 0.2 Absolute Basos (auto) 0.0 Absolute Nucleated RBC 0.0 Nucleated RBC % 0.0 INR (Anticoag Therapy) APTT Sodium 141 Potassium TNP Chloride 114 H Carbon Dioxide 24 Anion Gap 3 BUN 16 Creatinine 0.73 Est GFR ( Amer) 93.3 Est GFR (Non-Af Amer) 77.1 BUN/Creatinine Ratio 21.9 H Glucose 105 H POC Glucose (mg/dL) 112 H Lactic Acid Calcium 7.5 L Magnesium 1.9 Total Bilirubin AST ALT Alkaline Phosphatase C-Reactive Protein Total Protein Albumin Globulin Albumin/Globulin Ratio Lipase Urine Color Urine Appearance Urine pH Ur Specific [place] Urine Protein Urine Ketones Urine Blood Urine Nitrate Urine Bilirubin Urine Urobilinogen Ur Leukocyte Esterase Urine WBC (Auto) Urine RBC (Auto) Ur Squamous Epith Cells Urine Bacteria Urine Glucose Urine Ascorbic Acid Blood Type Antibody Screen Crossmatch Impression: GIB Baseline dementia LOC Hx of HTN Plan: Continue to monitor H/H q8 GI procedures as per GI Hold BB NPO D/W Daughter, proxy, patient's status. D/W GOC. At baseline, patient is NH patient with severe dementia. Recently, dementia has gotten significantly worse though, she states. Patient can still recognize daughter but cannot care for self. Despite her neuro status she would like patient to be full code and have all interventions performed on her. Consents were verbalized over the phone and witness by Nurse Namita. Critical Care Time: 45
[2019-07-15 10:11] LABS: Hematocrit 31 % (35-47); Hemoglobin 10.4 g/dL (12.0-16.0)
[2019-07-15] MEDS: Memantine XR * 7 MG CAP.XR PO SCH (10:47)
[2019-07-15] MEDS: Sucralfate TAB* 1 GM PO SCH ×2 (10:47→20:49)
[2019-07-15] MEDS: Magnesium Oxide TAB* 400 MG PO SCH ×2 (10:47→20:48)
[2019-07-15] MEDS: DULoxetine DR CAP* 30 MG CAP.DR PO SCH (11:06)
[2019-07-15] MEDS ORDERED: fentaNYL* 50 MCG/ML 2 ML VIAL (100 MCG VIAL) ONE ×2 (12:14)
[2019-07-15] MEDS ORDERED: Midazolam* 1 MG/ML 10 ML VIAL (10 MG) ONE ×2 (12:14)
[2019-07-15] MEDS: Acetaminophen TAB* 325 MG PO PRN (12:16)
[2019-07-15 14:02] LABS: Hematocrit 27 % (35-47); Hemoglobin 9.1 g/dL (12.0-16.0)
[2019-07-15 17:59] LABS: ABS Basophils 0.1 10^3/ul (0-0.2); ABS Eosinophils 0.1 10^3/ul (0-0.6); ABS Lymphocytes 2.2 10^3/ul (1.0-4.8); ABS Monocytes 0.4 10^3/ul (0-0.8); ABS Neutrophils 5.1 10^3/ul (1.5-7.7); Eosinophil % 1.8 %; Hematocrit 32 % (35-47); Hemoglobin 10.5 g/dL (12.0-16.0); Lymphocyte % 27.6 %; Mean Corpuscular HGB Conc 33 g/dL (31-36); Mean Corpuscular Hemoglobin 30 pg (27-31); Mean Corpuscular Volume 91 fL (80-97); Platelet Count 175 10^3/uL (150-450); Red Blood Count 3.47 10^6 /uL (3.70-4.87); Red Cell Distribution Width 14 % (10-15)
--- NOTE | 2019-07-15 20:26 | PRO ---
CC: Dr. Eric Bernal PROCEDURE REPORT: DATE OF PROCEDURE: 07/15/19 PROCEDURE: EGD. REFERRING PROVIDER: Dr. Eric Bernal. INDICATION: The patient presents with report of possible melena as well as bright red blood per rectum. She was found on the floor overnight with significant rectal bleeding and loss of consciousness. She was noted to be hypotensive at that time, although her blood pressure has improved after receiving 2 units of blood. She continues to have dark red stool per rectum. The patient denies any upper GI symptoms. Uses NSAIDs once every week or two. MEDICATIONS GIVEN: 1. Midazolam 5 mg IV. 2. Fentanyl 50 mcg IV. DESCRIPTION OF PROCEDURE: Full disclosure of the risks was reviewed with the patient as detailed on the consent form. The patient was placed in the left lateral decubitus position and monitored with continuous pulse oximetry, capnography, interval blood pressure monitoring, and direct observation. A bite block was placed between the patient's teeth. An adult gastroscope was then inserted into the patient's mouth and advanced down the esophagus, into the stomach, and into the distal duodenum. Findings and interventions are described below. FINDINGS: The esophagus was a normal tubular structure without rings or strictures. No varices. GE junction was regular. Scope was advanced into the stomach. Stomach was examined in the forward and retroflexed views. Gastric mucosa was normal in appearance. Fundoplication wrap appeared intact. No fresh or old blood. No erosions or ulcers. No AVMs. Scope was advanced into the duodenum to at least the fourth portion if not the proximal jejunum. There was noel bilious fluid. No fresh or old blood. Scope was then withdrawn from the patient. The patient tolerated the procedure well and was recovered in the GI recovery area. IMPRESSION: 1. Complete upper endoscopy to the distal duodenum versus proximal jejunum. 2. No fresh or old blood. No source of bleeding identified in upper GI tract. RECOMMENDATIONS: 1. Proceed with flexible sigmoidoscopy. Thank you very much for this consult. GI will continue to follow. [id number]/[facility] #: [id number] MTDD
--- NOTE | 2019-07-15 20:26 | PRO ---
CC: Dr. Eric Bernal PROCEDURE REPORT: DATE OF PROCEDURE: 07/15/19 PROCEDURE: Flexible sigmoidoscopy. REFERRING PROVIDER: Dr. Eric Bernal. INDICATION: The patient was admitted w/ melena/hematochezia. There was an episode of loss of consciousness earlier in the day with hypotension. Blood pressures improved after 2 units of blood and remain stable. The patient continues to have rectal bleeding. The patient had a colonoscopy in 2012, which demonstrated a small colon polyp as well as pancolonic diverticulosis, which was severe in the sigmoid colon. MEDICATIONS GIVEN: 1. Midazolam 5 mg IV. 2. Fentanyl 50 mcg IV. DESCRIPTION OF PROCEDURE: Full disclosure of risks was reviewed with the patient as detailed on the consent form. The patient was placed in the left lateral decubitus position and monitored with continuous pulse oximetry, capnography, interval blood pressure monitoring, and direct observation. An adult gastroscope was inserted into the patient's rectum and advanced slowly to the level of the sigmoid. Prep was poor with dark red blood seen throughout the examined areas of colon. Retroflexion was not performed in the rectum. Findings and interventions are described below. FINDINGS: Anorectal exam was notable for dark red blood per rectum. Scope was inserted into the rectum and slowly advanced forward. There was dark red blood seen as the scope was slowly advanced forward. There was severe diverticulosis in the sigmoid colon. Visualization was very poor given the large amount of blood. Scope was only advanced to the sigmoid colon and was then slowly withdrawn due to poor visibility and severe diverticulosis. Unable to determine if any active bleeding source within examined area. The scope was withdrawn from the patient. The patient tolerated the procedure well and was recovered in the ICU. IMPRESSION: 1. Flexible sigmoidoscopy to sigmoid. 2. Large amount of dark red blood seen throughout the examined area of colon. Visualization was very difficult. Exam was non-diagnostic. 3. Severe diverticulosis in the sigmoid colon. FOLLOWUP: I discussed the case with Dr. Bernal. Favor diverticular bleed as cause of hematochezia, although small bowel bleeding remains on differential given some reports of melena earlier in presentation. I would recommend obtaining a tagged RBC scan to evaluate for active bleeding and help localize bleeding location. Continue to monitor CBC closely. Would also recommend the patient drink GoLYTELY prep to help cleanse the colon of the blood. This will help us to determine if bleeding has resolved without intervention, which is the typical natural history of a diverticular bleed. Thank you very much for this consult. GI will continue to follow along. [id number]/[facility] #: [id number] [facility]ICJust[facility]
[2019-07-15] MEDS: Donepezil TAB* 5 MG PO SCH (20:48)
[2019-07-15] MEDS: Melatonin 3 MG TAB PO SCH (20:48)
[2019-07-15] MEDS: Atorvastatin* 20 MG TAB PO SCH (20:49)
[2019-07-15 21:00] LABS: Hematocrit 29 % (35-47); Hemoglobin 9.7 g/dL (12.0-16.0)
[2019-07-16] MEDS: Pantoprazole* 80 mg IN NS 80 MG/250 ML BAG IV SCH (03:10)
[2019-07-16 03:22] LABS: Hematocrit 29 % (35-47); Hemoglobin 9.7 g/dL (12.0-16.0)
[2019-07-16] MEDS: Pantoprazole IV* 40 MG IV SCH ×2 (05:49→09:10)
[2019-07-16] MEDS: Metoprolol Tartrate TAB* 25 MG PO SCH (05:49)
[2019-07-16 05:56] LABS: BUN/Creatinine Ratio 12.3 (8-20); Calcium 8.3 mg/dL (8.6-10.3); EGFR African American 82.7 (>60); EGFR Non-African American 68.4 (>60); Potassium 3.5 mmol/L (3.5-5.0)
--- NOTE | 2019-07-16 07:56 | PN ---
Subjective Date of Service: 07/16/19 Interval History: Events from yesterday reviewed 2U PRBC EGD and flex sig yesterday without identification of bleeding source No additional bleeding overnight, H/H now stable Feels well this AM, no complaints More confused around 1AM in ICU, required bedside sitter Objective Active Medications: Acetaminophen (Tylenol Tab*) 650 mg PO Q6H PRN PRN Reason: MILD PAIN or TEMP > 100.4 Last Admin: 07/15/19 12:16 Dose: 650 mg Atorvastatin Calcium (Lipitor*) 20 mg PO BEDTIME [facility]; Protocol Last Admin: 07/15/19 20:49 Dose: 20 mg Donepezil HCl (Aricept Tab*) 10 mg PO BEDTIME [facility] Last Admin: 07/15/19 20:48 Dose: 10 mg Duloxetine HCl (Cymbalta Cap*) 60 mg PO DAILY [facility] Last Admin: 07/15/19 11:06 Dose: Not Given Magnesium Oxide (Magox 400 Tab*) 800 mg PO BID [facility] Last Admin: 07/15/19 20:48 Dose: 800 mg Melatonin (Melatonin) 3 mg PO BEDTIME [facility] Last Admin: 07/15/19 20:48 Dose: 3 mg Memantine (Namenda Xr *) 7 mg PO QAM [facility] Last Admin: 07/15/19 10:47 Dose: 7 mg Ondansetron HCl (Zofran Inj*) 4 mg IV Q6H PRN PRN Reason: NAUSEA Pantoprazole Sodium (Protonix Iv*) 40 mg IV DAILY [facility] Sucralfate (Carafate*) 1 gm PO BID [facility] Last Admin: 07/15/19 20:49 Dose: 1 gm Vital Signs - 8 hr 07/16/19 07/16/19 07/16/19 00:00 00:01 01:00 Temperature Pulse Rate 80 82 79 Respiratory 16 18 18 Rate Blood Pressure 118/68 108/68 (mmHg) O2 Sat by Pulse 93 94 94 Oximetry 07/16/19 07/16/19 07/16/19 02:00 03:00 03:18 Temperature Pulse Rate 79 83 78 Respiratory 21 18 17 Rate Blood Pressure 122/69 122/77 108/75 (mmHg) O2 Sat by Pulse 94 93 98 Oximetry 07/16/19 07/16/19 07/16/19 03:21 04:00 05:00 Temperature 99.3 F Pulse Rate 76 73 Respiratory 16 17 15 Rate Blood Pressure 114/76 111/73 (mmHg) O2 Sat by Pulse 92 93 Oximetry 07/16/19 07/16/19 07/16/19 05:30 06:00 07:00 Temperature Pulse Rate 74 78 77 Respiratory 24 19 16 Rate Blood Pressure 133/73 130/75 113/71 (mmHg) O2 Sat by Pulse 95 94 95 Oximetry 07/16/19 07/16/19 07:01 07:22 Temperature 99.4 F Pulse Rate 72 Respiratory 16 Rate Blood Pressure (mmHg) O2 Sat by Pulse 95 Oximetry Oxygen Devices in Use Now: None Appearance: NAD, lying flat Eyes: No Scleral Icterus, PERRLA Ears/Nose/Mouth/Throat: NL Teeth, Lips, Gums, Clear Oropharnyx Neck: NL Appearance and Movements; NL JVP Respiratory: Symmetrical Chest Expansion and Respiratory Effort, Clear to Auscultation Cardiovascular: NL Sounds; No Murmurs; No JVD, RRR Abdominal: - - tender in right lower and upper quadrants, +bs, ND Lymphatic: No Cervical Adenopathy Extremities: No Edema, - - warm Neurological: - - AOx1 to self, location - "I live here" cannot name year, names "Gaurang" as president of [place] Result Diagrams: 07/16/19 03:15 07/16/19 05:29 Microbiology and Other Data: Microbiology 07/14/19 01:05 Stool Occult Blood (KARIE) - Final Stool Assess/Plan/Problems-Billing Assessment: 78 yo F h/o dementia, HTN, diverticulosis pw BRBPR and reported dark stools in Dr. Morgan's note with stay complicated by large volume BRBPR and LOC, hypotension s/p EGD/ flex sig 07/16 now stable H/H and no additional bleeding - Patient Problems (1) GI hemorrhage Comment: Unclear that LOC night of 07/15 was shock since she recovered s/p low volume rescusitation EGD without bleeding. Flex sig with poor prep, blood but no active source identified Suspect diverticular bleed Change PPI gtt to once daily IV advance diet to soft Tranfer out of ICU but maintain tele to monitor HR for any early signs of rebleeding (2) Hypertension Comment: c/w low dose toprol to avoid rebound htn (3) Dementia Comment: namenda, aricept (4) DVT prophylaxis Comment: SCDs in setting of GI bleed
[2019-07-16] MEDS: Magnesium Oxide TAB* 400 MG PO SCH (09:07)
[2019-07-16] MEDS: Sucralfate TAB* 1 GM PO SCH (09:08)
[2019-07-16] MEDS: Memantine XR * 7 MG CAP.XR PO SCH (09:08)
[2019-07-16] MEDS: DULoxetine DR CAP* 30 MG CAP.DR PO SCH (09:08)
[2019-07-16] MEDS: Acetaminophen TAB* 325 MG PO PRN ×2 (11:36→17:49)
[2019-07-16] MEDS: Nitroglycerin TAB 0.4 MG* 0.4 MG TAB SL PRN ×2 (20:47→20:58)
[2019-07-16] MEDS ORDERED: Morphine INJ* 2 MG/ML 1 ML SYRINGE (TWO MG - NEW SYRINGE VERSION) IV PRN (20:55)
[2019-07-16] MEDS ORDERED: Sucralfate TAB* 1 GM PO SCH (21:00)
[2019-07-16] MEDS ORDERED: Aspirin TAB* 325 MG PO ONE (22:03)
[2019-07-16] MEDS ORDERED: NS 0.9% 1000 ML** 1,000 ML IV SCH (22:45)
--- NOTE | 2019-07-16 22:58 | PN ---
Hospitalist Progress Note Date of Service: 07/16/19 At approx 2100 RN Joann called to report patient c/o chest pain radiating to L arm. Ordered prn nitro and morphine. Ordered EKG and troponin. When troponin result was back and negative, called RN for update regarding chest pain. Chest pain was not resolved but patient was now c/o left arm numbness. Evaluated patient approx 2200. Eyes: perrl, sclerae anicteric, no nystagums, visual campbell full to confrontation Lungs: chest expansion symmetrical with resps Cardio: pulse regular and +3/4 in left radial; chest pain is reproducible upon palpation to sternum Neuro: patient answers questions appropriately and follows directions. alert. oriented to only self. neg romberg sign. sensation to light touch diminished throughout LLE and LUE. Strength 4/5 in LUE and LLE, LLE drifts against gravity. face symmetrical, speech clear. Called code chapin and patient was taken for CT brain. Given stable H&H, ordered 325 mg ASA. Called telestroke in [place], discussed with Dr. Wright. Given patient's GIB, she is not a tpa candidate. Recommends MRI brain w/i 24 hours, okay to permit hypertension to 180/100, neurochecks q4h. Ordered neurochecks, NS 50cc/hr, MRI brain
[2019-07-17] MEDS: Amoxicillin/Clavulanate TAB* 875 MG PO SCH ×3 (00:08→20:42)
[2019-07-17] MEDS: Atorvastatin* 20 MG TAB PO SCH ×2 (00:09→20:45)
[2019-07-17] MEDS: Melatonin 3 MG TAB PO SCH ×2 (00:10→20:45)
[2019-07-17] MEDS: Donepezil TAB* 5 MG PO SCH ×2 (00:10→20:41)
[2019-07-17] MEDS: Magnesium Oxide TAB* 400 MG PO SCH ×3 (00:38→20:41)
[2019-07-17] MEDS: Sucralfate TAB* 1 GM PO SCH ×3 (01:51→22:51)
[2019-07-17 07:11] LABS: ABS Eosinophils 0.2 10^3/ul (0-0.6); ABS Lymphocytes 1.4 10^3/ul (1.0-4.8); ABS Monocytes 0.4 10^3/ul (0-0.8); ABS Neutrophils 2.8 10^3/ul (1.5-7.7); Eosinophil % 3.8 %; Hematocrit 29 % (35-47); Hemoglobin 10.1 g/dL (12.0-16.0); Lymphocyte % 28.3 %; Mean Corpuscular HGB Conc 34 g/dL (31-36); Mean Corpuscular Hemoglobin 31 pg (27-31); Mean Corpuscular Volume 90 fL (80-97); Mean Platelet Volume 6.9 fL (7.4-10.4); Platelet Count 176 10^3/uL (150-450); Red Blood Count 3.25 10^6 /uL (3.70-4.87); Red Cell Distribution Width 13 % (10-15); White Blood Count 4.8 10^3/uL (3.5-10.8)
[2019-07-17 07:28] LABS: BUN/Creatinine Ratio 8.9 (8-20); Calcium 8.3 mg/dL (8.6-10.3); EGFR African American 85.2 (>60); EGFR Non-African American 70.4 (>60); Potassium 3.2 mmol/L (3.5-5.0)
[2019-07-17] MEDS ORDERED: Potassium Chlor TAB* 20 MEQ TAB.ER PO ONE (07:34)
[2019-07-17] MEDS: Pantoprazole IV* 40 MG IV SCH (07:53)
[2019-07-17] MEDS: DULoxetine DR CAP* 30 MG CAP.DR PO SCH (09:29)
[2019-07-17] MEDS: Memantine XR * 7 MG CAP.XR PO SCH (09:30)
[2019-07-17] MEDS: Acetaminophen TAB* 325 MG PO PRN ×2 (10:06→20:40)
--- NOTE | 2019-07-17 13:58 | PN ---
Subjective Date of Service: 07/17/19 Interval History: Events from overnight reviewed Chest pain that was reproducible to palpation and associated with non-ischemic EKG and normal limit troponin. Received morphine In early AM thought to have decreased (4/5) strength in left upper and lower limbs Code chapin called, not a candidate for tPA given bleed, CT head without bleed or stroke and MRI now pending This AM pt cannot remember all of the events from the night preceding Denies chest pain, SOB, LH, N/V paresthesias, weakness No additional bleeding for greater than 48 hrs Objective Active Medications: Acetaminophen (Tylenol Tab*) 650 mg PO Q6H PRN PRN Reason: MILD PAIN or TEMP > 100.4 Last Admin: 07/17/19 10:06 Dose: 650 mg Amoxicillin/Clavulanate Potassium (Augmentin Tab*) 875 mg PO BID [facility] Last Admin: 07/17/19 09:29 Dose: 875 mg Atorvastatin Calcium (Lipitor*) 20 mg PO BEDTIME [facility]; Protocol Last Admin: 07/17/19 00:09 Dose: 20 mg Donepezil HCl (Aricept Tab*) 10 mg PO BEDTIME [facility] Last Admin: 07/17/19 00:10 Dose: 10 mg Duloxetine HCl (Cymbalta Cap*) 60 mg PO DAILY [facility] Last Admin: 07/17/19 09:29 Dose: 60 mg Magnesium Oxide (Magox 400 Tab*) 800 mg PO BID [facility] Last Admin: 07/17/19 09:30 Dose: 800 mg Melatonin (Melatonin) 3 mg PO BEDTIME [facility] Last Admin: 07/17/19 00:10 Dose: 3 mg Memantine (Namenda Xr *) 7 mg PO QAM [facility] Last Admin: 07/17/19 09:30 Dose: 7 mg Nitroglycerin (Nitroglycerin Tab 0.4 Mg*) 0.4 mg SL Q5M PRN PRN Reason: ANGINA Last Admin: 07/16/19 20:58 Dose: 0.4 mg Ondansetron HCl (Zofran Inj*) 4 mg IV Q6H PRN PRN Reason: NAUSEA Last Admin: 07/16/19 21:08 Dose: 4 mg Pantoprazole Sodium (Protonix Iv*) 40 mg IV DAILY [facility] Last Admin: 07/17/19 07:53 Dose: 40 mg Sucralfate (Carafate*) 1 gm PO 0630,2100 [facility] Last Admin: 07/17/19 07:53 Dose: 1 gm Vital Signs - 8 hr 07/17/19 07/17/19 07/17/19 07:12 07:36 08:00 Temperature 98.0 F Pulse Rate 73 Respiratory 16 20 20 Rate Blood Pressure 119/78 (mmHg) O2 Sat by Pulse 99 Oximetry 07/17/19 07/17/19 07/17/19 11:20 12:49 13:05 Temperature 98.1 F 97.7 F 99.5 F Pulse Rate 71 77 72 Respiratory 18 24 20 Rate Blood Pressure 129/77 118/80 132/70 (mmHg) O2 Sat by Pulse 99 97 99 Oximetry Oxygen Devices in Use Now: None Appearance: NAD Eyes: No Scleral Icterus, PERRLA Ears/Nose/Mouth/Throat: NL Teeth, Lips, Gums, Clear Oropharnyx Neck: NL Appearance and Movements; NL JVP, Trachea Midline Respiratory: Symmetrical Chest Expansion and Respiratory Effort, Clear to Auscultation Cardiovascular: NL Sounds; No Murmurs; No JVD, RRR Abdominal: NL Sounds; No Tenderness; No Distention Lymphatic: No Cervical Adenopathy Extremities: No Edema, No Clubbing, Cyanosis Skin: No Rash or Ulcers Neurological: - - AOx2 to self and "hospital" bit not year, 5/5 strength throughout, no pronator drift, CN2-12 intact Result Diagrams: 07/17/19 06:40 07/17/19 06:40 Microbiology and Other Data: Microbiology 07/14/19 01:05 Stool Occult Blood (KARIE) - Final Stool Assess/Plan/Problems-Billing Assessment: 78 yo F h/o dementia, HTN, diverticulosis pw BRBPR and reported dark stools from Dr. Morgan's note with stay complicated by large volume BRBPR, hypotension s/p EGD/ flex sig 07/16 now stable H/H and no additional bleeding with stay complicated by 1 episode of chest pain and concern for CVA v TIA - Patient Problems (1) GI hemorrhage Comment: EGD without bleeding. 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
[2019-07-17] MEDS ORDERED: Simethicone TAB* 80 MG TAB.CHEW PO PRN (20:01)
[2019-07-17] MEDS ORDERED: Magnesium Hydroxide LIQ* 30 ML UDC PO PRN (20:02)
[2019-07-18 05:11] LABS: Hematocrit 29 % (35-47); Mean Corpuscular HGB Conc 35 g/dL (31-36); Mean Corpuscular Hemoglobin 32 pg (27-31); Mean Corpuscular Volume 91 fL (80-97); Red Blood Count 3.17 10^6 /uL (3.70-4.87); Red Cell Distribution Width 14 % (10-15); White Blood Count 5.3 10^3/uL (3.5-10.8)
[2019-07-18 05:19] LABS: BUN/Creatinine Ratio 7.2 (8-20); Calcium 8.7 mg/dL (8.6-10.3); EGFR African American 80.4 (>60); EGFR Non-African American 66.5 (>60); Potassium 3.7 mmol/L (3.5-5.0)
[2019-07-18 05:45] LABS: ABS Basophils 0.1 10^3/ul (0-0.2); ABS Eosinophils 0.3 10^3/ul (0-0.6); ABS Lymphocytes 1.7 10^3/ul (1.0-4.8); ABS Monocytes 0.4 10^3/ul (0-0.8); ABS Neutrophils 2.9 10^3/ul (1.5-7.7); Eosinophil % 5.2 %; Lymphocyte % 31.8 %; Mean Platelet Volume 7.8 fL (7.4-10.4); Platelet Count 182 10^3/uL (150-450)
[2019-07-18] MEDS: Sucralfate TAB* 1 GM PO SCH (06:59)
[2019-07-18] MEDS ORDERED: Aspirin 81 mg CHEW TAB* 81 MG TAB.CHEW PO SCH (09:00)
[2019-07-18] MEDS: DULoxetine DR CAP* 30 MG CAP.DR PO SCH (09:02)
[2019-07-18] MEDS: Memantine XR * 7 MG CAP.XR PO SCH (09:02)
[2019-07-18] MEDS: Amoxicillin/Clavulanate TAB* 875 MG PO SCH (09:02)
[2019-07-18] MEDS: Magnesium Oxide TAB* 400 MG PO SCH (09:03)
[2019-07-18] MEDS: Pantoprazole IV* 40 MG IV SCH (09:05)
[2019-07-18 09:16] VITALS: BP 128/71
--- NOTE | 2019-07-18 12:44 | DS ---
DISCHARGE SUMMARY: DATE OF ADMISSION: 07/14/19 DATE OF DISCHARGE: 07/18/19 ADMITTING PROVIDER: BEN Arredondo PRIMARY CARE PHYSICIAN: Miguel Angel Murphy MD ATTENDING PHYSICIAN ON THE DAY OF DISCHARGE: Gino Mancia MD CHIEF COMPLAINT: Bright red blood per rectum. PRINCIPAL DIAGNOSIS: Suspected diverticular bleed. 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 She presented with bright blood per rectum. Please see H&P for full details. The patient had abdominal pain and had been getting indomethacin for headaches. She complained of chronic constipation. The patient was found minimally responsive with a systolic blood pressure of 70 on 07/15/19, hospital day #2, a CAT call was teamed. She improved with placement of Trendelenburg, and after a few 100 cc of IV fluids, she was transported to the ICU and blood pressure was stabilized. She got 2 units of packed red blood cells. Hemoglobin on admission was 10.1 and at low was 8.8 around the time of that CAT call. She had EGD and flex sig with Dr. Ch of GI on 07/15/19. The complete upper endoscopy to the distal duodenum showed no signs of bleeding or blood. Flex sig demonstrated poor prep with a large amount of dark red blood throughout the colon, exam was nondiagnostic, but there was severe diverticulosis in the sigmoid colon. She was stabilized and eventually transferred out to the floor and her bowel movements normalized. She did have an episode on 06/1719, where after assessment for some chest discomfort which seemed reproducible, she was also noticed to have some left-sided weakness in upper and lower extremities and ananya kinsey was called. She had a CT head noncontrast which showed no acute intracranial abnormality, there were chronic microvascular ischemic changes. Tele- Neuro Stroke from [place] recommended a brain MRI that was eventually obtained, which also showed no acute infarction on restricted diffusion, otherwise diffuse involutional change with stable chronic small vessel ischemic changes. The patient was considered stable for discharge back to [facility]. Her hemoglobin has been stable for several days in the upper 9s to lower 10s, on discharge 10.0 over hematocrit of 29. She was started on Augmentin for group B strep in her urine and will complete a course of that. She is complaining of diffuse pains that are reproduced in her right chest, left upper arm. She did have a CT abdomen and pelvis which showed severe chronic diverticulosis without findings of acute diverticulitis. The appendix was not visualized, negative for inflammatory change in the region of sigmoid or right lower quadrant. No acute inflammatory process of the alimentary tract, this was on 07/14/19. This was with IV and oral contrast. DISCHARGE MEDICATIONS: Include: 1. Aspirin 81 mg daily. 2. Augmentin 875 mg p.o. b.i.d. continued for 6 more tabs. 3. Donepezil 10 mg p.o. at bedtime. 4. Cymbalta 60 mg p.o. daily. 5. Milk of magnesia 30 mL p.o. q.4 hours p.r.n. 6. Magnesium oxide 800 mg p.o. b.i.d. 7. Melatonin 2 mg p.o. at bedtime. 8. Namenda 7 mg p.o. q.a.m. 9. Crestor 10 mg p.o. bedtime. 10. Simethicone 80 mg p.o. q.6 hours p.r.n. for abdominal pain (new). 11. Carafate 1 g p.o. b.i.d. 12. Tylenol 650 mg p.o. q.6 hours p.r.n. 13. Amlodipine 5 mg p.o. daily. 14. Lasix 20 mg p.o. Tuesdays and Fridays at 9 a.m. 15. Sarna anti-itch lotion 1 topical b.i.d. p.r.n. 16. Metoprolol tartrate 12.5 mg p.o. 17. Protonix 40 mg p.o. at bedtime. 18. MiraLAX 17 g p.o. daily. DISCHARGE DIET: Heart healthy, unchanged. CONDITION: Improved. DISPOSITION: [facility]. FOLLOWUP: The patient should follow up with PCP, Dr. Murphy, within 2 weeks of discharge or other provider at [facility]. TIME SPENT ON DISCHARGE: 35 minutes. [id number]/[facility] #: [id number] [facility]Just[facility]
== END 2019-07-18 11:53 | DRG 378 ==
LOC: ED 12:24 → MED 15:13 → OBSVTOIN 15:13 → INTOOBSV 15:13 → MED 19:01 → ICU 07-15 06:22 → OBSVTOIN 07-15 11:00 → MED 07-16 09:55 → MEDTELE 07-17 13:02
PROVIDERS: ADMIT Internal Medicine; ATTEND Internal Medicine
PROC: 30233N1 Transfusion of Nonautologous Red Blood Cells into Peripheral Vein, Percutaneous Approach (ICD-10-PCS; principal; 2019-07-15)
PROC: 0DJD8ZZ Inspection of Lower Intestinal Tract, Via Natural or Artificial Opening Endoscopic (ICD-10-PCS; 2019-07-15)
PROC: 0DJ08ZZ Inspection of Upper Intestinal Tract, Via Natural or Artificial Opening Endoscopic (ICD-10-PCS; 2019-07-15)
DX: K57.31 Diverticulosis of large intestine without perforation or abscess with bleeding (principal); D62 Acute posthemorrhagic anemia; N39.0 Urinary tract infection, site not specified; G45.9 Transient cerebral ischemic attack, unspecified; B95.1 Streptococcus, group B, as the cause of diseases classified elsewhere; I11.0 Hypertensive heart disease with heart failure; I71.2 Thoracic aortic aneurysm, without rupture; I27.20 Pulmonary hypertension, unspecified; I50.9 Heart failure, unspecified; I95.9 Hypotension, unspecified; R07.9 Chest pain, unspecified; R55 Syncope and collapse; E05.20 Thyrotoxicosis with toxic multinodular goiter without thyrotoxic crisis or storm; F03.90 Unspecified dementia, unspecified severity, without behavioral disturbance, psychotic disturbance, mood disturbance, and anxiety; K21.9 Gastro-esophageal reflux disease without esophagitis; K44.9 Diaphragmatic hernia without obstruction or gangrene; F41.9 Anxiety disorder, unspecified; F32.9 Major depressive disorder, single episode, unspecified; E78.5 Hyperlipidemia, unspecified; K59.00 Constipation, unspecified; Z79.1 Long term (current) use of non-steroidal anti-inflammatories (NSAID); Z79.82 Long term (current) use of aspirin; Z79.899 Other long term (current) drug therapy; Z82.49 Family history of ischemic heart disease and other diseases of the circulatory system; Z83.3 Family history of diabetes mellitus
CPT/HCPCS: 36415; 70450; 70551; 74177; 80048; 80053; 81003; 81015; 82272; 83605; 83690; 83735; 84484; 85014; 85018; 85025; 85610; 85730; 86140; 86850; 86900; 86901; 86922; 87077; 87086; 93005; 99156; 99283; A9270-GY; J2250; J2270; J2405; J3010; P9040; Q9967

== ENCOUNTER 2019-11-04 08:58 | Emergency (ER) | payer MEDICARE ==
--- NOTE | 2019-11-04 09:02 | ED ---
HPI Chest Pain - HPI Summary HPI Summary: STEMI alert activated by EMS and overhead called at 0851, ETA 3 minutes. This pt is a 78 y/o female presenting to [facility] via EMS for chest pain that began 4 hours ago at around 5 am today. Pt describes chest pain on the left side of her chest that wraps around her back. Additionally reports left arm numbness. EMS states blood pressure of 119/81. PMHx: heart failure with EF of 45-50%, HTN, thoracic aortic aneurysm. Pt denies hx of bypass surgery or stents. Dr. Ngo immediately at bedside upon patient's arrival to the ED. After his assessment and 12 lead EKG, Dr. Ngo determines there is no STEMI and cancels STEMI alert. - History of Current Complaint Hx Obtained From: Patient, EMS Onset/Duration: Started Hours Ago, Still Present Timing: Lasting Hours Current Severity: Moderate Chest Pain Location: Left Anterior Chest Pain Radiates: Yes Chest Pain Radiates To:: Back Aggravating Factor(s): Nothing Alleviating Factor(s): Nothing Associated Signs and Symptoms: Positive: Chest Pain, Numbness - on left arm. Negative: Fever, Chills - Additional Pertinent History Primary Care Physician: [id number] - Allergy/Home Medications Allergies/Adverse Reactions: Allergies Allergy/AdvReac Type Severity Reaction Status Date / Time No Known Allergies Allergy Verified 01/18/19 10:48 Home Medications: Home Medications Aspirin/Acetaminophen/Caffeine [Excedrin Migraine Caplet] 2 each PO DAILY PRN [History Confirmed 11/04/19] Atorvastatin* [Lipitor*] 20 mg PO QPM 11/04/19 [History Confirmed 11/04/19] Naproxen TAB* [Naprosyn 250 mg TAB*] 250 mg PO BID 11/04/19 [History Confirmed 11/04/19] amLODIPine TAB* [Norvasc 5 mg TAB*] 10 mg PO DAILY 11/04/19 [History Confirmed 11/04/19] PMH/Surg Hx/FS Hx/Imm Hx Endocrine/Hematology History: Reports: Other Endocrine/Hematological Disorders - thyroid nodule Denies: Hx Diabetes, Hx Anemia Cardiovascular History: Reports: Hx Angina, Hx Hypertension - on meds, Other Cardiovascular Problems/Disorders - valve repair Denies: Hx Hypercholesterolemia, Hx Pacemaker/ICD, Hx Peripheral Vascular Disease Respiratory History: Denies: Hx Chronic Obstructive Pulmonary Disease (COPD) GI History: Reports: Hx Diverticulosis, Hx Gastroesophageal Reflux Disease, Hx Ulcer Denies: Hx Jaundice History: Denies: Hx Renal Disease Sensory History: Reports: Hx Cataracts Denies: Hx Contacts or Glasses, Hx Hearing Aid Opthamlomology History: Reports: Hx Cataracts Denies: Hx Contacts or Glasses Neurological History: Reports: Hx Dementia, Hx Headaches, Other Neuro Impairments/Disorders - repeated head injuries Denies: Hx CVA, Hx Seizures Psychiatric History: Denies: Hx Anxiety, Hx Panic Disorder - Surgical History Surgery Procedure, Year, and Place: left breast lumpectomy,. tubal ligation,. varicose vein stripping,. cardiac - leaky valve repair; HEART CATH WITH CARDIAC STENTS 10 YRS OR MORE, Hx Anesthesia Reactions: No - Immunization History Date of Tetanus Vaccine: up to date Date of Influenza Vaccine: 2015 Infectious Disease History: Reports: Hx Shingles - at age 14 Denies: History Other Infectious Disease - Family History Known Family History: Negative: Cardiac Disease, Hypertension, Diabetes Family History: Denies FHx colon CA - Social History Alcohol Use: None Hx Substance Use: No Substance Use Type: Reports: None Hx Tobacco Use: No Smoking Status (MU): Never Smoked Tobacco Review of Systems Negative: Fever Positive: Chest Pain Positive: Numbness - left arm All Other Systems Reviewed And Are Negative: Yes Physical Exam - Summary Physical Exam Summary: GENERAL: Patient is a well-developed and nourished female who is lying comfortable in the stretcher. Patient is not in any acute respiratory distress. HEAD AND FACE: No signs of trauma. No ecchymosis, hematomas or skull depressions. No sinus tenderness. EYES: PERRLA, EOMI x 2, No injected conjunctiva, no nystagmus. EARS: Hearing grossly intact. Ear canals and tympanic membranes are within normal limits. MOUTH: Oropharynx within normal limits. NECK: Supple, trachea is midline, no adenopathy, no JVD, no carotid bruit, no c- spine tenderness, neck with full ROM. CHEST: Symmetric, reproducible chest pain on the left LUNGS: Clear to auscultation bilaterally. No wheezing or crackles. CVS: Regular rate and rhythm, S1 and S2 present, no murmurs or gallops appreciated. ABDOMEN: Soft, non-tender. No signs of distention. No rebound no guarding, and no masses palpated. Bowel sounds are normal. EXTREMITIES: FROM in all major joints, no edema, no cyanosis or clubbing. NEURO: Alert and oriented x 3. No acute neurological deficits. Speech is normal and follows commands. SKIN: Dry and warm Triage Information Reviewed: Yes Vital Signs Reviewed: Yes Procedures - Sedation Patient Received Moderate/Deep Sedation with Procedure: No Diagnostics - Laboratory Result Diagrams: 11/04/19 09:20 11/04/19 09:20 Lab Statement: Any lab studies that have been ordered have been reviewed, and results considered in the medical decision making process. - Radiology Chest XR Radiology Interpretation Completed By: Radiologist Summary of Radiographic Findings: IMPRESSION: 1. No acute cardiopulmonary process by radiograph. 2. Unchanged tortuous descending aorta. Dr. Nation has reviewed this report. - EKG 09:01 Cardiac Rate: NL - at 64 bpm EKG Rhythm: Sinus Rhythm EKG Comparison: No Significant Change - similar to prior EKG on 07/16/19. Summary of EKG Findings: EKG at 0901 shows normal sinus rhythm at a rate of [address] elevations. Similar to previous EKG on 07/16/19. 11:42 Cardiac Rate: NL - at 62 bpm EKG Rhythm: Sinus Rhythm Summary of EKG Findings: EKG at 1142 shows normal sinus rhythm at a rate of [address] elevations. Chest Pain Course/Dx - Course Assessment/Plan: This pt is a 78 y/o female presenting to [facility] via EMS for chest pain that began 4 hours ago at around 5 am today. Pt describes chest pain on the left side of her chest that wraps around her back. Additionally reports left arm numbness. EMS states blood pressure of 119/81. PMHx: heart failure with EF of 45-50%, HTN, thoracic aortic aneurysm. Pt denies hx of bypass surgery or stents. Blood test results without any significant abnormality except for creatinine 0.99, BNP 101, urinalysis is negative for UTI. first troponin is 0.00. Chest x-ray impression: No acute cardiopulmonary process. Unchanged tortuous descending. Once the patient was in the ED the patients symptoms resolved. The patient was asymptomatic at this point. After the blood work the patient did develop again another episode of chest pain for which we did a second EKG and is unchanged from previous. Patient was given nitroglycerin without any improvement of symptoms. Patient was given [place] and the symptoms subsided. At this point the patient reports no pain. Second troponin is 0.00. Heart Score is 3. Since the patient is asymptomatic, two troponins are negative, and the heart score is only 3 I believe the patient can be discharged home with follow-up from her primary care physician. Patient is hemodynamically stable, alert and oriented 3. I discussed all the findings and test results with the patient. Patient was instructed to return to the emergency room immediately if any of the symptoms return worsens. Plan of care was discussed with the patient and understands and agrees. All questions were answered at patient satisfaction. There were no further complaints or concerns. Lung exam before discharge: CTA B/L. Good air exchange. No wheezing or crackles heard. CVS: S1 and S2 present. No murmurs appreciated. Patient is alert and oriented x 3. Patient is hemodynamically stable. Patient will be discharged home with follow up from her PCP in the next 2-3 days. - Chest Pain Differential Diagnosis/HQI/PQRI: Acute IN, ACS, Angina, CHF, Chest Wall, GI Disease, Lower Respiratory Infection, Pulmonary Edema - Diagnoses Provider Diagnoses: Atypical chest pain During the Visit The Following Alert/Code Occurred: STEMI - activated by EMS and overhead called at 0851, ETA 3 minutes. STEMI cancelled by Dr. Ngo upon assessment and 12 lead EKG. Discharge ED - Sign-Out/Discharge Documenting (check all that apply): Patient Departure - Discharge home - Discharge Plan Condition: Stable Disposition: HOME Patient Education Materials: Chest Pain (ED) Referrals: Miguel Angel Murphy MD [Primary Care Provider] - Additional Instructions: FOLLOW UP WITH YOUR PRIMARY CARE PROVIDER IN 2-3 DAYS. RETURN TO THE EMERGENCY DEPARTMENT FOR ANY WORSENING OR NEW SYMPTOMS. - Billing Disposition and Condition Condition: STABLE Disposition: Home - Attestation Statements Document Initiated by Tulio: Yes Documenting Brendaibmanda: Brandi Faulkner Provider For Whom Tulio is Documenting (Include Credential): Satnam Nation MD Scribe Attestation: Brandi Moreno scribed for Satnam Nation MD on 11/06/19 at 0916. Scribe Documentation Reviewed: Yes Provider Attestation: The documentation as recorded by the Brandi calvillo accurately reflects the service I personally performed and the decisions made by me, Satnam Nation MD Status of Scribe Document: Viewed
--- OUTSIDE RECORDS SUMMARY | 2019-11-04 09:06 | XMS REPORT | Continuity of Care Document ---
:1940 External Reference #:[id number] Author Name BEN Hargrove Address [address] [place] [address] Care Team Providers Name Role Phone Brannon Frazier MD - Care Team Information Attendant [employer] [phone] Cardiovascular Disease Tremaine Mazariegos - Urology Care Team Information Attendant [employer] [phone] Miguel Angel Murphy MD - Family Medicine Care Team Information Attendant [employer] [facility] - Care Team Information Attendant [employer] [phone] Gastroenterology Problems Active Problems Provider Date Essential hypertension [...] hyperlipidemia Miguel Angel Murphy M.D. Onset: 05/19/2018 Social History Type Date Description Comments Sex Unknown Tobacco Use Start: Unknown Nonsmoker Tobacco Use Start: Unknown Patient has never smoked Smoking Status Reviewed: 10/03/19 Patient has never smoked Allergies, Adverse Reactions, Alerts Active Allergies Reaction Severity Comments Date Cozaar couldn't tolerate 05/06/2010 Medications Active Medications SIG Qnty Indications Ordering Date Provider Toprol XL 1/2 by mouth bid 90tabs Miguel Angel Murphy, 10/03/2019 25mg Tablets M.D. ER 24HR Miralax 17gm /per day 1530gm 564.09 Miguel Angel Murphy, 10/03/2019 3350NF Powder mixed w/ juice or M.D. water Lasix 1 by mouth 2x 32tabs Miguel Angel Murphy, 09/21/2019 20mg Tablets week, take on M.D. tues and fri Pantoprazole Sodium take 1 tablet by 90tabs K21.9 Miguel Angel Murphy, 2018 mouth every day M.D. 40mg Tablets Sucralfate take 1 tablet by 120tabs Miguel Angel Murphy, 02/02/2019 1gm Tablets mouth before M.D. meals Memantine HCL ER take 1 capsule by 90caps F03.91 Miguel Angel Murphy, 2018 7mg mouth every day M.D. Caps ER 24HR Rosuvastatin Calcium take 1 tablet by 90tabs Miguel Angel Murphy, 05/21/2018 mouth every day M.D. 10mg Tablets Indomethacin 1 by mouth 180caps M10.9 Miguel Angel Murphy, 01/11/2018 25mg morning and night M.D. Capsules Duloxetine HCL take 1 capsule by 90caps Miguel Angel Murphy, 12/03/2016 60mg mouth every day M.D. Caps DR Smith Amlodipine Besylate take 1 tablet by 90tabs Miguel Angel Murphy, mouth every day M.D. 10mg Tablets Aspirin Chew 1 Tablet By 90units Miguel Angel Murphy, 81mg Chewtabs Mouth Every Day M.D. Donepezil HCL 1 by mouth every 90tabs Miguel Angel Murphy, 5mg day M.D. Tablets Tylenol take 2 Unknown 325mg Tablets tablets(650mg) by mouth every 4 hours as needed for pain Excedrin Migraine 2 tablets every 8 Unknown hours as needed [phone] Tablets for headache Magnesium Oxide -MG 2 by mouth bid Unknown Supplement 400mg Capsules History Medications Magnesium Oxide 2 by mouth bid 120caps Miguel Angel Murphy, 10/03/2019 - 400mg M.D. 10/03/2019 Capsules Magnesium 1 by mouth every Miguel Angel Murphy, 10/03/2019 - 400mg day M.D. 10/03/2019 Tablets Immunizations CPT Code Status Date Vaccine Reaction Lot # [id number] Given 09/03/2018 Influenza Vac, Quadriv[place], [place] [id number] Given 07/16/2016 High-Dose, Influenza Virus Vacccine-fluzone 65 and older 15436 Given 07/26/2015 Pneumococcal Conjugate Vacc-13 62228 Given 06/14/2015 Pneumococcal Conjugate Vacc-13 [id number] Given 08/11/2014 High-Dose, Influenza Virus [id number] Vacccine-fluzone 65 and older 29180 Given 08/11/2013 DO Not Use Split Influenza Virus Vaccine 66641 Given 11/13/2010 DO Not Use Split Influenza Virus [id number] Vaccine 49726 Given 10/04/2008 Pneumococcal Immunization [id number] 79830 Given 10/04/2008 DO Not Use Split Influenza Virus [id number] Vaccine 46808 Given 09/30/2006 DO Not Use Split Influenza Virus TCHD Vaccine Vital Signs Date Vital Result Comment 10/03/2019 10:52am BP Systolic 130 mmHg BP Diastolic 80 mmHg Heart Rate 84 /min Body Temperature 97.2 F Height 62 inches 5'2" Weight 183.00 lb BMI (Body Mass Index) 33.5 kg/m2 03/18/2019 11:00am BP Systolic 98 mmHg BP Diastolic 50 mmHg Heart Rate 56 /min Body Temperature 98.9 F Respiratory Rate 17 /min O2 % BldC Oximetry 92 % Ra Height 62 inches 5'2" Weight 185.00 lb BMI (Body Mass Index) 33.8 kg/m2 Results Test Date Facility Test Result H/L Range Note Laboratory test 07/14/2019 [facility] Partial 28.7 seconds Normal 26.0-38.0 finding Thrombo Time PTT Inr/Protime 07/14/2019 [facility] [place] 1.03 Normal 0.82-1.09 1 Stool Occult 07/14/2019 [facility] [place] Stool Occult SEE RESULT 2 Blood Diag Blood, Diag BELOW Laboratory test 07/14/2019 [facility] [place] Packed Cells SEE RESULTS 3, 4 finding BELO <SEE NOTE> Type & Screen 07/14/2019 [facility] [place] Patient Blood B Positive Type Antibody Screen NEGATIVE Urine Culture And Sensitivities 07/14/2019 [facility] [place] Urine Culture SEE RESULT BELOW 5 Urinalysis Profile 07/14/2019 [facility] [place] Urine Color Yellow Urine Appearance Cloudy Urine Specific [place] 1.033 High 1.010-1.030 Urine pH 5.0 Normal 5-9 Urine Urobilinogen Negative Negative Urine Ketones Negative Negative Urine Protein Negative Negative Urine Leukocytes 2+ Abnormal Negative Urine Blood Negative Negative * * Abnormal Negative 6 Urine Nitrite Negative Negative Urine Bilirubin Negative Negative Urine Glucose Negative Negative Urine White Blood Cell 1+(6-10/hpf) Abnormal Absent Urine Red Blood Cell Absent Absent Urine Bacteria Absent Absent Urine Squamous Epithelial Cell Present Abnormal Absent CBC Auto Diff 07/14/2019 [facility] [place] White Blood Count 4.2 10^3/uL Normal 3.5- 10.8 Red Blood Count 3.31 10^6/uL Low 3.70-4.87 Hemoglobin 10.1 g/dL Low 12.0-16.0 Hematocrit 30 % Low 35-47 Mean Corpuscular Volume 91 fL Normal 80-97 Mean Corpuscular Hemoglobin 30 pg Normal 27-31 Mean Corpuscular HGB Conc 34 g/dL Normal 31-36 Red Cell Distribution Width 13 % Normal 10-15 Platelet Count 205 10^3/uL Normal 150-450 7 Abs Neutrophils 2.0 10^3/uL Normal 1.5-7.7 Abs Lymphocytes 1.7 10^3/uL Normal 1.0-4.8 Abs Monocytes 0.3 10^3/uL Normal 0-0.8 Abs Eosinophils 0.1 10^3/uL Normal 0-0.6 Abs Basophils 0.0 10^3/uL Normal 0-0.2 Abs Nucleated RBC 0.0 10^3/uL Granulocyte % 48.3 % Lymphocyte % 41.0 % Monocyte % 7.1 % Eosinophil % 2.4 % Basophil % 1.2 % Nucleated Red Blood Cells % 0.1 Type & Screen 07/14/2019 [facility] [place] Patient Blood Type B Positive Antibody Screen NEGATIVE Laboratory test finding 07/14/2019 [facility] [place] Magnesium 2.0 mg/dL Normal 1.9- 2.7 Lipase 30 U/L Normal 11.0-82.0 C Reactive Protein < 1.00 mg/L Normal <8.01 Comp Metabolic Panel 07/14/2019 [facility] [place] Sodium 141 mmol/L Normal 135-145 Potassium 4.3 mmol/L Normal 3.5-5.0 Chloride 109 mmol/L Normal 101-111 Co2 Carbon Dioxide 28 mmol/L Normal 22-32 Anion Gap 4 mmol/L Normal 2-11 Glucose 110 mg/dL High 70-100 Blood Urea Nitrogen 21 mg/dL Normal 6-24 Creatinine 0.84 mg/dL Normal 0.51-0.95 BUN/Creatinine Ratio 25.0 High 8-20 Calcium 8.6 mg/dL Normal 8.6-10.3 Total Protein 6.0 g/dL Low 6.4-8.9 Albumin 3.7 g/dL Normal 3.2-5.2 Globulin 2.3 g/dL Normal 2-4 Albumin/Globulin Ratio 1.6 Normal 1-3 Total Bilirubin 0.40 mg/dL Normal 0.2-1.0 Alkaline Phosphatase 63 U/L Normal 34-104 Alt 11 U/L Normal 7-52 Ast 17 U/L Normal 13-39 Egfr Non- 65.6 >60 Egfr 79.3 >60 8 Laboratory test finding 07/14/2019 [facility] [place] Lactic Acid 1.4 mmol/L Normal 0.5- 2.0 9 Comp Metabolic Panel 06/30/2019 [facility] [place] Sodium 143 mmol/L Normal 135-145 Chloride 105 mmol/L Normal 101-111 Co2 Carbon Dioxide 31 mmol/L Normal 22-32 Glucose 89 mg/dL Normal 70-100 Blood Urea Nitrogen 13 mg/dL Normal 6-24 Creatinine 1.00 mg/dL High 0.51-0.95 BUN/Creatinine Ratio 13.0 Normal 8-20 Calcium 9.7 mg/dL Normal 8.6-10.3 Total Protein 7.3 g/dL Normal 6.4-8.9 Albumin 4.4 g/dL Normal 3.2-5.2 Globulin 2.9 g/dL Normal 2-4 Albumin/Globulin Ratio 1.5 Normal 1-3 Total Bilirubin 0.30 mg/dL Normal 0.2-1.0 Alkaline Phosphatase 79 U/L Normal 34-104 Alt 13 U/L Normal 7-52 Ast 19 U/L Normal 13-39 Egfr Non- 53.6 >60 Egfr 64.9 >60 10 Potassium 5.2 mmol/L High 3.5-5.0 Anion Gap 7 mmol/L Normal 2-11 Laboratory test 06/30/2019 [facility] [place] TSH (Thyroid Stim 0.66 mcIU/mL Normal 0.34 -5.60 11 finding Horm) Free T4 (Free Thyroxine) 0.88 ng/dL Normal 0.61-1.12 12 Vitamin B12 155 pg/mL Low 180-914 13 Folic Acid (Folate) 7.03 ng/mL >3.99 14 Laboratory test finding 04/22/2019 [facility] [place] Troponin I 0.00 ng/mL <0.04 15 Lipid Profile (Trig/Chol/HDL) 04/22/2019 [facility] [place] Triglycerides 52 mg/dL 16 Cholesterol 125 mg/dL 17 HDL Cholesterol 54.4 mg/dL 18 LDL Cholesterol 60 mg/dL 19 CBC Auto Diff 04/21/2019 [facility] [place] White Blood Count 4.4 10^3/uL Normal 3.5- 10.8 Red Blood Count 3.78 10^6/uL Normal 3.70-4.87 Hemoglobin 11.6 g/dL Low 12.0-16.0 Hematocrit 35 % Normal 35-47 Mean Corpuscular Volume 92 fL Normal 80-97 Mean Corpuscular Hemoglobin 31 pg Normal 27-31 Mean Corpuscular HGB Conc 34 g/dL Normal 31-36 Red Cell Distribution Width 14 % Normal 10.5-15 Platelet Count 205 10^3/uL Normal 150-450 Mean Platelet Volume 7.4 fL Normal 7.4-10.4 Abs Neutrophils 1.7 10^3/uL Normal 1.5-7.7 Abs Lymphocytes 2.0 10^3/uL Normal 1.0-4.8 Abs Monocytes 0.4 10^3/uL Normal 0-0.8 Abs Eosinophils 0.2 10^3/uL Normal 0-0.6 Abs Basophils 0.1 10^3/uL Normal 0-0.2 Abs Nucleated RBC 0.0 10^3/uL Granulocyte % 39.9 % Lymphocyte % 45.6 % Monocyte % 9.4 % Eosinophil % 3.8 % Basophil % 1.3 % Nucleated Red Blood Cells % 0.1 Comp Metabolic Panel 04/21/2019 [facility] [place] Sodium 139 mmol/L Normal 135-145 Potassium 4.1 mmol/L Normal 3.5-5.0 Chloride 106 mmol/L Normal 101-111 Co2 Carbon Dioxide 27 mmol/L Normal 22-32 Anion Gap 6 mmol/L Normal 2-11 Glucose 103 mg/dL High 70-100 Blood Urea Nitrogen 18 mg/dL Normal 6-24 Creatinine 0.98 mg/dL High 0.51-0.95 BUN/Creatinine Ratio 18.4 Normal 8-20 Calcium 9.1 mg/dL Normal 8.6-10.3 Total Protein 6.5 g/dL Normal 6.4-8.9 Albumin 3.9 g/dL Normal 3.2-5.2 Globulin 2.6 g/dL Normal 2-4 Albumin/Globulin Ratio 1.5 Normal 1-3 Total Bilirubin 0.30 mg/dL Normal 0.2-1.0 Alkaline Phosphatase 61 U/L Normal 34-104 Alt 9 U/L Normal 7-52 Ast 16 U/L Normal 13-39 Egfr Non- 54.9 >60 Egfr 66.4 >60 20 Laboratory test finding 04/21/2019 [facility] [place] Troponin I 0.00 ng/mL <0.04 21 TSH (Thyroid Stim Horm) 1.44 mcIU/mL Normal 0.34-5.60 1 Standard intensity warfarin therapeutic range: 2.0-3.0 High intensity warfarin therapeutic range: 2.5-3.5 2 SEE RESULT BELOW Name: YAEL CRESPO : [address]: Satnam Nation MD Acct: [id number] Unit: [id number] AGE: 78 Location: ED Re07/14/19 SEX: F Status: REG ER SPEC: [id number] ISAÍAS: 07/14/19-104 [facility] DR: Satnam Nation MD REQ: [id number] RECD: 07/14/19 STATUS: COMP MIKE DR: Miguel Angel Murphy MD _ SOURCE: STOOL SPDESC: ORDERED: Occult Bl, Diag Procedure Result Reported Site Stool Occult Blood (1) Final 07/14/19- 1316 ML Stool Occult Blood Positive * ML - Main Lab . END OF REPORT DEPARTMENT OF PATHOLOGY, [address] [place] [address] Madi Ferguson M.D. Director [facility] # [id number] 3 RECTAL BLEED PER EMS 4 SEE RESULTS BELOW [id number] BP PC TRANSFUSED 07/15/19 0542 [id number] BP PC TRANSFUSED 07/15/19 0900 5 SEE RESULT BELOW Name: YAEL CRESPO : [address]: Eric Bernal MD Acct: [id number] Unit: [id number] AGE: 78 Location: [place] [address] Re07/14/19 SEX: F Status: ADM IN SPEC: [id number] ISAÍAS: 07/14/19 [facility] DR: Satnam Nation MD REQ: [id number] RECD: 07/14/19 STATUS: HUMBERTO MCKEON DR: Miguel Angel Murphy MD _ SOURCE: URINE SPDESC: ORDERED: Urine Culture Procedure Result Reported Site Urine Culture Final 07/16/19- 1107 ML Organism 1 STREP GROUP B [place] Count >100,000 (Many) CFU/ML Susceptibility testing of penicillins and other B-lactams approved by FDA for treatment of Streptococcus pyogenes (Group A Strep) and Streptococcus agalactiae (Group B Strep) is not necessary for clinical purposes and need not be done routinely, since as with vancomycin, resistant strains have not been recognized. (CLSI S271-D35;p.66) Positive isolates will be saved for one week. Please call the Microbiology Laboratory if further susceptibility testing is needed. * ML - Main Lab . END OF REPORT DEPARTMENT OF PATHOLOGY, [address] [place] [address] Madi Ferguson M.D. Director [facility] # [id number] 6 *Ascorbic acid is present which may interfere with detection of blood. 7 Platelet count confirmed by estimate 8 Because ethnic data is not always readily [...] 15-29 5 Kidney failure <15 (or dialysis) 9 [facility] Severe Sepsis and Septic Shock Management Bundle Measure requires all lactic acids initially measuring >2.0 mmol/L be repeated. 10 Because ethnic data is not always readily [...] 15-29 5 Kidney failure <15 (or dialysis) 11 Copy Result to: MIGUEL ANGEL MURPHY ([id number]) 12 Copy Result to: MIGUEL ANGEL MURPHY ([id number]) 13 Normal Range 180 to 914 Indeterminate Range 145 to 180 Deficient Range <145 14 Copy Result to: MIGUEL ANGEL MURPHY ([id number]) 15 Troponin-I testing on Plasma Separator Tubes (PST) has a known false positive rate of 0.20-0.40%. All positive troponins reflex immediately to secondary confirmatory testing. Using the [employer] 800 Access Immunoassay systems, the 99th percentile upper reference limit was demonstrated to be < 0.03 ng/mL. 16 Desirable: <150 Borderline High: 150-199 High: 200-499 Very High: >500 17 Desirable: <200 Borderline High: 200-239 High: >239 18 Low: <40 Desirable: 40-60 High: >60 19 Desirable: <100 Near Optimal: 100-129 Borderline High: 130-159 High: 160-189 Very High: >189 20 Because ethnic data is not always [...] 5 Kidney failure <15 (or dialysis) 21 Troponin-I testing on Plasma Separator Tubes (PST) has a known false positive rate of 0.20-0.40%. All positive troponins reflex immediately to secondary confirmatory testing. Using the [employer] 800 Access Immunoassay systems, the 99th percentile upper reference limit was demonstrated to be < 0.03 ng/mL. Procedures Date Code Description Status 10/31/2015 [id number] Mammogram Completed 12/31/2012 [id number] Colonoscopy Completed 11/30/2012 [id number] Mammogram Completed 03/29/2010 [id number] Mammogram Completed 10/24/2008 [id number] Mammogram Completed Medical Devices Description No Information Available Encounters Description No Information Available Assessments Date Code Description Provider 10/03/2019 I50.21 Acute systolic (congestive) heart failure BEN Hargrove 10/03/2019 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 BEN Hargrove 10/03/2019 K21.9 Gastro-esophageal reflux disease without BEN Hargrove esophagitis Plan of Treatment Future Appointment(s):11/08/2019 10:20 am - Miguel Angel [facility] M.D[facility]10/03/2019 - Meli Krishnamurthy, PAI50.21 Acute systolic (congestive) heart failureNew Labs:CBC Electronic-ALL Lab Compani, Ordered: 10/03/19CCS-Comp Metabolic (Fma) Femal, Ordered: 10/03/19Comments:[facility] Murphy within the szfxiS38.91 Unspecified dementia with behavioral disturbanceComments:See Dr. muhammad for follow up ASAPK21.9 Gastro-esophageal reflux disease without esophagitisAllNew Medication: Toprol XL 25 mg - 1/2 by mouth bidMiralax 3350 NF - 17gm /per day mixed w/ juice or waterMagnesium Oxide 400 mg - 2 by mouth bidMagnesium 400 mg - 1 by mouth every dayComments:PCMHMedication Management Patient Understands medications he's taking? Yes Are there Barriers to Adherence? No Has the patient been asked about herbal supplements and therapies, and OTC meds ? Yes Care Plan1. Patient has been queried about patient's goals/ preferences and functional/lifestyle goals at relevant visits. Yes If relevant, describe: N/A2. Treatment goals as explained to the patient: above3. Are there barriers to meeting treatment goals? No If Yes, please describe:4. Self-Management goals as described to the patient: Yes As always, we strongly encourage a healthy diet and making physical activity a part of your every day life. If you have questions about how or where to start, please contact the office. Functional Status Description No Information Available Mental Status Description No Information Available Referrals Description No Information Available
[2019-11-04 09:27] LABS: ABS Eosinophils 0.1 10^3/ul (0-0.6); ABS Lymphocytes 1.4 10^3/ul (1.0-4.8); ABS Monocytes 0.3 10^3/ul (0-0.8); ABS Neutrophils 1.7 10^3/ul (1.5-7.7); Eosinophil % 2.5 %; Hematocrit 37 % (35-47); Hemoglobin 12.5 g/dL (12.0-16.0); Lymphocyte % 38.9 %; Mean Corpuscular HGB Conc 34 g/dL (31-36); Mean Corpuscular Hemoglobin 29 pg (27-31); Mean Corpuscular Volume 87 fL (80-97); Mean Platelet Volume 6.9 fL (7.4-10.4); Platelet Count 264 10^3/uL (150-450); Red Blood Count 4.28 10^6 /uL (3.70-4.87); Red Cell Distribution Width 15 % (10-15); White Blood Count 3.5 10^3/uL (3.5-10.8)
[2019-11-04 09:37] LABS: Activated Partial Thrombo Time 32.5 seconds (26.0-38.0); INR 0.98 (0.82-1.09)
[2019-11-04 09:52] LABS: Albumin 4.1 g/dL (3.2-5.2); Albumin/Globulin Ratio 1.5 (1-3); BUN/Creatinine Ratio 13.1 (8-20); Calcium 9.1 mg/dL (8.6-10.3); EGFR African American 65.6 (>60); EGFR Non-African American 54.2 (>60); Globulin 2.7 g/dL (2-4); Magnesium 2.2 mg/dL (1.9-2.7); Potassium 4.3 mmol/L (3.5-5.0); Total Bilirubin 0.3 mg/dL (0.2-1.0); Total Protein 6.8 g/dL (6.4-8.9)
[2019-11-04 09:54] LABS: Urine Appearance Clear; Urine Bilirubin Negative (Negative); Urine Blood Negative (Negative); Urine Color Straw; Urine Glucose Negative (Negative); Urine Ketones Negative (Negative); Urine Nitrite Negative (Negative); Urine Protein Negative (Negative); Urine Specific Gravity 1.006 (1.010-1.030); Urine Urobilinogen Negative (Negative)
[2019-11-04 09:56] LABS: Urine Bacteria Absent (Absent); Urine Red Blood Cell Trace(0-2/hpf) (Absent); Urine Squamous Epithelial Cell Present (Absent); Urine White Blood Cell Trace(0-5/hpf) (Absent)
[2019-11-04 09:56] LABS: CKMB ng/mL 0.9 ng/mL (0.6-6.3)
[2019-11-04 10:26] LABS: TSH (Thyroid Stimulating Horm) 1.15 mcIU/mL (0.34-5.60)
[2019-11-04] MEDS ORDERED: Nitroglycerin TAB 0.4 MG* 0.4 MG TAB SL ONE (11:37)
[2019-11-04] MEDS ORDERED: HYDROcodone/ACETAMIN 5-325 MG* 1 TAB PO ONE (11:57)
[2019-11-04 13:30] VITALS: BP 113/71
== END 2019-11-04 13:30 | disposition home or self-care (01) ==
LOC: ED 08:58
DX: R07.89 Other chest pain (principal); I11.0 Hypertensive heart disease with heart failure; I50.20 Unspecified systolic (congestive) heart failure; K21.9 Gastro-esophageal reflux disease without esophagitis; F03.90 Unspecified dementia, unspecified severity, without behavioral disturbance, psychotic disturbance, mood disturbance, and anxiety; Z98.51 Tubal ligation status; Z79.899 Other long term (current) drug therapy
CPT/HCPCS: 36415; 71045; 80053; 81003; 81015; 82550; 82553; 83605; 83735; 83880; 84443; 84484; 85025; 85610; 85730; 87086; 93005; 99284; A9270-GY

== ENCOUNTER 2019-11-09 15:26 | Emergency (ER) | payer MEDICARE ==
[2019-11-09] MEDS ORDERED: Nitroglycerin TAB 0.4 MG* 0.4 MG TAB SL ONE (16:08)
[2019-11-09] MEDS ORDERED: Aspirin 81 mg CHEW TAB* 81 MG TAB.CHEW PO ONE (16:08)
[2019-11-09 16:33] LABS: ABS Basophils 0.1 10^3/ul (0-0.2); ABS Eosinophils 0.1 10^3/ul (0-0.6); ABS Lymphocytes 1.8 10^3/ul (1.0-4.8); ABS Monocytes 0.4 10^3/ul (0-0.8); ABS Neutrophils 2.6 10^3/ul (1.5-7.7); Eosinophil % 2.5 %; Hematocrit 36 % (35-47); Lymphocyte % 36.1 %; Mean Corpuscular HGB Conc 33 g/dL (31-36); Mean Corpuscular Hemoglobin 29 pg (27-31); Mean Corpuscular Volume 87 fL (80-97); Mean Platelet Volume 7.1 fL (7.4-10.4); Platelet Count 249 10^3/uL (150-450); Red Cell Distribution Width 15 % (10-15); White Blood Count 5.1 10^3/uL (3.5-10.8)
--- NOTE | 2019-11-09 16:54 | ED ---
Complex/Multi-Sys Presentation - HPI Summary HPI Summary: 78 year old F presenting to [facility] accompanied by EMS complains of CP, general body aches, and confusion today. Pt came to [facility] for CP with a negative cardiac workup 2 days prior. The pt reports CP, SOB, nausea, diaphoresis, feeling near syncope, and a numbness that runs down her left arm. Denies current pain or edema in the legs. Hx of cardiac Dz, HTN, cardiomyopathy and dementia where she is confused at baseline. No Hx of IL. No FMHx of heart Dz. Pt reports normally taking ASA at home and doesn't take NTG. Denies smoking. The patient rated the pain 10/10 in severity. Symptoms aggravated by nothing. Symptoms alleviated by nothing. Medications reviewed and allergies noted. - History Of Current Complaint Chief Complaint: EDChestWallPain Time Seen by Provider: 11/09/19 16:02 Hx Obtained From: Patient Onset/Duration: Sudden Onset, Lasting Days, Still Present Timing: Days Severity Currently: Severe Aggravating Factor(s): nothing Alleviating Factor(s): nothing Associated Signs And Symptoms: Positive: SOB, Chest Pain, Nausea, Diaphoresis, Other - numbness runs down left arm, feeling near syncope, general body aches, confusion. Negative: Edema - no edema - Allergies/Home Medications Allergies/Adverse Reactions: Allergies Allergy/AdvReac Type Severity Reaction Status Date / Time No Known Allergies Allergy Verified 01/18/19 10:48 Home Medications: Home Medications Metoprolol Succinate XL TAB* [Toprol XL TAB*] 12.5 mg PO BID 11/09/19 [History Confirmed 11/09/19] Pantoprazole TAB * [Protonix TAB*] 40 mg PO DAILY 11/09/19 [History Confirmed ] PMH/Surg Hx/FS Hx/Imm Hx Endocrine/Hematology History: Reports: Other Endocrine/Hematological Disorders - thyroid nodule Denies: Hx Diabetes, Hx Anemia Cardiovascular History: Reports: Hx Angina, Hx Hypertension - on meds, Other Cardiovascular Problems/Disorders - valve repair Denies: Hx Hypercholesterolemia, Hx Pacemaker/ICD, Hx Peripheral Vascular Disease Respiratory History: Denies: Hx Chronic Obstructive Pulmonary Disease (COPD) GI History: Reports: Hx Diverticulosis, Hx Gastroesophageal Reflux Disease, Hx Ulcer Denies: Hx Jaundice History: Denies: Hx Renal Disease Sensory History: Reports: Hx Cataracts Denies: Hx Contacts or Glasses, Hx Hearing Aid Opthamlomology History: Reports: Hx Cataracts Denies: Hx Contacts or Glasses Neurological History: Reports: Hx Dementia, Hx Headaches, Other Neuro Impairments/Disorders - repeated head injuries Denies: Hx CVA, Hx Seizures Psychiatric History: Denies: Hx Anxiety, Hx Panic Disorder - Surgical History Surgical History: Yes Surgery Procedure, Year, and Place: left breast lumpectomy,. tubal ligation,. varicose vein stripping,. cardiac - leaky valve repair; HEART CATH WITH CARDIAC STENTS 10 YRS OR MORE, Hx Anesthesia Reactions: No - Immunization History Date of Tetanus Vaccine: up to date Date of Influenza Vaccine: 2016 Immunizations Up to Date: Yes Infectious Disease History: No Infectious Disease History: Reports: Hx Shingles - at age 14 Denies: History Other Infectious Disease, Traveled Outside the [place] in Last 30 Days - Family History Known Family History: Negative: Cardiac Disease, Hypertension, Diabetes Family History: Denies FHx colon CA - Social History Alcohol Use: None Hx Substance Use: No Substance Use Type: Reports: None Hx Tobacco Use: No Smoking Status (MU): Never Smoked Tobacco Review of Systems Positive: Skin Diaphoresis Positive: Chest Pain Positive: Shortness Of Breath Positive: Nausea Positive: Myalgia - general body aches. Negative: Edema - no edema in legs Neurological: Other - feeling near syncope, confusion Positive: Numbness - runs down left arm All Other Systems Reviewed And Are Negative: Yes Physical Exam - Summary Physical Exam Summary: Constitutional: Well-developed, Well-nourished, Alert. (-) Distressed Skin: Warm, Dry HENT: Normocephalic; Atraumatic Eyes: Conjunctiva normal Neck: Musculoskeletal ROM normal neck. (-) JVD, (-) Stridor, (-) Tracheal deviation Cardio: Rhythm regular, rate normal, Heart sounds normal; Intact distal pulses; Radial pulses are 2+ and symmetric. (-) Murmur Pulmonary/Chest wall: Effort normal. (-) Respiratory distress, (-) Wheezes, (-) Rales Abd: Soft, (-) tenderness, (-) Distension, (-) Guarding, (-) Rebound Musculoskeletal: (-) Edema Lymph: (-) Cervical adenopathy Neuro: Alert, Oriented x3 Psych: Mood and affect Normal Triage Information Reviewed: Yes Vital Signs On Initial Exam: Initial Vitals Temp Pulse Resp BP Pulse Ox 97.4 F 77 18 127/86 98 11/09/19 16:10 11/09/19 16:10 11/09/19 16:10 11/09/19 16:10 11/09/19 16:10 Vital Signs Reviewed: Yes Procedures - Sedation Patient Received Moderate/Deep Sedation with Procedure: No Diagnostics - Vital Signs Vital Signs Temp Pulse Resp BP Pulse Ox 11/09/19 16:10 97.4 F 77 18 127/86 98 - Laboratory Lab Results: Lab Results 11/09/19 Range/Units 16:15 WBC 5.1 (3.5-10.8) 10^3/uL RBC 4.20 (3.70-4.87) 10^6 /uL Hgb 12.0 (12.0-16.0) g/dL Hct 36 (35-47) % MCV 87 (80-97) fL MCH 29 (27-31) pg MCHC 33 (31-36) g/dL RDW 15 (10-15) % Plt Count 249 (150-450) 10^3/uL MPV 7.1 L (7.4-10.4) fL Neut % (Auto) 52.1 % Lymph % (Auto) 36.1 % [place] % (Auto) 8.2 % Eos % (Auto) 2.5 % Baso % (Auto) 1.1 % Absolute Neuts (auto) 2.6 (1.5-7.7) 10^3/ul Absolute Lymphs (auto) 1.8 (1.0-4.8) 10^3/ul Absolute Monos (auto) 0.4 (0-0.8) 10^3/ul Absolute Eos (auto) 0.1 (0-0.6) 10^3/ul Absolute Basos (auto) 0.1 (0-0.2) 10^3/ul Absolute Nucleated RBC 0.0 10^3/ul Nucleated RBC % 0.0 Result Diagrams: 11/09/19 16:15 11/09/19 16:15 Lab Statement: Any lab studies that have been ordered have been reviewed, and results considered in the medical decision making process. - Radiology CXR Radiology Interpretation Completed By: Radiologist Summary of Radiographic Findings: IMPRESSION: No radiographic evidence of acute cardiopulmonary disease. LEONA burden has reviewed this report. - EKG 16:43 Cardiac Rate: NL - 68 bpm EKG Rhythm: Sinus Rhythm Summary of EKG Findings: Rate of 68 bpm. Sinus rhythm. RSR' in lead III and aVF. ED physician has reviewed and interpreted this EKG. Re-Evaluation - Re-Evaluation First Eval Re-Evaluation Time: 17:44 Change: Worse Comment: Patient ambulated to the bathroom with nurse with no issues. Complex Multi-Symp Course/Dx Course Of Treatment: Patient is here with chest pain. Patient was seen here earlier this week with similar symptoms. At that time, patient had negative serial troponins and a negative CTA. Patient is overall well-appearing upon arrival. Patient had an EKG which showed no changes from prior. Patient had negative serial troponins. Patient had a stress test in March which was negative for any ischemic changes. I do not think this represents ACS. Patient was given cardiology follow-up. - Diagnoses Provider Diagnoses: Chest pain Discharge ED - Sign-Out/Discharge Documenting (check all that apply): Patient Departure - discharge - Discharge Plan Condition: Stable Disposition: HOME Patient Education Materials: Chest Pain (ED) Referrals: Miguel Angel Murphy MD [Primary Care Provider] - 3 Days Additional Instructions: PLEASE RETURN TO EMERGENCY DEPARTMENT FOR ANY NEW OR WORSENING SYMPTOMS such as severe chest pain, trouble breathing, and any other concerning symptoms. Please follow up with your primary care physician in the next 3 days. - Billing Disposition and Condition Condition: STABLE Disposition: Home - Attestation Statements Document Initiated by Tulio: Yes Documenting Scribe: Naye Lincoln Provider For Whom Tulio is Documenting (Include Credential): Dr. Modesto Sandoval MD Scribe Attestation: Naye Moreno, scribed for Dr. Modesto Sandoval MD on 11/09/19 at 2110. Scribe Documentation Reviewed: Yes Provider Attestation: The documentation as recorded by the Naye calvillo accurately reflects the service I personally performed and the decisions made by me, Dr. Modesto Sandoval MD Status of Scribe Document: Viewed
[2019-11-09 17:01] LABS: Albumin 3.9 g/dL (3.2-5.2); Albumin/Globulin Ratio 1.3 (1-3); Calcium 8.9 mg/dL (8.6-10.3); EGFR African American 70.6 (>60); EGFR Non-African American 58.3 (>60); Globulin 3.1 g/dL (2-4); Potassium 3.9 mmol/L (3.5-5.0); Total Bilirubin 0.2 mg/dL (0.2-1.0)
[2019-11-09 18:17] LABS: Influenza A Molecular NEGATIVE (Negative); Influenza B Molecular NEGATIVE (Negative)
[2019-11-09 20:24] VITALS: BP 149/79
== END 2019-11-09 20:10 | disposition home or self-care (01) ==
LOC: ED 15:26
DX: R07.9 Chest pain, unspecified (principal); K21.9 Gastro-esophageal reflux disease without esophagitis; I10 Essential (primary) hypertension; F03.90 Unspecified dementia, unspecified severity, without behavioral disturbance, psychotic disturbance, mood disturbance, and anxiety; Z79.82 Long term (current) use of aspirin; I42.9 Cardiomyopathy, unspecified; R06.02 Shortness of breath; R11.0 Nausea; R20.0 Anesthesia of skin
CPT/HCPCS: 36415; 71046; 80053; 83880; 84484; 85025; 93005; 99282; A9270-GY

== ENCOUNTER 2021-07-06 19:26 | Observation (INO) ==
[2021-07-06 20:32] LABS: ABS Eosinophils 0.2 10^3/ul (0-0.6); ABS Lymphocytes 1.6 10^3/ul (1.0-4.8); ABS Monocytes 0.4 10^3/ul (0-0.8); Eosinophil % 5.5 %; Hematocrit 34 % (35-47); Hemoglobin 11.4 g/dL (12.0-16.0); Lymphocyte % 37.4 %; Mean Corpuscular HGB Conc 33 g/dL (31-36); Mean Corpuscular Hemoglobin 30 pg (27-31); Mean Corpuscular Volume 89 fL (80-97); Platelet Count 226 10^3/uL (150-450); Red Blood Count 3.85 10^6 /uL (3.70-4.87); Red Cell Distribution Width 14 % (10-15); White Blood Count 4.3 10^3/uL (3.5-10.8)
[2021-07-06 20:54] LABS: Albumin 3.9 g/dL (3.2-5.2); Albumin/Globulin Ratio 1.4 (1-3); Calcium 8.7 mg/dL (8.6-10.3); EGFR African American 65.3 (>60); Globulin 2.7 g/dL (2-4); Potassium 4.1 mmol/L (3.5-5.0); Total Bilirubin 0.3 mg/dL (0.2-1.0); Total Protein 6.6 g/dL (6.4-8.9)
[2021-07-07] MEDS: Enoxaparin 40 MG/0.4 ML SYR SUBCUT SCH (02:38)
[2021-07-07] MEDS: Memantine XR 7 mg CAP PO SCH (08:06)
[2021-07-07] MEDS: DULoxetine DR 60 mg CAP PO SCH (08:07)
[2021-07-07] MEDS ORDERED: Morphine 2 MG/ML SYRINGE IV ONE (10:46)
[2021-07-07] MEDS ORDERED: Calcium Carb (TUMS) 500 mg CHEW TAB PO PRN (11:04)
[2021-07-08] MEDS: Enoxaparin 40 MG/0.4 ML SYR SUBCUT SCH (08:53)
[2021-07-08] MEDS: DULoxetine DR 60 mg CAP PO SCH (08:54)
[2021-07-08] MEDS: Memantine XR 7 mg CAP PO SCH (08:55)
[2021-07-08 15:48] VITALS: BP 112/66
== END 2021-07-08 18:00 ==
LOC: MEDTELE 19:26 → ED 19:26 → MEDTELE 07-07 10:25
PROVIDERS: ADMIT Internal Medicine; ATTEND Student in an Organized Health Care Education/Training Program

== ENCOUNTER 2023-02-20 18:26 | Inpatient (IN) ==
[2023-02-20] MEDS ORDERED: Iodixanol (CONTRAST) 320 MG/ML 100 ML SDV IV ONE (18:53)
[2023-02-20 19:03] LABS: ABS Eosinophils 0.2 10^3/ul (0-0.6); ABS Lymphocytes 1.5 10^3/ul (1.0-4.8); ABS Monocytes 0.3 10^3/ul (0-0.8); ABS Neutrophils 2.3 10^3/ul (1.5-7.7); Eosinophil % 3.6 %; Hematocrit 32 % (35-47); Hemoglobin 10.3 g/dL (12.0-16.0); Lymphocyte % 33.8 %; Mean Corpuscular Hemoglobin 28 pg (27-31); Mean Corpuscular Hgb Conc 33 g/dL (31-36); Mean Corpuscular Volume 86 fL (80-97); Mean Platelet Volume 7.2 fL (7.4-10.4); Platelet Count 216 10^3/uL (150-450); Red Blood Count 3.66 10^6 /uL (3.70-4.87); Red Cell Distribution Width 15 % (10-15); White Blood Count 4.3 10^3/uL (3.5-10.8)
[2023-02-20 19:12] LABS: INR 1.15 (0.88-1.18)
[2023-02-20 19:40] LABS: Albumin 3.4 g/dL (3.2-5.2); Albumin/Globulin Ratio 1.5 (1-3); Creatinine, Serum 1.2 mg/dL (0.51-0.95); Globulin 2.3 g/dL (2-4); HDL Cholesterol 52.3 mg/dL; Potassium 3.8 mmol/L (3.5-5.0); Total Bilirubin 0.3 mg/dL (0.2-1.0); Total Protein 5.7 g/dL (6.4-8.9); eGFR CKD-EPI 45.2 (>60)
[2023-02-20] MEDS ORDERED: NS 0.9% 1000 ml BAG 1,000 ML IV ONE ×2 (20:08→20:09)
[2023-02-20] MEDS: Enoxaparin 40 MG/0.4 ML SYR SUBCUT SCH (22:41)
[2023-02-20 22:44] LABS: Urine Appearance Clear; Urine Bilirubin Negative (Negative); Urine Blood Negative (Negative); Urine Color Yellow; Urine Glucose Negative (Negative); Urine Ketones Negative (Negative); Urine Nitrite Negative (Negative); Urine Protein Negative (Negative); Urine Specific Gravity 1.057 (1.002-1.030); Urine Urobilinogen Negative (Negative)
[2023-02-20] MEDS ORDERED: Lactated Ringers 1000 ml BAG 1,000 ML IV SCH (23:00)
[2023-02-21] MEDS: Polyethylene Glycol 3350 17 GM PACKET PO SCH (10:51)
[2023-02-21] MEDS: Memantine XR 7 mg CAP PO SCH (10:52)
[2023-02-21] MEDS: DULoxetine DR 60 mg CAP PO SCH (10:52)
[2023-02-21] MEDS: Enoxaparin 40 MG/0.4 ML SYR SUBCUT SCH (23:06)
[2023-02-22 07:13] LABS: ABS Eosinophils 0.2 10^3/ul (0-0.6); ABS Lymphocytes 1.3 10^3/ul (1.0-4.8); ABS Monocytes 0.4 10^3/ul (0-0.8); ABS Neutrophils 1.8 10^3/ul (1.5-7.7); Eosinophil % 6.2 %; Hematocrit 34 % (35-47); Hemoglobin 11.1 g/dL (12.0-16.0); Mean Corpuscular Hemoglobin 28 pg (27-31); Mean Corpuscular Hgb Conc 33 g/dL (31-36); Mean Corpuscular Volume 86 fL (80-97); Mean Platelet Volume 7.1 fL (7.4-10.4); Platelet Count 227 10^3/uL (150-450); Red Blood Count 3.95 10^6 /uL (3.70-4.87); Red Cell Distribution Width 15 % (10-15); White Blood Count 3.8 10^3/uL (3.5-10.8)
[2023-02-22 07:40] LABS: Calcium 8.6 mg/dL (8.6-10.3); Creatinine, Serum 0.97 mg/dL (0.51-0.95); Potassium 4.1 mmol/L (3.5-5.0); eGFR CKD-EPI 58.3 (>60)
[2023-02-22] MEDS: DULoxetine DR 60 mg CAP PO SCH (09:49)
[2023-02-22] MEDS: Polyethylene Glycol 3350 17 GM PACKET PO SCH (09:50)
[2023-02-22] MEDS: Memantine XR 7 mg CAP PO SCH (11:09)
[2023-02-22] MEDS: Enoxaparin 40 MG/0.4 ML SYR SUBCUT SCH (22:03)
[2023-02-23] MEDS: Polyethylene Glycol 3350 17 GM PACKET PO SCH (09:07)
[2023-02-23] MEDS: Memantine XR 7 mg CAP PO SCH (09:07)
[2023-02-23] MEDS: DULoxetine DR 60 mg CAP PO SCH (09:07)
[2023-02-23 16:16] VITALS: BP 104/76
== END 2023-02-23 16:00 | DRG 69 ==
LOC: ED 18:26 → EDHOLD 18:26 → MEDTELE 02-21 13:19 → SUATTDRO 02-22 10:04
PROVIDERS: ADMIT Internal Medicine; ATTEND Hospitalist